=== PATIENT | male | born 1965 | race African-American/Black ===

== ENCOUNTER 2016-10-01 09:07 | Emergency (ER) | payer OTHER ==
--- NOTE | 2016-10-01 09:35 | ED EKG INTERP ---
EKG Interpretation - EKG Time of EKG reading by physician:: 09:12 EKG Read and Signed by:: Francisco Gray EKG Interpretation (*Must complete 3 of following elements*): Abnormal Rate: 83 (possible left atrial enlargement; left axis deviation; left ventricular hypertrophy; nonspecific T wave abnormality ) Rhythm: NSR Attestation - Scribe Verification/Attestation Scribe:: Jaida Palomares Acting as Scribe for:: Francisco Gray Scribe documention review:: This chart was documented by a scribe and accurately reflects the service the provider performed and the decisions made by the provider.
--- NOTE | 2016-10-01 09:45 | PROVIDER DOCUMENTATION ---
HPI-Chest Pain - General Chief Complaint: Chest Pain Stated Complaint: CP,DIZZINESS Time Seen by Provider: 10/01/16 09:23 Source: patient Allergies/Adverse Reactions: Patient Allergies Allergy/AdvReac Type Severity Reaction Status Date / Time No Known Allergies Allergy Verified 10/01/16 09:30 Home Medications: Glipizide [Glipizide Xl] 10 mg PO BID 01/01/16 Carvedilol [Coreg] 12.5 mg PO BID 04/27/16 Sitagliptin Phos/Metformin HCl [Janumet 50-1,000 mg Tablet] 50 - 100 mg PO DAILY 04/27/16 Furosemide [Lasix] 40 mg PO BID 08/15/16 - History of Present Illness-CP Nature of Presenting Problem: 51 y/o BM c/o RIVERA, CP, dizziness x 2 hours. States he is supposed to be sleeping with a CPAP, but has not gone to pick it up yet. States CP is midsternal and started this morning while he was on his way to the bathroom. Denies any radiation. States RIVERA is global and started when he woke up. Denies any N/V, vision changes. States dizziness with standing. He has been taking medications as directed. Was seen by PCP on Tuesday and has another appt on Tuesday. Review of Systems - Adult - REVIEW OF SYSTEMS - ADULT Constitutional: reports: no symptoms reported. denies: chills, fever Eyes: reports: no symptoms reported. denies: blurred vision, double vision Ears, Nose, Mouth & Throat: reports: no symptoms reported. denies: ear pain, sinus problem, nose pain, throat pain Cardiovascular: reports: see HPI, chest pain. denies: palpitations Respiratory: reports: no symptoms reported. denies: cough, dyspnea on exertion , shortness of breath, wheezing Gastrointestinal: reports: no symptoms reported. denies: abdominal pain, nausea , vomiting Genitourinary: reports: no symptoms reported. denies: dysuria, frequency Musculoskeletal: reports: no symptoms reported. denies: joint pain, joint swelling Integumentary: reports: no symptoms reported. denies: nail changes, rash Neurological: reports: see HPI, dizziness/vertigo. denies: numbness, paresthesia, syncope Psychiatric: reports: no symptoms reported Endocrine: reports: no symptoms reported. denies: cold intolerance, heat intolerance Hematologic/Lymphatic: reports: no symptoms reported. denies: easy bruising, prolonged bleeding Allergic/Immunologic: reports: no symptoms reported All Other Systems: Reviewed and Negative Past History - Adult - PAST MEDICAL HISTORY-ADULT Review of Records: reports: Nursing Assessment Review, Medications Reviewed Major Childhood Illnesses: reports: denies history Cardiovascular: reports: CHF, HTN, hyperlipidemia Respiratory: reports: asthma Gastrointestinal: reports: denies history Obstetrical/Gynecological: reports: denies history Genitourinary: reports: denies history Musculoskeletal: reports: denies history Neurological: reports: denies history Endocrine/Immune: reports: Diabetes Other Conditions: reports: denies history - PRIOR SURGERIES/PROCEDURES Surgical/Procedure History: reports: cardiac stent, orthopedic (extremity) ( right ankle) - IMMUNIZATION STATUS Childhood Immunizations: See Nurse Assessment Flu Vaccine: See Nurse Assessment - FAMILY HISTORY Family History: diabetes - SOCIAL HISTORY Smoking: quit less than 1 year Physical Exam-General - PHYSICAL EXAM-ADULT Initial Vital Signs Reviewed: Yes - CONSTITUTIONAL General Appearance: alert, mild distress - EYES Eyes: PERRL/EOMI, pink conjunctivae. negative: EOM palsy - HEAD, EARS, NOSE, MOUTH & THROAT HENMT: normocephalic/atraumatic, moist mucous membranes. negative: hearing deficit, frontal tenderness, maxillary tenderness - NECK Neck: supple, normal inspection. negative: lymphadenopathy - RESPIRATORY Respiratory: chest non-tender, lungs clear, normal breath sounds. negative: crackles, rales, rhonchi, stridor, wheezing - CARDIOVASCULAR Cardiovascular: regular rate, rhythm. negative: bradycardia, tachycardia - GASTROINTESTINAL (ABDOMEN) Abdominal Exam: normal bowel sounds, non tender, soft. negative: distended, guarding, rigid, rebound - MUSCULOSKELETAL Extremity: normal gait. 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 negative: aphasia - PSYCHIATRIC Psych/Mental Status: normal mood/affect, normal thought content, normal thought process, oriented x 3 Progress - PLAN OF CARE/RESULTS Progress/Plan/Lab Results: Laboratory Tests 10/01/16 10/01/16 10/01/16 09:37 09:37 09:37 WBC 4.80 RBC 5.58 Hgb 15.2 Hct 47.1 MCV 84.4 MCH 27.2 MCHC 32.3 L RDW Std Deviation 12.8 Plt Count 168 MPV 12.0 H Immature Gran % (Auto) 0.0 Neut % (Auto) 45.2 Lymph % (Auto) 39.2 Morrison % (Auto) 12.1 H Eos % (Auto) 2.9 Baso % (Auto) 0.6 Immature Gran # (Auto) 0.00 Neut # (Auto) 2.17 Lymph # (Auto) 1.88 Morrison # (Auto) 0.58 Eos # (Auto) 0.14 Baso # (Auto) 0.03 PT INR PTT (Actin FS) D-Dimer 0.81 H Sodium 132 L Potassium 4.7 Chloride 95 L Carbon Dioxide 28 Anion Gap 9 BUN 18 Creatinine 0.9 Estimated GFR/1.73 m2 > 60 BUN/Creatinine Ratio 20 Glucose 305 H Calculated Osmolality 278 Calcium 9.3 Magnesium 1.3 L Total Bilirubin 0.41 AST 20 ALT 23 Alkaline Phosphatase 78 Creatine Kinase 101 Troponin T Qlf-H-Jjiyzgtjtgb Pept Total Protein 6.7 Albumin 3.0 L Globulin 3.7 Albumin/Globulin Ratio 0.8 10/01/16 10/01/16 10/01/16 09:37 09:37 09:37 WBC RBC Hgb Hct MCV MCH MCHC RDW Std Deviation Plt Count MPV Immature Gran % (Auto) Neut % (Auto) Lymph % (Auto) Morrison % (Auto) Eos % (Auto) Baso % (Auto) Immature Gran # (Auto) Neut # (Auto) Lymph # (Auto) Morrison # (Auto) Eos # (Auto) Baso # (Auto) PT 10.7 INR 1.01 PTT (Actin FS) 24.0 D-Dimer Sodium Potassium Chloride Carbon Dioxide Anion Gap BUN Creatinine Estimated GFR/1.73 m2 BUN/Creatinine Ratio Glucose Calculated Osmolality Calcium Magnesium Total Bilirubin AST ALT Alkaline Phosphatase Creatine Kinase Troponin T 0.023 Klt-D-Hldggzlbwez Pept 368 H Total Protein Albumin Globulin Albumin/Globulin Ratio 10/01/16 10/01/16 11:27 11:27 WBC RBC Hgb Hct MCV MCH MCHC RDW Std Deviation Plt Count MPV Immature Gran % (Auto) Neut % (Auto) Lymph % (Auto) Morrison % (Auto) Eos % (Auto) Baso % (Auto) Immature Gran # (Auto) Neut # (Auto) Lymph # (Auto) Morrison # (Auto) Eos # (Auto) Baso # (Auto) PT INR PTT (Actin FS) D-Dimer Sodium Potassium Chloride Carbon Dioxide Anion Gap BUN Creatinine Estimated GFR/1.73 m2 BUN/Creatinine Ratio Glucose Calculated Osmolality Calcium Magnesium Total Bilirubin AST ALT Alkaline Phosphatase Creatine Kinase 105 Troponin T 0.014 Wli-Y-Wlqkjxmfagi Pept Total Protein Albumin Globulin Albumin/Globulin Ratio Orders Category Date Time Status Cardiac Monitoring DIRECTED Care 10/01/16 09:28 Active CHEST-2 VIEWS [RAD] Stat Exams 10/01/16 09:28 Completed CBC WITH ELECTRONIC DIFF [HEME] Stat Lab 10/01/16 09:37 Completed CK PROFILE [SP CHEM] Stat Lab 10/01/16 09:37 Completed CK PROFILE [SP CHEM] Stat Lab 10/01/16 11:27 Completed COMPREHENSIVE METABOLIC PANEL [CHEM] Stat Lab 10/01/16 09:37 Completed D-DIMER [CHEM] Stat Lab 10/01/16 09:37 Completed MAGNESIUM [CHEM] Stat Lab 10/01/16 09:37 Completed PRO B-NATRIURETIC PEPTIDE Stat Lab 10/01/16 09:37 Completed PROTIME WITH INR [COAG] Stat Lab 10/01/16 09:37 Completed PTT [COAG] Stat Lab 10/01/16 09:37 Completed TROPONIN T Stat Lab 10/01/16 09:37 Completed TROPONIN T Stat Lab 10/01/16 11:27 Completed Acetaminophen [Tylenol] Med 10/01/16 10:45 Discontinued 1,000 mg PO NOW ONE Insulin Human Regular [Humulin R] Med 10/01/16 11:14 Discontinued 8 unit SUBQ NOW ONE Ondansetron Odt [Zofran Odt] Med 10/01/16 10:45 Discontinued 4 mg PO NOW ONE EKG [EKG] Stat Ther 10/01/16 11:15 Ordered Vital Signs Temp Pulse Resp BP Pulse Ox 10/01/16 12:14 85 20 98 10/01/16 09:09 98.4 F 83 18 129/90 97 No Known Allergies Allergy (Verified 10/01/16 09:30) Glipizide [Glipizide Xl] 10 mg PO BID 01/01/16 Carvedilol [Coreg] 12.5 mg PO BID 04/27/16 Sitagliptin Phos/Metformin HCl [Janumet 50-1,000 mg Tablet] 50 - 100 mg PO DAILY 04/27/16 Furosemide [Lasix] 40 mg PO BID 08/15/16 LISINOpril [Prinivil] 10 mg PO DAILY #30 tablet 08/19/16 Spironolactone [Aldactone] 25 mg PO DAILY #30 tablet 08/19/16 Sitagliptin Phos/Metformin HCl [Janumet 50-1,000 mg Tablet] 1 each PO DAILY #30 tablet 08/28/16 Laboratory 10/01/16 10/01/16 10/01/16 11:27 11:27 09:37 WBC RBC Hgb Hct MCV MCH MCHC RDW Std Deviation Plt Count MPV Immature Gran % (Auto) Neut % (Auto) Lymph % (Auto) Morrison % (Auto) Eos % (Auto) Baso % (Auto) Immature Gran # (Auto) Neut # (Auto) Lymph # (Auto) Morrison # (Auto) Eos # (Auto) Baso # (Auto) PT INR PTT (Actin FS) D-Dimer Sodium Potassium Chloride Carbon Dioxide Anion Gap BUN Creatinine Estimated GFR/1.73 m2 BUN/Creatinine Ratio Glucose Calculated Osmolality Calcium Magnesium Total Bilirubin AST ALT Alkaline Phosphatase Creatine Kinase 105 Troponin T 0.014 0.023 Lnq-K-Etjdzmnmegd Pept Total Protein Albumin Globulin Albumin/Globulin Ratio 10/01/16 10/01/16 10/01/16 09:37 09:37 09:37 WBC RBC Hgb Hct MCV MCH MCHC RDW Std Deviation Plt Count MPV Immature Gran % (Auto) Neut % (Auto) Lymph % (Auto) Morrison % (Auto) Eos % (Auto) Baso % (Auto) Immature Gran # (Auto) Neut # (Auto) Lymph # (Auto) Morrison # (Auto) Eos # (Auto) Baso # (Auto) PT 10.7 INR 1.01 PTT (Actin FS) 24.0 D-Dimer 0.81 H Sodium Potassium Chloride Carbon Dioxide Anion Gap BUN Creatinine Estimated GFR/1.73 m2 BUN/Creatinine Ratio Glucose Calculated Osmolality Calcium Magnesium Total Bilirubin AST ALT Alkaline Phosphatase Creatine Kinase Troponin T Lbu-M-Hqlhwyjyewj Pept 368 H Total Protein Albumin Globulin Albumin/Globulin Ratio 10/01/16 10/01/16 09:37 09:37 WBC 4.80 RBC 5.58 Hgb 15.2 Hct 47.1 MCV 84.4 MCH 27.2 MCHC 32.3 L RDW Std Deviation 12.8 Plt Count 168 MPV 12.0 H Immature Gran % (Auto) 0.0 Neut % (Auto) 45.2 Lymph % (Auto) 39.2 Morrison % (Auto) 12.1 H Eos % (Auto) 2.9 Baso % (Auto) 0.6 Immature Gran # (Auto) 0.00 Neut # (Auto) 2.17 Lymph # (Auto) 1.88 Morrison # (Auto) 0.58 Eos # (Auto) 0.14 Baso # (Auto) 0.03 PT INR PTT (Actin FS) D-Dimer Sodium 132 L Potassium 4.7 Chloride 95 L Carbon Dioxide 28 Anion Gap 9 BUN 18 Creatinine 0.9 Estimated GFR/1.73 m2 > 60 BUN/Creatinine Ratio 20 Glucose 305 H Calculated Osmolality 278 Calcium 9.3 Magnesium 1.3 L Total Bilirubin 0.41 AST 20 ALT 23 Alkaline Phosphatase 78 Creatine Kinase 101 Troponin T Qgs-E-Cqnenagayrc Pept Total Protein 6.7 Albumin 3.0 L Globulin 3.7 Albumin/Globulin Ratio 0.[address] Gray; she agreed with d/c plan after reviewing labs and CXR. Discussed f/u and importance of getting CPAP machine with pt. - XRAY 1 XRAY Study: Chest Impression: See EMR Report (cmg, per Dr. Tavarez) Comparison with other Films: no changes Departure - Departure Time of Disposition Order: 13:04 DIAGNOSIS: Cardiomegaly, Hyperglycemia CHF (congestive heart failure) Qualifiers: Congestive heart failure type: unspecified congestive heart failure type Congestive heart failure chronicity: unspecified congestive heart failure chronicity Qualified Code(s): I50.9 - Heart failure, unspecified Chest pain Qualifiers: Chest pain type: unspecified Qualified Code(s): R07.9 - Chest pain, unspecified Headache Qualifiers: Headache type: unspecified Headache chronicity pattern: acute headache Intractability: not intractable Qualified Code(s): R51 - Headache Disposition: HOME 01 Certified Medical Emergency: Emergent Condition: Stable Additional Instructions: Follow up with PCP and specialist for further management. Continue taking medications as directed. ED Follow Up Instructions: You have been treated by a care provider in the Emergency Department. These instructions are being provided to you so you can have an understanding of how to care for yourself upon discharge. Upon discharge from the Emergency Department, you are responsible for making arrangements for follow-up care by a physician of your choice. Take all prescribed medications as directed. Return to the Emergency Department immediately for any new or worsening symptoms. You may call the Physician Referral phone number at [phone] to obtain a list of Physicians who are taking new patients. Referrals: [Primary Care Provider] - Misael Flowers MD [STAFF PHYSICIAN] - Instructions: Migraine Headache, Ujgx-yz-Kaag Attestation - Physician/ Mid-level Attestation Patient care was provided by Mid-level provider (CIRCULATION CLERK/PA):: Yes Mid-level provider:: Cynthia Zhang Mid-level documentation review:: The Mid-level provider documentation, treatment plan and medical decision making was reviewed by the physician who agrees with all treatment and medical decision making by the MLP.
[2016-10-01 09:48] LABS: MANUAL DIFF NEEDED? NO
[2016-10-01 09:53] LABS: BASO% 0.6 % (0.0-0.8); EOS# 0.14 X1000 (0.0-0.7); EOS% 2.9 % (0.0-10.0); HEMATOCRIT 47.1 % (42.0-52.0); HEMOGLOBIN 15.2 g/dL (14.0-18.0); LYMPH# 1.88 X1000 (1.2-3.4); LYMPH% 39.2 % (20.5-51.1); MCH 27.2 PG (27-31); MCHC 32.3 g/dL (33-37); MCV 84.4 FL (81-99); MONO# 0.58 X1000 (0.11-0.59); MONO% 12.1 % (1.7-9.3); NEUT% 45.2 % (42.2-75.2); PLT 168 X1000 (130-400); RBC 5.58 XMIL (4.7-6.1)
[2016-10-01 10:12] LABS: AGAP 9; ALKALINE PHOSPHATASE 78 U/L (32-122); BUN 18 mg/dL (8-22); CALCIUM 9.3 mg/dL (8.8-10.2); CHLORIDE 95 mmol/L (98-107); CK PROFILE 101 U/L (24-204); COSMO 278; GOT 20 U/L (10-34); GPT 23 U/L (10-44); MAGNESIUM 1.3 mg/dL (1.5-2.7); POTASSIUM 4.7 mmol/L (3.5-5.1); SODIUM 132 mmol/L (136-145); TCO2 28 mmol/L (25-35); TOTAL BILIRUBIN 0.41 mg/dL (0.20-1.00); TOTAL PROTEIN 6.7 g/dL (6.3-8.3)
[2016-10-01 10:17] LABS: INR 1.01; PROTIME 10.7 Seconds (9.2-11.7)
[2016-10-01] MEDS ORDERED: ZOFRAN ODT PO ONE (10:45)
[2016-10-01] MEDS ORDERED: TYLENOL PO ONE (10:45)
--- NOTE | 2016-10-01 10:52 | Diag Imaging Result Document ---
PROCEDURE NAME: CHEST-2 VIEWS - 10/01/2016 TWO VIEWS OF THE CHEST: FINDINGS: There is cardiomegaly. The lungs appear to be clear and unchanged since 09/25/2016. IMPRESSION: Cardiomegaly.
[2016-10-01] MEDS ORDERED: HUMULIN R SUBQ ONE (11:14)
[2016-10-01 13:20] VITALS: BP 120/88
--- NOTE | 2016-10-01 13:26 | EKG Report ---
Test Performed on : 10/01/2016 11:36:36 AM Test Reason : CP Blood Pressure : / mmHG Vent. Rate : 085 BPM Atrial Rate : 085 BPM P-R Int : 192 ms QRS Dur : 096 ms QT Int : 392 ms P-R-T Axes : 042 -44 140 degrees QTc Int : 466 ms Normal sinus rhythm. Possible Left atrial enlargement Left axis deviation T wave abnormality, consider inferolateral ischemia Abnormal ECG When compared with ECG of 01-OCT-2016 09:12, (Unconfirmed) T wave inversion now evident in Inferior leads Unconfirmed Result
== END 2016-10-01 13:20 | disposition home or self-care (01) ==
LOC: ED 09:07
DX: I50.9 Heart failure, unspecified (principal); I51.7 Cardiomegaly; E11.65 Type 2 diabetes mellitus with hyperglycemia; R07.9 Chest pain, unspecified; R51 Headache; I10 Essential (primary) hypertension; E78.5 Hyperlipidemia, unspecified; R42 Dizziness and giddiness; Z79.899 Other long term (current) drug therapy; Z87.891 Personal history of nicotine dependence; Z95.5 Presence of coronary angioplasty implant and graft; Z83.3 Family history of diabetes mellitus
CPT/HCPCS: 71020; 80053; 82550; 82948; 83735; 83880; 84484; 85025; 85379; 85610; 85730; 93005; 99283

== ENCOUNTER 2016-10-05 12:19 | Emergency (ER) | payer OTHER ==
[2016-10-05 14:24] VITALS: BP 119/90
--- NOTE | 2016-10-05 14:50 | PROVIDER DOCUMENTATION ---
HPI-General Adult - General Source: patient - History of Present Illness -Gen Adult Nature of Presenting Problems: Reports was at pharmacy checked his BS and it was over 300 Reports could not afford his insulin states came to ER and as he was walking over here the cold got his arthrits hurting. Quality of Pain: reports: aching Severity: reports: mild Onset/Duration: reports: just prior to arrival Timing: reports: still present Similar Symptoms Previously?: Yes Recently seen or treated by another doctor?: No - Diabetes Related Context Context: reports: high blood sugar <Leandro Crooks - Last Filed: 10/05/16 14:44> <Leoncio Burrows - Last Filed: 10/05/16 15:12> - General Chief Complaint: General Adult Stated Complaint: ELEVATED BLOOD SUGAR Time Seen by Provider: 10/05/16 14:27 Allergies/Adverse Reactions: Patient Allergies Allergy/AdvReac Type Severity Reaction Status Date / Time No Known Allergies Allergy Verified 10/05/16 14:39 Home Medications: Glipizide [Glipizide Xl] 10 mg PO BID 01/01/16 Carvedilol [Coreg] 12.5 mg PO BID 04/27/16 Sitagliptin Phos/Metformin HCl [Janumet 50-1,000 mg Tablet] 50 - 100 mg PO DAILY 04/27/16 Furosemide [Lasix] 40 mg PO BID 08/15/16 Review of Systems - Adult - REVIEW OF SYSTEMS - ADULT Constitutional: reports: other (hyperglycemia). denies: chills, fever, fatique Eyes: reports: no symptoms reported Ears, Nose, Mouth & Throat: reports: no symptoms reported Cardiovascular: denies: chest pain, irregular heart rate, orthopnea Respiratory: reports: no symptoms reported Gastrointestinal: reports: no symptoms reported Genitourinary: reports: no symptoms reported Musculoskeletal: reports: see HPI, joint pain. denies: frequent leg cramps, joint swelling, muscle weakness, neck pain Integumentary: reports: no symptoms reported Neurological: reports: no symptoms reported Psychiatric: reports: no symptoms reported Endocrine: reports: no symptoms reported Hematologic/Lymphatic: reports: no symptoms reported Allergic/Immunologic: reports: no symptoms reported All Other Systems: Reviewed and Negative <Leandro Crooks - Last Filed: 10/05/16 14:44> Past History - Adult - PAST MEDICAL HISTORY-ADULT Review of Records: reports: Nursing Assessment Review, Medications Reviewed Major Childhood Illnesses: reports: denies history Cardiovascular: reports: CHF, HTN, hyperlipidemia Respiratory: reports: asthma Gastrointestinal: reports: denies history Obstetrical/Gynecological: reports: denies history Genitourinary: reports: denies history Musculoskeletal: reports: denies history Neurological: reports: denies history Endocrine/Immune: reports: Diabetes Other Conditions: reports: denies history - PRIOR SURGERIES/PROCEDURES Surgical/Procedure History: reports: cardiac stent, orthopedic (extremity) ( right ankle) - IMMUNIZATION STATUS Childhood Immunizations: See Nurse Assessment Flu Vaccine: See Nurse Assessment - FAMILY HISTORY Family History: diabetes - SOCIAL HISTORY Smoking: quit less than 1 year Substance Use: marijuana <Leandro Crooks - Last Filed: 10/05/16 14:44> Physical Exam-General - PHYSICAL EXAM-ADULT Initial Vital Signs Reviewed: Yes - CONSTITUTIONAL General Appearance: appears well, alert, no apparent distress - EYES Eyes: PERRL/EOMI, pink conjunctivae - HEAD, EARS, NOSE, MOUTH & THROAT HENMT: normocephalic/atraumatic, moist mucous membranes, normal ENT inspection - NECK Neck: non-tender, full range of motion, normal inspection - RESPIRATORY Respiratory: chest non-tender, lungs clear, normal breath sounds - CARDIOVASCULAR Cardiovascular: normal peripheral pulses, regular rate, rhythm, no edema - GASTROINTESTINAL (ABDOMEN) Abdominal Exam: normal bowel sounds, non tender, soft - LYMPHATIC Lymphatic: no adenopathy - MUSCULOSKELETAL Back Exam: normal inspection, no CVA tenderness, no vertebral tenderness Extremity: normal range of motion, non-tender, normal gait - SKIN Integumentary: normal color, normal turgor, warm/dry - NEUROLOGIC Neurologic: grossly normal, no motor/sensory deficits - PSYCHIATRIC Psych/Mental Status: normal mood/affect, normal thought content, normal thought process, oriented x 3 <Leandro Crooks - Last Filed: 10/05/16 14:44> Progress - PLAN OF CARE/RESULTS Progress/Plan/Lab Results: Orders Category Date Time Status FSBS/Accucheck Result NOW Care 10/05/16 14:28 Active Vital Signs - 24 hr 10/05/16 14:20 Temperature 97.6 F Pulse Rate 87 Respiratory 16 Rate Blood Pressure 119/90 O2 Sat by Pulse 99 Oximetry <Leandro Crooks - Last Filed: 10/05/16 14:44> - PLAN OF CARE/RESULTS Progress/Plan/Lab Results: Orders Category Date Time Status FSBS/Accucheck Result NOW Care 10/05/16 14:28 Active Vital Signs Temp Pulse Resp BP Pulse Ox 10/05/16 14:20 97.6 F 87 16 119/90 99 No Known Allergies Allergy (Verified 10/05/16 14:39) Glipizide [Glipizide Xl] 10 mg PO BID 01/01/16 Carvedilol [Coreg] 12.5 mg PO BID 04/27/16 Sitagliptin Phos/Metformin HCl [Janumet 50-1,000 mg Tablet] 50 - 100 mg PO DAILY 04/27/16 Furosemide [Lasix] 40 mg PO BID 08/15/16 LISINOpril [Prinivil] 10 mg PO DAILY #30 tablet 08/19/16 Spironolactone [Aldactone] 25 mg PO DAILY #30 tablet 08/19/16 Sitagliptin Phos/Metformin HCl [Janumet 50-1,000 mg Tablet] 1 each PO DAILY #30 tablet 08/28/16 Glucose is 230. Worked c case management to get pt his medication for free. He will go over today and get his prescriptions. <Leoncio Burrows - Last Filed: 10/05/16 15:12> Departure - Departure Time of Disposition Order: 14:49 Certified Medical Emergency: Emergent <CrooksLeandro - Last Filed: 10/05/16 14:44> - Departure Time of Disposition Order: 15:12 Certified Medical Emergency: Urgent <Leoncio Burrows - Last Filed: 10/05/16 15:12> - Departure DIAGNOSIS: Hyperglycemia, Arthritis Disposition: HOME 01 Condition: Stable Additional Instructions: Get your prescriptions filled. Follow up with your primary care provider. ED Follow Up Instructions: You have been treated by a care provider in the Emergency Department. These instructions are being provided to you so you can have an understanding of how to care for yourself upon discharge. Upon discharge from the Emergency Department, you are responsible for making arrangements for follow-up care by a physician of your choice. Take all prescribed medications as directed. Return to the Emergency Department immediately for any new or worsening symptoms. You may call the Physician Referral phone number at [phone] to obtain a list of Physicians who are taking new patients. Referrals: [Primary Care Provider] - Attestation - Scribe Verification/Attestation Scribe:: Leandro Crooks Acting as Scribe for:: Leoncio Burrows Scribe documention review:: This chart was documented by a scribe and accurately reflects the service the provider performed and the decisions made by the provider. <Leandro Crooks - Last Filed: 10/05/16 14:44> - Physician/ Mid-level Attestation Patient care was provided by Mid-level provider (SUPERVISOR FLOOR ASSEMBLY/PA):: Yes Mid-level provider:: Leoncio Burrows Mid-level documentation review:: The Mid-level provider documentation, treatment plan and medical decision making was reviewed by the physician who agrees with all treatment and medical decision making by the MLP. <Leoncio Burrows - Last Filed: 10/05/16 15:12> Physician Attestation
[2016-10-05] MEDS ORDERED: TORADOL IM ONE (15:12)
== END 2016-10-05 15:21 | disposition home or self-care (01) ==
LOC: ED 12:19
DX: E11.65 Type 2 diabetes mellitus with hyperglycemia (principal); M19.90 Unspecified osteoarthritis, unspecified site; I50.9 Heart failure, unspecified; I10 Essential (primary) hypertension; E78.5 Hyperlipidemia, unspecified; Z95.1 Presence of aortocoronary bypass graft; Z79.899 Other long term (current) drug therapy; Z83.3 Family history of diabetes mellitus
CPT/HCPCS: 82948; 96372; J1885

== ENCOUNTER 2016-12-06 14:34 | Emergency (ER) | payer OTHER ==
[2016-12-06 14:43] VITALS: BP 153/94
[2016-12-06] MEDS ORDERED: ASPIRIN PO STA (14:46)
[2016-12-06] MEDS ORDERED: NITROGLYCERIN SL PRN (14:46)
--- NOTE | 2016-12-06 14:57 | ED EKG INTERP ---
EKG Interpretation - EKG Time of EKG reading by physician:: 14:45 EKG Read and Signed by:: Jeronimo Almaraz EKG Interpretation (*Must complete 3 of following elements*): Abnormal Rate: 91 Rhythm: Sinus Rhythm with occasional PVCs [place]: left QRS: LV[facility] ST Wave: non-specific ST changes Attestation - Scribe Verification/Attestation Scribe:: Luis Fernando Calhoun Acting as Scribe for:: Jeronimo Almaraz Scribe documention review:: This chart was documented by a scribe and accurately reflects the service the provider performed and the decisions made by the provider. Physician Attestation - Physician Attestation I, the provider, attest to the following statement:: Jeronimo Almaraz Physician documentation Attestation:: This documentation recorded by the scribe accurately reflects the service I personally performed and the decisions made by me.
[2016-12-06 15:14] LABS: MANUAL DIFF NEEDED? NO
[2016-12-06 15:19] LABS: BASO% 0.5 % (0.0-0.8); EOS# 0.19 X1000 (0.0-0.7); EOS% 3.4 % (0.0-10.0); HEMATOCRIT 44.1 % (42.0-52.0); LYMPH# 2.13 X1000 (1.2-3.4); LYMPH% 37.8 % (20.5-51.1); MCH 27.5 PG (27-31); MCHC 31.7 g/dL (33-37); MCV 86.5 FL (81-99); MONO# 0.69 X1000 (0.11-0.59); MONO% 12.3 % (1.7-9.3); MPV 11.8 FL (7.4-10.4); PLT 174 X1000 (130-400)
[2016-12-06 15:38] LABS: AGAP 10; ALKALINE PHOSPHATASE 77 U/L (32-122); BUN 20 mg/dL (8-22); CALCIUM 9.2 mg/dL (8.8-10.2); CHLORIDE 94 mmol/L (98-107); CK PROFILE 152 U/L (24-204); COSMO 280; GOT 19 U/L (10-34); GPT 19 U/L (10-44); MAGNESIUM 1.5 mg/dL (1.5-2.7); POTASSIUM 4.3 mmol/L (3.5-5.1); SODIUM 132 mmol/L (136-145); TCO2 28 mmol/L (25-35); TOTAL BILIRUBIN 0.35 mg/dL (0.20-1.00); TOTAL PROTEIN 6.5 g/dL (6.3-8.3)
[2016-12-06] MEDS ORDERED: NS 1,000 ML IV ONE (15:45)
[2016-12-06 15:46] LABS: INR 0.97; PROTIME 9.9 Seconds (9.2-11.7); PTT 22.1 Seconds (22.0-36.0)
[2016-12-06] MEDS ORDERED: HUMULIN R IV ONE (15:46)
--- NOTE | 2016-12-06 15:55 | PROVIDER DOCUMENTATION ---
HPI-Chest Pain - General Chief Complaint: Chest Pain Stated Complaint: CP,RUNNING NOSE,CANT BREATHE Time Seen by Provider: 12/06/16 15:42 Source: patient Allergies/Adverse Reactions: Patient Allergies Allergy/AdvReac Type Severity Reaction Status Date / Time No Known Allergies Allergy Verified 12/06/16 14:44 Home Medications: Home Medication List Medication Instructions Recorded Confirmed Last Taken Type Glipizide [Glipizide Xl] 10 mg PO BID 01/01/16 12/06/16 12/06/16 History Carvedilol [Coreg] 12.5 mg PO BID 04/27/16 12/06/16 12/06/16 History Sitagliptin Phos/Metformin HCl 50 - 100 mg PO DAILY 04/27/16 12/06/16 12/06/16 History [Janumet 50-1,000 mg Tablet] Furosemide [Lasix] 40 mg PO BID 08/15/16 12/06/16 12/06/16 History LISINOpril [Prinivil] 10 mg PO DAILY #30 tablet 08/19/16 12/06/16 12/06/16 Rx Spironolactone [Aldactone] 25 mg PO DAILY #30 tablet 08/19/16 12/06/16 12/06/16 Rx ATORVAstatin [Lipitor] 40 mg PO DAILY 10/14/16 12/06/16 12/06/16 History Losartan Potassium 50 mg PO DAILY 10/14/16 12/06/16 12/06/16 History Fluticasone 50 Mcg Nasal [place] 1 spray SRIDEVI DAILY #1 bottle 11/09/16 12/06/16 08:00 Rx [Flonase] Acetaminophen/Diphenhydramine 1 each PO Q6-8H PRN PRN #30 tablet 11/12/1612/06/16 Rx [Percogesic 325-12.5 mg Tablet] - History of Present Illness-CP Nature of Presenting Problem: patient is a 51 y/o M that presents to the ER with left sided chest pain that radiates to right side that began this am. patient reports runny nose and body aches. denies shortness of breath or fever/chills. History of cad and many visits to the Er for chest pain Location: reports: other (left sided initially then right) Chest Pain Radiation: reports: no radiation Quality of Pain: reports: aching Severity in ED: mild Onset/Duration: gradual, this morning Timing: still present, constant Context/Activities at Onset: reports: none Modifying Factors: worse with: movement Associated Symptoms: denies: abdominal pain, back pain, dizziness, edema, fatigue, fever/chills, nausea, shortness of breath, vomiting Nitro Today/Relief: 0.4 mg x 1, provided by ED Aspirin Treatment Today: 325 mg x 1, provided by ED Prior Chest Pain/Cardiac Workup: reports: other (cad) Similar Symptoms Previously?: Yes Recently Seen Here or By Another Healthcare Provider: No Review of Systems - Adult - REVIEW OF SYSTEMS - ADULT Constitutional: denies: chills, fever Eyes: denies: decreased vision, blurred vision, double vision Ears, Nose, Mouth & Throat: reports: sinus problem. denies: ear pain, hearing loss, throat pain, throat swelling Cardiovascular: reports: chest pain. denies: palpitations, syncope Respiratory: denies: cough, shortness of breath, wheezing Gastrointestinal: denies: abdominal pain, diarrhea, nausea, vomiting Genitourinary: reports: no symptoms reported Musculoskeletal: reports: muscle aches. denies: muscle weakness Integumentary: reports: no symptoms reported Neurological: reports: no symptoms reported Psychiatric: reports: no symptoms reported Endocrine: reports: no symptoms reported Hematologic/Lymphatic: reports: no symptoms reported Allergic/Immunologic: reports: no symptoms reported All Other Systems: Reviewed and Negative Past History - Adult - PAST MEDICAL HISTORY-ADULT Review of Records: reports: Old Records Reviewed, Nursing Assessment Review, Medications Reviewed Cardiovascular: reports: cardiac disease, angina, arrhythmia, CAD, CHF, HTN, hyperlipidemia, [place] - PRIOR SURGERIES/PROCEDURES Surgical/Procedure History: reports: cardiac stent, orthopedic (extremity) ( right ankle) - IMMUNIZATION STATUS Childhood Immunizations: See Nurse Assessment Flu Vaccine: See Nurse Assessment - FAMILY HISTORY Family History: reviewed, not pertinent - SOCIAL HISTORY Smoking: quit greater than 1 year, cigarettes Living Situation: family Physical Exam-General - PHYSICAL EXAM-ADULT Exam Limited by: obesity - CONSTITUTIONAL General Appearance: alert, no apparent distress, obese - EYES Eyes: PERRL/EOMI, pink conjunctivae - HEAD, EARS, NOSE, MOUTH & THROAT HENMT: normocephalic/atraumatic, moist mucous membranes, normal ENT inspection - NECK Neck: full range of motion, normal inspection. negative: lymphadenopathy - RESPIRATORY Respiratory: chest non-tender, lungs clear, normal breath sounds, no respiratory distress, no accessory muscle use - CARDIOVASCULAR Cardiovascular: regular rate, rhythm, no edema, no murmur - GASTROINTESTINAL (ABDOMEN) Abdominal Exam: normal bowel sounds, non tender, soft, no organomegaly, no pulsatile mass - MUSCULOSKELETAL Back Exam: no CVA tenderness, no vertebral tenderness Extremity: normal range of motion, normal inspection, no pedal edema, normal capillary refill - SKIN Integumentary: normal color, warm/dry - NEUROLOGIC Neurologic: grossly normal, no motor/sensory deficits - PSYCHIATRIC Psych/Mental Status: normal mood/affect, normal thought content, normal thought process, oriented x 3 Progress - PLAN OF CARE/RESULTS Progress/Plan/Lab Results: plan of care-meds, cxr, ekg, labs 1630- at bedside, pt request admission due to no home, but then said he could stay with his mom Vital Signs Temp Pulse Resp BP Pulse Ox 12/06/16 14:39 98.4 F 94 H 20 153/94 99 No Known Allergies Allergy (Verified 12/06/16 14:44) Glipizide [Glipizide Xl] 10 mg PO BID 01/01/16 Carvedilol [Coreg] 12.5 mg PO BID 04/27/16 Sitagliptin Phos/Metformin HCl [Janumet 50-1,000 mg Tablet] 50 - 100 mg PO DAILY 04/27/16 Furosemide [Lasix] 40 mg PO BID 08/15/16 LISINOpril [Prinivil] 10 mg PO DAILY #30 tablet 08/19/16 Spironolactone [Aldactone] 25 mg PO DAILY #30 tablet 08/19/16 ATORVAstatin [Lipitor] 40 mg PO DAILY 10/14/16 Losartan Potassium 50 mg PO DAILY 10/14/16 Fluticasone 50 Mcg Nasal [place] [Flonase] 1 spray SRIDEVI DAILY #1 bottle 11/09/16 Acetaminophen/Diphenhydramine [Percogesic 325-12.5 mg Tablet] 1 each PO Q6-8H PRN PRN #30 tablet 11/12/16 Laboratory 12/06/16 12/06/16 12/06/16 16:09 14:55 14:55 WBC RBC Hgb Hct MCV MCH MCHC RDW Std Deviation Plt Count MPV Immature Gran % (Auto) Neut % (Auto) Lymph % (Auto) Tate % (Auto) Eos % (Auto) Baso % (Auto) Immature Gran # (Auto) Neut # (Auto) Lymph # (Auto) Tate # (Auto) Eos # (Auto) Baso # (Auto) PT 9.9 INR 0.97 PTT (Actin FS) 22.1 D-Dimer Sodium Potassium Chloride Carbon Dioxide Anion Gap BUN Creatinine Estimated GFR/1.73 m2 BUN/Creatinine Ratio Glucose Calculated Osmolality Calcium Magnesium Total Bilirubin AST ALT Alkaline Phosphatase Creatine Kinase Troponin T 0.018 0.027 [id number]-Z-Hgtnmkccpej Pept Total Protein Albumin Globulin Albumin/Globulin Ratio 12/06/16 12/06/16 12/06/16 14:55 14:55 14:55 WBC RBC Hgb Hct MCV MCH MCHC RDW Std Deviation Plt Count MPV Immature Gran % (Auto) Neut % (Auto) Lymph % (Auto) Tate % (Auto) Eos % (Auto) Baso % (Auto) Immature Gran # (Auto) Neut # (Auto) Lymph # (Auto) Tate # (Auto) Eos # (Auto) Baso # (Auto) PT INR PTT (Actin FS) D-Dimer 0.29 Sodium 132 L Potassium 4.3 Chloride 94 L Carbon Dioxide 28 Anion Gap 10 BUN 20 Creatinine 0.8 Estimated GFR/1.73 m2 > 60 BUN/Creatinine Ratio 25 Glucose 328 H Calculated Osmolality 280 Calcium 9.2 Magnesium 1.5 Total Bilirubin 0.35 AST 19 ALT 19 Alkaline Phosphatase 77 Creatine Kinase 152 Troponin T Aso-K-Cbgjofmemlz Pept 448 H Total Protein 6.5 Albumin 3.0 L Globulin 3.5 Albumin/Globulin Ratio 0.9 12/06/16 14:55 WBC 5.63 RBC 5.10 Hgb 14.0 Hct 44.1 MCV 86.5 MCH 27.5 MCHC 31.7 L RDW Std Deviation 13.3 Plt Count 174 MPV 11.8 H Immature Gran % (Auto) 0.0 Neut % (Auto) 46.0 Lymph % (Auto) 37.8 Tate % (Auto) 12.3 H Eos % (Auto) 3.4 Baso % (Auto) 0.5 Immature Gran # (Auto) 0.00 Neut # (Auto) 2.59 Lymph # (Auto) 2.13 Tate # (Auto) 0.69 H Eos # (Auto) 0.19 Baso # (Auto) 0.03 PT INR PTT (Actin FS) D-Dimer Sodium Potassium Chloride Carbon Dioxide Anion Gap BUN Creatinine Estimated GFR/1.73 m2 BUN/Creatinine Ratio Glucose Calculated Osmolality Calcium Magnesium Total Bilirubin AST ALT Alkaline Phosphatase Creatine Kinase Troponin T Dwt-M-Vzenihkyusk Pept Total Protein Albumin Globulin Albumin/Globulin Ratio Orders Category Date Time Status Cardiac Monitoring DIRECTED Care 12/06/16 14:47 Active FSBS/Accucheck Result ORDERED Care 12/06/16 16:04 Active Saline Loc NOW Care 12/06/16 14:47 Active CHEST-2 VIEWS [RAD] Stat Exams 12/06/16 14:47 Taken CBC WITH ELECTRONIC DIFF [HEME] Stat Lab 12/06/16 14:55 Completed CK PROFILE [SP CHEM] Stat Lab 12/06/16 14:55 Completed COMPREHENSIVE METABOLIC PANEL [CHEM] Stat Lab 12/06/16 14:55 Completed D-DIMER [CHEM] Stat Lab 12/06/16 14:55 Completed MAGNESIUM [CHEM] Stat Lab 12/06/16 14:55 Completed PRO B-NATRIURETIC PEPTIDE Stat Lab 12/06/16 14:55 Completed PROTIME WITH INR [COAG] Stat Lab 12/06/16 14:55 Completed PTT [COAG] Stat Lab 12/06/16 14:55 Completed TROPONIN T Stat Lab 12/06/16 14:55 Completed TROPONIN T Stat Lab 12/06/16 16:09 Completed 0.9% Sodium Chloride Inj [Ns] 1,000 ml Med 12/06/16 15:45 Discontinued IV 999 mls/hr 0.9% Sodium Chloride Inj [Ns] 99 ml Med 12/06/16 15:56 Discontinued Insulin Human Regular [Humulin R] 100 unit IV Per Protocol Aspirin Med 12/06/16 14:46 Discontinued 325 mg PO STAT STA Bupivacaine 0.5% [Marcaine 0.5%] Med 12/06/16 17:22 Discontinued 1 ml INJ NOW ONE Bupivacaine Pf 0.5% [Marcaine 0.5% Pf] Med 12/06/16 17:19 Discontinued 10 ml .ROUTE .STK-MED ONE Insulin Human Regular [Humulin R] Med 12/06/16 15:46 Discontinued 10 unit IV NOW ONE Insulin Humulin 70/30 [Humulin 70/30] Med 12/06/16 17:23 Discontinued 15 unit SUBQ NOW ONE Lidocaine 1%/Epi 1:100,000 [Xylocaine 1%/Epi 1:100,000] Med 12/06/16 17:22 Discontinued 1 ml INJ NOW ONE Lidocaine 1%/Epi 1:100,000 [Xylocaine 1%/Epi 1:100,000] Med 12/06/16 17:20 Discontinued 20 ml .ROUTE .STK-MED ONE Nitroglycerin Sl [Nitroglycerin] Med 12/06/16 14:46 Active 0.4 mg SL Q5M PRN PRN Triamcinolone [Kenalog-40] Med 12/06/16 17:18 Discontinued 40 mg .ROUTE .STK-MED ONE Triamcinolone [Kenalog-40] Med 12/06/16 17:21 Discontinued 40 mg IM NOW ONE EKG [EKG] Stat Ther 12/06/16 14:43 Ordered pt will be d/c home f/u with pcp, pt was clinically stable, understood instructions and results - REASSESSMENT Reassessment #1 Time Reassessed: 17:20 Status: improving Reassessment Comment: chest pain gone now blood sugar lower, complains of left shoulder pain - XRAY 1 XRAY Study: Chest Impression: Abnormal XRAY Interpretation: nad Procedures - ADDITIONAL PROCEDURES Additional Procedure: Injection of Bursa/Joint (left shoulder) Time-Out Verification Completed?: Yes Site Prep: Betadine Anesthetic: 1%, Bupivicaine/Marcaine Volume of Anesthetic (ml's): 1 Procedure Comment: Kenalog 40mg injected as well, pt tolerate procedure well Departure - Departure Time of Disposition Order: 17:25 DIAGNOSIS: Hyperglycemia, Tendonitis Disposition: HOME 01 Certified Medical Emergency: Emergent Condition: Stable Additional Instructions: use OTC naproxen take your meds ED Follow Up Instructions: You have been treated by a care provider in the Emergency Department. These instructions are being provided to you so you can have an understanding of how to care for yourself upon discharge. Upon discharge from the Emergency Department, you are responsible for making arrangements for follow-up care by a physician of your choice. Take all prescribed medications as directed. Return to the Emergency Department immediately for any new or worsening symptoms. You may call the Physician Referral phone number at [phone] to obtain a list of Physicians who are taking new patients. Referrals: [Primary Care Provider] - Instructions: Hyperglycemia, Tendinitis Attestation - Scribe Verification/Attestation Scribe:: Luis Fernando Calhoun Acting as Scribe for:: Tomás Rivers Scribe documention review:: This chart was documented by a scribe and accurately reflects the service the provider performed and the decisions made by the provider. Physician Attestation - Physician Attestation I, the provider, attest to the following statement:: Tomás Rivers Physician documentation Attestation:: This documentation recorded by the scribe accurately reflects the service I personally performed and the decisions made by me.
[2016-12-06] MEDS ORDERED: HUMULIN R 100 UNIT in NS 99 ML IV ONE (15:56)
[2016-12-06] MEDS ORDERED: KENALOG-40 ONE (17:18)
[2016-12-06] MEDS ORDERED: MARCAINE 0.5% PF ONE (17:19)
[2016-12-06] MEDS ORDERED: XYLOCAINE 1%/EPI 1:100,000 ONE (17:20)
[2016-12-06] MEDS ORDERED: KENALOG-40 IM ONE (17:21)
[2016-12-06] MEDS ORDERED: XYLOCAINE 1%/EPI 1:100,000 INJ ONE (17:22)
[2016-12-06] MEDS ORDERED: MARCAINE 0.5% INJ ONE (17:22)
[2016-12-06] MEDS ORDERED: HUMULIN 70/30 SUBQ ONE (17:23)
--- NOTE | 2016-12-06 18:34 | Diag Imaging Result Document ---
PROCEDURE NAME: CHEST-2 VIEWS - 12/06/2016 PA AND LATERAL CHEST: COMPARISON: 11/09/2016. FINDINGS: Similar to the previous study, the central vasculature appears slightly prominent suggesting mild pulmonary venous congestion. It is probably less severe than the previous study, however. The lungs are clear otherwise. There is no definite pleural fluid collection. Cardiac silhouette is borderline to mildly prominent similar to the previous study. IMPRESSION: Suggestion of mild pulmonary venous congestion.
== END 2016-12-06 19:16 | disposition home or self-care (01) ==
LOC: ED 14:34
DX: R73.9 Hyperglycemia, unspecified (principal); M77.9 Enthesopathy, unspecified; M25.512 Pain in left shoulder; I25.10 Atherosclerotic heart disease of native coronary artery without angina pectoris; I50.9 Heart failure, unspecified; I10 Essential (primary) hypertension; I25.2 Old myocardial infarction; E78.5 Hyperlipidemia, unspecified; Z79.899 Other long term (current) drug therapy; M79.1 Myalgia; R09.81 Nasal congestion; Z95.5 Presence of coronary angioplasty implant and graft; E66.9 Obesity, unspecified; Z87.891 Personal history of nicotine dependence; R94.31 Abnormal electrocardiogram [ECG] [EKG]; Z79.51 Long term (current) use of inhaled steroids
CPT/HCPCS: 36415; 71020; 80053; 82550; 82948; 83735; 83880; 84484; 85025; 85379; 85610; 85730; 93005; J3301; J7030; S0020

== ENCOUNTER 2016-12-13 20:03 | Emergency (ER) | payer OTHER ==
--- NOTE | 2016-12-13 20:27 | ED EKG INTERP ---
EKG Interpretation - EKG Time of EKG reading by physician:: 20:19 EKG Read and Signed by:: Jeronimo Almaraz EKG Interpretation (*Must complete 3 of following elements*): Abnormal Rate: 96 Rhythm: NSR [place]: left QRS: LVH Comments: Abnormal ECG Attestation - Scribe Verification/Attestation Scribe:: Elli Bonilla Acting as Scribe for:: Jeronimo Almaraz Scribe documention review:: This chart was documented by a scribe and accurately reflects the service the provider performed and the decisions made by the provider.
--- NOTE | 2016-12-13 21:01 | PROVIDER DOCUMENTATION ---
HPI-General Adult - General Chief Complaint: Headache Stated Complaint: DIZZY, RIVERA Time Seen by Provider: 12/13/16 20:32 Source: patient Allergies/Adverse Reactions: Patient Allergies Allergy/AdvReac Type Severity Reaction Status Date / Time No Known Allergies Allergy Verified 12/06/16 14:44 Home Medications: Home Medication List Medication Instructions Recorded Confirmed Last Taken Type Glipizide [Glipizide Xl] 10 mg PO BID 01/01/16 12/06/16 12/06/16 History Carvedilol [Coreg] 12.5 mg PO BID 04/27/16 12/06/16 12/06/16 History Sitagliptin Phos/Metformin HCl 50 - 100 mg PO DAILY 04/27/16 12/06/16 12/06/16 History [Janumet 50-1,000 mg Tablet] Furosemide [Lasix] 40 mg PO BID 08/15/16 12/06/16 12/06/16 History LISINOpril [Prinivil] 10 mg PO DAILY #30 tablet 08/19/16 12/06/16 12/06/16 Rx Spironolactone [Aldactone] 25 mg PO DAILY #30 tablet 08/19/16 12/06/16 12/06/16 Rx ATORVAstatin [Lipitor] 40 mg PO DAILY 10/14/16 12/06/16 12/06/16 History Losartan Potassium 50 mg PO DAILY 10/14/16 12/06/16 12/06/16 History Fluticasone 50 Mcg Nasal [place] 1 spray SRIDEVI DAILY #1 bottle 11/09/16 12/06/16 08:00 Rx [Flonase] Acetaminophen/Diphenhydramine 1 each PO Q6-8H PRN PRN #30 tablet 11/12/1612/06/16 Rx [Percogesic 325-12.5 mg Tablet] Hydrocodone/Acetaminophen [Brutus 1 each PO Q4-6H PRN PRN #20 tablet 12/14/16 Unknown Rx 10-325 Tablet] - History of Present Illness -Gen Adult Nature of Presenting Problems: 51 Y/O M presents to ED with Headache. Pt states that he is a diabetic who did not take his insulin today because there was a bubble in it. Pt states that he is not able to afford a Machine to check his glucose but states he has medicare , and medicaid. Pt also has HTN. Location of Pain/Injury: reports: head Pain Radiation: reports: no radiation Quality of Pain: reports: aching Severity: reports: moderate Onset/Duration: reports: this afternoon Timing: reports: still present Context/Activities at Onset: reports: none Modifying Factors: improves with: nothing Associated Symptoms: reports: headaches. denies: diaphoresis, diarrhea, fever/ chills - Diabetes Related Context Context: reports: high blood sugar Review of Systems - Adult - REVIEW OF SYSTEMS - ADULT Constitutional: denies: chills, fever Eyes: reports: no symptoms reported Ears, Nose, Mouth & Throat: reports: no symptoms reported Cardiovascular: reports: no symptoms reported Respiratory: reports: no symptoms reported Gastrointestinal: reports: no symptoms reported Genitourinary: reports: no symptoms reported Musculoskeletal: reports: no symptoms reported Integumentary: reports: no symptoms reported Neurological: reports: headache/migraines Psychiatric: reports: no symptoms reported Endocrine: reports: no symptoms reported Hematologic/Lymphatic: reports: no symptoms reported Allergic/Immunologic: reports: no symptoms reported All Other Systems: Reviewed and Negative Past History - Adult - PAST MEDICAL HISTORY-ADULT Review of Records: reports: Old Records Reviewed, Nursing Assessment Review, Medications Reviewed, Social history reviewed & non-contributory. Cardiovascular: reports: cardiac disease, angina, arrhythmia, CAD, CHF, HTN, hyperlipidemia, [place] - PRIOR SURGERIES/PROCEDURES Surgical/Procedure History: reports: cardiac stent, orthopedic (extremity) ( right ankle) - IMMUNIZATION STATUS Childhood Immunizations: See Nurse Assessment Flu Vaccine: See Nurse Assessment - FAMILY HISTORY Family History: reviewed, not pertinent - SOCIAL HISTORY Smoking: quit greater than 1 year Substance Use: none/never Alcohol Use Frequency: never Living Situation: family Physical Exam-General - PHYSICAL EXAM-ADULT Initial Vital Signs Reviewed: Yes - CONSTITUTIONAL General Appearance: alert, no apparent distress, obese. negative: appears well - EYES Eyes: PERRL/EOMI, pink conjunctivae, fundi clear, no AV nicking - HEAD, EARS, NOSE, MOUTH & THROAT HENMT: normocephalic/atraumatic, moist mucous membranes, normal ENT inspection, TMs normal, pharynx normal - NECK Neck: non-tender, full range of motion, supple, normal inspection - RESPIRATORY Respiratory: chest non-tender, lungs clear, normal breath sounds - CARDIOVASCULAR Cardiovascular: normal peripheral pulses, regular rate, rhythm - GASTROINTESTINAL (ABDOMEN) Abdominal Exam: normal bowel sounds, non tender, soft - LYMPHATIC Lymphatic: no adenopathy - MUSCULOSKELETAL Back Exam: normal inspection, no CVA tenderness, no vertebral tenderness Extremity: normal range of motion, non-tender, normal gait, other (stasis dermatitits) - SKIN Integumentary: normal color, normal turgor, warm/dry - PSYCHIATRIC Psych/Mental Status: normal mood/affect, normal thought content, normal thought process, oriented x 3 Progress - PLAN OF CARE/RESULTS Progress/Plan/Lab Results: Laboratory Tests 12/13/16 12/13/16 12/13/16 20:14 21:43 21:43 WBC 6.79 RBC 5.39 Hgb 14.8 Hct 46.2 MCV 85.7 MCH 27.5 MCHC 32.0 L RDW Std Deviation 13.1 Plt Count 194 MPV 11.6 H Immature Gran % (Auto) 0.0 Neut % (Auto) 55.9 Lymph % (Auto) 29.6 [place] % (Auto) 12.1 H Eos % (Auto) 2.1 Baso % (Auto) 0.3 Immature Gran # (Auto) 0.00 Neut # (Auto) 3.80 Lymph # (Auto) 2.01 [place] # (Auto) 0.82 H Eos # (Auto) 0.14 Baso # (Auto) 0.02 Sodium 136 Potassium 4.4 Chloride 94 L Carbon Dioxide 31 Anion Gap 11 BUN 14 Creatinine 0.9 Estimated GFR/1.73 m2 > 60 BUN/Creatinine Ratio 16 Glucose 342 H POC Glucose 360 H Calculated Osmolality 286 Calcium 9.2 Orders Category Date Time Status FSBS [Finger Stick Blood Sugar (ED)] DIRECTED Care 12/13/16 23:18 Active BMP [BASIC METABOLIC PANEL] [CHEM] Stat Lab 12/13/16 21:43 Completed CBC WITH ELECTRONIC DIFF [HEME] Stat Lab 12/13/16 21:43 Completed Hydrocodone/APAP 10 mg/325 mg [Brutus-10] Med 12/13/16 21:20 Discontinued 1 each PO NOW ONE Insulin Glargine [Lantus] Med 12/13/16 21:16 Discontinued 30 unit SUBQ NOW ONE Insulin Human Regular [Humulin R] Med 12/13/16 21:17 Discontinued 10 unit SUBQ NOW ONE EKG [EKG] Stat Ther 12/13/16 20:15 Ordered Vital Signs - 24 hr 12/13/16 12/13/16 20:09 23:03 Temperature 98.1 F Pulse Rate 92 H 86 Respiratory 20 18 Rate Blood Pressure 160/110 155/99 O2 Sat by Pulse 99 Oximetry Departure - Departure Time of Disposition Order: 00:18 DIAGNOSIS: Head ache Qualifiers: Headache type: unspecified Headache chronicity pattern: unspecified pattern Intractability: not intractable Qualified Code(s): R51 - Headache Diabetes mellitus Qualifiers: Diabetes mellitus type: type 2 Diabetes mellitus complication status: without complication Diabetes mellitus custodial insulin use: with exterminator termite use Qualified Code(s): E11.9 - Type 2 diabetes mellitus without complications; Z79.4 - FPC (current) use of insulin Disposition: HOME 01 Certified Medical Emergency: Emergent Condition: Good Additional Instructions: Call ssocial service at [facility] to enroll in Diabetic teaching Class Prescriptions: Hydrocodone/Acetaminophen [Brutus 10-325 Tablet] 1 each PO Q4-6H PRN PRN #20 tablet PRN Reason: Pain Referrals: [Primary Care Provider] - Instructions: Migraine Headache, [id number] Attestation - Scribe Verification/Attestation Scribe:: Elli Bonilla Acting as Scribe for:: Jeronimo Almaraz Scribe documention review:: This chart was documented by a scribe and accurately reflects the service the provider performed and the decisions made by the provider.
[2016-12-13] MEDS ORDERED: LANTUS SUBQ ONE (21:16)
[2016-12-13] MEDS ORDERED: HUMULIN R SUBQ ONE (21:17)
[2016-12-13] MEDS ORDERED: NORCO-10 PO ONE (21:20)
[2016-12-13 21:53] LABS: MANUAL DIFF NEEDED? NO
[2016-12-13 21:56] LABS: BASO% 0.3 % (0.0-0.8); EOS# 0.14 X1000 (0.0-0.7); EOS% 2.1 % (0.0-10.0); HEMATOCRIT 46.2 % (42.0-52.0); HEMOGLOBIN 14.8 g/dL (14.0-18.0); LYMPH# 2.01 X1000 (1.2-3.4); LYMPH% 29.6 % (20.5-51.1); MCH 27.5 PG (27-31); MCV 85.7 FL (81-99); MONO# 0.82 X1000 (0.11-0.59); MONO% 12.1 % (1.7-9.3); MPV 11.6 FL (7.4-10.4); NEUT% 55.9 % (42.2-75.2); PLT 194 X1000 (130-400); RBC 5.39 XMIL (4.7-6.1)
[2016-12-13 22:15] LABS: AGAP 11; BUN 14 mg/dL (8-22); CALCIUM 9.2 mg/dL (8.8-10.2); CHLORIDE 94 mmol/L (98-107); COSMO 286; POTASSIUM 4.4 mmol/L (3.5-5.1); SODIUM 136 mmol/L (136-145); TCO2 31 mmol/L (25-35)
[2016-12-14 00:43] VITALS: BP 165/104
--- NOTE | 2016-12-14 05:25 | EKG Report ---
Test Performed on : 12/13/2016 8:19:53 PM Test Reason : dizzy Blood Pressure : / mmHG Vent. Rate : 096 BPM Atrial Rate : 096 BPM P-R Int : 182 ms QRS Dur : 100 ms QT Int : 370 ms P-R-T Axes : 041 -42 071 degrees QTc Int : 467 ms Normal sinus rhythm. Possible Left atrial enlargement Left axis deviation Left ventricular hypertrophy Cannot rule out Septal infarct , age undetermined Abnormal ECG When compared with ECG of 09-NOV-2016 11:07, Minimal criteria for Septal infarct are now present Nonspecific T wave abnormality has replaced inverted T waves in Lateral leads Unconfirmed Result
== END 2016-12-14 01:19 | disposition home or self-care (01) ==
LOC: ED 20:03
DX: E11.9 Type 2 diabetes mellitus without complications (principal); R51 Headache; R42 Dizziness and giddiness; Z79.4 Long term (current) use of insulin; I25.10 Atherosclerotic heart disease of native coronary artery without angina pectoris; I50.9 Heart failure, unspecified; I10 Essential (primary) hypertension; E78.5 Hyperlipidemia, unspecified; Z87.891 Personal history of nicotine dependence; I25.2 Old myocardial infarction; Z95.5 Presence of coronary angioplasty implant and graft; Z79.899 Other long term (current) drug therapy; E66.9 Obesity, unspecified; I87.2 Venous insufficiency (chronic) (peripheral); R94.31 Abnormal electrocardiogram [ECG] [EKG]; Z79.52 Long term (current) use of systemic steroids
CPT/HCPCS: 36415; 80048; 82948; 85025; 93005; 99283

== ENCOUNTER 2017-03-07 09:58 | Observation (INO) ==
[2017-03-07] MEDS ORDERED: ASPIRIN PO STA (10:19)
--- NOTE | 2017-03-07 10:46 | Diag Imaging Result Doc PS360 ---
EXAM: CHEST-2 VIEWS HISTORY: CP TECHNIQUE: PA and lateral COMMENT: The appearance of the chest has not changed significantly since 02/26/2017 other than improvement in the inspiration. IMPRESSION: No acute disease. Electronically signed by Anand Tavarez 03/07/2017 10:44 AM
--- NOTE | 2017-03-07 11:06 | EKG Report ---
Test Performed on : 03/07/2017 10:09:44 AM Test Reason : chest pain Blood Pressure : / mmHG Vent. Rate : 088 BPM Atrial Rate : 088 BPM P-R Int : 202 ms QRS Dur : 098 ms QT Int : 360 ms P-R-T Axes : 046 -39 074 degrees QTc Int : 435 ms Normal sinus rhythm. Possible Left atrial enlargement Left axis deviation Left ventricular hypertrophy Nonspecific T wave abnormality Abnormal ECG When compared with ECG of 26-FEB-2017 09:32, No significant change was found Unconfirmed Result
[2017-03-07 11:45] LABS: MANUAL DIFF NEEDED? NO
[2017-03-07 11:50] LABS: BASO% 0.5 % (0.0-0.8); EOS# 0.08 X1000 (0.0-0.7); EOS% 1.9 % (0.0-10.0); HEMATOCRIT 44.1 % (42.0-52.0); HEMOGLOBIN 14.1 g/dL (14.0-18.0); LYMPH# 1.67 X1000 (1.2-3.4); MCH 28.7 PG (27-31); MCV 89.6 FL (81-99); MONO# 0.58 X1000 (0.11-0.59); MONO% 13.6 % (1.7-9.3); MPV 11.2 FL (7.4-10.4); PLT 158 X1000 (130-400); RBC 4.92 XMIL (4.7-6.1)
[2017-03-07 11:58] LABS: INR 0.98; PROTIME 10.3 Seconds (9.2-11.7)
[2017-03-07 12:44] LABS: AGAP 10; ALBUMIN 3.2 g/dL (3.5-5.0); ALKALINE PHOSPHATASE 63 U/L (32-122); BUN 7 mg/dL (8-22); CHLORIDE 97 mmol/L (98-107); COSMO 277; GOT 21 U/L (10-34); GPT 26 U/L (10-44); MAGNESIUM 1.4 mg/dL (1.5-2.7); POTASSIUM 4.2 mmol/L (3.5-5.1); SODIUM 134 mmol/L (136-145); TCO2 27 mmol/L (25-35); TOTAL BILIRUBIN 0.24 mg/dL (0.20-1.00); TOTAL PROTEIN 6.2 g/dL (6.3-8.3)
--- NOTE | 2017-03-07 13:36 | PROVIDER DOCUMENTATION ---
This chart was entered by Nixon Aguilar Scribe, acting as scribe for Juan M Turner MD. HPI-Chest Pain - General Chief Complaint: Chest Pain Stated Complaint: CP Time Seen by Provider: 03/07/17 10:08 Source: patient Allergies/Adverse Reactions: Patient Allergies Allergy/AdvReac Type Severity Reaction Status Date / Time No Known Allergies Allergy Verified 02/28/17 14:53 Home Medications: Home Medication List Medication Instructions Recorded Confirmed Last Taken Type Glipizide [Glipizide Xl] 10 mg PO BID 01/01/16 03/04/17 03/05/17 20:00 History Carvedilol [Coreg] 12.5 mg PO BID 04/27/16 03/04/17 03/05/17 20:00 History Furosemide [Lasix] 40 mg PO BID 08/15/16 03/04/17 03/06/17 20:00 History ATORVAstatin [Lipitor] 40 mg PO DAILY 10/14/16 03/04/17 03/05/17 20:00 History Losartan Potassium 50 mg PO DAILY 10/14/16 03/04/17 03/06/17 20:00 History Nitroglycerin S.l. [Nitroglycerin] 0.3 mg SL PRN PRN #20 tablet 01/25/1703/04/17 08:00 Rx 0.3 MG Insulin Glargine [Lantus] 80 unit SUBQ QHS 02/02/17 03/04/17 03/05/17 20:00 History Naproxen 500 mg PO BID PRN PRN #60 tablet 02/28/17 03/04/17 03/04/17 08:00 Rx 500 MG Sacubitril/Valsartan [Entresto 24 1 PO BID 03/07/17 Unknown History mg-26 mg Tablet] Sitagliptin Phos/Metformin HCl 1 each PO BID 03/07/17 03/07/17 Unknown History [Janumet 50-1,000 mg Tablet] Tramadol HCl 50 mg PO Q8H 03/07/17 03/07/17 Unknown History - History of Present Illness-CP Nature of Presenting Problem: 51 yo M presents to the ER with complaint of CP since this AM. He noticed the pain while he was cleaning and doing the dishes. PT has not experienced this chest paint before and denies all other symptoms. Location: reports: central Chest Pain Radiation: reports: no radiation Quality of Pain: reports: tightness Severity in ED: mild Onset/Duration: this afternoon Timing: improving Context/Activities at Onset: reports: light activity Associated Symptoms: reports: denies symptoms Nitro Today/Relief: no nitro taken today Aspirin Treatment Today: no aspirin today Review of Systems - Adult - REVIEW OF SYSTEMS - ADULT Constitutional: denies: chills, fever Cardiovascular: reports: chest pain. denies: palpitations Respiratory: denies: cough, shortness of breath Gastrointestinal: denies: abdominal pain, nausea, vomiting Musculoskeletal: denies: back pain, neck pain All Other Systems: Reviewed and Negative Past History - Adult - PAST MEDICAL HISTORY-ADULT Review of Records: reports: Old Records Reviewed, Nursing Assessment Review, Medications Reviewed, Social history reviewed & non-contributory. Major Childhood Illnesses: reports: denies history Cardiovascular: reports: cardiac disease, angina, arrhythmia, CAD, CHF, HTN, hyperlipidemia, [place] Respiratory: reports: denies history Gastrointestinal: reports: denies history Obstetrical/Gynecological: reports: denies history Genitourinary: reports: kidney disease Musculoskeletal: reports: chronic pain Neurological: reports: denies history Endocrine/Immune: reports: denies history Other Conditions: reports: denies history - PRIOR SURGERIES/PROCEDURES Surgical/Procedure History: reports: cardiac stent, orthopedic (extremity) ( right ankle) - IMMUNIZATION STATUS Childhood Immunizations: See Nurse Assessment Flu Vaccine: See Nurse Assessment - FAMILY HISTORY Family History: reviewed, not pertinent Physical Exam-General - CONSTITUTIONAL General Appearance: appears well, alert, no apparent distress, obese - RESPIRATORY Respiratory: chest non-tender, lungs clear, normal breath sounds - CARDIOVASCULAR Cardiovascular: normal peripheral pulses, tachycardia - GASTROINTESTINAL (ABDOMEN) Abdominal Exam: normal bowel sounds, non tender, soft - MUSCULOSKELETAL Extremity: normal range of motion, non-tender, normal gait, normal inspection - SKIN Integumentary: normal color, normal turgor, warm/dry Progress - PLAN OF CARE/RESULTS Progress/Plan/Lab Results: Vital Signs - 8 hr 03/07/17 10:02 03/07/17 11:39 03/07/17 12:53 Temperature 99.0 F Pulse Rate 97 H 76 74 Respiratory Rate 20 20 16 Blood Pressure 164/98 138/95 123/52 O2 Sat by Pulse Oximetry 97 92 L 98 Laboratory Results - last 24 hr 03/07/17 03/07/17 03/07/17 10:53 10:53 12:15 WBC 4.28 L RBC 4.92 Hgb 14.1 Hct 44.1 MCV 89.6 MCH 28.7 MCHC 32.0 L RDW Std Deviation 12.9 Plt Count 158 MPV 11.2 H Immature Gran % (Auto) 0.0 Neut % (Auto) 45.0 Lymph % (Auto) 39.0 [place] % (Auto) 13.6 H Eos % (Auto) 1.9 Baso % (Auto) 0.5 Immature Gran # (Auto) 0.00 Neut # (Auto) 1.93 Lymph # (Auto) 1.67 [place] # (Auto) 0.58 Eos # (Auto) 0.08 Baso # (Auto) 0.02 PT 10.3 INR 0.98 PTT (Actin FS) 23.0 Sodium 134 L Potassium 4.2 Chloride 97 L Carbon Dioxide 27 Anion Gap 10 BUN 7 L Creatinine 0.7 Estimated GFR/1.73 m2 > 60 BUN/Creatinine Ratio 10 Glucose 301 H Calculated Osmolality 277 Calcium 9.0 Magnesium 1.4 L Total Bilirubin 0.24 AST 21 ALT 26 Alkaline Phosphatase 63 Troponin T Ghx-O-Vieqwvhedso Pept Total Protein 6.2 L Albumin 3.2 L Globulin 3.0 Albumin/Globulin Ratio 1.1 03/07/17 03/07/17 12:15 12:15 WBC RBC Hgb Hct MCV MCH MCHC RDW Std Deviation Plt Count MPV Immature Gran % (Auto) Neut % (Auto) Lymph % (Auto) [place] % (Auto) Eos % (Auto) Baso % (Auto) Immature Gran # (Auto) Neut # (Auto) Lymph # (Auto) [place] # (Auto) Eos # (Auto) Baso # (Auto) PT INR PTT (Actin FS) Sodium Potassium Chloride Carbon Dioxide Anion Gap BUN Creatinine Estimated GFR/1.73 m2 BUN/Creatinine Ratio Glucose Calculated Osmolality Calcium Magnesium Total Bilirubin AST ALT Alkaline Phosphatase Troponin T 0.027 Dnd-L-Nurotpwgdix Pept 447 H Total Protein Albumin Globulin Albumin/Globulin Ratio Orders Category Date Time Status Cardiac Monitoring DIRECTED Care 03/07/17 10:19 Active Saline Loc NOW Care 03/07/17 10:19 Active CHEST-2 VIEWS [RAD] Stat Exams 06/12/17 10:19 Completed CBC WITH ELECTRONIC DIFF [HEME] Stat Lab 03/07/17 10:53 Completed COMPREHENSIVE METABOLIC PANEL [CHEM] Stat Lab 03/07/17 12:15 Completed MAGNESIUM [CHEM] Stat Lab 03/07/17 12:15 Completed PRO B-NATRIURETIC PEPTIDE Stat Lab 03/07/17 12:15 Completed PROTIME WITH INR [COAG] Stat Lab 03/07/17 10:53 Completed PTT [COAG] Stat Lab 03/07/17 10:53 Completed TROPONIN T Stat Lab 03/07/17 12:15 Completed Aspirin Med 03/07/17 10:19 Discontinued 325 mg PO STAT STA EKG [EKG] Stat Ther 03/07/17 10:05 Draft Result Diagrams: 03/07/17 10:53 03/07/17 12:15 - EKG 1 Time of EKG reading by physician:: 10:11 EKG Read and Signed by:: Juan M Turner EKG Interpretation (*Must complete 3 of following elements*): Abnormal ( possible L atrial enlargement, left axis deviation, left ventricular hypertrophy , non specific T wave abnormality) Rate: 88 Rhythm: NSR [place]: left QRS: normal [place] Interval: normal Comments: abnormal EKG - XRAY 1 XRAY Study: Chest Impression: See EMR Report - CONSULTS/PCP/HOSPITALIST Notification #1 *Consult/PCP/Hospitalist*: Dr De Jesus Time Discussed: 13:35 Consult Disposition: Admit Departure - Departure Date of Disposition Decision: 03/07/17 Time of Disposition Decision: 13:35 DIAGNOSIS: Unstable angina HTN (hypertension) Qualifiers: Hypertension type: essential hypertension Qualified Code(s): I10 - Essential ( primary) hypertension Disposition: ADMITTED INPATIENT 09 Certified Medical Emergency: Emergent Condition: Fair Referrals and Follow-Ups: JOHN GERBER [Primary Care Provider] - - Critical Care Note This patient required my direct & personal management of CC.: No This chart was documented by the indicated scribe, (Nixon Aguilar Scribe) and accurately reflects the services I performed and decisions made by me, Juan M Turner MD, as attested by the provider's signature.
[2017-03-07 16:03] LABS: URINE CULTURE NEEDED? NO; URINE MICRO REVIEW NEEDED? NO; URINE SOURCE CLEAN CATCH
--- NOTE | 2017-03-07 16:23 | HISTORY AND PHYSICAL ---
CORPORATE SPECIALIST: Misael Flowers MD CHIEF COMPLAINT: Chest pain. HISTORY OF PRESENT ILLNESS: Mr. Tran is 51-year-old male with a history of known systolic heart failure, an EF of 25%, diabetes mellitus, morbid obesity, and others, who presents with acute onset of chest pain that began this morning at around 10 o'clock. This began while he was doing dishes and sweeping the floor. He felt an intense midsternal nonradiating chest pressure that lasted around 1-1/2 hours. This is not associated with shortness of breath, nausea, vomiting, or diaphoresis. The pain was relieved on its own and was not exacerbated by anything. He reports chronic lower extremity edema, but no orthopnea and no PND. He has no fever, chills, cough or congestion recently. When he got to the ER, labs and diagnostics were done, his labs were largely unremarkable, he did have some hyperglycemia. No hypomagnesemia. Otherwise, again, relatively unremarkable. Chest x-ray did not show anything acute, and EKG did not have any acute ST or T abnormalities. Due to his comorbidities. We are going to admit him for further treatment and evaluation. PAST MEDICAL HISTORY: 1. Morbid obesity. 2. Systolic heart failure, EF 25%. 3. Hyperlipidemia. 4. Type 2 diabetes. 5. CKD. 6. Obstructive sleep apnea. 7. Dilated nonischemic cardiomyopathy. SURGICAL HISTORY: He has had right ankle repair. SOCIAL HISTORY: He has a history of tobacco and alcohol use. He quit last month. He denies illicit drug use. He is on disability. He is single and has 1 child. FAMILY HISTORY: Mother with breast cancer. Father with AR, age of initial cardiac history unknown. REVIEW OF SYSTEMS: Fourteen-point review of systems obtained and found to be negative with the exception of the HPI. ALLERGIES: No known drug allergies. HOME MEDICATIONS: Currently being compiled. PHYSICAL EXAMINATION: VITAL SIGNS: Blood pressure is 148/105, heart rate is 69, respiratory rate 18. O2 saturation 94% on room air. GENERAL: Morbidly obese, male, lying in hospital bed in no acute distress. NEUROLOGIC: The patient is awake, alert, and oriented. Follows commands without focal deficits. HEENT: Head is atraumatic and normocephalic. His pupils are equal, round, reactive to light. Oral mucosa is moist. Trachea is midline. No JVD. CHEST: Diminished at the bases, but clear to auscultation bilaterally. CARDIOVASCULAR: Regular rate and rhythm. S1-S2 is noted. GI: Soft, nondistended, nontender. Bowel sounds positive. EXTREMITIES: 2+ edema bilaterally. Pulses are diminished, but palpable bilaterally. DIAGNOSTIC DATA: Chest x-ray is negative. EKG shows sinus rhythm with first-degree AV block. Nonspecific lateral T-wave changes. LVH is also noted. WBC 4.28, hemoglobin 14.1, hematocrit 44.1, platelet count 158,000. INR 0.98. Sodium 134, potassium 4.2, chloride 97, CO2 27, anion gap 10, BUN 7, creatinine 0.7, glucose 301, calcium 9, magnesium 1.4. LFTs within normal limits. ProBNP 447. Albumin 3.2. ASSESSMENT AND PLAN: 1. Chest pain: Atypical in nature. We will admit the patient and continue trending his enzymes and consult Cardiology, make sure he is on aspirin and reconcile his cardiac medications once they have been placed in the computer. The patient continues to need profound risk factor modification. 2. Diabetes mellitus: We will check hemoglobin A1c, add pattern sugars and sliding scale insulin. Hold his metformin for now. 3. Systolic heart failure: We will follow strict input and output, daily weights, continue his home medications and monitor telemetry. 4. Hypertension: Chronic and stable, continue home medications. 5. Chronic kidney disease: Creatinine is actually well within normal limits, we will continue to monitor. 6. Hyperlipidemia: We will make sure he is on a statin and check a lipid panel in the morning. 7. Morbid obesity: Patient has been highly advised to lose weight. We will continue weight loss education. 8. Deep venous thrombosis prophylaxis with Lovenox. Further recommendations to follow. Dictated by SEN Eaton for Dave Amador MD cc: SEN Eaton MD Ashish K. Basu, MD
[2017-03-07] MEDS ORDERED: APRESOLINE IV PRN (16:24)
[2017-03-07] MEDS ORDERED: ZOFRAN IV PRN (16:24)
[2017-03-07 16:41] LABS: BILIRUBIN URINE NEGATIVE (NEGATIVE); BLOOD URINE SMALL (NEGATIVE); COLOR YELLOW; GLUCOSE URINE >1000 mg/dL (NEGATIVE); LEUKOCYTES URINE NEGATIVE (NEGATIVE); NITRITE URINE NEGATIVE (NEGATIVE); PROTEIN URINE 200 mg/dL (NEGATIVE); SP GRAVITY URINE 1.023; TURBIDITY URINE CLEAR (CLEAR); UROBILINOGEN URINE NORMAL (NORMAL)
[2017-03-07 16:42] LABS: UR EPITHELIAL CELLS <10 /HPF (<10); URINE BACTERIA NEGATIVE /HPF; URINE WBC <10 /HPF (<10)
[2017-03-07] MEDS: HUMALOG SUBQ SCH ×2 (17:02→20:25)
[2017-03-07] MEDS: DUONEB (A & A) INH SCH (19:29)
[2017-03-07] MEDS ORDERED: NITROGLYCERIN SL PRN ×2 (21:36→22:13)
[2017-03-07] MEDS ORDERED: NITROGLYCERIN ONE (22:13)
[2017-03-08] MEDS: DUONEB (A & A) INH SCH ×8 (00:25→23:14)
[2017-03-08] MEDS: HUMALOG SUBQ SCH ×4 (06:10→21:18)
[2017-03-08 06:54] LABS: HEMOGLOBIN A1C 12.3 % (4.8-6.0)
[2017-03-08 06:56] LABS: HEMATOCRIT 41.7 % (42.0-52.0); HEMOGLOBIN 13.1 g/dL (14.0-18.0); MCH 28.9 PG (27-31); MCHC 31.4 g/dL (33-37); MCV 92.1 FL (81-99); MPV 11.1 FL (7.4-10.4); RBC 4.53 XMIL (4.7-6.1)
[2017-03-08 07:07] LABS: AGAP 7; BUN 10 mg/dL (8-22); CALCIUM 8.9 mg/dL (8.8-10.2); CHLORIDE 99 mmol/L (98-107); COSMO 285; HDL 79 mg/dL (35-55); LDL 120 mg/dL; POTASSIUM 4.6 mmol/L (3.5-5.1); SODIUM 139 mmol/L (136-145); TCO2 33 mmol/L (25-35); TRIGLYCERIDES 107 mg/dL (39-160); VLDL 21 mg/dL
[2017-03-08 07:31] LABS: FERRITIN 230 ng/mL (30-400)
[2017-03-08] MEDS ORDERED: COREG PO SCH (09:00)
[2017-03-08] MEDS ORDERED: LASIX PO SCH (09:00)
[2017-03-08] MEDS ORDERED: COZAAR PO SCH (09:00)
--- NOTE | 2017-03-08 09:01 | EKG Report ---
Test Performed on : 03/08/2017 07:04:34 AM Test Reason : chest pain Blood Pressure : / mmHG Vent. Rate : 068 BPM Atrial Rate : 068 BPM P-R Int : 218 ms QRS Dur : 098 ms QT Int : 392 ms P-R-T Axes : 049 -39 001 degrees QTc Int : 416 ms Sinus rhythm. with 1st degree AV block. Possible Left atrial enlargement Left axis deviation Nonspecific T wave abnormality Abnormal ECG When compared with ECG of 07-MAR-2017 10:09, (Unconfirmed) Nonspecific T wave abnormality now evident in Inferior leads Confirmed by Zac DAVIS, Selvin Medina ([id number]) on 03/11/2017 9:09:25 AM
[2017-03-08] MEDS: LOVENOX SUBQ SCH (09:16)
[2017-03-08] MEDS: LIPITOR PO SCH (09:16)
[2017-03-08] MEDS: ASPIRIN PO SCH (09:17)
[2017-03-08] MEDS: ENTRESTO 24 MG-26 MG TABLET PO SCH ×2 (09:17→21:18)
[2017-03-08] MEDS ORDERED: LANTUS SUBQ SCH (11:30)
[2017-03-08] MEDS ORDERED: LASIX IV ONE (12:19)
[2017-03-08] MEDS ORDERED: MAGNESIUM SULFATE 2 GM/S.W.I. 2 GM/50 ML IVPB IV ONE (13:00)
[2017-03-08] MEDS ORDERED: ULTRAM PO SCH (13:15)
--- NOTE | 2017-03-08 15:09 | PROGRESS NOTE ---
DATE: 03/08/2017 SUBJECTIVE: Mr. Tran states that he is feeling better. He was complaining about chest pain this morning. At this moment he is not complaining of chest pain. Pending Cardiology evaluation. OBJECTIVE: Vital Signs: Temperature 97.4 degrees, pulse 75, respiratory rate 18, blood pressure 151/98, O2 saturation 98 on room air. HEENT: Head normocephalic. No trauma. PERRLA. Neck: Supple. No JVD. No masses. Central trachea. Chest: Clear to auscultation. No wheezing. No rales. Decreased breath sounds globally. Cardiovascular: RRR. Systolic murmur. Abdomen: Soft, nontender, nondistended. No hepatosplenomegaly. Obese. Extremities: Two plus lower extremity edema. Neurological: The patient is alert and oriented x3. No focal neurological deficits. LABORATORY: WBC 4.5, hemoglobin 13.1, hematocrit 41.7, platelets 152,000. Sodium 139, potassium 4.6, chloride 99, bicarbonate 33, BUN 10, creatinine 0.8, glucose 243. Calcium 8.9. Hemoglobin A1c 12.3. ASSESSMENT AND PLAN: 1. Chest pain, at this moment this patient has no complaint of chest pain but this morning he was complaining of it, pending Cardiology evaluation. For now, we will continue with the same management. 2. Type 2 diabetes uncontrolled. Hemoglobin A1c is above 12, I started this patient on insulin today and I will continue with the pattern of blood sugar and sliding scale insulin. 3. Systolic heart failure with an ejection fraction of 25%, I will continue strict in an outs and daily weights and home medication, pending Cardiology evaluation. Probably this patient will need a new echocardiogram. 4. Hypertension chronic and stable. Continue with home medication. 5. CKD, will monitor. 6. Hyperlipidemia. Continue with the same management. He is on Lipitor 40 daily. 7. Morbid obesity. Patient has been highly advised to lose weight. I will continue with daily education. 8. Deep vein thrombosis prophylaxis with Lovenox. cc: Felipe Rudolph MD
[2017-03-08] MEDS ORDERED: TYLENOL PO PRN (19:20)
--- NOTE | 2017-03-08 20:18 | CONSULTATION ---
DATE OF CONSULTATION: 03/08/2017 CHIEF COMPLAINT: Shortness of breath, chest discomfort. HISTORY: Mr. Tran is a 51-year-old black gentleman who is a patient of Dr. Flowers. He presented to the emergency department on 03/07/2017 with complaints of several hours of feeling increasing chest tightness and shortness of breath. The patient upon arrival was noted to be hypertensive. His blood pressure was 164/98, subsequently 153/111, 162/110. The patient had been given new medications for management of his heart failure and he said that upon admission to the hospital he got some relief after getting a breathing treatment. He was given one dose of Lasix today. He seems to be somewhat better. PAST MEDICAL HISTORY: His past history is positive for a nonischemic dilated cardiomyopathy. His ejection fraction in the past has been known to be low at 25%. He has no previous myocardial infarction. He has chronic systolic dysfunction of the left ventricle. He has morbid obesity, body mass index is 46. He has diabetes mellitus type 2, hypertension, hyperlipidemia, gastric reflux, and obstructive sleep apnea. He has been known to smoke and drink alcohol. SOCIAL HISTORY: Single. Lives at home. He smokes and drinks alcohol. FAMILY HISTORY: Positive for stroke. ALLERGIES: Negative. HOME MEDICATIONS: Home medications reported at this time include. 1. Glipizide XL 10 mg twice a day. 2. Tramadol 50 every 8 hours. 3. Carvedilol 12.5 twice a day. 4. Janumet, which is sitagliptin/metformin, twice daily. 5. Furosemide 40 twice daily. 6. Insulin Lantus 80 units at bedtime. 7. Naprosyn 500 twice a day. 8. Losartan 50 daily. 9. Just started on Entresto twice a day REVIEW OF SYSTEMS: Chronic swelling of the legs of mild degree. Decreased exercise capacity. General fatigue. PHYSICAL EXAMINATION: Vital signs: Blood pressure is 151/98, temperature 97.4, pulse 75, respirations 18. General: He is awake, obese, alert, oriented, in no distress. HEENT: Unremarkable. Chest: Shows symmetrical breath sounds. No rales. Cardiac: Heart sounds are regular and rhythmic. I do not hear any gallop or murmur. Abdomen: Obese, nontender. No masses. No hepatomegaly. Extremities: Showed good pulses. There is 1+ to 2+ edema. Neurologic: He moves four extremities, follows commands. LABORATORY DATA: Sodium 139, potassium 4.6, BUN 10, creatinine 0.8. Cholesterol total 220, LDL 120, HDL 79, triglycerides 107. Three troponins were checked; they are 0.027, 0.023, 0.017. There was a fourth one done at 8 o'clock which was 0.019. All of them are basically negative. EKG today shows sinus rhythm with a first-degree AV block, possible left atrial enlargement, diffuse nonspecific T wave abnormality. IMPRESSION: 1. Patient presented with exacerbation of chronic congestive heart failure, systolic failure, related to nonischemic cardiomyopathy. 2. Patient with known case of dilated cardiomyopathy. Cardiac cath in 2008 showed normal coronaries. 3. Chest pain which is probably noncardiac. 4. History of diabetes. 5. History of hypertension. 6. History of alcohol use and tobacco use. RECOMMENDATIONS: At this point in time, we will give him IV Lasix and will try to optimize his medical therapy. He should not take nonsteroidal anti-inflammatory agents and he should not mix Losartan with Entresto since both are angiotensin receptor blocking agents. Further advice will be forthcoming. cc: Jason Tejeda MD
[2017-03-08] MEDS: COREG PO SCH (21:18)
[2017-03-08] MEDS: LASIX IV SCH (21:20)
[2017-03-08] MEDS: MORPHINE IV PRN (22:20)
[2017-03-09] MEDS: DUONEB (A & A) INH SCH ×2 (03:06→07:49)
[2017-03-09] MEDS: MORPHINE IV PRN (05:42)
[2017-03-09] MEDS: HUMALOG SUBQ SCH ×2 (06:41→10:54)
[2017-03-09] MEDS ORDERED: INSULIN PEN NEEDLES ONE (07:39)
[2017-03-09] MEDS ORDERED: LANTUS SUBQ SCH (07:46)
[2017-03-09 08:19] LABS: HEMATOCRIT 46.3 % (42.0-52.0); MCH 28.8 PG (27-31); MCHC 32.4 g/dL (33-37); MCV 88.9 FL (81-99); MPV 11.3 FL (7.4-10.4); RBC 5.21 XMIL (4.7-6.1)
--- NOTE | 2017-03-09 08:24 | Diag Imaging Result Doc PS360 ---
EXAM: CHEST-PORTABLE HISTORY: cp, sob TECHNIQUE: COMPARISON: 03/07/2017 FINDINGS: Poor inspiratory effort. The heart remains mildly enlarged. The vessels are not distended. No consolidation. No pleural effusions identified. IMPRESSION: Stable chest. Electronically signed by Robson Mccormack 03/09/2017 8:21 AM
[2017-03-09] MEDS: LIPITOR PO SCH (08:40)
[2017-03-09] MEDS: COREG PO SCH (08:40)
[2017-03-09] MEDS: ENTRESTO 24 MG-26 MG TABLET PO SCH (08:41)
[2017-03-09] MEDS: ASPIRIN PO SCH (08:41)
[2017-03-09] MEDS: LASIX IV SCH (08:41)
[2017-03-09] MEDS: LOVENOX SUBQ SCH (08:44)
[2017-03-09 08:48] LABS: AGAP 8; BUN 15 mg/dL (8-22); CALCIUM 9.4 mg/dL (8.8-10.2); CHLORIDE 97 mmol/L (98-107); COSMO 280; POTASSIUM 4.3 mmol/L (3.5-5.1); SODIUM 136 mmol/L (136-145); TCO2 31 mmol/L (25-35)
[2017-03-09] MEDS ORDERED: LASIX PO SCH (09:00)
[2017-03-09 14:29] VITALS: BP 127/84
--- NOTE | 2017-03-09 15:10 | DISCHARGE SUMMARY ---
ADMISSION DATE: 03/07/2017 DISCHARGE DATE: 03/09/2017 CONSULTATIONS: Dr. Tejeda with Cardiology. PERTINENT PROCEDURES: Chest x-ray showed no acute disease. Follow up chest x-ray unchanged. DISCHARGE DIAGNOSES: 1. Chronic systolic congestive heart failure exacerbation related to nonischemic cardiomyopathy. Improved. 2. Dilated cardiomyopathy. Aware. 3. Chest pain noncardiac in nature ruled out with negative cardiac enzymes and EKG that showed sinus rhythm with a first-degree AV block, possible left atrial enlargement and diffuse nonspecific T-wave abnormality. 4. Diabetes mellitus type 2. A1c is 12, uncontrolled. 5. Hypertension, chronic and stable. 6. CKD stable. 7. Hyperlipidemia. Continue Lipitor. 8. Morbid obesity. The patient has been advised on diet as well as exercise for weight loss. HOSPITAL COURSE: Mr. Tran is a 51-year-old male with a history of known systolic heart failure with an EF of 25%, diabetes mellitus, morbid obesity presented with an acute onset of chest pain that began on the morning of his admission around 10 a.m. It started while he was doing dishes and sweeping the floor. He felt an intense midsternal nonradiating chest pressure that lasted for 1 and half hours. It was not associated with shortness of breath, nausea, vomiting, or diaphoresis. The pain was relieved on its own and it was not exacerbated by anything. He does report chronic lower extremity edema. Workup in the ED in reference to labs and diagnostics was largely unremarkable. He did have some hyperglycemia. The patient was admitted for chest pain that was atypical in nature with a Cardiology consult. Basically all his cardiac enzymes were negative. His EKG showed sinus rhythm with 1st degree AV block, with possible left atrial enlargement. [place] his chest pain was noncardiac in nature. He was given some IV Lasix to optimize his medical therapy and educated to avoid NSAIDs and that he should not mix his losartan with his Entresto because they are both ARBs. The patient is appropriate for discharge today with these medication changes. VITAL SIGNS: Temperature is 98.4 degrees, heart rate 68, respirations 16, blood pressure 136/91, O2 is 97% on room air. DISCHARGE DIET: Diabetic. DISCHARGE MEDICATIONS: 1. Tylenol 650 mg p.o. q.6 hours p.r.n. 2. Lipitor 40 mg p.o. daily. 3. Coreg 12.5 mg p.o. b.i.d. 4. Lasix 40 mg p.o. b.i.d. 5. Glipizide 10 mg p.o. b.i.d. 6. Lantus 35 units subcutaneous q.a.m. 7. Nitroglycerin 0.3 mg sublingual p.r.n. 8. Entresto 24/26 mg 1 each p.o. b.i.d. 9. Janumet 50-1000 mg 1 each p.o. b.i.d. 10. Tramadol 50 mg p.o. q.8 hours. FOLLOWUP: The patient is being discharged home. [employer] was involved for medication assistance with his Lantus. They were able to get his Lantus for 7 dollars at [facility]. 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 The patient also stated that he needed help in paying his electric bill. He was provided with a community resource information including [employer] to assist with his bill and patient states he is currently living with his mother which she will be discharged back today. The patient will need to take all medications as prescribed. He will follow up with Dr. Tejeda as instructed as well as his primary care physician, Deirdre Timmons in 1 week. Patient can return to the ED for any worsening of symptoms. Dictated by SEN Hart for Felipe Rudolph MD cc: MD Deirdre Vee CRNP
== END 2017-03-09 14:51 | disposition home or self-care (01) ==
LOC: ED 09:58 → DIRADM 14:14 → OPS 14:14 → 3N 15:55 → SUATTDRO 15:55 → UNDODISIN 03-09 14:51
PROVIDERS: ADMIT Emergency Medicine; ATTEND Emergency Medicine

== ENCOUNTER 2018-10-11 13:21 | Inpatient (IN) ==
--- NOTE | 2018-10-11 16:09 | Diag Imaging Result Doc PS360 ---
EXAM: FOOT COMPLETE LEFT 10/11/2018 HISTORY: r/o osteomyelitis TECHNIQUE: Left foot three views COMMENT: There is soft tissue gas in the forefoot particularly over the dorsum of the foot. There is some hyperostosis over the medial malleolus of uncertain etiology. This may be due to previous trauma. There is no evidence of bony erosion, periosteal reaction fracture or dislocation. There is plantar spurring of the calcaneus. IMPRESSION: Cellulitis with soft tissue gas. No definite evidence of osteomyelitis. Electronically signed by Anand Tavarez 10/11/2018 4:06 PM
[2018-10-11 16:36] LABS: BASO# 0.05 X1000 (0.0-0.2); BASO% 0.4 % (0.0-0.8); EOS# 0.08 X1000 (0.0-0.7); EOS% 0.7 % (0.0-10.0); HEMATOCRIT 39.5 % (42.0-52.0); HEMOGLOBIN 12.2 g/dL (14.0-18.0); IMM GRAN# 0.04 X1000 (0.0-0.04); IMM GRAN% 0.4 % (0.0-0.5); LYMPH# 1.25 X1000 (1.2-3.4); MCH 26.1 PG (27-31); MCHC 30.9 g/dL (33-37); MCV 84.4 FL (81-99); MONO# 0.95 X1000 (0.11-0.59); MONO% 8.3 % (1.7-9.3); MPV 11.2 FL (7.4-10.4); NEUT# 9.04 X1000 (1.4-6.5); NEUT% 79.2 % (42.2-75.2); PLT 283 X1000 (130-400); RBC 4.68 XMIL (4.7-6.1); RDW 13.1 % (11.5-14.5); WBC 11.41 X1000 (4.8-10.8)
[2018-10-11] MEDS ORDERED: ZOFRAN IV ONE (16:41)
[2018-10-11 16:45] LABS: BILIRUBIN URINE NEGATIVE (NEGATIVE); BLOOD URINE MODERATE (NEGATIVE); COLOR YELLOW; GLUCOSE URINE >1000 mg/dL (NEGATIVE); KETONE URINE 40 mg/dL (NEGATIVE); LEUKOCYTES URINE NEGATIVE (NEGATIVE); NITRITE URINE NEGATIVE (NEGATIVE); PROTEIN URINE 300 mg/dL (NEGATIVE); SP GRAVITY URINE 1.028; TURBIDITY URINE CLEAR (CLEAR); UR EPITHELIAL CELLS <10 /HPF (<10); URINE BACTERIA NEGATIVE /HPF; URINE RBC TNTC /HPF (<10); URINE SOURCE CLEAN CATCH; URINE WBC <10 /HPF (<10); UROBILINOGEN URINE NORMAL (NORMAL)
[2018-10-11 16:49] LABS: AGAP 12; ALB/GLOB RATIO 0.4; ALBUMIN 2.3 g/dL (3.5-5.0); ALKALINE PHOSPHATASE 102 U/L (32-122); AMYLASE 30 U/L (20-200); BUN 26 mg/dL (8-22); CALCIUM 8.9 mg/dL (8.8-10.2); CHLORIDE 90 mmol/L (98-107); COSMO 275; CREATININE 0.9 mg/dL (0.7-1.2); ESTIMATED GFR > 60; GLUCOSE 304 mg/dL (70-104); GOT 13 U/L (10-34); GPT 11 U/L (10-44); LIPASE 21 U/L (13-60); POTASSIUM 4.6 mmol/L (3.5-5.1); SODIUM 129 mmol/L (136-145); TCO2 27 mmol/L (25-35); TOTAL BILIRUBIN 0.24 mg/dL (0.20-1.00); TOTAL PROTEIN 7.7 g/dL (6.3-8.3)
[2018-10-11] MEDS ORDERED: CLINDAMYCIN IV ONE (17:16)
--- NOTE | 2018-10-11 17:46 | PROVIDER DOCUMENTATION ---
This chart was entered by Keli Montero Scribe, acting as scribe for Vinnie Hein MD. HPI-Rash/Wound/ReCheck - General Chief Complaint: Extremity Pain Stated Complaint: L-FOOT BUSTED OPEN Time Seen by Provider: 10/11/18 15:35 Source: patient Allergies/Adverse Reactions: Allergies Allergy/AdvReac Type Severity Reaction Status Date / Time No Known Allergies Allergy Verified 10/11/18 15:20 Home Medications: Home Medication List Medication Instructions Recorded Confirmed Last Taken Type Aspirin EC 81 mg PO DAILY tablet 02/13/18 07/23/18 07/23/18 Rx Carvedilol [Coreg] 6.25 mg PO BID #60 tab 02/13/18 07/23/18 07/23/18 Rx Cyclobenzaprine [Flexeril] 10 mg PO TID PRN #15 tab 04/20/18 07/23/18 07/23/18 Rx Furosemide 80 mg PO BID 05/24/18 07/23/18 07/23/18 History Gabapentin [Neurontin] 300 mg PO TID 05/24/18 07/23/18 07/23/18 History Insulin Glargine [Lantus] 80 unit SUBQ QHS 05/24/18 06/30/18 06/28/18 History Omeprazole [Prilosec] 20 mg PO DAILY 05/24/18 07/23/18 07/23/18 History ROSUVAstatin [Crestor] 20 mg PO QHS 05/24/18 07/23/18 07/23/18 History Sitagliptin Phos/Metformin HCl 1 each PO BID CC 05/24/18 07/23/18 07/23/18 History [Janumet 50-1,000 mg Tablet] Insulin Glargine [Basaglar] 80 unit SUBQ QAM 06/26/18 06/30/18 06/29/18 History Oxycodone/APAP 5 mg/325 mg 1 ea PO Q4H PRN PRN #20 tab 07/01/18 07/23/18 Rx [Percocet-5] Hydrocodone/Acetaminophen [[place] 1 ea PO Q4-6H PRN PRN #12 tab 07/31/18 Unknown Rx 5-325 Tablet] Benzonatate [Tessalon] 100 mg PO TID PRN PRN #20 capsule 08/27/18 Unknown Rx Furosemide [Lasix] 40 mg PO BID #60 tab 09/21/18 Unknown Rx Tramadol [Ultram] 50 mg PO Q8HR #20 tab 09/21/18 Unknown Rx Naproxen 500 mg PO BID PRN PRN #60 tablet 09/23/18 Unknown Rx Levofloxacin [Levaquin] 500 mg PO DAILY #7 tab 10/06/18 Unknown Rx Promethazine [Phenergan] 25 mg PO Q6H PRN PRN #20 tab 10/10/18 Unknown Rx - History of Present Illness-Dermatology Nature of Presenting Problem: Patient is a 53 year old male who presents to the ED with an open skin wound to left 2nd toe. Patient states open wound has been present for 3 weeks. Patient also states nausea and vomiting. Patient denies diarrhea. Patient states he is currently on Levaquin. Location: reports: feet (left 2nd toe) Quality: reports: painful Severity: reports: mild Onset/Duration: reports: other (3 weeks) Timing: reports: still present Context/Associated Symptoms: reports: other (open skin wound) Locality of Occurance: Home Similar Symptoms Previously?: Yes Recently seen or treated by another doctor?: Yes Review of Systems - Adult - REVIEW OF SYSTEMS - ADULT Constitutional: reports: no symptoms reported Eyes: reports: no symptoms reported Ears, Nose, Mouth & Throat: reports: no symptoms reported Cardiovascular: reports: no symptoms reported Respiratory: reports: no symptoms reported Gastrointestinal: reports: nausea, vomiting. denies: abdominal pain, diarrhea Genitourinary: reports: no symptoms reported Musculoskeletal: reports: no symptoms reported Integumentary: reports: other (open skin wound to left 2nd toe). denies: hives , itching, rash Neurological: reports: no symptoms reported Psychiatric: reports: no symptoms reported Endocrine: reports: no symptoms reported Hematologic/Lymphatic: reports: no symptoms reported Allergic/Immunologic: reports: no symptoms reported All Other Systems: Reviewed and Negative Past History - Adult - PAST MEDICAL HISTORY-ADULT Review of Records: reports: Nursing Assessment Review, Medications Reviewed, Social history reviewed & non-contributory. Major Childhood Illnesses: reports: denies history Cardiovascular: reports: cardiac disease, angina, arrhythmia, CAD, CHF, HTN, hyperlipidemia, CA Respiratory: reports: sleep apnea Gastrointestinal: reports: denies history Obstetrical/Gynecological: reports: denies history Genitourinary: reports: kidney disease Musculoskeletal: reports: chronic pain Neurological: reports: denies history Psychiatric: reports: depression, other (personality disorder) Endocrine/Immune: reports: Diabetes Other Conditions: reports: denies history - PRIOR SURGERIES/PROCEDURES Surgical/Procedure History: reports: cardiac stent, orthopedic (extremity) ( right ankle; shoulder), back/neck (neck) - IMMUNIZATION STATUS Childhood Immunizations: See Nurse Assessment Flu Vaccine: See Nurse Assessment - FAMILY HISTORY Family History: reviewed, not pertinent - SOCIAL HISTORY Smoking: cigarettes (former) Substance Use: alcohol Alcohol Use Frequency: occasionally Living Situation: alone Physical Exam-General - PHYSICAL EXAM-ADULT Initial Vital Signs Reviewed: Yes - CONSTITUTIONAL General Appearance: alert, no apparent distress, obese - RESPIRATORY Respiratory: chest non-tender, lungs clear, normal breath sounds - CARDIOVASCULAR Cardiovascular: normal peripheral pulses, regular rate, rhythm - GASTROINTESTINAL (ABDOMEN) Abdominal Exam: normal bowel sounds, distended, tenderness (generalized) - MUSCULOSKELETAL Extremity: swelling (bilateral lower extremities.), other (2 cm open skin wound to dorsum of left 2nd toe) - SKIN Integumentary: other (2 cm open skin wound to dorsum of left 2nd toe) - NEUROLOGIC Neurologic: grossly normal - PSYCHIATRIC Psych/Mental Status: normal mood/affect, oriented x 3 Progress - PLAN OF CARE/RESULTS Progress/Plan/Lab Results: Vital Signs - 8 hr 10/11/18 13:24 Temperature 97.1 F L Pulse Rate 78 Respiratory Rate 20 Blood Pressure 141/88 O2 Sat by Pulse Oximetry 100 Laboratory Results - last 24 hr 10/11/18 10/11/18 10/11/18 15:46 16:20 16:20 WBC 11.41 H RBC 4.68 L Hgb 12.2 L Hct 39.5 L MCV 84.4 MCH 26.1 L MCHC 30.9 L RDW Std Deviation 13.1 Plt Count 283 MPV 11.2 H Immature Gran % (Auto) 0.4 Neut % (Auto) 79.2 H Lymph % (Auto) 11.0 L Gosper % (Auto) 8.3 Eos % (Auto) 0.7 Baso % (Auto) 0.4 Immature Gran # (Auto) 0.04 Neut # (Auto) 9.04 H Lymph # (Auto) 1.25 [place] # (Auto) 0.95 H Eos # (Auto) 0.08 Baso # (Auto) 0.05 Sodium 129 L Potassium 4.6 Chloride 90 L Carbon Dioxide 27 Anion Gap 12 BUN 26 H Creatinine 0.9 Estimated GFR/1.73 m2 > 60 BUN/Creatinine Ratio 29 Glucose 304 H POC Glucose 314 H Calculated Osmolality 275 Calcium 8.9 Total Bilirubin 0.24 AST 13 ALT 11 Alkaline Phosphatase 102 Ymp-S-Yrohcoecouy Pept Total Protein 7.7 Albumin 2.3 L Globulin 5.4 Albumin/Globulin Ratio 0.4 Amylase 30 Lipase 21 Plasma Lactate Urine Source Urine Color Urine Turbidity Urine pH Ur Specific [place] Urine Protein Ur Glucose (Stick) Ur Ketones (Stick) Urine Blood Urine Nitrite Urine Bilirubin Urobilinogen Dipstick Urine Leukocytes Urine WBC (Auto) Urine RBC (Auto) U Epithel Cells (Auto) Urine Bacteria (Auto) 10/11/18 10/11/18 10/11/18 16:20 16:20 16:25 WBC RBC Hgb Hct MCV MCH MCHC RDW Std Deviation Plt Count MPV Immature Gran % (Auto) Neut % (Auto) Lymph % (Auto) [place] % (Auto) Eos % (Auto) Baso % (Auto) Immature Gran # (Auto) Neut # (Auto) Lymph # (Auto) [place] # (Auto) Eos # (Auto) Baso # (Auto) Sodium Potassium Chloride Carbon Dioxide Anion Gap BUN Creatinine Estimated GFR/1.73 m2 BUN/Creatinine Ratio Glucose POC Glucose Calculated Osmolality Calcium Total Bilirubin AST ALT Alkaline Phosphatase Xlo-K-Ynhmrhvhojk Pept 2899 H Total Protein Albumin Globulin Albumin/Globulin Ratio Amylase Lipase Plasma Lactate 1.1 Urine Source CLEAN CATCH Urine Color YELLOW Urine Turbidity CLEAR Urine pH 6.0 Ur Specific [place] 1.028 Urine Protein 300 A Ur Glucose (Stick) >1000 A Ur Ketones (Stick) 40 A Urine Blood MODERATE A Urine Nitrite NEGATIVE Urine Bilirubin NEGATIVE Urobilinogen Dipstick NORMAL Urine Leukocytes NEGATIVE Urine WBC (Auto) <10 Urine RBC (Auto) TNTC A U Epithel Cells (Auto) <10 Urine Bacteria (Auto) NEGATIVE Orders Category Date Time Status Admit - [facility] Routine AdmDCTranf 10/11/18 18:39 Active Activity - Up with Assistance ORDERED Care 10/11/18 18:39 Active DVT/PE Risk Assess/Protocol [QM] ORDERED Care 10/11/18 18:39 Active FSBS/Accucheck Result AC + HS Care 10/11/18 18:39 Active Intake and Output-Strict ORDERED Care 10/11/18 18:39 Active Nursing- MD Consult Request ROUTINE Care 10/11/18 18:39 Active Update & Confirm Home Medicati ROUTINE Care 10/11/18 18:39 Active Vital Signs Order Q 4-HR ASSESS Care 10/11/18 18:39 Active Z-Document. for Tele Applied ORDERED Care 10/11/18 18:39 Active Physician/Provider Consults Routine Cons 10/12/18 07:00 Ordered Wound Care/ET Consult Routine Cons 10/11/18 18:39 Active Diabetic Diet Diet 10/11/18 18:39 Active NPO Diet 10/12/18 00:[address] ABDOMEN/PELVIS W/O CONTRAST [CT] Stat Exams 10/11/18 17:22 Completed FOOT COMPLETE LEFT [RAD] Stat Exams 10/11/18 15:44 Completed A1C HGB W EST AVG GLUCOSE [CHEM] Routine Lab 10/12/18 06:00 Ordered AMYLASE [CHEM] Stat Lab 10/11/18 16:20 Completed BLOOD CULTURE [BLDCUL] Stat Lab 10/11/18 18:00 Received CBC WITH DIFF [HEME] Routine Lab 10/12/18 06:00 Ordered CBC WITH ELECTRONIC DIFF [HEME] Stat Lab 10/11/18 16:20 Completed COMPREHENSIVE METABOLIC PANEL [CHEM] Routine Lab 10/12/18 06:00 Ordered COMPREHENSIVE METABOLIC PANEL [CHEM] Stat Lab 10/11/18 16:20 Completed LACTATE, PLASMA [CHEM] Stat Lab 10/11/18 16:20 Completed LIPASE [CHEM] Stat Lab 10/11/18 16:20 Completed MAGNESIUM [CHEM] Routine Lab 10/12/18 06:00 Ordered PRO B-NATRIURETIC PEPTIDE Stat Lab 10/11/18 16:20 Completed SERUM OSMOLALITY [CHEM] Routine Lab 10/12/18 06:00 Uncollected UA [URINALYSIS] [URINALYSIS] Stat Lab 10/11/18 16:25 Completed UR OSMOLALITY [CHEM] Routine Lab 10/12/18 06:00 Ordered UR SODIUM [URCHEM] Routine Lab 10/11/18 18:39 Ordered WOUND CULTURE INC GRAM STAIN [RM] Routine Lab 10/11/18 18:18 Received Acetaminophen [Tylenol] Med 10/11/18 18:39 Active 650 mg PO Q6H PRN PRN Aspirin Med 10/12/18 09:00 Active 81 mg PO DAILY Carvedilol [Coreg] Med 10/11/18 21:00 Active 6.25 mg PO BID Clindamycin Med 10/11/18 17:16 Discontinued 300 mg IV NOW ONE Enoxaparin [Lovenox] Med 10/11/18 18:39 Active 40 mg SUBQ Q24H Furosemide [Lasix] Med 10/11/18 21:00 Active 80 mg PO BID Insulin Lispro [Humalog] Med 10/11/18 21:00 Active See Protocol SUBQ 0700,1100,1600,2100 Omeprazole [Prilosec] Med 10/12/18 07:00 Active 40 mg PO DAILY@0700 Ondansetron [Zofran] Med 10/11/18 16:41 Discontinued 4 mg IV NOW ONE Ondansetron [Zofran] Med 10/11/18 18:39 Active 4 mg IV Q4H PRN PRN Oxycodone/APAP 5 mg/325 mg [Percocet-5] Med 10/11/18 18:39 Active 1 each PO Q6H PRN PRN Pharmacy Order [Vancomycin IV Per Pharmacy] Med 10/11/18 18:39 Ordered 1 each MISC DIRECTED Piperacillin/Tazobactam [Zosyn] 3.375 gm Med 10/11/18 18:39 Active 0.9% Sodium Chloride Inj [Ns] 50 ml IV Q6H Oxygen Device Routine Oth 10/11/18 18:39 Active Telemetry [OM.EQ] Routine Oth 10/11/18 18:39 Active Transfer/Admit Order [TRANSFER] Routine Transfer 10/11/18 17:20 Completed Result Diagrams: 10/11/18 16:20 10/11/18 16:20 - XRAY 1 XRAY: Left XRAY Study: Foot Impression: See EMR Report ( EXAM: FOOT COMPLETE LEFT 10/11/2018 HISTORY: r/o osteomyelitis TECHNIQUE: Left foot three views COMMENT: There is soft tissue gas in the forefoot particularly over the dorsum of the foot. There is some hyperostosis over the medial malleolus of uncertain etiology. This may be due to previous trauma. There is no evidence of bony erosion, periosteal reaction fracture or dislocation. There is plantar spurring of the calcaneus. IMPRESSION: Cellulitis with soft tissue gas. No definite evidence of osteomyelitis. Electronically signed by Anand Tavarez 10/11/2018 4:06 PM 10/11/18 1606 Interpreting Physician: Anand Tavarez MD Dictated Date/Time : 10/11/18 1605 cc: Vinnie Hein MD; Deirdre Timmons) - CONSULTS/PCP/HOSPITALIST Notification #1 *Consult/PCP/Hospitalist*: [facility] [place] for Hospitalist Time Discussed: 17:13 Reason/Comments: Dr. Hein consulted with [facility] about patient. Consult Disposition: Will see in ED Departure - Departure Date of Disposition Decision: 10/11/18 Time of Disposition Decision: 17:15 DIAGNOSIS: Cellulitis, Vomiting, Diabetic foot ulcer Disposition: ADMITTED INPATIENT 09 Certified Medical Emergency: Emergent Condition: Stable - Critical Care Note This patient required my direct & personal management of CC.: No Attestation - Physician/ JARRED Attestation The physician spent face to face time with patient:: Yes Advanced Practice Provider documentation review:: Supervising physician onsite and consulted in the evaluation and care of this patient. The physician did have a face to face encounter with the patient. This chart was documented by the indicated scribe, (Keli Montero Scribe) and accurately reflects the services I performed and decisions made by me, Vinnie Hein MD, as attested by the provider's signature.
--- NOTE | 2018-10-11 17:50 | Diag Imaging Result Doc PS360 ---
CT ABDOMEN/PELVIS W/O CONTRAST - 10/11/2018 INDICATION: abdo pain COMPARISON: 01/01/2016 FINDINGS: There is some central interstitial groundglass infiltrate in the lung bases. There is mild cardiomegaly. No radiodense renal stones. No hydronephrosis or hydroureter. No bowel obstruction or inflammation. Normal appendix. No significant constipation. Urinary bladder, prostate, and rectum are normal. No free air or free fluid. There are moderate degenerative changes of the spine. No acute or suspicious bony lesion. IMPRESSION: 1. Cardiomegaly. Mild interstitial infiltrate in the lung bases suggesting pulmonary edema. 2. No acute process in the abdomen. This exam was performed using automated exposure control, adjustment of mA or kV according to patient size, and/or use of iterative reconstruction technique Electronically signed by Scott Barkley 10/11/2018 5:48 PM
[2018-10-11] MEDS ORDERED: ZOFRAN IV PRN (18:39)
[2018-10-11] MEDS ORDERED: TYLENOL PO PRN (18:39)
[2018-10-11] MEDS ORDERED: VANCOMYCIN IV PER PHARMACY MISC SCH (18:39)
[2018-10-11] MEDS: ZOSYN 3.375 GM in NS 50 ML IV SCH (20:42)
[2018-10-11] MEDS: LOVENOX SUBQ SCH (20:42)
[2018-10-11] MEDS: COREG PO SCH (20:42)
[2018-10-11] MEDS: LASIX PO SCH (20:42)
[2018-10-11] MEDS: VANCOMYCIN 2 GM in NS 500 ML IV SCH (21:24)
[2018-10-11] MEDS: HUMALOG SUBQ SCH (21:32)
[2018-10-12] MEDS: PERCOCET-5 PO PRN ×3 (01:49→17:30)
[2018-10-12] MEDS: ZOSYN 3.375 GM in NS 50 ML IV SCH ×3 (03:01→20:35)
[2018-10-12] MEDS: HUMALOG SUBQ SCH ×4 (06:13→20:37)
[2018-10-12] MEDS ORDERED: PRILOSEC PO SCH (07:00)
--- NOTE | 2018-10-12 07:00 | HISTORY AND PHYSICAL ---
PRIMARY CARE PROVIDER: SEN Ricci. GALLERY HOST: Dr. Flowers. CHIEF COMPLAINT: Nausea, vomiting, and left toe pain. HISTORY OF PRESENT ILLNESS: Mr. Tran is a 53-year-old male who is well known to our service with a history of systolic heart failure with an EF of 15% to 20 % last evaluated in June of 2018, uncontrolled diabetes mellitus type 2, hyperlipidemia, chronic kidney disease, morbid obesity, obstructive sleep apnea, and dilated nonischemic cardiomyopathy. This is the patient's 4th ED visit since the beginning of September. He started coming in on the for swollen extremities, and was diagnosed with a skin ulcer. He came back on the with continued extremity pain, and was given p.o. Levaquin. However, since Tuesday, he has had nausea and vomiting, and came to the ED yesterday with chest pain and nausea and vomiting, received treatment, and was sent home again. He comes back today with more complaints of nausea, vomiting, and worsening of his left 2nd toe. He did have some slight green drainage as well as open area that was bloody. It looks like he has scraped some skin off. He states that is a change that was not there yesterday. He had a foot x-ray that shows cellulitis with soft tissue gas with no evidence of osteomyelitis. Abdomen and pelvis CT that showed cardiomegaly with mild interstitial infiltrate of lung base suggesting pulmonary edema with no acute process in the abdomen. He does have a slightly elevated white count. He was found to be hyperglycemic. He has not been able to take his Levaquin since Tuesday secondary to his nausea and vomiting. We will go ahead and culture the wound. Consult general surgery and started him on IV vancomycin and Zosyn. He currently denies any chest pain, shortness of breath, or dizziness. The nausea is currently resolved. No chest pain. No palpitations. No fever. No chills. PAST MEDICAL HISTORY: 1. Systolic heart failure with an EF of 15% to 20% percent documented on June of 2018. 2. Uncontrolled diabetes mellitus type 2. The patient takes Lantus twice a day. 3. Hyperlipidemia. 4. Chronic kidney disease. 5. Morbid obesity. 6. Obstructive sleep apnea. 7. Dilated nonischemic cardiomyopathy. PAST SURGICAL HISTORY: Ankle repair. SOCIAL HISTORY: The patient has been disabled for the last 5 years. He denies alcohol, tobacco, or illicit drugs. Allergies: No known drug allergies. HOME MEDICATIONS: Have not yet been reconciled. FAMILY HISTORY: Mother of breast cancer. Father of [place]. REVIEW OF SYSTEMS: A 10 point review of systems was completely negative except for those mentioned in HPI. PHYSICAL EXAMINATION: VITAL SIGNS: Temperature is 97.1 degrees, heart rate 78, respirations 20, blood pressure 141/88, O2 is 100% on room air. GENERAL: Mr. Tran is a morbidly obese 52-year-old male lying on the stretcher in Trendelenburg. The ED physician is trying to place an EJ, but appears in no acute distress. HEENT: Atraumatic, normocephalic. PERRL. NECK: Supple. Unable to assess JVD. CV: S1, S2 appreciated. No murmurs, gallops, or rubs. Regular rate and rhythm. PULMONARY: Bilateral breath sounds clear to consolation, bilaterally decreased in the bases. No rales, rhonchi, or wheezes. GI: Soft, nontender, and nondistended. Positive bowel sounds in 4 quadrants. EXTREMITIES: Patient does have an open wound to his left 2nd great toe with some greenish oozing as well as some bleeding. It looks like he has rubbed some skin off. There is no foul odor. There is no clubbing or cyanosis. NEUROLOGIC: No focal deficits noted. DIAGNOSTIC DATA: 1. Abdomen and pelvis CT cardiomegaly, mild interstitial infiltrates in the left lung bases suggesting pulmonary edema. No acute process in the abdomen. 2. Left foot x-ray showed cellulitis with soft tissue gas. No definite evidence of acute osteomyelitis. LABORATORY DATA: White count 11, hemoglobin and hematocrit 12 and 39, and platelet count is 283,000. Sodium 129, potassium 4.6, BUN 26, and creatinine 0.9. Blood glucose is 304. ProBNP is 2899. Urine is negative for bacteria, negative for nitrites. Anion gap of 12. ASSESSMENT AND PLAN: 1. Failed outpatient treatment of left 2nd toe cellulitis. We will obtain wound cultures and blood cultures. Continue broad-spectrum antibiotics. Consult general surgery. Continue with pain management as well as order wound care. 2. Hyperglycemia in the setting of uncontrolled diabetes mellitus type 2. Check hemoglobin A1c. Continue sliding scale with pattern blood sugars. We will restart his home Lantus after his medications have been reconciled. 3. Chronic systolic heart failure. Patient does have an elevated proBNP. However, he does not appear to be volume overloaded. We will continue his home Lasix that is 80 b.i.d., and recheck his proBNP in the morning. 4. Mild hyponatremia. We will continue to trend. No neuro deficits. We will do a hyponatremia workup. 5. Morbid obesity. Patient will need to be educated on diet and exercise. 6. Obstructive sleep apnea. 7. Dilated nonischemic cardiomyopathy. We will continue home medications when reconciled. 8. Update and confirm home medications. 9. Further recommendation to follow physician evaluation, laboratory and diagnostic data. Dictated by SEN Hart for Tre Salas MD Patient seen and examined by me. I agree with the assessment and plan of the SEN. Dr. Salas cc: SEN Ricci Dr., MD [facility]
[2018-10-12 07:15] LABS: BASO# 0.04 X1000 (0.0-0.2); BASO% 0.3 % (0.0-0.8); EOS# 0.18 X1000 (0.0-0.7); EOS% 1.4 % (0.0-10.0); HEMATOCRIT 37.6 % (42.0-52.0); HEMOGLOBIN 11.5 g/dL (14.0-18.0); IMM GRAN# 0.05 X1000 (0.0-0.04); IMM GRAN% 0.4 % (0.0-0.5); LYMPH# 1.47 X1000 (1.2-3.4); LYMPH% 11.7 % (20.5-51.1); MCH 26.2 PG (27-31); MCHC 30.6 g/dL (33-37); MCV 85.6 FL (81-99); MONO# 1.54 X1000 (0.11-0.59); MONO% 12.2 % (1.7-9.3); MPV 10.9 FL (7.4-10.4); PLT 273 X1000 (130-400); RBC 4.39 XMIL (4.7-6.1); RDW 13.3 % (11.5-14.5); WBC 12.58 X1000 (4.8-10.8)
[2018-10-12 07:43] LABS: HEMOGLOBIN A1C 13.4 % (4.8-6.0)
[2018-10-12 07:51] LABS: AGAP 11; ALB/GLOB RATIO 0.4; ALKALINE PHOSPHATASE 109 U/L (32-122); BUN 28 mg/dL (8-22); CALCIUM 8.1 mg/dL (8.8-10.2); CHLORIDE 94 mmol/L (98-107); COSMO 280; CREATININE 1.3 mg/dL (0.7-1.2); ESTIMATED GFR > 60; GLUCOSE 219 mg/dL (70-104); GOT 10 U/L (10-34); GPT 9 U/L (10-44); MAGNESIUM 2.4 mg/dL (1.5-2.7); POTASSIUM 4.4 mmol/L (3.5-5.1); SODIUM 134 mmol/L (136-145); TCO2 29 mmol/L (25-35); TOTAL BILIRUBIN 0.26 mg/dL (0.20-1.00); TOTAL PROTEIN 6.8 g/dL (6.3-8.3)
[2018-10-12 08:33] LABS: BANDS 4 % (0-1); LYMPHS 6 % (21-51); MONO 2 % (1-9); SEGS 88 % (42-75)
[2018-10-12] MEDS: ASPIRIN PO SCH (08:57)
[2018-10-12] MEDS: LASIX PO SCH ×2 (08:57→20:36)
[2018-10-12] MEDS: VANCOMYCIN 2 GM in NS 500 ML IV SCH (08:57)
[2018-10-12] MEDS: COREG PO SCH ×2 (08:57→20:36)
--- NOTE | 2018-10-12 14:11 | GENERAL SURGERY CONSULTATION ---
DATE: 10/12/2018 TIME: 1:20 p.m. HISTORY: Mr. Tran is a 53-year-old, -[place], with poorly controlled type 2 diabetes, who presents with pain, swelling, and drainage from his left 2nd toe. X-ray shows some air in the tissue. He has purulent drainage. It is foul smelling. OTHER MEDICAL PROBLEMS: Systolic heart failure with an EF in the 15% to 20% range. Hyperlipidemia, chronic kidney disease, obesity, obstructive sleep apnea. PAST SURGICAL HISTORY: Previous surgery includes an ankle repair. MEDICATIONS: Listed. He is currently on vancomycin and Zosyn for antibiotics. ALLERGIES: He has no known drug allergies. SOCIAL HISTORY: He denies alcohol and tobacco usage. FAMILY HISTORY: Pertinent for myocardial infarction and breast cancer in his mother. REVIEW OF SYSTEMS: Negative in other subsystems besides those mentioned above. PHYSICAL EXAMINATION: Vital Signs: He is afebrile. Heart rate 77, respiratory rate 15, blood pressure 126/78. Lungs: Bilateral breath sounds. Heart: Regular rate and rhythm. Abdomen: Soft. Extremities: He has dorsalis pedis pulses. He has a swollen left 2nd toe with purulent drainage and some fluctuance. DIAGNOSTICS/LABORATORY DATA: White count is 12,600 which is increased from yesterday. He does have a left shift. BUN 28, creatinine 1.3. Glucoses are difficult to control. ASSESSMENT: Soft skin soft tissue infection involving the left second toe. PLAN: The plan is an I and D, and we will plan to proceed today since he has been n.p.o. cc: Jeronimo Lerner MD
[2018-10-12] MEDS ORDERED: XYLOCAINE-MPF 2% ONE (16:22)
[2018-10-12] MEDS ORDERED: DIPRIVAN 1% ONE (16:22)
[2018-10-12] MEDS: LOVENOX SUBQ SCH (20:35)
[2018-10-13] MEDS: ZOSYN 3.375 GM in NS 50 ML IV SCH ×5 (01:49→20:32)
--- NOTE | 2018-10-13 02:38 | PROGRESS NOTE ---
DATE: 10/12/2018 SUBJECTIVE: The patient resting comfortable in bed. OBJECTIVE: Vital Signs: Temperature 98.1 degrees, pulse 74, respiratory rate 16, blood pressure 130/61, oxygen saturation 100%. HEENT: Atraumatic, normocephalic. Cardiovascular: S1, S2. Respiratory: Has evidence of good air entry bilaterally. Abdomen: Soft, nontender. No masses felt. Extremities: Right 2nd toe inflamed, with some discoloration noted. LABS: WBC 12.58, hematocrit 37.6, with a platelet count of 270,000. Sodium is 134, potassium 4.4, chloride is 94, bicarb 29, BUN is 28, creatinine is 1.3. ASSESSMENT AND PLAN: 1. Diabetic foot infection. Continue antibiotics. Get an MRI of the right foot to rule out any evidence of osteomyelitis. Surgery consulted. 2. Diabetes mellitus. Maintain patient on sliding scale insulin. Monitor blood sugar levels. 3. Congestive heart failure. Stable. 4. Morbid obesity. Aware. 5. Dilated nonischemic cardiomyopathy. Aware. 6. Obstructive sleep apnea. The patient can be allowed to use a CPAP machine if he has one from home. 7. Deep vein thrombosis prophylaxis with Lovenox. 8. Gastrointestinal prophylaxis with proton pump inhibitor. cc: Tre Salas MD
[2018-10-13] MEDS ORDERED: VANCOMYCIN 2 GM in NS 500 ML IV SCH ×4 (03:00)
--- NOTE | 2018-10-13 05:38 | OPERATIVE NOTE ---
PROCEDURE DATE: 10/12/2018 PROCEDURES: 1. Incision and drainage of abscess, left second toe and left foot. 2. Clip toenails x5. PREOPERATIVE DIAGNOSIS: Skin soft tissue infection, left second toe within onychogryposis. POSTOPERATIVE DIAGNOSES: 1. Skin soft tissue infection, left second toe within onychogryposis. 2. With the abscess including an involving the dorsum of the left foot. DESCRIPTION OF PROCEDURE: After satisfactory general anesthesia was achieved, the left foot was prepped and draped in a sterile fashion. We excised the eschar on the toe, and cultured the purulent tissue. We opened the dorsum of the second toe proximally and got into an abscess cavity. This extended proximally into the dorsum of the foot, so to extend our incision into the mid dorsal foot and then evacuated the pus, that was collected there is an abscess. We copiously irrigated it. We then packed the abscess cavity with quarter-inch iodoform gauze including the wound on the second toe. After completing that, we obtained a bone biter and cut the curled hypertrophic nails of each toe on the left foot. Sterile gauze followed by sterile Kerlix was applied. He tolerated it well. Was sent to the recovery room in satisfactory condition. cc: Jeronimo Lerner MD
[2018-10-13] MEDS: HUMALOG SUBQ SCH ×4 (06:22→20:32)
[2018-10-13] MEDS: PROTONIX PO SCH (06:23)
[2018-10-13 07:37] LABS: BASO# 0.02 X1000 (0.0-0.2); BASO% 0.2 % (0.0-0.8); EOS# 0.19 X1000 (0.0-0.7); EOS% 1.5 % (0.0-10.0); HEMATOCRIT 38.2 % (42.0-52.0); HEMOGLOBIN 11.8 g/dL (14.0-18.0); IMM GRAN# 0.05 X1000 (0.0-0.04); IMM GRAN% 0.4 % (0.0-0.5); LYMPH# 1.22 X1000 (1.2-3.4); LYMPH% 9.6 % (20.5-51.1); MCH 26.6 PG (27-31); MCHC 30.9 g/dL (33-37); MONO# 1.54 X1000 (0.11-0.59); MONO% 12.2 % (1.7-9.3); MPV 10.6 FL (7.4-10.4); NEUT# 9.63 X1000 (1.4-6.5); NEUT% 76.1 % (42.2-75.2); PLT 250 X1000 (130-400); RBC 4.44 XMIL (4.7-6.1); RDW 13.4 % (11.5-14.5); WBC 12.65 X1000 (4.8-10.8)
[2018-10-13 08:03] LABS: ALB/GLOB RATIO 0.3; ALBUMIN 1.7 g/dL (3.5-5.0); CALCIUM 7.9 mg/dL (8.8-10.2); CREATININE 2.8 mg/dL (0.7-1.2); POTASSIUM 4.7 mmol/L (3.5-5.1); TOTAL BILIRUBIN 0.21 mg/dL (0.20-1.00); TOTAL PROTEIN 6.7 g/dL (6.3-8.3)
[2018-10-13] MEDS: LASIX PO SCH ×2 (08:13→20:33)
[2018-10-13] MEDS: ASPIRIN PO SCH (08:13)
[2018-10-13] MEDS: COREG PO SCH ×2 (08:13→20:33)
[2018-10-13] MEDS: PERCOCET-5 PO PRN ×2 (08:28→18:49)
--- NOTE | 2018-10-13 14:17 | PROGRESS NOTE ---
DATE: 10/13/2018 SUBJECTIVE: The patient is resting in bed. Not in any obvious distress. OBJECTIVE: Vital signs: Temperature 98.1 degrees, pulse 96, blood pressure 108/76, respiratory rate is 18. Cardiovascular: S1, S2. Respiratory system: Has evidence of good air entry bilaterally. Abdomen: Soft, nontender. No masses felt. Extremities: Left foot dressed. LABS: WBC 12.65, hematocrit is 38.2, platelet count is 258,000. Sodium is 128, potassium is 4.7, chloride is 93, bicarb 25, BUN is 38, creatinine is 2.8. ASSESSMENT AND PLAN: 1. Diabetic foot infection. Continue antibiotics. MRI of the foot is currently pending. The patient did have I and D done by the surgical team yesterday. 2. Diabetes mellitus. Continue blood sugar monitor as well as sliding scale insulin. 3. Congestive heart failure. Stable. 4. Morbid obesity. Aware. 5. Dilated nonischemic cardiomyopathy. Aware. 6. Obstructive sleep apnea. The patient can use his CPAP machine from home if he does have one. 7. DVT prophylaxis. Lovenox. 8. Gastrointestinal prophylaxis. PPI. cc: Tre Salas MD
[2018-10-13] MEDS: DILAUDID IV PRN ×2 (14:28→23:29)
--- NOTE | 2018-10-13 16:52 | Diag Imaging Result Doc PS360 ---
EXAM: MRI LOW EXTREMITY W/O CON-LEFT INDICATION: r/o osteomyelitis left foot TECHNIQUE: COMPARISON: None. FINDINGS: There is an ulceration at the dorsum of the forefoot overlying the second toe with edema and a small tract extending into the soft tissues. However, there is no distinct abnormal osseous marrow signal that would indicate osteomyelitis. There does appear to be a small subcortical bone cyst at the base of the fourth metatarsal. There is a small undersurface calcaneal osteophyte. There is soft tissue edema around the forefoot. The visualized ligamentous and tendinous structures appear to be intact. IMPRESSION: Skin ulceration and edema at the dorsum of the forefoot as described suggesting cellulitis. However, there is no marrow edema to indicate underlying osteomyelitis. Electronically signed by Colt Monet 10/13/2018 4:50 PM
[2018-10-13] MEDS: LOVENOX SUBQ SCH (20:33)
[2018-10-14] MEDS: ZOSYN 3.375 GM in NS 50 ML IV SCH ×3 (01:08→14:34)
[2018-10-14] MEDS: PERCOCET-5 PO PRN ×2 (03:33→09:35)
--- NOTE | 2018-10-14 04:48 | GENERAL SURGERY PROGRESS NOTE ---
DATE: 10/13/2018 TIME: 5:34. Mr. Tran' wound is inspected. I see no further drainage. The swelling has gone down some. His white count is 12,600. He has gram-positive cocci in his wound. He had a bacillus species in his blood. We will continue to use Betadine gauze in his wound over the weekend until the sepsis is controlled, then probably switch him to Vashe. Dr. Palencia is covering the weekend. cc: Jeronimo Lerner MD
[2018-10-14] MEDS: PROTONIX PO SCH (06:13)
[2018-10-14] MEDS: DILAUDID IV PRN ×3 (06:13→21:42)
[2018-10-14] MEDS: HUMALOG SUBQ SCH ×4 (06:18→21:41)
[2018-10-14 06:43] LABS: BASO# 0.02 X1000 (0.0-0.2); BASO% 0.2 % (0.0-0.8); EOS# 0.29 X1000 (0.0-0.7); EOS% 2.6 % (0.0-10.0); HEMATOCRIT 36.2 % (42.0-52.0); IMM GRAN# 0.04 X1000 (0.0-0.04); IMM GRAN% 0.4 % (0.0-0.5); LYMPH# 1.27 X1000 (1.2-3.4); LYMPH% 11.4 % (20.5-51.1); MCH 26.1 PG (27-31); MCHC 30.4 g/dL (33-37); MONO# 1.37 X1000 (0.11-0.59); MONO% 12.3 % (1.7-9.3); MPV 10.7 FL (7.4-10.4); NEUT# 8.13 X1000 (1.4-6.5); NEUT% 73.1 % (42.2-75.2); PLT 254 X1000 (130-400); RBC 4.21 XMIL (4.7-6.1); RDW 13.1 % (11.5-14.5); WBC 11.12 X1000 (4.8-10.8)
[2018-10-14 07:03] LABS: ALB/GLOB RATIO 0.4; ALBUMIN 1.8 g/dL (3.5-5.0); CALCIUM 7.7 mg/dL (8.8-10.2); CREATININE 3.9 mg/dL (0.7-1.2); POTASSIUM 4.5 mmol/L (3.5-5.1); RANDOM VANCOMYCIN 29.7 ug/mL (5.0-80); TOTAL BILIRUBIN 0.21 mg/dL (0.20-1.00); TOTAL PROTEIN 6.7 g/dL (6.3-8.3)
[2018-10-14] MEDS: ASPIRIN PO SCH (09:31)
[2018-10-14] MEDS: LASIX PO SCH ×2 (09:31→21:43)
[2018-10-14] MEDS: COREG PO SCH ×2 (09:31→21:42)
--- NOTE | 2018-10-14 12:16 | PROGRESS NOTE ---
DATE: 10/14/2018 Mr. Hank Tran is a 53-year-old male who underwent incision and drainage of an abscess involving his left second toe and foot per Dr. Lerner on 10/12/2018. He is now getting wound care and IV antibiotics. He had his left foot dressing changed this morning. PLAN: We will continue IV antibiotics and local wound care over the weekend. cc: Tasha Palencia MD
[2018-10-14] MEDS ORDERED: CUBICIN 500 MG in NS 100 ML IV SCH (16:00)
[2018-10-14] MEDS ORDERED: HUMALOG SUBQ ONE (19:15)
--- NOTE | 2018-10-14 19:24 | PROGRESS NOTE ---
DATE: 10/14/2018 SUBJECTIVE: This morning, Mr. Tran refers to be doing a little better. The left foot has been dressed. OBJECTIVE: Vital signs: Blood pressure is 113/77, pulse is 61, respirations are 22, temperature is 97.6 degrees. General: Mr. Tran is a 53-year-old gentleman. He is in bed. No distress. HEENT: Mucosa is pink and moist. Anicteric. Acyanotic. Neck: Supple. Chest: Good air entry bilateral. There are no crepitations no rhonchi. Cardiovascular: Regular rate and rhythm. Abdomen: Soft, distended but nontender. Extremities: No pedal edema. Left foot is in sterile dressing. Central nervous system: The patient is awake, alert, and oriented. LABORATORY DATA: WBC is 11.12, hemoglobin is 11.0, platelet count is 254,000. Chemistry is also reviewed. Sodium is 127, rest of chemistry is unremarkable. Creatinine is up to 3.9. MEDICATIONS: The patient's medications have also been reviewed. He is currently on Zosyn with vancomycin. ASSESSMENT: 1. Diabetic foot infection with culture positive for Enterococcus faecalis and Staphylococcus epidermidis. The patient is currently on vancomycin and Zosyn. However, the kidney functions continue to worsen, so I will discontinue these 2 antibiotics and start him on daptomycin and ampicillin and await ID to see the patient tomorrow. 2. Acute kidney injury. Creatinine continues to be worsened. I think this is probably medication induced (vancomycin and Zosyn combination). I have discontinued both of them and started him on a different antibiotic regimen. 3. Diabetes mellitus. We will continue monitoring. The patient is on sliding scale insulin. 4. Nonischemic cardiomyopathy with ejection fraction of 15% to 20%. The patient is currently euvolemic. 5. Obesity with body mass index of 45.1 noted. cc: Dion Moran MD
[2018-10-14] MEDS: AMPICILLIN PO SCH (21:42)
[2018-10-14] MEDS: LOVENOX SUBQ SCH (21:43)
[2018-10-15] MEDS: HUMALOG SUBQ SCH ×4 (06:38→20:33)
[2018-10-15] MEDS: PROTONIX PO SCH (06:39)
[2018-10-15 07:26] LABS: BASO# 0.01 X1000 (0.0-0.2); BASO% 0.1 % (0.0-0.8); EOS# 0.29 X1000 (0.0-0.7); EOS% 2.8 % (0.0-10.0); HEMATOCRIT 33.3 % (42.0-52.0); HEMOGLOBIN 10.1 g/dL (14.0-18.0); IMM GRAN# 0.02 X1000 (0.0-0.04); IMM GRAN% 0.2 % (0.0-0.5); LYMPH# 1.27 X1000 (1.2-3.4); LYMPH% 12.3 % (20.5-51.1); MCHC 30.3 g/dL (33-37); MCV 85.8 FL (81-99); MONO# 1.14 X1000 (0.11-0.59); MONO% 11.1 % (1.7-9.3); MPV 10.6 FL (7.4-10.4); NEUT# 7.57 X1000 (1.4-6.5); NEUT% 73.5 % (42.2-75.2); PLT 272 X1000 (130-400); RBC 3.88 XMIL (4.7-6.1); RDW 13.2 % (11.5-14.5)
[2018-10-15 07:45] LABS: CALCIUM 7.8 mg/dL (8.8-10.2); CREATININE 4.7 mg/dL (0.7-1.2); PHOSPHORUS 4.8 mg/dL (2.7-4.5); POTASSIUM 4.6 mmol/L (3.5-5.1)
--- NOTE | 2018-10-15 10:03 | Diag Imaging Result Doc PS360 ---
EXAM: US RENAL 2 (RETROPER) COMPLETE INDICATION: lara/arf TECHNIQUE: COMPARISON: None. FINDINGS: The kidneys are grossly normal in echotexture with no discrete renal mass or hydronephrosis. The right kidney measures 13.7 cm and the left kidney measures 13.2 cm in the greatest longitudinal axes. Right renal cortex measures up to 1.8 cm and the left renal cortex measures up to 2.3 cm in thickness. The urinary bladder appears grossly normal. IMPRESSION: Grossly normal renal ultrasound. Electronically signed by Colt Monet 10/15/2018 10:01 AM
[2018-10-15] MEDS: DILAUDID IV PRN ×2 (10:09→20:34)
[2018-10-15] MEDS: LASIX PO SCH (10:09)
[2018-10-15] MEDS: COREG PO SCH ×2 (10:09→20:33)
[2018-10-15] MEDS: AMPICILLIN PO SCH (10:09)
[2018-10-15] MEDS: ASPIRIN PO SCH (10:09)
--- NOTE | 2018-10-15 10:11 | PROGRESS NOTE ---
DATE: 10/15/2018 SUBJECTIVE: Mr. Hank Tran is a 53-year-old white male who has infection involving his left foot. He has undergone incision and drainage per Dr. Layne and is receiving IV antibiotics. We will continue wound care and antibiotics. Dr. Layne returns tomorrow for further decisions on any surgery of his foot. cc: Tasha Palencia MD
--- NOTE | 2018-10-15 14:29 | INFECTIOUS DISEASE CONSULT REP ---
DATE: 10/15/2018 CONCLUSION: Patient has an infected left foot. He is status post excision of the second toe dorsal eschar and incision and drainage of a left foot and left second toe abscesses. Cultures from the abscesses grew Staph epidermidis and Enterococcus. One of 2 of the patient's blood cultures is positive for bacillus. This is a contaminant. RECOMMENDATIONS: I agree with giving the patient daptomycin. I have changed the dose to 800 mg IV every 48 hours. Also, I have repeated the cultures of the left foot and second toe abscesses. The positive blood culture for bacillus is a contaminant, as mentioned above, and does not require antimicrobial treatment. DISCUSSION: The patient was lethargic and he did not provide a very good history. I did take the history from interviewing him and also from information in the computer. He told me that he had infection in his left foot which developed 3 to 4 days ago. He has undergone surgery, performed by Dr. Jeronimo Lerner as mentioned above. The cultures from the patient's foot also are as mentioned above. The patient's renal function has deteriorated since admission to the hospital. Currently, his creatinine is 4.7, GFR is 16. CBC shows a white count of 10,300, hemoglobin 10.1, and platelet count 272,000. An MRI of the left foot showed cellulitis but no osteomyelitis. PAST MEDICAL HISTORY/REVIEW OF SYSTEMS: Eyes and ears: The patient denied having trouble seeing or hearing. Neck: No stiffness. Lungs: No cough or shortness of breath. Cardiac: No chest pain or palpitations. GI: No nausea, vomiting, or diarrhea. Genitourinary: No dysuria or flank pain. Bones, joints, muscles: See present illness. Integument: No rash. Neurologic: No seizures. No loss of motor function. PREVIOUS HOSPITALIZATIONS AND OPERATIONS: The patient has had a right rotator cuff surgery, cervical spine surgery which included placement of metal in the neck, myocardial infarction, stroke, and congestive heart failure, and ankle repair. MEDICAL DISEASES: Positive for diabetes mellitus, hypertension, myocardial infarction, stroke, congestive heart failure, and morbid obesity. INFECTIOUS DISEASE HISTORY: Negative for pneumonia and UTI. FAMILY HISTORY: Positive for diabetes mellitus, hypertension, myocardial infarction, and cancer. SOCIAL HISTORY: [place] He does not smoke cigarettes, drink alcoholic beverages, or abuse drugs. He is . He is on disability. The patient does not have any pets at home. ALLERGIES: His chart lists no known drug allergies. HOME MEDICATIONS: Include the following. Coreg, Lasix, and insulin. PHYSICAL EXAMINATION: Vital Signs: Temperature is 97.4 degrees, pulse 90, respirations are 20, blood pressure is 137/84. The patient is 5 feet 8 inches tall and weighs 296 pounds. General: This is a morbidly obese, middle-aged male. He is lethargic today. Head, eyes, ears, nose, and throat: He can hear my spoken words and see near objects. He does not have any white patches on his tongue. Neck: No meningismus. Cardiovascular: Heart rate is regular. Abdomen: Soft and nontender. Extremities: The patient's left foot has an incision in the dorsum part of the foot where an abscess was drained. There still is purulent drainage coming from the wound. The patient's second toe has been debrided. It has dry gangrenous changes and there also is some purulent fluid from the toe as well. The patient's legs are much less edematous than when the patient came in according to the patient. Neurologic: The patient is lethargic. He can move his extremities. There is no tremor. His memory as regarding his medical history was decreased. Thank you for the consult. cc: Tyler Ramires MD
[2018-10-15] MEDS: CUBICIN 800 MG in NS 100 ML IV SCH (16:36)
[2018-10-15] MEDS: PERCOCET-5 PO PRN (16:48)
--- NOTE | 2018-10-15 17:45 | PROGRESS NOTE ---
DATE: 10/15/2018 SUBJECTIVE: Today Mr. Tran refers to be doing fairly okay. Awaiting for the foot to be dressed. He denies any chest pain. No shortness of breath. OBJECTIVE: Vital signs: Blood pressure is 138/101, pulse is 85, respirations are 17, temperature is 98 degrees. Patient was saturating between 93 to 98 on room air. General: Mr. Tran is a 53-year-old gentleman, morbidly obese. He is in bed. He is not in any cardiopulmonary distress. BMI is 45.1. HEENT: Mucosa is pink and moist. Anicteric. Acyanotic. Neck: Supple. No JVD. Respiratory System: There is good air entry bilateral. No crepitations. No rhonchi. There was not any accessory muscle use. Cardiovascular: Regular rate and rhythm. No murmurs, no rubs, no gallops. GI: Abdomen is soft. It is distended but nontender. Bowel sounds present. Extremities: No pedal edema. Left foot is in a sterile dressing. NET UI DEVELOPER: Patient is awake, alert, and oriented. LABORATORY DATA: WBC is down to 10.30, hemoglobin is 10.1, platelet count of 272,000. Chemistry is also reviewed. Sodium is 129, potassium is 4.6, chloride 92, bicarb is 26. Creatinine went up to 4.7. The patient I's and O's, urine output is 600. ASSESSMENT AND PLAN: 1. Diabetic foot infection with culture positive for enterococcal faecalis and Staphylococcus epidermidis. The patient is currently on daptomycin. 2. Acute kidney injury. Creatinine continues to be worsening. The patient did have a vancomycin level of 29.7, so this has been discontinued. Lasix has also been discontinued. We will do some urinalysis, and I have consulted Nephrology. So far renal ultrasound is negative for any obstructive uropathy. 3. Diabetes mellitus. We will continue sliding scale. 4. Nonischemic cardiomyopathy with ejection fraction of 15% to 20%. The patient is currently euvolemic. He is probably slightly dehydrated. 5. Obesity with BMI of 41.1, noted. So, in general, I think Mr. Tran seems to be doing fair from the infectious standpoint. His glucose is also better controlled. However, his kidney functions continue to worsen. Part of it could have been the combination of Zosyn with vancomycin. Vancomycin level was 29.7 on the serum yesterday. These have been discontinued. Patient is currently on daptomycin. We have ordered some urine studies and renal ultrasound which is negative. We have asked Nephrology to also see the patient. I have also discontinued the Lasix. cc: Dion Moran MD
[2018-10-15 20:18] LABS: URINE SOURCE VOIDED
[2018-10-15 20:22] LABS: BILIRUBIN URINE NEGATIVE (NEGATIVE); BLOOD URINE SMALL (NEGATIVE); COLOR YELLOW; GLUCOSE URINE NEGATIVE (NEGATIVE); KETONE URINE NEGATIVE (NEGATIVE); LEUKOCYTES URINE NEGATIVE (NEGATIVE); NITRITE URINE NEGATIVE (NEGATIVE); PH URINE 5.5; PROTEIN URINE 30 mg/dL (NEGATIVE); SP GRAVITY URINE 1.004; TURBIDITY URINE CLEAR (CLEAR); UROBILINOGEN URINE NORMAL (NORMAL)
[2018-10-15 20:24] LABS: UR EPITHELIAL CELLS <10 /HPF (<10); URINE BACTERIA NEGATIVE /HPF; URINE WBC <10 /HPF (<10)
[2018-10-15] MEDS: LOVENOX SUBQ SCH (20:34)
[2018-10-15 20:37] LABS: URINE CASTS NONE SEEN; URINE CRYSTALS NONE SEEN; URINE SMALL ROUND CELLS NONE SEEN; URINE YEAST NONE SEEN
[2018-10-15 20:39] LABS: UR CREAT RANDOM 83.3 mg/dL (14-26)
[2018-10-16] MEDS: PROTONIX PO SCH (06:16)
[2018-10-16] MEDS: HUMALOG SUBQ SCH ×4 (06:24→21:07)
[2018-10-16 07:13] LABS: ALBUMIN 2.1 g/dL (3.5-5.0); CALCIUM 8.2 mg/dL (8.8-10.2); CREATININE 4.9 mg/dL (0.7-1.2); POTASSIUM 4.7 mmol/L (3.5-5.1)
[2018-10-16] MEDS ORDERED: NS 1,000 ML IV SCH (08:45)
--- NOTE | 2018-10-16 09:48 | INFECTIOUS DISEASE PROGRESS NO ---
DATE: 10/16/2018 PRESENT ILLNESS: Patient has cellulitis and abscesses of the left foot. He has had surgery on the foot with drainage of the abscesses and removal of an eschar. Cultures from the patient's foot have grown Staphylococcus epidermidis and enterococcus. MEDICATIONS: The patient is receiving daptomycin in a dose of 800 mg IV every 48 hours. The patient's dose has been modified because of his renal failure. I have a obtained a repeat culture from the patient's foot also. The patient had bacillus in 1 of 2 blood cultures. This is a contaminant and does not require treatment. PHYSICAL EXAMINATION: Vital Signs: Temperature is 98.2 degrees, pulse 81, respirations 20, blood pressure 134/90. General: This is an edematous, morbidly obese, middle-aged male he is in no acute distress. Head, eyes, ears, nose, and throat: He can hear my spoken words and see near objects. He does not have any white coating on his tongue. Neck: No meningismus. Lungs: Clear to auscultation. Cardiovascular: Regular heart rate. Abdomen: Soft and nontender. Extremities: Both legs are edematous. The left foot has a large dressing on it. The dressing is intact. Neurologic: The patient is slightly lethargic. He can move his extremities. There is no tremor. LABORATORY AND X-RAY: The MRI of the patient's foot showed cellulitis but no osteomyelitis. The repeat culture from the foot is pending. Creatinine is 4.9, GFR is 15. CBC shows a white count of 10,300, hemoglobin 10.1, and platelet count 272,000. ASSESSMENT AND PLAN: 1. Patient has left foot infection as mentioned above. I am going to continue daptomycin pending the results of the last culture. The daptomycin does cover not only the Staph epidermidis, but Enterococcus as well, and therefore ampicillin or amoxicillin will not be needed. 2. Comorbidities: He is morbidly obese. He has chronic edema. He has congestive heart failure. He also is a diabetic and has had a stroke. cc: Tyler Ramires MD
[2018-10-16] MEDS: COREG PO SCH ×2 (09:54→21:07)
[2018-10-16] MEDS: NS 1,000 ML IV SCH ×3 (09:54→19:48)
[2018-10-16] MEDS: ASPIRIN PO SCH (09:54)
--- NOTE | 2018-10-16 13:11 | NEPHROLOGY CONSULTATION ---
DATE: 10/16/2018 REASON FOR ADMISSION: Nausea, vomiting with left foot pain. REASON FOR CONSULT: Acute kidney injury. CONSULTING PHYSICIAN: Dr. Dion Moran. HISTORY OF PRESENT ILLNESS: Mr. Tran is a 53-year-old male who has a baseline creatinine of 0.9 upon admission. He is known to have systolic heart failure with an ejection fraction of 15 to 20 percent, last evaluated in June 2018. The patient has uncontrolled diabetes with a diabetic foot nonhealing on the left. The patient presented to the emergency department at [facility] for these complaints. This is his fourth ED visit since beginning of September. He presents with swollen extremity, diagnosis with skin ulcer. He had been treated with outpatient Levaquin since this past Tuesday and had nausea and vomiting. Returned to the emergency room after the and was found to have a little bit of chest pain, nausea, vomiting, and received treatment and was again discharged. Upon his return, he was found to have worsening of his left great toe with foul odor, slight green drainage, bloody upon inspection. Subsequently, patient had an abdominal pelvis CT showing cardiomegaly with interstitial infiltrates with bilateral lung bases with pulmonary edema. He had a foot x- ray showing cellulitis and soft tissue gas. No evidence of osteomyelitis. The patient was evaluated and admitted, started on Levaquin, subsequently changed to IV vancomycin and Zosyn. During this hospital stay, he has had debridement of his left foot per Dr. Layne, now on IV antibiotics, followed by Dr. Ramires. During his hospital stay, it is noted that his creatinine has gone from 0.9 to 4.9 with an elevated BUN of 56. He currently only remains on Cubicin for treatment of his left foot cellulitis. The patient currently denies chest pain. No nausea, vomiting. States that he is hungry. Positive for pain to the left lower extremity. No complaints of recent fever or chills. PHYSICAL EXAMINATION: Vitals: His current vital signs, temperature 98.2 degrees, blood pressure 134/90, heart rate 81, respirations 20. He is on 2 L nasal cannula. Last recorded saturation 100%. General: This is a 53-year-old male resting quietly in bed. He appears chronically ill, no acute distress. Skin: Warm and dry. HEENT: Normocephalic , atraumatic. Pupils are equal and reactive to light. Conjunctiva is pale. He has poor dentition. Mucous membranes dry. Neck: Supple, trachea midline. No JVD. Cardiovascular: Regular rate and rhythm. S4 is present. Lungs: Clear to auscultation bilaterally. Equal excursion. He is currently on O2. Abdomen: Soft, nontender. Positive bowel sounds. Genitourinary: Not inspected. Patient states he has to void, given urinal. Extremities: He does have trace to 1+ lower extremity edema bilateral with left foot being wrapped in Kerlix. Neurological: Alert and oriented x3. INPUT AND OUTPUT: He has had 100 in. He has only had 200 mL out, though he states that he has been voiding adequate. LABORATORY: Sodium 130, potassium 4.7, chloride 93, CO2 24, BUN 56, creatinine 4.9, glucose 225. He has an anion gap of 13, calcium 8.2, phosphorus 5, albumin 2.1. White count 10.3, hemoglobin 10.1, hematocrit 33.3 with a platelet count of 272,000. Patient's preliminary culture of his foot shows gram-positive cocci resulted on the . ASSESSMENT AND PLAN: 1. Acute kidney injury. We will check urine electrolytes on this patient today. We will go ahead and start normal saline at 100 mL an hour. We will re-evaluate labs on a daily basis. We have spoken to the patient in regards with injury to his left foot possibly contributing to his acute renal injury. We have also indicated that while he is recovering in the hospital, he may need bridging of dialysis during his hospital stay. The patient states understanding. 2. Electrolytes, acid-base balance and anemia. These all remain fairly stable. 3. Diabetic nonhealing wound. This is followed by Surgery and Dr. Ramires and the Primary Care Team. I would like to thank you for allowing us to follow with this patient. Dictated by SEN Jackson for Thomas Sol MD Face to face encounter, data reviewed, discussed with Dex Villarreal on 10/16/18. I agree with the above assessment and plan of care. cc: SEN Jackson MD [facility]
--- NOTE | 2018-10-16 15:36 | PROGRESS NOTE ---
DATE: 10/16/2018 SUBJECTIVE: This morning Mr. Tran refers to be doing fairly okay. Denies any complaints. OBJECTIVE: Vital Signs: Blood pressure is 143/87, pulse is 78, respirations 18, temperature is 98.3. General: Mr. Tran is a 53-year-old morbidly obese gentleman. He is in bed. He is not in any cardiopulmonary distress. HEENT: Mucosa is pink and moist. Anicteric. Acyanotic. Neck: Supple. No JVD. Respiratory: There is good air entry bilaterally. No crepitations. No rhonchi. No accessory muscle use. Cardiovascular: Regular rate and rhythm. No murmurs, no rubs, no gallops. Gastrointestinal: Abdomen was soft, distended, but nontender. Bowel sounds present. There is no hepatosplenomegaly. Extremities: No pedal edema. Left foot is still in sterile dressing. Central Nervous System: Patient was awake, alert and oriented. LABORATORY DATA: Sodium is 130, potassium is 4.7, chloride 93, bicarb is 24. The patient's BUN went up to 56 and creatinine is up to 4.9, glucose is 225. Patient's I's and O's: Urine output was 200. The patient is positive balance of 1191. IMAGING STUDIES: No imaging studies today. ASSESSMENT: 1. Diabetic foot infection with culture positive for enterococcal faecalis and Staphylococcus epidermidis. The patient is currently on daptomycin. He is status post surgical exploration of the toe. We are going to continue with wound care. 2. Acute kidney injury. So far, the patient seems to be making marginal urine. His FENA was 1.22, but then, of course, patient was on Lasix. Fraction excretion of BUN is 31.6 which would be consistent with prerenal disease. Ultrasound was negative. All possible nephrotoxic drugs have been discontinued. I have discussed this with the mold maker plastic molds and we are going to give him a trial of normal saline at 100 mL/h. We will keep a very close eye on his cardiac status because of poor ejection fraction. 3. Diabetes mellitus, stable. 4. Nonischemic cardiomyopathy with ejection fraction of 15-30%. The patient is currently euvolemic. He appears actually to be slightly intravascularly depleted. 5. Obesity with BMI of 45.1 noted. PLAN: So, in general, I think Mr. Tran is fairly stable. He is getting wound care. He is currently on antibiotics. However, his kidney function continues to worsen. We will give him a trial of normal saline today as per Nephrology recommendations and re-evaluate his numbers tomorrow. We are going to keep a very close eye on his cardiopulmonary status because of extremely poor ejection fraction. cc: Dion Moran MD
[2018-10-16] MEDS: DILAUDID IV PRN ×2 (15:59→21:55)
[2018-10-16 19:29] LABS: UR CREAT RANDOM 103.8 mg/dL (14-26); UR PROT RANDOM 51.3 mg/dL
[2018-10-16] MEDS: LOVENOX SUBQ SCH (21:07)
--- NOTE | 2018-10-16 23:51 | GENERAL SURGERY PROGRESS NOTE ---
DATE: 10/16/2018 Mr. Tran' wound has been wrapped. The nurse said it is looking better. His white count is down to 10,300. BUN is up to 56, creatinine 4.9. We will continue with the local wound care. He may come to dialysis. cc: Jeronimo Lerner MD
[2018-10-17] MEDS: NS 1,000 ML IV SCH ×6 (00:51→18:41)
[2018-10-17] MEDS: PROTONIX PO SCH (06:19)
[2018-10-17] MEDS: HUMALOG SUBQ SCH ×4 (06:19→21:18)
[2018-10-17 07:10] LABS: ALBUMIN 2.2 g/dL (3.5-5.0); CALCIUM 8.4 mg/dL (8.8-10.2); PHOSPHORUS 4.7 mg/dL (2.7-4.5); POTASSIUM 4.9 mmol/L (3.5-5.1)
[2018-10-17] MEDS: ASPIRIN PO SCH (09:40)
[2018-10-17] MEDS: COREG PO SCH ×2 (09:40→21:15)
[2018-10-17] MEDS: DILAUDID IV PRN (12:52)
[2018-10-17] MEDS: CUBICIN 800 MG in NS 100 ML IV SCH (12:59)
--- NOTE | 2018-10-17 19:46 | INFECTIOUS DISEASE PROGRESS NO ---
DATE: 10/17/2018 PRESENT ILLNESS: Mr. Tran is being treated for an abscess and cellulitis of the left foot. He is status post incision and drainage of the abscess to the left second toe and left foot, which has grown Staph epi, enterococcal faecalis and Strep agalactiae. MEDICATIONS: Today is day 2 of daptomycin 800 mg IV every 48 hours as renally modified dose. PHYSICAL EXAMINATION: Vital Signs: Temperature is 97.8 degrees, pulse rate 82 , respiratory rate 22, blood pressure 122/79, O2 saturation 98% on 2 L nasal cannula. General: This is a morbidly obese chronically ill-appearing middle-aged gentleman. He is lying in bed, drowsy but arousable. HEENT: Atraumatic, normocephalic. Oral mucous membranes are pink and moist. Conjunctivae are pink. Neck: Supple. Trachea is midline. Cardiovascular: Heart rate and rhythm are regular. Normal sinus rhythm on the monitor. Pedal and radial pulses are palpable bilaterally. There is a +2 pretibial edema to the left lower extremity and trace to the right Respiratory: Lung sounds are clear to auscultation. Abdomen: Soft, obese, nontender, bowel sounds are active. Neurologic: He is lethargic but arousable; able to move side to side in the bed without any noticeable weakness. Extremities: There is a dressing which was removed from his left foot and packing to the anterior foot up to the second toe. Wound bed is a pinkish purple and there is some serosanguineous drainage noted. LABORATORY AND X-RAY: There is no CBC today. Today the creatinine is 5, GFR 15, he has grown three separate bacteria to his left foot, which include Staph epi, enterococcal faecalis and group B strep agalactiae. No imaging reports today. ASSESSMENT AND PLAN: Mr. Tran has had an irrigation and drainage of the abscess and cellulitis to his left foot which is growing three separate bacteria. Fortunately all three are covered by daptomycin which is what he is receiving now. He is on a renally modified dose due to his acute kidney injury. We will continue daptomycin at this point to be given every 48 hours until his renal function shows a GFR of greater than 30, at which time he should be able to go to once daily. These plans have been discussed with and recommended by Dr. Ramires. COMORBIDITIES: Include that he is morbidly obese, chronic lower extremity edema , congestive heart failure, diabetes mellitus, current acute kidney injury and history of stroke. Dictated by SEN Caballero for Tyler Ramires MD This chart was documented by, SEN Caballero and accurately reflects the services performed, treatment plan and medical decisions as attested by the providers signature Tyler Ramires MD. cc: Tyler Ramires MD [facility]
--- NOTE | 2018-10-17 20:37 | PROGRESS NOTE ---
DATE: 10/17/2018 SUBJECTIVE: This morning Mr. Tran refers to be doing a little better. He did not have any complaints. OBJECTIVE: Vital Signs: Blood pressure is 132/87, pulse is 88, respiration is 22, temperature is 98.4. General: Mr. Tran is a 53-year-old gentleman. He is morbidly obese. He was in bed. BMI of 45.1. He was not in any cardiopulmonary distress. HEENT: Mucosa was pink and moist. Anicteric. Acyanotic. Neck: Supple. Respiratory: There was good air entry bilaterally. Did not hear any crepitations or rhonchi. Cardiovascular: Regular rate and rhythm. No murmurs, no rubs, no gallops. Gastrointestinal: Abdomen was soft, distended, but nontender. Bowel sounds are present. There is no hepatosplenomegaly. Extremities: No pedal edema. Left foot is still in sterile dressing. Central Nervous System: Patient was sleeping, but easily arousable, and followed commands. LABORATORY DATA: Sodium is 131, potassium is 4.9, chloride 94, bicarb is 25, creatinine is 5.0, glucose is minimally elevated. The patient's I's and O's, however, urine output was 1500. The patient is still positive balance of 3051. CURRENT MEDICATIONS: Include: 1. Carvedilol 6.25 b.i.d. 2. Aspirin 81 mg daily. 3. Daptomycin 800 q.48 hourly. 4. Lovenox 40 mg subcutaneously. 5. Dilaudid 1 mg IV q.6 p.r.n. 6. Oxycodone 5 mg p.o. q.6h p.r.n. 7. Pantoprazole 40 mg p.o. daily. 8. Normal saline at 100 mL/h. ASSESSMENT: 1. Diabetic foot infection with culture positive for Enterococcal faecalis and Staphylococcus epidermidis. The patient is currently on daptomycin. He is status post surgical exploration of the toe. We will continue with wound care. Patient is being seen by ID and Surgery. 2. Acute kidney injury. The patient is currently on IV fluids. Creatinine got worsened slightly today. However, he started to make adequate urine. He is seen by Nephrology and we will continue with the current rate of the normal saline, re-evaluate his labs and fluid status tomorrow, and make changes accordingly. 3. Diabetes mellitus. We will continue with sliding scale and insulin regimen. 4. Nonischemic cardiomyopathy with ejection fraction of 15-20%. The patient is currently euvolemic. Of course, we are going to keep a very close eye on his fluid status as he is getting IV fluids. 5. Obesity, with BMI of 45.1, noted. PLAN: So, in general, I think Mr. Tran is doing fairly okay. His foot infection seems to be under control; however, his urgent problem now is about his kidneys. His creatinine continues to go up; however, he has made adequate urine over the course of a 24 hour period. We are going to continue with the current IV fluids. Diuretics have been discontinued. Vancomycin has also been discontinued. We are going to repeat his labs and follow up accordingly. The patient is being seen by Surgery, ID and Nephrology. We appreciate the input of the subspecialties who are involved in Mr. Tran' care. cc: Dion Moran MD
--- NOTE | 2018-10-17 21:05 | NEPHROLOGY PROGRESS NOTE ---
DATE: 10/17/2018 TIME SEEN: 08 SUBJECTIVE: Mr. Tran is resting quietly in bed, head of bed is slightly elevated. He has his left foot elevated today. He is currently denying any chest pain. Some foot discomfort. VITAL SIGNS: Temperature 98.5 degrees, blood pressure 125/91, heart rate 90, respirations 22, he has had on room air last recorded saturation 98%, he has had 660 in, 1500 out to Moore catheter. LAB: Sodium 131, potassium 4.9, chloride 94, CO2 25, BUN 55, creatinine 5, glucose 212, patient's anion gap is 12, calcium of 8.4, phos 4.7, albumin 2.2, white count 10.1. The patient had urine electrolytes indicating a FENa score of 0.73%. The patient had a renal ultrasound completed on the indicating the right kidney measuring 13.7, left measuring 13.2, normal renal ultrasound. PHYSICAL EXAM: This is a 53-year-old male, he is currently resting quietly in bed. He appears chronically ill though no acute distress.Skin: Warm and dry. HEENT: Normocephalic, atraumatic. Conjunctiva is pink. He has LUI. Mucous membranes are dry. Neck: Supple. Trachea midline. No evidence of JVD. Cardiovascular: Regular rate and rhythm. S4 is present. Lungs: Clear to auscultation bilaterally. Equal excursion. Abdomen : Large, obese, soft, nontender, positive bowel sounds. Genitourinary: Not inspected. Patient has been voiding adequate amount is noted. Extremities: Continues with trace edema 1+ to the right. He has Kerlix to the left foot though this appears to have some drainage and a foul odor today. Neurologic: Alert and oriented x3. ASSESSMENT AND PLAN: 1. Acute kidney injury. The patient's urine electrolytes indicate that he is dry. FENa score 0.73%. We started normal saline at 100 mL an hour on this gentleman yesterday. We will continue to monitor, creatinine has remained stable today at 5, BUN of 55. 2. Electrolytes, acid-base balance and anemia. These remain fairly stable. 3. Diabetic nonhealing wound ulcer. This is followed by the primary care team and surgeons. Like to thank you for allowing us to follow with this patient. Dictated by SEN Jackson for Thomas Sol MD Face to face encounter, data reviewed, discussed with Trupti Villarreal on 10/17/18. I agree with the above assessment and plan of care. cc: SEN Jackson MD [facility]
[2018-10-17] MEDS: LOVENOX SUBQ SCH (21:15)
--- NOTE | 2018-10-18 01:21 | GENERAL SURGERY PROGRESS NOTE ---
DATE: 10/17/2018 Mr. Tran is afebrile. Heart rate 82. Blood pressure 132/87. White count is down. He has 3 different bacteria in his wound. The wound was inspected today. It still shows palmer and necrotic debris. It was is repacked with Betadine gauze. We will recheck his CBC tomorrow. He may ultimately need further debridement. cc: Jeronimo Lerner MD
[2018-10-18] MEDS: NS 1,000 ML IV SCH ×2 (03:35→18:31)
[2018-10-18] MEDS: HUMALOG SUBQ SCH ×4 (06:40→21:38)
[2018-10-18] MEDS: PROTONIX PO SCH (06:41)
[2018-10-18 07:08] LABS: BASO# 0.02 X1000 (0.0-0.2); BASO% 0.2 % (0.0-0.8); EOS# 0.15 X1000 (0.0-0.7); EOS% 1.8 % (0.0-10.0); HEMATOCRIT 32.5 % (42.0-52.0); HEMOGLOBIN 9.8 g/dL (14.0-18.0); IMM GRAN# 0.02 X1000 (0.0-0.04); IMM GRAN% 0.2 % (0.0-0.5); LYMPH# 1.15 X1000 (1.2-3.4); LYMPH% 13.6 % (20.5-51.1); MCHC 30.2 g/dL (33-37); MCV 86.2 FL (81-99); MONO# 1.09 X1000 (0.11-0.59); MONO% 12.9 % (1.7-9.3); MPV 10.2 FL (7.4-10.4); NEUT# 6.04 X1000 (1.4-6.5); NEUT% 71.3 % (42.2-75.2); PLT 310 X1000 (130-400); RBC 3.77 XMIL (4.7-6.1); RDW 13.6 % (11.5-14.5); WBC 8.47 X1000 (4.8-10.8)
[2018-10-18 08:07] LABS: ALBUMIN 2.2 g/dL (3.5-5.0); CALCIUM 7.9 mg/dL (8.8-10.2); CREATININE 4.6 mg/dL (0.7-1.2); PHOSPHORUS 4.7 mg/dL (2.7-4.5); POTASSIUM 5.4 mmol/L (3.5-5.1)
[2018-10-18] MEDS: ASPIRIN PO SCH (08:50)
[2018-10-18] MEDS: COREG PO SCH ×2 (08:50→21:38)
[2018-10-18] MEDS: DILAUDID IV PRN ×2 (09:27→21:55)
--- NOTE | 2018-10-18 13:23 | NEPHROLOGY PROGRESS NOTE ---
DATE: 10/18/2018 SUBJECTIVE: He is sitting up in the chair. He still has some pain in the foot, but no other new complaints. Good appetite. No nausea or vomiting or shortness of breath. OBJECTIVE: Vital Signs: Blood pressure 136/92, heart rate 79, respirations 21, afebrile. General: No acute distress. Skin: Warm and dry. Conjunctivae are pink. Neck: Neck veins are not visible. Heart: Regular with an S4. No murmurs. Lungs: Have equal breath sounds. No crackles or wheezes. Abdomen: Soft, nontender. Bowel sounds present. Extremities: 1+ edema. No clubbing or cyanosis. IMPRESSION: Acute kidney injury. Good urine output. Creatinine lower today at 4.6. Potassium is marginally elevated at 5.4 with sodium 133,. He does not meet criteria for dialysis. cc: Thomas Sol MD
--- NOTE | 2018-10-18 19:05 | PROGRESS NOTE ---
DATE: 10/18/2018 SUBJECTIVE: This morning Mr. Tran refers to be doing fairly okay. He was actually requesting when he would be discharged. OBJECTIVE: Vital signs: Blood pressure is 101/54, pulse is 80, respirations 22 , temperature is 98.3 degrees. The patient was saturating 98% on nasal cannula. General: Mr. Tran is a 53- year-old gentleman. He is morbidly obese, with a BMI of 45.1. He was in bed he was not in any cardiopulmonary distress. HEENT: Mucosa is pink and moist. Anicteric. Acyanotic. Neck: Supple. No JVD. No carotid bruit. Trachea is midline. There is no thyromegaly. Respiratory: Good air entry bilaterally. There were no crepitations. No rhonchi. No accessory muscle use. Cardiovascular: Regular rate and rhythm. No murmurs , no rubs, no gallops. Gastrointestinal: The abdomen was soft, distended, but nontender. Bowel sounds present. No hepatosplenomegaly. Extremities: No pedal edema. Left foot is still in a sterile dressing. 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 There is no focal neurological deficit. LABORATORY DATA: WBC is 8.47, hemoglobin is 9.8, platelet count of 310,000. Sodium is 133, potassium is 5.4, chloride 97, bicarb is 22, BUN is 57, creatinine is down to 4.6. The patient's Is and Os show urine output was 1,200 for total urine output. The patient is still positive balance. MEDICATIONS: The medications have also been reviewed. The patient is still on daptomycin 800 mg every 48 hours, today is day 3 on that. Lovenox. Dilaudid. Roberts. Normal saline at 100 mL/h. ASSESSMENT: 1. Diabetic foot infection, with culture positive for Enterococcal faecalis and Staphylococcus epidermidis. The patient is currently on daptomycin, today is day 3. ID and Surgery on board. The patient is status post surgical exploration of the toe. 2. Acute kidney injury. We will continue with the IV fluids. Creatinine has gone down some today. We will continue with the current IV fluids. 3. Diabetes mellitus. The patient is on sliding scale insulin. 4. Nonischemic cardiomyopathy with an ejection fraction of 15% to 20%. The patient is currently euvolemic. We will continue to keep an eye on his fluid status. 5. Obesity, with BMI of 45.1 noted. PLAN: In general, I think Mr. Tran continues to be doing fairly okay. His creatinine has gone down some today. He continues to be euvolemic. We will continue with the current rate on the IV fluids and re-evaluate him tomorrow. cc: Dion Moran MD [facility]
[2018-10-18] MEDS: PERCOCET-5 PO PRN (19:16)
[2018-10-18] MEDS: LOVENOX SUBQ SCH (21:38)
[2018-10-19] MEDS: NS 1,000 ML IV SCH ×2 (03:10→20:02)
--- NOTE | 2018-10-19 03:56 | INFECTIOUS DISEASE PROGRESS NO ---
DATE: 10/18/2018 PRESENT ILLNESS: The patient has an abscess and cellulitis of the left foot. Cultures earlier grew Staphylococcus epidermidis and Enterococcus faecalis. The most recent culture grew Streptococcus agalactiae. MEDICATIONS: This is the third day of treating with daptomycin, the dose of which is being altered because of the patient's end-stage renal disease. PHYSICAL EXAMINATION: Vital Signs: Temperature is 98.7 degrees, pulse 79, respirations 21, blood pressure 136/92. General: This is a morbidly obese, lethargic, chronically ill-appearing, middle- aged male. He is lying in bed sleeping. Head, Eyes, Ears, Nose, and Throat: There is no drainage from the nose or the ears. Neck: No stiffness. Lungs: Clear to auscultation. Cardiovascular: Heart rate is regular. Abdomen: Soft and nontender. Extremities: The left foot has a large dressing around it. The dressing is intact. Neurologic: The patient is sleeping. He does not have a tremor. LAB AND X-RAY: CBC today shows a white count of 8470, hemoglobin 9.8, and platelet count 310,000. Creatinine is 4.6. GFR is 16. ASSESSMENT AND PLAN: The patient has an infected left foot. The plan is to continue with the current antibiotic, namely daptomycin. Dr. Lerner is seeing the patient and he indicated that he may have to do further debriding. COMORBIDITIES: Include morbidly obese, chronic leg edema, congestive heart failure, diabetes mellitus, and acute kidney injury. cc: Tyler Ramires MD
[2018-10-19] MEDS: PERCOCET-5 PO PRN (06:26)
[2018-10-19] MEDS: PROTONIX PO SCH (06:26)
[2018-10-19] MEDS: HUMALOG SUBQ SCH ×4 (06:27→21:40)
[2018-10-19 06:55] LABS: ALBUMIN 2.3 g/dL (3.5-5.0); CALCIUM 8.6 mg/dL (8.8-10.2); CREATININE 4.3 mg/dL (0.7-1.2); PHOSPHORUS 4.8 mg/dL (2.7-4.5); POTASSIUM 5.4 mmol/L (3.5-5.1)
[2018-10-19] MEDS: ASPIRIN PO SCH (08:33)
[2018-10-19] MEDS: COREG PO SCH ×2 (08:33→21:41)
[2018-10-19] MEDS: CUBICIN 800 MG in NS 100 ML IV SCH (13:11)
--- NOTE | 2018-10-19 14:47 | NEPHROLOGY PROGRESS NOTE ---
DATE: 10/19/2018 TIME SEEN: 0805 SUBJECTIVE: Mr. Tran is resting quietly in bed. He is lethargic this morning, states he did not sleep well last night. VITAL SIGNS: Temperature 97.9 degrees, blood pressure 142/79, heart rate 79, respirations 20. He is on room air. Last recorded saturation 95%. He has had 1868 in. He has had 1800 out. LABORATORY DATA: Sodium 134, potassium 5.4, chloride 99, CO2 24, BUN 59, creatinine 4.3, glucose 197, anion gap 11, calcium 8.6, phosphorus 4.8, albumin 2.3. The patient had a previous hemoglobin of 9.8 on the . PHYSICAL EXAM: General: This is a 53-year-old male resting quietly in bed. Head of the bed is elevated. No acute distress. Skin: Warm and dry. HEENT: Normocephalic, atraumatic. Conjunctivae pale. He has LUI. Mucous membranes are dry. Neck: Supple. Trachea midline. No evidence of JVD. Cardiovascular: Regular rate and rhythm. S4 is present. Lungs: Clear to auscultation bilaterally. Equal excursion. Diminished breath sounds secondary to body habitus. Abdomen: Large, soft, nontender. Positive bowel sounds. Extremities : Continues with 1+ edema. No clubbing or cyanosis. He does have a dressing to his left foot. Diminished pulses present. ASSESSMENT AND PLAN: 1. Acute kidney injury. The patient has had good urine output. BUN and creatinine continue to slowly improve on a daily basis. Creatinine is now down to 4.3 from 4.6. No indications for dialysis intervention. 2. Electrolytes and acid-base balance. Mild hyperkalemia. This is stable. 3. Anemia. This remains stable. 4. Left foot cellulitis, followed by surgery and the primary care team. I would to thank you for allowing us to follow with this patient. Dictated by SEN Jackson for Thomas Sol MD Face to face encounter, data reviewed, discussed with Dex Villarreal on 10/19/18. I agree with the above assessment and plan of care. cc: SEN Jackson MD [facility]
--- NOTE | 2018-10-19 15:01 | PROGRESS NOTE ---
DATE: 10/19/2018 SUBJECTIVE: Today, Mr. Tran refers to be doing fairly okay. He really does not have any complaints. He is pending surgery evaluation of his toe. OBJECTIVE: Vital signs: Blood pressure 135/93, pulse 77, respirations 16, temperature 98 degrees. The patient was saturating 95% on room air. General: Mr. Tran is a 53-year-old gentleman. He was in bed, in no distress. HEENT: Mucosa is pink and moist. Anicteric. Acyanotic. Neck: Supple. I did not see any JVD. Respiratory System: There is good air entry bilaterally. No crepitations. No rhonchi. Cardiovascular: Regular rate and rhythm. No murmurs, no rubs, no gallops. Abdomen: Soft, distended, but nontender. Bowel sounds present. No hepatosplenomegaly. Extremities: No pedal edema. The left foot is in a sterile dressing. The 2nd toe, which had a debridement, still looks slightly dusky and there is medial sloughing to it. Central nervous system: The patient is awake, alert, and oriented. There is no focal neurological deficit. LABORATORY DATA: Sodium 134, potassium 5.4, chloride 99, bicarb 24. BUN is 59. Creatinine is down to 4.3. INTAKE AND OUTPUT: Urine output was 1800. The patient is currently positive balance of 2984. MEDICATIONS: The patient's current medications have also been reviewed. He is currently on: 1. Daptomycin 800 q.48 hours. 2. Lovenox 40 mg subcutaneously. 3. Morphine p.r.n. 4. Normal saline at 100 mL/h. 5. Aspirin 81 mg daily. 6. Carvedilol 6.25 b.i.d. ASSESSMENT: 1. Enterococcus faecalis and Staphylococcus epidermidis diabetic foot infection. The patient is currently on daptomycin. Today is day 4. The toe still looks slightly dusky and surgery seems to be planning for further exploration. 2. Acute kidney injury. Creatinine is on downward trend. Will continue with the current intravenous fluids. Nephrology is also on board. 3. Diabetes mellitus, controlled. 4. History of nonischemic cardiomyopathy with ejection fraction of 15% to 20%. The patient is currently euvolemic. Will keep an eye on his hydration status since he is getting intravenous fluids. 5. Obesity with body mass index of 45.1, noted. cc: Dion Moran MD
--- NOTE | 2018-10-19 21:22 | INFECTIOUS DISEASE PROGRESS NO ---
DATE: 10/19/2018 PRESENT ILLNESS: The patient has an abscess and cellulitis of the left foot. Cultures from the foot have grown Staph epidermidis, Enterococcus faecalis, and Strep agalactiae. MEDICATIONS: This is the 4th day of treatment with daptomycin, the dose of which is altered because of the patient's end-stage renal disease. PHYSICAL EXAMINATION: Vital Signs: Temperature is 98, pulse 77, respirations 16, blood pressure 135/93. General: This is a morbidly obese, lethargic, chronically ill- appearing middle-aged male. He is sleeping in bed. He is arousable. Head, Eyes, Ears, Nose and Throat: There is no drainage from the nose or ears. He can hear my spoken words. He can see near objects. Neck: No stiffness. Lungs: Clear to auscultation. Cardiovascular: Heart rate is regular. Abdomen: Soft and not tender. Extremities: I removed the dressing from the patient's left foot. The abscess cavity is the same. There is no purulence, but the tissue seems to be avascular. The 2nd toe has been debrided and there is no change from when it was debrided. LAB AND RADIOLOGY: Creatinine-4.3, GFR-18. No other new lab and no new radiology study. ASSESSMENT AND PLAN: The patient has a left foot cellulitis and abscess. Will continue daptomycin. COMORBIDITIES: Morbid obesity, chronic leg edema, congestive heart failure, diabetes, and acute kidney injury. cc: Tyler Ramires MD [facility]
[2018-10-19] MEDS: LOVENOX SUBQ SCH (21:41)
[2018-10-20] MEDS: NS 1,000 ML IV SCH ×2 (06:04→16:52)
[2018-10-20] MEDS: HUMALOG SUBQ SCH ×4 (06:33→23:36)
[2018-10-20] MEDS: PROTONIX PO SCH (06:33)
[2018-10-20 07:40] LABS: ALBUMIN 2.3 g/dL (3.5-5.0); CALCIUM 8.3 mg/dL (8.8-10.2); CREATININE 4.3 mg/dL (0.7-1.2); PHOSPHORUS 4.1 mg/dL (2.7-4.5)
[2018-10-20 07:43] LABS: POTASSIUM 6.1 mmol/L (3.5-5.1)
[2018-10-20] MEDS ORDERED: CALCIUM GLUCONATE 2 GM in NS 100 ML IV ONE (08:08)
[2018-10-20] MEDS ORDERED: ALBUTEROL 0.5% INH CONC FOR HYPERKALEMIA INH ONE (08:08)
[2018-10-20] MEDS ORDERED: D50W SYRINGE IV ONE (08:09)
[2018-10-20] MEDS ORDERED: HUMULIN R SUBQ ONE (08:09)
[2018-10-20] MEDS ORDERED: VELTASSA PO ONE ×2 (08:10→08:51)
--- NOTE | 2018-10-20 08:26 | EKG Report ---
Test Performed on : 10/20/2018 08:14:28 AM Test Reason : hyperkalemia Blood Pressure : / mmHG Vent. Rate : 077 BPM Atrial Rate : 077 BPM P-R Int : 182 ms QRS Dur : 102 ms QT Int : 386 ms P-R-T Axes : 054 -55 088 degrees QTc Int : 436 ms Normal sinus rhythm. Possible Left atrial enlargement Left anterior fascicular block Nonspecific T wave abnormality Abnormal ECG When compared with ECG of 10-OCT-2018 09:40, (Unconfirmed) No significant change was found Confirmed by Preet DAVIS, Tyree Ford ([id number]) on 10/21/2018 10:10:36 AM
[2018-10-20] MEDS: ASPIRIN PO SCH (09:49)
[2018-10-20] MEDS: COREG PO SCH ×2 (09:49→23:35)
--- NOTE | 2018-10-20 11:08 | NEPHROLOGY PROGRESS NOTE ---
DATE: 10/20/2018 SUBJECTIVE: Patient resting in bed. He has no issues this morning. OBJECTIVE: Vital Signs: Temperature 98.4, pulse 79, respiratory rate 16, blood pressure 117/62. Intake 1.6 L. Output 1.0 L. General: This is a middle-aged gentleman resting in bed. He is awake and alert. He has been able to eat breakfast. He is in no acute distress. HEENT: Normocephalic, atraumatic. LUI. Oral mucosa moist. Neck: Supple. Thick. No JVD noted. Cardiovascular: Regular rate and rhythm. He does have a gallop. No murmur is appreciated. Pulmonary: He is clear bilaterally. He has equal excursion. No increased work of breathing. Abdomen: Obese, soft with positive bowel sounds. : Not inspected. He is voiding. Extremities: No clubbing, cyanosis. He has 1+ lower extremity edema. He continues with a dressing to his left foot. Integumentary: Skin is warm and dry otherwise. LAB DATA: Sodium 135, potassium 6.1, CO2 of 23, BUN 56, creatinine 4.3, albumin 2.3. ASSESSMENT AND PLAN: 1. Acute kidney injury. He has had adequate urine output. Renal function is stabilized over the last several days. He has no indications for intervention otherwise. We will continue to follow closely. 2. Electrolytes, acid-base balance. He again has hyperkalemia. He has been dosed with 8.4 g of Veltassa this morning. We will give him a second dose for a total of 16.8 g. I will give him Veltassa at this dose through the weekend and continue to monitor his labs. 3. Left foot cellulitis followed by primary and surgery. Dictated by SEN Estrella for Thomas Sol MD Data reviewed, discussed with Lainey Felix on 10/20/28. I agree with the above assessment and plan of care. cc: Thomas Sol MD [facility]
--- NOTE | 2018-10-20 11:55 | INFECTIOUS DISEASE PROGRESS NO ---
DATE: 10/20/2018 PRESENT ILLNESS: Mr. Tran has a cellulitis of his left foot and second toe, and is status post incision and drainage. Cultures have grown a Staphylococcus epidermidis, Enterococcus faecalis, and Streptococcus agalactiae. MEDICATION: Today is day 5 of daptomycin 800 mg IV every 48 hours as a renally modified dose. PHYSICAL EXAMINATION: Vital signs: Temp is 98.4, pulse rate 79, respiratory rate 16, blood pressure 117/62, O2 sat is 94% on room air. General: This is a chronically ill -appearing morbidly obese gentleman. He is lying in the bed currently, irritable and mildly frustrated due to complaints about his roommate. HEENT: Atraumatic, normocephalic. Oral mucous membranes are pink and moist, conjunctivae are pink. Neck: Supple. Trachea is midline. Respiratory: Lung sounds clear to auscultation. Cardiovascular: Heart rate and rhythm are regular, normal sinus rhythm on the monitor. Radial and pedal pulses are palpable bilaterally. There is pretibial edema noted, left greater than the right. Abdomen: Soft, obese, nontender. Bowel sounds are active. Neurologic: He is awake, alert, and oriented. Able to move side to side in the bed without any notable limitations. Integumentary: Skin is warm and dry. His left foot has a surgical crater up to the second toe with white striated tissue over the pink- red base. LABORATORY AND X-RAY: No CBC today. His creatinine is 4.3, GFR 18. Creatine kinase is 84. His left foot has grown a Group B strep, Enterococcus faecalis, and a Staphylococcus epidermidis. No imaging reports today. ASSESSMENT AND PLAN: Mr. Tran has a left foot cellulitis. The patient tells me today that Dr. Lerner may be going back to do another surgery at some point. For now, we will continue his daptomycin ever 48 hours due to his acute kidney injury. These plans have been discussed with and recommended by Dr. Ramires. COMORBIDITIES: Comorbidities for Mr. Tran include morbid obesity, congestive heart failure, diabetes mellitus, and acute kidney injury. Dictated by SEN Caballero for Tyler Ramires MD This chart was documented by, SEN Caballero and accurately reflects the services performed, treatment plan and medical decisions as attested by the providers signature Tyler Ramires MD. cc: Tyler Ramires MD [facility]
[2018-10-20 14:42] LABS: CALCIUM 8.8 mg/dL (8.8-10.2); POTASSIUM 5.6 mmol/L (3.5-5.1)
--- NOTE | 2018-10-20 15:31 | GENERAL SURGERY PROGRESS NOTE ---
DATE: 10/20/2018 TIME: 2:12 p.m. Mr. Tran continues to have purulent drainage from his wound. His toe does not appear salvageable. I discussed amputation of 2nd toe with him and he is agreeable. We will further debride his foot on Tuesday the . He understands and agrees. Dr. Layne will cover the weekend. cc: Jeronimo Lerner MD
--- NOTE | 2018-10-20 17:40 | PROGRESS NOTE ---
DATE: 10/20/2018 SUBJECTIVE: This morning, Mr. Tran referred to be doing fairly okay. No new complaints. Still had some pains in the left leg. OBJECTIVE: Vital Signs: Blood pressure is 121/74, pulse is 87, respirations 16, temperature 98.6. The patient was saturating 98%. On general exam, Mr. Tran is a 53-year-old -[place] gentleman. He is in bed. He is not in any cardiopulmonary distress. Mucosa is pink and moist. Anicteric. Acyanotic. Neck is supple. Chest: Good air entry bilateral. There are no crepitations. No rhonchi. Cardiovascular: Regular rate and rhythm. No murmurs, no rubs, no gallops. Abdomen is soft, distended, but nontender. Bowel sounds present. Extremities: No pedal edema. The left foot was not in a dressing. There is a wound proximal to the 2nd toe which was open and has some sloughness on the base. The 2nd toe looked dusky and some maceration in the medial aspect of it. 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 LABORATORY DATA: Sodium is 134, potassium is 5.6, chloride is 99, bicarb is 23. BUN is 60, creatinine is 4.0. ASSESSMENT: 1. Enterococcal faecalis and Streptococcus epidermidis diabetic foot infection. The patient is day 5 on daptomycin. The wound still has some sloughness. I spoke with the surgeon on board, and I think there is a plan for possible amputation of the 2nd toe. We will follow up on that. 2. Acute kidney injury. Creatinine is slightly improving on the fluids. Nephrology is on board. 3. Diabetes mellitus, controlled. 4. History of nonischemic cardiomyopathy with ejection fraction of 15% to 20%. The patient is currently euvolemic. We will continue closely monitoring his hydration status. 5. Obesity with body mass index of 45.1. 6. Hyperkalemia. EKG this morning did not show any acute hyperkalemic changes. The patient has been treated with dextrose, insulin, and hyperkalemia albuterol nebulization protocol. He has also been given a dose of Veltassa (patiromer) and will repeat his electrolytes for tomorrow. cc: Dion Moran MD
[2018-10-20] MEDS: LOVENOX SUBQ SCH (23:36)
[2018-10-21] MEDS: HUMALOG SUBQ SCH ×4 (06:54→22:52)
[2018-10-21] MEDS: PROTONIX PO SCH (06:55)
--- NOTE | 2018-10-21 07:20 | GENERAL SURGERY PROGRESS NOTE ---
DATE: 10/21/2018 SUBJECTIVE: The patient seems to be doing about the same. No major issues. OBJECTIVE: Vital Signs: The patient is currently afebrile. His vital signs are stable. General: No acute distress. Cardiovascular: Regular rate and rhythm. Lungs grossly clear. Abdomen soft, nontender, nondistended. Extremities: Dressing in place to lower extremity. ASSESSMENT AND PLAN: A 53-year-old with wound to the left 2nd toe. Wound. At this time, plan is for Dr. Lerner to take him to the OR on Tuesday. Patient is aware. He has no questions. cc: Trung Layne MD
[2018-10-21 07:23] LABS: ALBUMIN 2.4 g/dL (3.5-5.0); CALCIUM 9.1 mg/dL (8.8-10.2); PHOSPHORUS 3.7 mg/dL (2.7-4.5); POTASSIUM 5.7 mmol/L (3.5-5.1)
--- NOTE | 2018-10-21 09:30 | PROGRESS NOTE ---
DATE: 10/21/2018 SUBJECTIVE: This morning, Mr. Tran refers to be doing fairly okay. Did not really have any complaints. OBJECTIVE: Vital signs: Blood pressure is 103/52, pulse is 77, respirations 16, temperature 97.2. The patient was saturating about 93% on room air. General: Mr. Tran is a 53-year-old, gentleman. He is morbidly obese. BMI is 45.1. He is in bed. He is not in any cardiopulmonary distress. HEENT: Mucosa is pink and moist. Anicteric. Acyanotic. Neck: Supple. Chest: Good air entry bilateral. There are some distant crackles posteriorly today. Cardiovascular: Regular rate and rhythm. No murmurs, no rubs, no gallops. GI: Abdomen soft, distended. Bowel sounds are present, however, they are hypoactive. Extremities: No pedal edema. The left foot is in sterile dressing. 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 There is no focal neurological deficit. LABORATORY DATA: Sodium is 137, potassium is 5.7, chloride is 103, bicarb is 25, BUN is 60, creatinine has also remained 4.0, glucose is 212. Patient I's and O's: Urine output was 600, positive balance of 4139. ASSESSMENT AND PLAN: 1. Enterococcal faecalis and Staphylococcus epidermidis diabetic foot infection. Patient is on daptomycin. Today is day 6. There is a plan to take him to operating room for more debridement and possible amputation of the 2nd toe on Tuesday. 2. Acute kidney injury. Creatinine is stable around 4. Nephrology is on board. 3. Diabetes mellitus. We will continue insulin treatment. 4. History of nonischemic cardiomyopathy with ejection fraction of 15% to 30%, currently euvolemic. 5. Obesity with body mass index of 45.1. 6. Hyperkalemia. We will continue treating with patchy room air. CURRENT MEDICATIONS: Have all been reviewed. We will continue with them. cc: Dion Moran MD
[2018-10-21] MEDS: ASPIRIN PO SCH (09:50)
[2018-10-21] MEDS: COREG PO SCH ×2 (09:50→22:53)
[2018-10-21] MEDS: VELTASSA PO SCH (09:50)
--- NOTE | 2018-10-21 13:48 | NEPHROLOGY PROGRESS NOTE ---
DATE: 10/21/2018 SUBJECTIVE: Patient resting in bed. He has no complaints this morning. OBJECTIVE: Vital Signs: Temperature 99, pulse 77, respiratory rate 16, blood pressure 103/52. Intake 1.1 L. Output 600 mL voided. General: Middle-aged gentleman resting in bed. He is awake and alert. No acute distress. HEENT: Normocephalic, atraumatic. Oral mucosa moist. Neck: Supple. Unable to discern JVD. Cardiovascular: Regular rate and rhythm. No murmur or gallop. Pulmonary: He has got some rhonchi bilaterally posteriorly. No wheezes or rales. Abdomen: Soft, with positive bowel sounds. Obese. : Voiding. Extremities: 1+ lower extremity edema. He has a dressing to his left foot. Integumentary: Skin is warm and dry otherwise. LAB DATA: Sodium 137, potassium 5.7, CO2 of 25, BUN 60, creatinine 4.0 (4.0, 4.3). ASSESSMENT AND PLAN: 1. Acute kidney injury. His renal function has continued with some slow improvement and stability. His urine output was down somewhat yesterday, but has been adequate up until then. He is not on a diuretic at this time. He does not appear in any distress. We will monitor closely. He has no indications for intervention in the form of dialysis at this time. 2. Hyperkalemia. We will continue with his Veltassa through the weekend. 3. Left foot cellulitis. Understand he is to go back to surgery on Tuesday for amputation of the toe. Dictated by SEN Estrella for Thomas Sol MD cc: Thomas Sol MD
[2018-10-21] MEDS: CUBICIN 800 MG in NS 100 ML IV SCH (16:22)
[2018-10-21] MEDS: DILAUDID IV PRN (16:30)
[2018-10-21] MEDS: LOVENOX SUBQ SCH (22:53)
[2018-10-21] MEDS: NS 1,000 ML IV SCH (22:57)
[2018-10-22] MEDS: NS 1,000 ML IV SCH ×4 (02:14→03:36)
[2018-10-22] MEDS: DILAUDID IV PRN (05:47)
[2018-10-22 06:21] LABS: BASO# 0.04 X1000 (0.0-0.2); BASO% 0.5 % (0.0-0.8); EOS% 2.6 % (0.0-10.0); HEMATOCRIT 30.4 % (42.0-52.0); HEMOGLOBIN 9.1 g/dL (14.0-18.0); LYMPH# 1.21 X1000 (1.2-3.4); LYMPH% 15.7 % (20.5-51.1); MCH 26.2 PG (27-31); MCHC 29.9 g/dL (33-37); MCV 87.6 FL (81-99); MONO# 0.82 X1000 (0.11-0.59); MONO% 10.6 % (1.7-9.3); MPV 9.6 FL (7.4-10.4); NEUT# 5.46 X1000 (1.4-6.5); NEUT% 70.6 % (42.2-75.2); PLT 307 X1000 (130-400); RBC 3.47 XMIL (4.7-6.1); RDW 13.8 % (11.5-14.5); WBC 7.73 X1000 (4.8-10.8)
[2018-10-22] MEDS: PROTONIX PO SCH (06:42)
[2018-10-22] MEDS: HUMALOG SUBQ SCH ×3 (06:42→18:36)
[2018-10-22 06:58] LABS: ALBUMIN 2.1 g/dL (3.5-5.0); CALCIUM 8.2 mg/dL (8.8-10.2); CREATININE 3.8 mg/dL (0.7-1.2); PHOSPHORUS 3.8 mg/dL (2.7-4.5)
[2018-10-22] MEDS ORDERED: ALBUTEROL 0.5% INH CONC FOR HYPERKALEMIA INH ONE (07:04)
[2018-10-22] MEDS ORDERED: CALCIUM GLUCONATE 1 GM in NS 50 ML IV ONE (07:04)
[2018-10-22] MEDS ORDERED: D50W SYRINGE IV ONE (07:05)
[2018-10-22] MEDS ORDERED: HUMULIN R SUBQ ONE (07:05)
--- NOTE | 2018-10-22 07:08 | GENERAL SURGERY PROGRESS NOTE ---
DATE: 10/22/2018 The patient seems to be resting fine. He is on the schedule for surgery tomorrow. Orders for NPO have been put in. Orders for consent have been put in. He is on the schedule for tomorrow morning with Dr. Lerner. cc: Trung Layne MD
[2018-10-22] MEDS: VELTASSA PO SCH (09:35)
[2018-10-22] MEDS: ASPIRIN PO SCH (09:36)
[2018-10-22] MEDS: COREG PO SCH (09:36)
--- NOTE | 2018-10-22 11:42 | PROGRESS NOTE ---
DATE: 10/22/2018 SUBJECTIVE: This morning Mr. Tran refers to be doing fairly okay. Denies any complaint. He said his face looks like it is getting swollen. OBJECTIVE: Vital signs: Blood pressure is 149/92, pulse is 66, respirations 20, temperature 99.4 degrees. Patient was saturating 93%. General: Mr. Tran is a 53-year-old gentleman. He was in bed. He did not seem to be in cardiopulmonary distress. HEENT: Mucosa is pink and moist. Anicteric. Acyanotic. Neck: Supple. No JVD. Chest: Air entry was bilaterally reduced. There seem to be some crackles posteriorly. Cardiovascular: Regular rate and rhythm. No murmurs. No rubs. No gallops. GI: Abdomen is soft, distended, but nontender. Bowel sounds present. Extremities: No pedal edema. The left distal foot is currently in a sterile dressing. 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 LABORATORY DATA: WBC is 7.73, hemoglobin is 9.1, platelet count of 307,000. Chemistry: Sodium is 135, potassium is 6.0, chloride is 100, bicarb is 26, BUN is down to 59, creatinine is down to 3.8. The patient's I's and O's, urine output was 500. The patient is currently in positive balance of 5,921. ASSESSMENT: 1. Enterococcal faecalis and Staphylococcus epidermidis diabetic foot infection. The patient is on daptomycin. Today is day 7. There is a plan for repeat I D and possible amputation of the 2nd toe tomorrow. 2. Acute kidney injury. Creatinine is down to 3.8 today. However, the patient seems to be now retaining some fluid. He is currently in positive balance of over 5,000, so I have withheld the fluid today. We are going to continue to avoid any nephrotoxic drugs. 3. Diabetes mellitus. On insulin treatment. 4. History of nonischemic cardiomyopathy with ejection fraction of 15% to 20%. Currently patient euvolemic. However, he seems to now starting to be retaining. He is in positive fluid balance. 5. Obesity with body mass index of 45.1. 6. Hyperkalemia. We will treat this again with dextrose and insulin and albuterol nebulization and repeat the BMP for later this afternoon. The patient is also on Veltassa (patiromer). PLAN: So in general, Mr. Tran seems to be fairly stable. He seems to be retaining fluid today. Face looks slightly puffy. He is in positive balance of over 5,000, so I will withhold his IV fluids. We will continue with the current antibiotics and treat his current potassium level. We will repeat his BMP for this afternoon and recheck his labs again for tomorrow morning. The patient is pending possible surgery tomorrow. cc: Dion Moran MD
[2018-10-22 15:20] LABS: CALCIUM 8.4 mg/dL (8.8-10.2); POTASSIUM 5.8 mmol/L (3.5-5.1)
[2018-10-22] MEDS: LOVENOX SUBQ SCH (19:52)
[2018-10-23] MEDS: HUMALOG SUBQ SCH ×5 (00:01→22:48)
[2018-10-23] MEDS: COREG PO SCH ×3 (00:01→23:24)
--- NOTE | 2018-10-23 06:50 | Diag Imaging Result Doc PS360 ---
EXAM: CHEST-PORTABLE HISTORY: dyspnea TECHNIQUE: Portable chest single view COMPARISON: 10/10/2018 FINDINGS: Poor inspiratory effort. Cardiomegaly remains. There are bilateral infiltrates. These are slightly more prominent than on the prior study. No pleural effusions identified. There has been surgery to the lower neck. IMPRESSION: Mild interval worsening. Electronically signed by Robson Mccormack 10/23/2018 6:48 AM
[2018-10-23] MEDS: PROTONIX PO SCH (06:53)
[2018-10-23 06:59] LABS: MCH 26.5 PG (27-31); MCV 88.2 FL (81-99); MPV 10.1 FL (7.4-10.4); RBC 3.4 XMIL (4.7-6.1); WBC 6.54 X1000 (4.8-10.8)
[2018-10-23 07:48] LABS: ALBUMIN 2.3 g/dL (3.5-5.0); PHOSPHORUS 3.6 mg/dL (2.7-4.5)
[2018-10-23] MEDS ORDERED: D50W SYRINGE IV ONE (08:31)
[2018-10-23] MEDS ORDERED: ALBUTEROL 0.5% INH CONC FOR HYPERKALEMIA INH ONE (08:31)
[2018-10-23] MEDS ORDERED: HUMULIN R SUBQ ONE (08:32)
[2018-10-23] MEDS: ASPIRIN PO SCH (09:21)
[2018-10-23 10:52] LABS: POTASSIUM 6.1 mmol/L (3.5-5.1)
[2018-10-23] MEDS ORDERED: ROBINUL ONE (12:58)
[2018-10-23] MEDS ORDERED: VERSED ONE ×2 (13:27→13:51)
[2018-10-23] MEDS ORDERED: KETAMINE ONE (13:27)
--- NOTE | 2018-10-23 13:38 | NEPHROLOGY PROGRESS NOTE ---
DATE: 10/23/2018 TIME SEEN: 0800. SUBJECTIVE: Mr. Tran is resting quietly in bed. Head of the bed is elevated. He states his left foot hurts. Otherwise, he denies any complaints of chest pain or increased work of breathing. OBJECTIVE: Vital Signs: Temperature 97.9 degrees, blood pressure 112/62, heart rate 69, respirations 18. He is on room air. Last recorded saturation 98%. He has had 360 in, 450 out to void. Labs: Sodium is 151, potassium is 6.1, CO2 103, bicarb 25, BUN 52, creatinine 4.0, glucose 157. His anion gap is 9, calcium 9, phosphorus 3.6, albumin 2.3. White count 6.54, hemoglobin 9.0, hematocrit 30.0, platelet count 298,000 on the . PHYSICAL EXAMINATION: General: This is a 53-year-old male. He is resting quietly in bed. Head of the bed is slightly elevated. He appears chronically ill, though no acute distress. Skin: Warm and dry. HEENT: Normocephalic, atraumatic. Conjunctivae pale pink. He has LUI. Mucous membranes are dry. Neck: Supple. Trachea midline. No evidence of JVD. Cardiovascular: Regular rate and rhythm without murmur or gallop. Lungs: Clear to auscultation bilaterally. Equal excursion. He is on room air. Abdomen: Large, obese, soft , nontender. Positive bowel sounds. Genitourinary: Not inspected. Patient has been voiding adequate amounts. Extremities: Have 1+ lower extremity edema with dressing to the left foot, not inspected. Neurological: Alert and oriented x3. ASSESSMENT AND PLAN: 1. Acute kidney injury. His renal function continues to slowly improve. Urine output is slightly down. No indications for intervention for dialysis at this time. 2. Hyperkalemia. Patient had Veltassa over the weekend. This was discontinued. He has had orders for D50 insulin and albuterol this a.m. per primary care, more than likely secondary to left foot cellulitis and tissue damage. 3. Acid-base balance. This is stable. 4. Anemia. This is low but stable. 5. Left foot cellulitis. Patient is due for surgery today for possible amputation of his toe. I would like to thank you for allowing us to follow with this patient. Dictated by SEN Jackson for Thomas Sol MD Face to face encounter, data reviewed, discussed with Dex Villarreal on 10/23/18. I agree with the above assessment and plan of care. cc: SEN Jackson MD [facility]
[2018-10-23] MEDS: CUBICIN 800 MG in NS 100 ML IV SCH ×2 (14:00→17:38)
[2018-10-23] MEDS ORDERED: BREVIBLOC ONE (14:10)
--- NOTE | 2018-10-23 15:58 | PROGRESS NOTE ---
DATE: 10/23/2018 SUBJECTIVE: This morning Mr. Tran refers to be doing fairly okay. Did not actually have any complaints. He was awaiting for surgery. OBJECTIVE: Vital Signs: Blood pressure is 134/85, pulse is 81, respirations 20, temperature 98.8. General: Objectively, Mr. Tran is a 53-year-old morbidly obese gentleman. He was in bed. He was not in any distress. HEENT: Mucosa is pink and moist. Anicteric. Acyanotic. Neck: Supple. Chest: Good air entry bilaterally. A few crackles posteriorly. Cardiovascular: Regular rate and rhythm. No murmurs, no rubs, no gallops. Gastrointestinal: Abdomen is soft, distended but nontender. Bowel sounds present. Extremities: No pedal edema. The left lower extremity is in sterile dressing distally. Central Nervous System: Patient is awake, alert and oriented. No focal neurological deficit. LABORATORY DATA: WBC is 6.54, hemoglobin is 9.0, platelet count of 298,000. Chemistry is also reviewed. Potassium went up to 6.1, BUN is 52, creatinine has remained stable around 4 for the past 5 days. ASSESSMENT: 1. Enterococcal faecalis and Staphylococcus epidermidis, diabetic foot infection. Patient is on day #8 on daptomycin. He did have an initial I D; however, there are still some areas that need to be worked on. I understand he will be going for a repeat I D and possible amputation of the 2nd toe today. 2. Acute kidney injury. The patient continues to have some marginal urine output. Her potassium has been persistently high this morning at 6.1. Acid-base seems to be fairly normal and creatinine has stabilized around 4. We are going to treat this high potassium and repeat it later this afternoon. 3. Diabetes mellitus, on insulin treatment. 4. History of nonischemic cardiomyopathy with ejection fraction of 15% to 20%. The patient is currently euvolemic. 5. Obesity, with BMI of 45.1. 6. Hyperkalemia we will continue to treat. Nephrology is aware. So, in general, Mr. Tran is a 53-year-old gentleman who has been in the hospital for the past 12 days. He initially presented on 10/11/2018 because of nausea and vomiting, left toe pain. The patient was evaluated and Dr. Lerner took him in for incision and drainage of abscess of the 2nd toe on 10/12/2018. Subsequently, Wound Care has been dressing his wounds. Surgery has been following, but then Mr. Tran developed acute kidney injury and creatinine has since been elevated. Nephrology is on board. The patient is pending a second intervention on his toe today. After that, will keep a very close eye on his renal function. He might end up needing renal replacement during this hospitalization. I have reviewed all his medications currently with Nephrology and we do not see any that could potentially be causing his persistent potassium issues. cc: Dion Moran MD
--- NOTE | 2018-10-23 16:15 | OPERATIVE NOTE ---
PROCEDURE DATE: 10/23/2018 NAME OF PROCEDURE: 1. Amputation of left second toe. 2. Debridement of skin and soft tissue of the left foot. SURGEON: Jeronimo Lerner MD CREDIT CASHIER: Jarrett Elise RN. PREOPERATIVE DIAGNOSES: 1. Gangrene, left second toe. 2. Skin and soft tissue infection of the left foot. POSTOPERATIVE DIAGNOSES: 1. Gangrene, left second toe. 2. Skin and soft tissue infection of the left foot. INDICATION: This patient has gangrene of the left second toe and has ongoing infection of the left foot in the dorsal aspect. DESCRIPTION OF PROCEDURE: After satisfactory IV sedation was accomplished, the left foot was prepped and draped in a sterile fashion. We made an incision around the base of the left 2nd toe and carried our incision down to the metatarsophalangeal joint, through which we amputated the left second toe. The tendinous structures were removed. The wound on the dorsum of the foot was curetted with a large curette because of the slough and purulent debris in the wound. We did extend our incision proximally to be certain that we got past the pale-appearing tissue. After we did divide one of the arch vessels, it required a suture ligature. After copious the debriding it with a curette and then copiously irrigating it, we achieved satisfactory hemostasis. We then packed the wound with Betadine gauze, sterile 4x4s, a sterile Kerlix, and a 6-inch Fabian was applied. He tolerated it well and was sent to the recovery room in satisfactory condition. cc: Jeronimo Lerner MD
[2018-10-23 16:41] LABS: CREATININE 3.9 mg/dL (0.7-1.2)
[2018-10-23 17:04] LABS: POTASSIUM 6.2 mmol/L (3.5-5.1)
[2018-10-23] MEDS ORDERED: KAYEXALATE PO ONE (17:05)
--- NOTE | 2018-10-23 21:46 | INFECTIOUS DISEASE PROGRESS NO ---
DATE: 10/23/2018 PRESENT ILLNESS: Mr. Tran has cellulitis to the left foot and second toe, and today is status post amputation of that left 2nd toe due to gangrene. Cultures from the foot have grown group B strep, enterococcal faecalis and Staph epidermidis. MEDICATIONS: He is on day 8 of daptomycin 800 mg IV every 48 hours as a renally modified dose. PHYSICAL EXAMINATION: Vital Signs: Temperature is 98.8 degrees, pulse rate 78 , respiratory rate 23, blood pressure 130/85, O2 saturations 97% on 2 L nasal cannula. General: This is a morbidly obese, chronically ill-appearing, middle-aged gentleman. He is lying in the bed currently with some shortness of breath. HEENT: Atraumatic, normocephalic. Conjunctivae are pale. Oral mucous membranes are pink and moist. Neck: Supple. Trachea is midline. Cardiovascular: Heart rate and rhythm are regular. Normal sinus rhythm on the monitor. Pedal and radial pulses are palpable bilaterally+1. There is a generalized lower extremity edema noted, left greater than right, 1-2+. Respiratory: Lung sounds are clear and diminished to auscultation. Abdomen: Soft, obese and nontender. Bowel sounds are active. Integumentary: Skin is warm and dry. There is a surgical dressing in place to his left foot. Neurologic: He is drowsy and lethargic but arousable and oriented and able to move around side to side in the bed independently. LABORATORY AND X-RAY: Today his white count is 6.54, hemoglobin 9, platelet count 298,000, creatinine is 4, GFR 19. Chest x-ray today shows mild interval worsening with bilateral infiltrates which are more prominent than on the prior study. These previously suggested pulmonary edema. ASSESSMENT AND PLAN: Mr. Tran has an infection to his left foot and is status post amputation of that left second toe done today. He has been receiving daptomycin which we will continue at this time every 48 hours as a renally modified dose. This will cover all 3 of the bacteria that are growing in his foot. There are bilateral infiltrates noted however, there is no leukocytosis and the patient has not been febrile, so we will assume that this is pulmonary edema. We will go ahead and send a procalcitonin for verification. These plans have been discussed with and recommended by Dr. Ramires. COMORBIDITIES: Include that he is morbidly obese with congestive heart failure , diabetes mellitus and acute kidney injury. Dictated by SEN Caballero for Tyler Ramires MD This chart was documented by, SEN Caballero and accurately reflects the services performed, treatment plan and medical decisions as attested by the providers signature Tyler Ramires MD. cc: Tyler Ramires MD [facility]
[2018-10-23] MEDS: PERIDEX MT SCH (22:47)
[2018-10-23] MEDS: LOVENOX SUBQ SCH (22:47)
[2018-10-24] MEDS: PROTONIX PO SCH ×2 (05:51→19:49)
[2018-10-24 06:35] LABS: HEMATOCRIT 30.8 % (42.0-52.0); HEMOGLOBIN 9.3 g/dL (14.0-18.0); MCH 26.6 PG (27-31); MCHC 30.2 g/dL (33-37); MPV 10.4 FL (7.4-10.4); RBC 3.5 XMIL (4.7-6.1); RDW 14.1 % (11.5-14.5); WBC 6.78 X1000 (4.8-10.8)
[2018-10-24] MEDS: HUMALOG SUBQ SCH ×4 (06:49→21:57)
[2018-10-24 06:55] LABS: ALBUMIN 2.6 g/dL (3.5-5.0); CREATININE 3.6 mg/dL (0.7-1.2); PHOSPHORUS 3.9 mg/dL (2.7-4.5)
[2018-10-24 07:25] LABS: POTASSIUM 6.4 mmol/L (3.5-5.1)
[2018-10-24] MEDS ORDERED: HUMULIN R IV ONE (07:27)
[2018-10-24] MEDS ORDERED: D50W SYRINGE IV ONE (07:27)
[2018-10-24] MEDS ORDERED: ALBUTEROL 0.5% INH CONC FOR HYPERKALEMIA INH ONE (07:28)
[2018-10-24] MEDS: PERIDEX MT SCH ×2 (08:57→20:27)
[2018-10-24] MEDS: COREG PO SCH ×2 (08:58→20:27)
[2018-10-24] MEDS: ASPIRIN PO SCH (08:58)
--- NOTE | 2018-10-24 10:51 | NEPHROLOGY PROGRESS NOTE ---
DATE: 10/24/2018 TIME SEEN: 0805 SUBJECTIVE: Mr. Tran remains quietly resting in bed. He is in no acute distress. The skin is warm and dry. He complains of being more lethargic this a.m. OBJECTIVE: His most recent vital signs: Temperature 97.9 degrees, blood pressure 125/78, heart rate 80, respirations 24. He is on room air. Last recorded saturation 97%. He has had 780 in. He has only had 50 mL of estimated blood loss recorded, though, he states he has been voiding. LABS: Sodium 141, potassium 6.4, chloride 104, CO2 24, BUN 56, creatinine 3.6, glucose 156, anion gap 13, calcium phosphorus 3.9, albumin 2.6. White count 6.78, hemoglobin 9.3, hematocrit 30.8, platelet count 293,000. General: This is a 53-year-old male, resting quietly in bed. He is more lethargic today. He appears chronically ill in no acute distress. Skin: Warm and dry. HEENT: Normocephalic, atraumatic. Conjunctivae pale pink. He has LUI. Mucous membranes dry. Neck: Supple. Trachea midline. Unable to determine JVD and his body position. Cardiovascular: Regular rate and rhythm. No murmur or gallop appreciated. Lungs: Clear to auscultation anteriorly. Equal excursion on room air. Abdomen: Large, obese, soft, nontender. Positive bowel sounds. Genitourinary: Not inspected. Voiding adequate amounts , though not recorded in the last 24 hours. Extremities: Have 1+ lower extremity edema. He has dressing to the left foot. This has shadow, bloody drainage noted, just Kerlix is in place. Neurological: Alert and oriented x3. ASSESSMENT AND PLAN: 1. Acute kidney injury. Patient's renal function continues to slowly improve. Urine output has been stable, though not recorded today. Patient states that he has been voiding adequately. 2. Hyperkalemia. We will treat with an amp of D50 10 units of insulin, and albuterol inhaled treatments. We will plan to start the patient on Veltassa 16.8 mg p.o. on a daily basis, while his hospital stay does to help correct this potassium. 3. Anemia. This remains low but stable. 4. Left foot cellulitis status post toe amputation, followed by surgery team. I would like to thank you for allowing us to follow with this patient. Dictated by SEN Jackson for Thomas Sol MD Face to face encounter, data reviewed, discussed with Dex Villarreal on 10/24/18. I agree with the above assessment and plan of care. cc: SEN Jackson MD [facility]
[2018-10-24] MEDS: VELTASSA PO SCH (12:44)
--- NOTE | 2018-10-24 12:47 | GENERAL SURGERY PROGRESS NOTE ---
DATE: 10/24/2018 TIME: 12:11 p.m. SUBJECTIVE/OBJECTIVE: Mr. Tran' wound is inspected. It is only slowly improving with little evidence of granulation tissue on the edges. We continue with local wound care in hopes that he will finally improve. cc: Jeronimo Lerner MD
--- NOTE | 2018-10-24 13:04 | PROGRESS NOTE ---
DATE: 10/24/2018 SUBJECTIVE: The patient reports feeling fine. No complaints at this time. Pain is under control. OBJECTIVE: Vital Signs: Temperature 98.6 degrees, heart rate 79, respiratory rate 14, blood pressure 132/114, O2 saturation 98% 2 L nasal cannula. General Examination: This is a chronically ill-looking, morbidly obese, 53-year-old, male, lying in bed in no acute distress. HEENT: Head is normocephalic, atraumatic. Neck: No JVD. No carotid bruits, no lymphadenopathy, no thyromegaly. Cardiovascular exam: S1, S2 heard. No murmurs, gallops, or rubs. Regular rate and rhythm. Respiratory exam: A few crackles are still noted in both pulmonary bases. Patient is not using any accessory muscles or having work of breathing. Abdomen: Soft. Nontender to palpation. Bowel sounds present. No organomegaly. Extremities: No clubbing, cyanosis, or edema. No clubbing cyanosis or edema. The left lower extremity is covered by dressing. Neurological exam: Patient alert and oriented x3. Moves 4 extremities. LABORATORY DATA: White cell count 6.78, hemoglobin 9.3, hematocrit 30.8, platelets 293 with potassium 6.4 creatinine 3.6. ASSESSMENT AND PLAN: 1. Enterococcal faecalis and staphylococcal epidermidis diabetic foot infection. Patient is on day 9 of daptomycin. Patient has gone to the OR and he had an amputation of the left second toe. Dr. Lerner has performed the surgery. We will follow recommendations. 2. Acute kidney injury. Creatinine is getting a little bit better from 4.6 two days ago to 3.6. There has not been documented in's and out's today. Dr. Sol from Nephrology has been consulted. We will follow recommendations. 3. Severe hyperkalemia. The patient has been recommended to take Kayexalate yesterday, but he refused and today that is even higher. We explained the patient the need for taking this medication today again. At this point, we will provide Kayexalate twice daily and see how this patient does. 4. Diabetes mellitus type 2. Patient on Accu-Chek before meals and also at bedtime and also insulin sliding scale as well. 5. History of nonischemic cardiomyopathy with ejection fraction of 15 to 20 percent. Currently this patient is euvolemic. No signs of overload. We will continue to monitor. 6. Morbid obesity with body mass index of 45.1, aware. Patient advised to lose weight. 7. Disposition: We will continue to monitor this patient closely. cc: Dave Amador MD
--- NOTE | 2018-10-24 14:23 | INFECTIOUS DISEASE PROGRESS NO ---
DATE: 10/24/2018 PRESENT ILLNESS: The patient has cellulitis and an abscess of the left foot. The abscess has been drained and the patient's wounds on his foot have been debrided. MEDICATIONS: This is the 9th day of treatment with daptomycin in a dose of 800 mg IV every 48 hours. The dose has been modified because of the patient's end-stage renal disease. LABORATORY AND X-RAY: The patient's CK was 84. PHYSICAL EXAMINATION: Vital Signs: Temperature is 98.6, pulse 79, respirations 28, blood pressure 132/114. General: This is a morbidly obese, chronically ill-appearing middle-aged male. He pretty much stays and lies in his bed most all day. Head, Eyes, Ears, Nose and Throat: No drainage noted from the nose or ears. Neck: No stiffness. Lungs: Clear to auscultation. Cardiovascular: Heart rate is regular. Abdomen: Soft and nontender. Neurologic: The patient is still lethargic. He is arousable, but he does sleep quite a bit. Extremities: The patient's left foot has a large dressing around it. The dressing is intact. ASSESSMENT AND PLAN: Patient has an infection of his left foot with group B strep, Enterococcus, and Staph epidermitis. The plan is to continue daptomycin in its dose of 800 mg IV every 48 hours. Unfortunately, the foot does not appear to have any granulation to tissue on the wounds. COMORBIDITIES: The patient is morbidly obese. He also has congestive heart failure, diabetes mellitus and end-stage renal disease cc: Tyler Ramires MD
[2018-10-24] MEDS: LOVENOX SUBQ SCH (20:27)
[2018-10-25 05:48] LABS: HEMOGLOBIN 9.2 g/dL (14.0-18.0); MCH 26.2 PG (27-31); MCHC 29.7 g/dL (33-37); MCV 88.3 FL (81-99); MPV 9.5 FL (7.4-10.4); RBC 3.51 XMIL (4.7-6.1); RDW 14.2 % (11.5-14.5); WBC 8.47 X1000 (4.8-10.8)
[2018-10-25] MEDS: PROTONIX PO SCH ×2 (05:57→06:45)
[2018-10-25 06:17] LABS: ALBUMIN 2.5 g/dL (3.5-5.0); CALCIUM 9.3 mg/dL (8.8-10.2); CREATININE 3.2 mg/dL (0.7-1.2); POTASSIUM 5.2 mmol/L (3.5-5.1)
[2018-10-25] MEDS: HUMALOG SUBQ SCH ×4 (06:52→20:53)
[2018-10-25] MEDS ORDERED: BLISTEX MEDICATED BERRY LIP BALM TOP PRN (08:41)
[2018-10-25] MEDS: PERIDEX MT SCH ×2 (08:45→20:33)
[2018-10-25] MEDS: COREG PO SCH ×2 (08:45→20:33)
[2018-10-25] MEDS: ASPIRIN PO SCH (08:45)
--- NOTE | 2018-10-25 09:34 | NEPHROLOGY PROGRESS NOTE ---
DATE: 10/25/2018 TIME SEEN: 0745. SUBJECTIVE: Mr. Tran is resting quietly in bed. Head of the bed is slightly elevated. He complains of left foot pain. Otherwise, no chest pain or increased work of breathing. OBJECTIVE: His most recent vital signs: Temperature 98.2 degrees, blood pressure 148/97, heart rate 81, respirations are 16. He is on 2 L nasal cannula. Last recorded saturation 100%. He has had 480 in, 0 recorded out. Labs: Sodium 138, potassium 5.2, chloride is 101 , CO2 26, BUN 49, creatinine 3.2, glucose 161. Anion gap 11, calcium 9.3, phosphorus 4, albumin 2.5. White count 8.47, hemoglobin 9.2, hematocrit 31, platelet count 21.9. General: This is a 53-year-old male resting quietly in bed. He is more positioned on his stomach. He appears chronically ill in no acute distress. Skin: Warm and dry. HEENT: Normocephalic, atraumatic. Conjunctivae pale, pink. He has LUI. Mucous membranes are dry. Neck: Supple. Trachea midline. Unable to determine JVD due to body habitus and positioning. Cardiovascular: Regular rate and rhythm. S4 is present. Lungs: Clear to auscultation bilaterally. Equal excursion on O2. Abdomen: Soft, nontender. Positive bowel sounds. Genitourinary: Not inspected. Patient has been voiding. We have requested that he keep a strict I and O. Extremities : Have no edema, no clubbing or cyanosis. Dressing remains intact to the left foot. Neurological: Alert and oriented x3. ASSESSMENT AND PLAN: 1. Acute kidney injury. Patient's renal function continues to slowly improve. Creatinine is now down to 3.2 from 3.6. This remains with adequate urine output. 2. Hyperkalemia. Patient remains on Veltassa. Potassium is stable today at 5.2. 3. Acid-base balance. This remains stable. 4. Anemia. This is low but stable. 5. Left foot cellulitis status post second toe amputation followed by the surgery and the primary care team. I would like to thank you for allowing us to follow with this patient. Dictated by SEN Jackson for Thomas Sol MD Face to face encounter, data reviewed, discussed with Dex Villarreal on 10/25/18. I agree with the above assessment and plan of care. cc: SEN Jackson MD MTDD
[2018-10-25] MEDS: VELTASSA PO SCH (13:43)
--- NOTE | 2018-10-25 13:55 | PROGRESS NOTE ---
DATE: 10/25/2018 SUBJECTIVE: Patient reports feeling fine. Reports some diarrhea that started today. He requested medication to stop the diarrhea. OBJECTIVE: Vital Signs: Temperature 98.7 degrees, heart rate 82, respiratory rate 18, blood pressure 162/96, O2 saturation 98% on 2 L nasal cannula. General Examination: This is a clinically ill-looking, morbidly obese, 63-year-old, male, lying in bed, in no acute distress. HEENT: Head is normocephalic and atraumatic. Neck: No JVD noted. No carotid bruits. No lymphadenopathy. No thyromegaly. Cardiovascular Examination: S1 and S2 heard. No murmurs, gallops, or rubs. Regular rate and rhythm. Respiratory Examination: Minimal crackles noted in both pulmonary bases but the patient is not using any accessory muscles or having work of breathing. Abdomen: Soft, nontender to palpation. Bowel sounds present. No organomegaly. Extremities: Left lower extremity is covered by a dressing. Neurological Examination: The patient is alert and oriented x3. Moves 4 extremities. Laboratory Data: Was reviewed with potassium 5.2 and creatinine 3.2. ASSESSMENT AND PLAN: 1. Enterococcal faecalis and Staphylococcal epidermitis diabetic foot infection. Today is day #[address] Tyler Ramires from infectious disease is following this patient and directing the antibiotics. Dr. Lerner has performed an amputation of the left second toe. We will follow recommendations. 2. Acute kidney injury, getting better. Creatinine is 3.2 today from 3.6 yesterday. There is a good urine output. Dr. Sol from nephrology is following this patient. 3. Severe hyperkalemia. Potassium is 5.2 today. We will continue with daily Veltassa. 4. Diabetes mellitus type 2. We will continue with Accu-Chek before meals and also at bedtime. 5. History of nonischemic cardiomyopathy with an ejection fraction of 15 to 20 percent. The patient is euvolemic at this point. 6. Morbid obesity with body mass index of 45.1. Aware. 7. Disposition. At this point, we are following recommendations from general surgery and infectious disease. cc: Dave Amador MD
[2018-10-25] MEDS: CUBICIN 800 MG in NS 100 ML IV SCH (14:16)
--- NOTE | 2018-10-25 15:32 | GENERAL SURGERY PROGRESS NOTE ---
DATE: 10/25/2018 TIME: 2:50 p.m. OBJECTIVE: Skin: Mr. Tran' wound looks a little bit better today for the first time. It is showing a little sign of granulation tissue. Vital signs: He is afebrile. Hemodynamics are okay. PLAN: The plan will be to switch to Vashe gauze tomorrow and stop the Betadine. cc: Jeronimo Lerner MD
--- NOTE | 2018-10-25 15:48 | INFECTIOUS DISEASE PROGRESS NO ---
DATE: 10/25/2018 PRESENT ILLNESS: Mr. Tran has cellulitis and abscess of the left foot. He is status post left second toe amputation and foot debridement done by Dr. Lerner. MEDICATIONS: Today is day 10 of treatment with IV daptomycin 800 mg every 48 hours, as a renally modified dose. PHYSICAL EXAMINATION: Vital Signs: Temp is 98.7, pulse rate 82, respiratory rate 18, blood pressure 162/96, O2 sat is 98% on 2 L nasal cannula. General: This is a morbidly obese, chronically ill appearing, middle-aged gentleman. He is lying in the bed, currently in no acute distress HEENT: Atraumatic, normocephalic. Oral mucous membranes are pink and moist. Conjunctiva are pale. Neck: Supple. Trachea is midline. Respiratory: Lung sounds are clear and diminished bilaterally. Cardiovascular: Heart rate is regular. Extremities: There is a pretibial edema noted bilaterally, left greater than right Abdomen: Soft, obese, nontender. Bowel sounds are active. Neurologic: He is awake, alert and oriented. Moving side to side in the bed without any notable weakness. No tremors are noted. LABORATORY AND X-RAY: Today his white count is 8.47, hemoglobin. 9.2, platelet count 269,000. Creatinine is 3.2. GFR 25. Procalcitonin level is 0.17. His left foot has grown group B strep, enterococcal faecalis and a Staph epidermidis. No imaging reports today. ASSESSMENT AND PLAN: Mr. Tran has had a left 2nd toe amputation with debridement of his left foot due to infection with cellulitis and abscess. He is receiving daptomycin 800 mg every other day, as a renally modified dose, which we will continue at this point. Dr. Lerner has just changed the dressing, and states that there is some granulation tissue which has been slow developing, but is starting to improve. He suggests that we continue antibiotics for a while since the patient is slow in his healing process. We will go ahead and order a creatine kinase to be checked in the morning, along with his regular blood work. His procalcitonin level is 0.17, making a respiratory tract infection unlikely. These plans have been discussed with and recommended by Dr. Ramires. COMORBIDITIES: For Mr. Tran include morbid obesity, congestive heart failure , diabetes mellitus and acute kidney injury. Dictated by SEN Caballero for Tyler Ramires MD This chart was documented by, SEN Caballero and accurately reflects the services performed, treatment plan and medical decisions as attested by the providers signature Tyler Ramires MD. cc: Tyler Ramires MD [facility]
[2018-10-25] MEDS: LOVENOX SUBQ SCH (20:33)
[2018-10-26] MEDS: PROTONIX PO SCH (06:09)
[2018-10-26] MEDS: HUMALOG SUBQ SCH ×3 (06:15→22:43)
[2018-10-26 06:43] LABS: HEMATOCRIT 30.5 % (42.0-52.0); HEMOGLOBIN 8.9 g/dL (14.0-18.0); MCH 26.1 PG (27-31); MCHC 29.2 g/dL (33-37); MCV 89.4 FL (81-99); MPV 10.3 FL (7.4-10.4); RBC 3.41 XMIL (4.7-6.1); RDW 14.1 % (11.5-14.5); WBC 6.55 X1000 (4.8-10.8)
[2018-10-26 07:23] LABS: ALBUMIN 2.4 g/dL (3.5-5.0); CALCIUM 8.3 mg/dL (8.8-10.2); CREATININE 2.9 mg/dL (0.7-1.2); PHOSPHORUS 3.8 mg/dL (2.7-4.5); POTASSIUM 5.5 mmol/L (3.5-5.1)
[2018-10-26] MEDS: ASPIRIN PO SCH (09:49)
[2018-10-26] MEDS: PERCOCET-5 PO PRN (09:49)
[2018-10-26] MEDS: COREG PO SCH ×2 (09:49→22:43)
[2018-10-26] MEDS: PERIDEX MT SCH ×3 (09:49→22:51)
[2018-10-26] MEDS: VELTASSA PO SCH ×2 (13:43→22:43)
--- NOTE | 2018-10-26 15:22 | PROGRESS NOTE ---
DATE: 10/26/2018 SUBJECTIVE: Patient reports feeling fine. Denies any fever or chills. No diarrhea anymore. OBJECTIVE: Vital Signs: Temperature 98.4 degrees, heart rate 70, respiratory rate 20, blood pressure 121/60, O2 saturation 100% on room air. General: This is a chronically ill-looking, morbidly obese, 53-year-old male lying in bed in no acute distress. HEENT: Head is normocephalic, atraumatic. Neck: No JVD noted. No carotid bruits. No lymphadenopathy. No thyromegaly. Cardiovascular: S1, S2 heard. No murmurs, gallops, or rubs. Respiratory: Clear bilaterally to auscultation. No work of breathing or using accessory muscles. Abdomen: Soft, nontender to palpation. Bowel sounds present. No organomegaly. Extremities: Left lower extremity covered by dressing. LABORATORY DATA: White cell count 6.55, hemoglobin 8.9, hematocrit 30.5, platelets 252,000 with potassium 5.5, creatinine 2.9. ASSESSMENT AND PLAN: 1. Enterococcal faecalis and Staphylococcus epidermidis diabetic foot infection. The patient is on daptomycin as per Dr. Ramires's recommendation. Dr. Lerner who is the surgeon who performed the amputation of his left second toe thinks that this patient will need more time with antibiotics. We will follow recommendations. 2. Acute kidney injury. Creatinine continues to improve to 2.9 today. Also there is good urine output. Dr. Sol is following this patient. 3. Severe hyperkalemia. Potassium is still high 5.5, so I increased the doses of diltiazem to twice daily 16.8 g. 4. Diabetes mellitus type 2. We will continue with Accu-Chek before meals and also at bedtime and also sliding scale insulin. 5. History of nonischemic cardiomyopathy with good ejection fraction of 15% to 20%. The patient is euvolemic. 6. Morbid obesity. BMI is 45. 7. Disposition. At this point, I think this patient will need antibiotics for a longer period of time, so we have talked with Infectious Disease to try to set up antibiotics of daptomycin because of his renal function is being administered every 48 hours. We will leave the decision to Infectious Disease to see for how long he is going to receive antibiotics. cc: Dave Amador MD
--- NOTE | 2018-10-26 15:49 | NEPHROLOGY PROGRESS NOTE ---
DATE: 10/26/2018 TIME SEEN: 0805 hours. SUBJECTIVE: Mr. Tran is resting quietly in bed. He is laying on his abdomen. He denies any pain or increased work of breathing. While I am standing, he had sat up on the side of the bed. OBJECTIVE: Vital Signs: Temperature 98.7 degrees, blood pressure 107/61, heart rate 72 respirations 16. He is on room air. Last recorded saturation 95%. He has had 1100 in, 450 out to void. General: On physical examination, this is a 53-year-old male, who is currently resting quietly on the side of the bed. He denies any pain or increased work of breathing. States that his foot is feeling much better. HEENT: Normocephalic, atraumatic. Conjunctiva is pale pink. He has LUI. Mucous membranes are dry. Neck: Supple. Trachea midline. No evidence of JVD. Cardiovascular: He is regular rate and rhythm. He has an S4 that is present. Respiratory: His lungs are clear to auscultation bilaterally. Equal excursion. He is on room air. Abdomen: Large, round, soft, nontender. Positive bowel sounds. Genitourinary: Not inspected. Patient has voiding adequate amount. Extremities: Have no edema, no clubbing or cyanosis with a dressing intact to the left foot. Neurologic: Alert and oriented x3. LABORATORY DATA: Sodium 137, potassium 5.5, chloride 101, CO2 27. BUN 50, creatinine 2.9, glucose 191. His anion gap is 9, calcium 8.3, phosphorus 3.8, albumin 2.4. White count 6.55, hemoglobin 8.9, hematocrit 30.5 with a platelet count of 252. ASSESSMENT AND PLAN: 1. Acute kidney injury. Patient's BUN and creatinine have continued to slowly improve. BUN of 50, creatinine of 2.9 today with adequate urine out documented. 2. Electrolytes. Patient has mild hyperkalemia today. He remains on Veltassa 16.8 mg daily. We will monitor labs in the morning. No indications for intervention. 3. Electrolytes and acid-base balance; these remain stable. 4. Anemia. This is stable. 5. Left foot cellulitis status post amputation followed by Surgery and the Primary Care team. I would to thank you for allowing us to follow with this patient. Dictated by SEN Jackson for Thomas Sol MD cc: SEN Jackson MD
[2018-10-26] MEDS ORDERED: INSULIN PEN NEEDLES ONE (15:52)
[2018-10-26] MEDS: BASAGLAR SUBQ SCH ×2 (15:55→22:44)
--- NOTE | 2018-10-26 16:12 | INFECTIOUS DISEASE PROGRESS NO ---
DATE: 10/26/2018 PRESENT ILLNESS: Mr. Tran is being treated for cellulitis and abscess of the left foot and is status post left 2nd toe amputation and foot debridement per Dr. Lerner. The left foot has grown group B Streptococcus, Enterococcus faecalis, and a Staphylococcus epidermidis. MEDICATIONS: Today is day 11 of treatment with IV daptomycin 800 mg every 48 hours as a renally modified dose. PHYSICAL EXAMINATION: Vital Signs: Temperature is 98.4 degrees, pulse rate 70 , respiratory rate 20, blood pressure 121/60, and O2 saturation 100% on room air. General: This is a morbidly obese, chronically ill-appearing, middle-aged gentleman. He is sitting up on the side of the bed, currently in no acute distress. HEENT: Atraumatic, normocephalic. Oral mucous membranes are pink and moist. Conjunctivae are pale. Neck: Supple. Trachea is midline. Cardiovascular: Heart rate is regular. Radial and pedal pulses are palpable bilaterally. He has lower extremity edema noted, which is pitting bilaterally, left greater than right. Abdomen: Soft, obese, and nontender. Bowel sounds are active. Respiratory: Lung sounds are clear to auscultation bilaterally. Diminished in the bases. Neurologic: He is awake, alert, and oriented. Able to ambulate and move around without any significant weakness. LABORATORY AND X-RAY: Today his white count is 6.55, hemoglobin 8.9, platelet count 252,000. Creatinine is 2.9, GFR 28. Creatine kinase 178. No imaging reports today. ASSESSMENT AND PLAN: Mr. Tran has had his 2nd left toe amputated with debridement of hismleft foot due to infection with 3 different bacteria as mentioned above. He has been slow to respond to his treatment; however, the plan is to continue antibiotics since there is some granulation tissue which has been slowly developing. We are having to dose his daptomycin every 48 hours due to an acute kidney injury that he did suffer, but this continues to improve. Dr. De Jesus would like to send him home tomorrow. I have spoken with Dr. Sol, who is fine with the patient having a PICC line, so we will put in orders for that to be done first thing in the morning. I have spoken with the patient regarding home IV antibiotics vs. coming in for OP infusion. He prefers to come in every other day for the treatments. I have filled out orders for outpatient infusion of daptomycin to be done every 48 hours with labs to be checked twice weekly. If his GFR elevates above 30, we will increase the daptomycin to daily with the same dosage of 800mg. We will follow up with him in our office in 3 weeks. These plans have been discussed with and recommended by Dr. Ramires. COMORBIDITIES: The comorbidities for Mr. Tran include morbid obesity, congestive heart failure, diabetes mellitus, and acute kidney injury. Dictated by SEN Caballero for Tyler Ramires MD This chart was documented by, SEN Caballero and accurately reflects the services performed, treatment plan and medical decisions as attested by the providers signature Tyler Ramires MD. cc: Tyler Ramires MD [facility]OSPITALIrvin
[2018-10-26] MEDS: LOVENOX SUBQ SCH (22:43)
[2018-10-27 06:53] LABS: HEMATOCRIT 30.3 % (42.0-52.0); MCH 26.5 PG (27-31); MCHC 29.7 g/dL (33-37); MCV 89.1 FL (81-99); MPV 9.9 FL (7.4-10.4); RBC 3.4 XMIL (4.7-6.1); RDW 13.9 % (11.5-14.5); WBC 5.35 X1000 (4.8-10.8)
[2018-10-27] MEDS: HUMALOG SUBQ SCH ×2 (07:07→12:18)
[2018-10-27] MEDS: PROTONIX PO SCH (07:09)
[2018-10-27] MEDS: PERCOCET-5 PO PRN (07:09)
[2018-10-27 07:28] LABS: ALBUMIN 2.3 g/dL (3.5-5.0); CALCIUM 8.7 mg/dL (8.8-10.2); CREATININE 2.6 mg/dL (0.7-1.2); PHOSPHORUS 3.1 mg/dL (2.7-4.5); POTASSIUM 5.4 mmol/L (3.5-5.1)
[2018-10-27 08:26] LABS: INR 1.06; PROTIME 14.6 Seconds (11.0-16.0)
[2018-10-27] MEDS ORDERED: KAYEXALATE PO ONE (09:19)
[2018-10-27] MEDS: DILAUDID IV PRN (11:18)
[2018-10-27] MEDS ORDERED: NS 250 ML ONE (11:43)
[2018-10-27 11:47] VITALS: BP 128/80
[2018-10-27] MEDS: BASAGLAR SUBQ SCH (12:06)
[2018-10-27] MEDS: COREG PO SCH (12:07)
[2018-10-27] MEDS: PERIDEX MT SCH (12:08)
[2018-10-27] MEDS: ASPIRIN PO SCH (12:08)
[2018-10-27] MEDS: VELTASSA PO SCH (12:16)
--- NOTE | 2018-10-27 13:20 | INFECTIOUS DISEASE PROGRESS NO ---
DATE: 10/27/2018 ASSESSMENT AND PLAN: Mr. Tran is being discharged today. His lab work shows an increase in his GFR to 32, so at this point I have changed the daptomycin to 800 mg IV every 24 hours. I have discussed this with the patient, who understands that his kidney function is better and that he will have to come in to outpatient infusion daily instead of every other day. He states understanding and is willing to comply. These plans have been discussed with and recommended by Dr. Ramires. Dictated by SEN Caballero for Tyler Ramires MD This chart was documented by, SEN Caballero and accurately reflects the services performed, treatment plan and medical decisions as attested by the providers signature Tyler Ramires MD. cc: Tyler Ramires MD MTDD
--- NOTE | 2018-10-27 14:06 | DISCHARGE SUMMARY ---
ADMISSION DATE: 10/11/2018 DISCHARGE DATE: 10/27/2018 PRIMARY CARE PHYSICIAN: SEN Ricci. CONSULTATIONS: 1. Dr. Ramires, Infectious Disease. 2. Dr. Lerner, General Surgery. 3. Dr. Sol of Nephrology. PROCEDURES AND FINDINGS: 1. Left foot x-ray, 10/11/2018, reveals cellulitis with soft tissue gas. No definite evidence of osteomyelitis. 2. Abdominopelvic CT, 10/11/2018, reveals cardiomegaly, mild interstitial infiltrate in the lung bases suggesting pulmonary edema, no acute process in the abdomen. 3. Left lower extremity MRI without contrast reveals skin ulceration and edema at the dorsum of the forefoot suggesting cellulitis. No marrow edema to indicate underlying osteomyelitis. 4. Renal ultrasound, 10/15/2018, grossly normal renal ultrasound. 5. Chest x-ray, 10/23/2018, mild interval worsening bilateral infiltrates, no pleural effusions. 6. EKG, 10/20/2018, normal sinus, nonspecific T-wave abnormality. OPERATIVE PROCEDURE: 1. On 10/12/2018, incision and drainage of abscess of the left second toe and left foot. 2. On 10/23/2018, amputation of left second toe, debridement of skin and soft tissue of the left foot. DISCHARGE DIAGNOSES: 1. Enterococcus faecalis and Staphylococcus epidermidis diabetic foot infection. This patient has undergone amputation of his left second toe by Dr. Lerner and is on day 12 of daptomycin. He will continue IV daptomycin q.48 h. outpatient via PICC line per Dr. Ramires. 2. Acute kidney injury. His creatinine has continued to improve, currently at 2.9 with good urine output. Dr. Sol has followed this patient. 3. Severe hyperkalemia. His potassium has come down some, although still high at 5.5. He was treated with Kayexalate, and his dose of diltiazem has increased to twice daily at 16.8 g. 4. Diabetes mellitus type 2. Will continue with his previous home medications. His hemoglobin A1c is 13.4. 5. History of nonischemic cardiomyopathy, ejection fraction of 15% to 20%. This patient is currently euvolemic. 6. Morbid obesity. BMI is 45. This patient has received weight loss counseling during his hospital stay. HOSPITAL COURSE: Mr. Tran is a 53-year-old male well known to this Hospitalist Service with a history of systolic heart failure, ejection fraction of 15% to 20%, uncontrolled diabetes mellitus type 2, hyperlipidemia, chronic kidney disease, morbid obesity, obstructive sleep apnea, and dilated nonischemic cardiomyopathy. He had multiple emergency room visits prior to this admission related to swollen extremities and diabetic skin ulcers. He presented to the emergency room with nausea and vomiting and worsening status of his left second toe. He complained of slight green drainage and open bloody area of his left second toe. In the emergency room, his foot x-ray revealed cellulitis with soft tissue gas without evidence of osteomyelitis. He did have a slightly elevated white count and was hyperglycemic. He had been previously prescribed Levaquin but had been unable to take secondary to nausea and vomiting. This wound was cultured and General Surgery was consulted. He was initially started on IV vancomycin and Zosyn. He did not complain of any chest pain or shortness of breath. He underwent an I and D by Dr. Lerner on October 12 of the left second toe. Dr. Ramires of Infectious Disease was consulted, as well, and antibiotics were changed to daptomycin q.48 h. Unfortunately, his acute kidney injury worsened. A renal ultrasound was conducted and negative. He was hydrated with IV fluids, and Dr. Sol with Nephrology was consulted. After IV fluid hydration, his creatinine did continue to improve. He continued on daptomycin q.48 h. Unfortunately, his left toe did not show significant improvement, and on October 23 he underwent amputation of the left second toe and debridement of the skin and soft tissue of the left foot by Dr. Lerner. He tolerated this procedure well. He did develop severe hyperkalemia and was treated with Kayexalate. His potassium is now down to 5.4. He is currently on day 12 of daptomycin. He will be discharged home with Home Health and PICC line, to continue with daptomycin q.48 h. renally dosed at 800 mg per dose per Dr. Ramires, Infectious Disease. His last vital signs were temperature 97.8, heart rate 72, respiratory rate 14, blood pressure 126/72, O2 sat 96% on 2 L nasal cannula. His last labs showed sodium 139, potassium 5.4, BUN 46, creatinine 2.6, glucose 131, calcium 8.7. WBC 5.3, hemoglobin 9.0, hematocrit 30.3, platelets 249. DISCHARGE MEDICATIONS: Per Dr. Dave De Jesus: 1. Aspirin 81 mg p.o. daily. 2. Coreg 6.25 mg p.o. b.i.d. 3. Lasix 80 mg p.o. b.i.d. 4. Insulin Lantus 80 units subcutaneous at bedtime. 5. Percocet 5 one each p.o. q.6 h. p.r.n. pain. 6. Protonix 40 mg p.o. daily. DISCHARGE INSTRUCTIONS: This patient will be discharged to home with [facility]. He will receive outpatient daptomycin q.48 h. via PICC line per Dr. Ramires, Infectious Disease. Please follow up with Dr. Ramires. Call Tuesday to schedule this appointment. Please follow up with Dr. Sol in one week. Please call for this appointment. Please follow up with Dr. Lerner. Please call for this appointment. The patient will be discharged with [facility]. Please return to the emergency room for any chest pain, shortness of breath, or worsening of symptoms. Dictated by SEN Hope for Dave Amador MD Addendum: Patient seen and examined by myself. Agree with SEN note. It reflects my assessment and plan. Patient is being discharged in stable condition. Will be seen in the office by Dr. Sol and with Dr. Ramires. cc: MD Tyler Naranjo MD Reginald D. Gladish, MD Robert C. Walker, MD Johnna Langford, CRNP MTDD
[2018-10-27] MEDS: CUBICIN 800 MG in NS 100 ML IV SCH (14:22)
--- NOTE | 2018-10-28 01:27 | NEPHROLOGY PROGRESS NOTE ---
DATE: 10/27/2018 SUBJECTIVE: He is hoping to be discharged today. No new complaints. OBJECTIVE: Vital Signs: Blood pressure 128/80, heart rate 61, respirations 22, afebrile. General: No acute distress. Skin: Warm and dry. HEENT: Conjunctivae are pink and moist. Pupils are equal and round. Neck veins are not visible. Heart: Regular. Lungs: Equal. No crackles. Abdomen: Soft, obese, nontender. Bowel sounds present. Extremities: No edema, clubbing, or cyanosis. IMPRESSION: Acute kidney injury. Recovering. Creatinine 2.6 today. We will arrange for him to be seen as an outpatient and follow his labs weekly and see him in 2 weeks. Regarding his hyperkalemia, I think it is okay to stop his V[place] prior to discharge, and again, we will check his potassium within 1 week. cc: Thomas Sol MD
== END 2018-10-27 15:01 | disposition home health service (06) | DRG 240 ==
LOC: ED 13:21 → SUATTDRO 18:11 → 3N 18:11 → 4N 10-15 22:08
PROVIDERS: ATTEND Internal Medicine
CPT/HCPCS: 36569; 71010; 71020; 71045; 71046; 73630; 73718; 74176; 76770; 80048; 80053; 80069; 80202; 81001; 82150; 82550; 82570; 82948; 83036; 83605; 83690; 83735; 83880; 83930; 84132; 84145; 84156; 84300; 84484; 84540; 85025; 85027; 85610; 85730; 87040; 87045; 87046; 87070; 87075; 87077; 87186; 87205; 87324; 87449; 88305; 89055; 93005; 93010; 94640; 94761; 96374; 97162; 99284; 99285; A9270; J0610; J0878; J1170; J1650; J1815; J1940; J2250; J2405; J2543; J3370; J7030; J7040; J7050; XXXXX

== ENCOUNTER 2018-10-29 08:07 | Inpatient (IN) ==
--- NOTE | 2018-10-29 08:23 | PROVIDER DOCUMENTATION ---
HPI-Chest Pain - General Chief Complaint: Chest Pain Stated Complaint: resp. distress Time Seen by Provider: 10/29/18 08:15 Allergies/Adverse Reactions: Patient Allergies Allergy/AdvReac Type Severity Reaction Status Date / Time No Known Allergies Allergy Verified 10/29/18 08:29 Home Medications: Home Medication List Medication Instructions Recorded Confirmed Last Taken Type Carvedilol [Coreg] 6.25 mg PO BID #60 tab 02/13/18 10/11/18 10/10/18 Rx 6.25 Furosemide 80 mg PO BID 05/24/18 10/11/18 10/09/18 History 80mg Insulin Glargine [Lantus] 80 unit SUBQ QHS 05/24/18 10/11/18 10/09/18 History 80units Aspirin 81 mg PO DAILY chewtab 10/27/18 Unknown Rx Oxycodone/APAP 5 mg/325 mg 1 tab PO Q6H PRN PRN #30 tab 10/27/18 Unknown Rx [Percocet-5] Pantoprazole [Protonix] 40 mg PO DAILY@0700 #90 tab 10/27/18 Unknown Rx - History of Present Illness-CP Nature of Presenting Problem: Pt c/o sub sternal chest pain and SOB since yesterday. He relates this is due to having to sleep on the floor. Location: reports: substernal Chest Pain Radiation: reports: no radiation Quality of Pain: reports: aching, pressure Severity in ED: moderate Onset/Duration: 1-3 hours ago Timing: still present Context/Activities at Onset: reports: light activity Modifying Factors: improves with: nothing Associated Symptoms: reports: shortness of breath Nitro Today/Relief: no nitro taken today Aspirin Treatment Today: no aspirin today Similar Symptoms Previously?: Yes Recently Seen Here or By Another Healthcare Provider: Yes Review of Systems - Adult - REVIEW OF SYSTEMS - ADULT Constitutional: reports: no symptoms reported, see HPI Eyes: reports: no symptoms reported, see HPI Ears, Nose, Mouth & Throat: reports: no symptoms reported, see HPI Cardiovascular: reports: see HPI, chest pain Respiratory: reports: see HPI, shortness of breath Gastrointestinal: reports: no symptoms reported, see HPI Genitourinary: reports: no symptoms reported, see HPI Musculoskeletal: reports: no symptoms reported, see HPI Integumentary: reports: no symptoms reported, see HPI Neurological: reports: no symptoms reported, see HPI Psychiatric: reports: no symptoms reported, see HPI Endocrine: reports: no symptoms reported, see HPI Hematologic/Lymphatic: reports: no symptoms reported, see HPI Allergic/Immunologic: reports: no symptoms reported, see HPI All Other Systems: Reviewed and Negative Past History - Adult - PAST MEDICAL HISTORY-ADULT Review of Records: reports: Nursing Assessment Review, Medications Reviewed, Social history reviewed & non-contributory. Major Childhood Illnesses: reports: denies history Cardiovascular: reports: cardiac disease, angina, arrhythmia, CAD, CHF, HTN, hyperlipidemia, NM Respiratory: reports: sleep apnea Gastrointestinal: reports: denies history Obstetrical/Gynecological: reports: denies history Genitourinary: reports: kidney disease Musculoskeletal: reports: chronic pain Neurological: reports: denies history Psychiatric: reports: depression, other (personality disorder) Endocrine/Immune: reports: Diabetes Other Conditions: reports: denies history - PRIOR SURGERIES/PROCEDURES Surgical/Procedure History: reports: cardiac stent, orthopedic (extremity) ( right ankle; shoulder), back/neck (neck) - IMMUNIZATION STATUS Childhood Immunizations: See Nurse Assessment Flu Vaccine: See Nurse Assessment - FAMILY HISTORY Family History: reviewed, not pertinent Physical Exam-General - PHYSICAL EXAM-ADULT Initial Vital Signs Reviewed: Yes - CONSTITUTIONAL General Appearance: alert, mild distress - EYES Eyes: PERRL/EOMI - HEAD, EARS, NOSE, MOUTH & THROAT HENMT: normocephalic/atraumatic, moist mucous membranes, normal ENT inspection - NECK Neck: non-tender, full range of motion, supple, normal inspection - RESPIRATORY Respiratory: chest non-tender, lungs clear, normal breath sounds, no pleuratic chest pain, no respiratory distress, no accessory muscle use - CARDIOVASCULAR Cardiovascular: normal peripheral pulses, tachycardia, other (+2 BLE edema) - GASTROINTESTINAL (ABDOMEN) Abdominal Exam: normal bowel sounds, non tender, soft, no organomegaly, no pulsatile mass - LYMPHATIC Lymphatic: no adenopathy - MUSCULOSKELETAL Back Exam: normal inspection, no CVA tenderness, no vertebral tenderness Extremity: normal range of motion, non-tender, normal gait, normal inspection - SKIN Integumentary: normal color, normal turgor, warm/dry - 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, grossly normal, no motor/sensory deficits - PSYCHIATRIC Psych/Mental Status: normal mood/affect, normal thought content, normal thought process, oriented x 3 Progress - PLAN OF CARE/RESULTS Progress/Plan/Lab Results: Vital Signs - 8 hr 10/29/18 08:21 Temperature 98.3 F Pulse Rate 119 H Respiratory Rate 25 H Blood Pressure 134/94 O2 Sat by Pulse Oximetry 90 L Laboratory Results - last 24 hr 10/29/18 10/29/18 10/29/18 08:18 08:18 08:18 WBC 6.02 RBC 3.90 L Hgb 10.0 L Hct 33.5 L MCV 85.9 MCH 25.6 L MCHC 29.9 L RDW Std Deviation 13.8 Plt Count 263 MPV 10.1 Immature Gran % (Auto) 0.3 Neut % (Auto) 62.5 Lymph % (Auto) 17.8 L Angelina % (Auto) 15.4 H Eos % (Auto) 3.5 Baso % (Auto) 0.5 Immature Gran # (Auto) 0.02 Neut # (Auto) 3.76 Lymph # (Auto) 1.07 L Angelina # (Auto) 0.93 H Eos # (Auto) 0.21 Baso # (Auto) 0.03 PT INR PTT (Actin FS) D-Dimer, Quantitative Sodium 139 Potassium 4.8 Chloride 101 Carbon Dioxide 25 Anion Gap 13 BUN 35 H Creatinine 1.9 H Estimated GFR/1.73 m2 45 BUN/Creatinine Ratio 18 Glucose 70 Calculated Osmolality 284 Calcium 9.0 Total Bilirubin 0.29 AST 25 ALT 13 Alkaline Phosphatase 99 Creatine Kinase 332 H Creatine Kinase Index 3.6 H CK-MB (CK-2) 11.86 H Troponin T [id number] Pept 6747 H Total Protein 7.2 Albumin 2.7 L Globulin 4.5 Albumin/Globulin Ratio 0.6 Plasma Lactate 10/29/18 10/29/18 10/29/18 08:18 08:18 08:18 WBC RBC Hgb Hct MCV MCH MCHC RDW Std Deviation Plt Count MPV Immature Gran % (Auto) Neut % (Auto) Lymph % (Auto) Angelina % (Auto) Eos % (Auto) Baso % (Auto) Immature Gran # (Auto) Neut # (Auto) Lymph # (Auto) Angelina # (Auto) Eos # (Auto) Baso # (Auto) PT 14.8 INR 1.07 PTT (Actin FS) 33.7 D-Dimer, Quantitative 5.28 H Sodium Potassium Chloride Carbon Dioxide Anion Gap BUN Creatinine Estimated GFR/1.73 m2 BUN/Creatinine Ratio Glucose Calculated Osmolality Calcium Total Bilirubin AST ALT Alkaline Phosphatase Creatine Kinase Creatine Kinase Index CK-MB (CK-2) Troponin T 0.133 H [id number] Pept Total Protein Albumin Globulin Albumin/Globulin Ratio Plasma Lactate 0.8 Orders Category Date Time Status Cardiac Monitoring DIRECTED Care 10/29/18 08:42 Active cxr [CHEST-1 VIEW] [RAD] Stat Exams 10/29/18 08:20 Completed ABG [RESP] Routine Lab 10/29/18 09:05 Ordered BLOOD CULTURE [BLDCUL] Stat Lab 10/29/18 08:40 Received CBC WITH ELECTRONIC DIFF [HEME] Stat Lab 10/29/18 08:18 Completed CK PROFILE [SP CHEM] Stat Lab 10/29/18 08:18 Completed COMPREHENSIVE METABOLIC PANEL [CHEM] Stat Lab 10/29/18 08:18 Completed D-DIMER [COAG] Stat Lab 10/29/18 08:18 Completed LACTATE, PLASMA [CHEM] Stat Lab 10/29/18 08:18 Completed PRO B-NATRIURETIC PEPTIDE Stat Lab 10/29/18 08:18 Completed PROTIME WITH INR [COAG] Stat Lab 10/29/18 08:18 Completed PTT [COAG] Stat Lab 10/29/18 08:18 Completed TROPONIN T Stat Lab 10/29/18 08:18 Completed URINALYSIS W/POSS RFLX CULT [URINALYSIS] Stat Lab 10/29/18 08:26 Uncollected 0.9% Sodium Chloride Inj [Ns] 1,000 ml Med 10/29/18 08:42 Discontinued IV 999 mls/hr Diltiazem [Cardizem] Med 10/29/18 09:15 Discontinued 25 mg IV NOW ONE Furosemide [Lasix] Med 10/29/18 09:15 Discontinued 80 mg IV NOW ONE Nitroglycerin Med 10/29/18 09:26 Discontinued 0.5 inch TOP NOW ONE Piperacillin/Tazobactam [Zosyn] 3.375 gm Med 10/29/18 09:26 Active 0.9% Sodium Chloride Inj [Ns] 50 ml IV NOW Vancomycin 1 gm/Ns Med 10/29/18 09:26 Active 1 gm in 250 ml IV NOW Oxygen Device Stat Oth 10/29/18 08:42 Active EKG [EKG] Stat Ther 10/29/18 08:22 Ordered Result Diagrams: 10/29/18 08:18 10/29/18 08:18 - REASSESSMENT Reassessment #1 Time Reassessed: 09:41 Status: improving (Seen and examined by me. Case discussed with Dr. Hein at shift change. Patient has CHF exacerbation, afib with rvr and meets criteria for sepsis. He is in pulmonary edema. Given IVF bolus, IV lasix, IV cardizem and nitropaste. Given also vanc/zosyn as he has indwelling picc line and recent toe amputation d/t infection. Will need admission) - XRAY 1 XRAY Study: Chest Impression: Abnormal ( EXAM: CHEST-1 VIEW 10/29/2018 HISTORY: chest pain TECHNIQUE: AP portable at 0832 COMMENT: There is cardiomegaly. There is ill- defined alveolar and interstitial opacity bilaterally as there was on 2018 but clearly worse than on 10/10/2018. IMPRESSION: Cardiomegaly and pulmonary edema. Electronically signed by Anand Tavarez 10/29/2018 8:42 AM 10/29/18 0842 Interpreting Physician: Anand Tavarez MD Dictated Date/Time : 10/29/18 0841 cc: Vinnie Hein MD; Deirdre Timmons), See EMR Report - CONSULTS/PCP/HOSPITALIST Notification #1 *Consult/PCP/Hospitalist*: SEN Christensen Time Discussed: 09:51 (Admit to [facility]) Consult Disposition: Will see in ED - CHANGE OF SHIFT REPORT (ED Provider) Report Given and Care Transferred to:: Dr Farmer Time of Transfer: 09:00 Items Pending: Labs, XRAY Results Departure - Departure Date of Disposition Decision: 10/29/18 Time of Disposition Decision: 09:51 DIAGNOSIS: Atrial fibrillation with RVR Sepsis Qualifiers: Sepsis type: sepsis due to unspecified organism Qualified Code(s): A41.9 - Sepsis, unspecified organism Acute exacerbation of CHF (congestive heart failure) Qualifiers: Heart failure type: combined systolic and diastolic Qualified Code(s): I50.43 - Acute on chronic combined systolic (congestive) and diastolic (congestive) heart failure Pulmonary edema Qualifiers: Chronicity: acute Qualified Code(s): J81.0 - Acute pulmonary edema Disposition: ADMITTED INPATIENT 09 Certified Medical Emergency: Emergent Condition: Critical Referrals and Follow-Ups: Deirdre Timmons CRNP [Primary Care Provider] - - Critical Care Note This patient required my direct & personal management of CC.: Yes Total Time (mins): 45 Critical Care Statement: This patient required my direct personal management to treat or rule out processes, the absence of which, could potentiallly result in sudden, clinically significant life or limb threatening deterioration. Attestation - Physician/ JARRED Attestation Patient care was provided by Advanced Practice Provider:: No The physician spent face to face time with patient:: Yes Advanced Practice Provider documentation review:: Supervising physician onsite and consulted in the evaluation and care of this patient. The physician did have a face to face encounter with the patient.
[2018-10-29] MEDS ORDERED: NS 1,000 ML IV ONE (08:42)
--- NOTE | 2018-10-29 08:44 | Diag Imaging Result Doc PS360 ---
EXAM: CHEST-1 VIEW 10/29/2018 HISTORY: chest pain TECHNIQUE: AP portable at 0832 COMMENT: There is cardiomegaly. There is ill-defined alveolar and interstitial opacity bilaterally as there was on 10/23/2018 but clearly worse than on 10/10/2018. IMPRESSION: Cardiomegaly and pulmonary edema. Electronically signed by Anand Tavarez 10/29/2018 8:42 AM
[2018-10-29 08:57] LABS: BASO# 0.03 X1000 (0.0-0.2); BASO% 0.5 % (0.0-0.8); EOS# 0.21 X1000 (0.0-0.7); EOS% 3.5 % (0.0-10.0); HEMATOCRIT 33.5 % (42.0-52.0); IMM GRAN# 0.02 X1000 (0.0-0.04); IMM GRAN% 0.3 % (0.0-0.5); LYMPH# 1.07 X1000 (1.2-3.4); LYMPH% 17.8 % (20.5-51.1); MCH 25.6 PG (27-31); MCHC 29.9 g/dL (33-37); MCV 85.9 FL (81-99); MONO# 0.93 X1000 (0.11-0.59); MONO% 15.4 % (1.7-9.3); MPV 10.1 FL (7.4-10.4); NEUT# 3.76 X1000 (1.4-6.5); NEUT% 62.5 % (42.2-75.2); PLT 263 X1000 (130-400); RDW 13.8 % (11.5-14.5); WBC 6.02 X1000 (4.8-10.8)
[2018-10-29 09:07] LABS: INR 1.07; PROTIME 14.8 Seconds (11.0-16.0)
[2018-10-29 09:08] LABS: PTT 33.7 Seconds (22.3-41.8)
[2018-10-29 09:13] LABS: ALB/GLOB RATIO 0.6; ALBUMIN 2.7 g/dL (3.5-5.0); CREATININE 1.9 mg/dL (0.7-1.2); POTASSIUM 4.8 mmol/L (3.5-5.1); TOTAL BILIRUBIN 0.29 mg/dL (0.20-1.00); TOTAL PROTEIN 7.2 g/dL (6.3-8.3)
[2018-10-29] MEDS ORDERED: CARDIZEM IV ONE (09:15)
[2018-10-29] MEDS ORDERED: LASIX IV ONE (09:15)
[2018-10-29] MEDS ORDERED: NITROGLYCERIN TOP ONE (09:26)
[2018-10-29] MEDS ORDERED: ZOSYN 3.375 GM in NS 50 ML IV ONE (09:26)
[2018-10-29] MEDS ORDERED: VANCOMYCIN 1 GM/NS 1 GM/250 ML IVPB IV ONE (09:26)
[2018-10-29 09:30] LABS: CK INDEX 3.6 (0.0-2.5); CK-MB 11.86 ng/mL (0.0-5.0)
[2018-10-29 09:35] LABS: D-DIMER 5.28 ug/mLFEU (0.0-0.52)
[2018-10-29 10:06] LABS: URINE SOURCE CLEAN CATCH
[2018-10-29 10:09] LABS: BILIRUBIN URINE NEGATIVE (NEGATIVE); BLOOD URINE MODERATE (NEGATIVE); COLOR YELLOW; GLUCOSE URINE NEGATIVE (NEGATIVE); KETONE URINE NEGATIVE (NEGATIVE); LEUKOCYTES URINE MODERATE (NEGATIVE); NITRITE URINE NEGATIVE (NEGATIVE); PH URINE 5.5; PROTEIN URINE 100 mg/dL (NEGATIVE); SP GRAVITY URINE 1.002; TURBIDITY URINE CLEAR (CLEAR); UROBILINOGEN URINE NORMAL (NORMAL)
[2018-10-29 10:10] LABS: UR EPITHELIAL CELLS <10 /HPF (<10); URINE BACTERIA NEGATIVE /HPF
[2018-10-29] MEDS ORDERED: LASIX ONE (10:36)
[2018-10-29 10:56] LABS: ALLEN TEST YES; BE 2.7 mmoll (-3.0-3.0); BLOOD TYPE ARTERIAL; HCO3-(ACT) 26.6 mmoll (20.0-26.0); METHB 1.1 % (0.0-1.5); O2(CT) 10.5 mL/dL (15.0-23.0); PCO2(98.6) 48 mmHg (35-45); SAMPLE BLOOD; SAO2 75.4 % (95.0-100.0); THB 10.2 g/dL (11.5-17.4); pH(98.6) 7.38 (7.35-7.45)
[2018-10-29 11:01] LABS: PO2(98.6) 40 mmHg (60-100)
[2018-10-29 11:03] LABS: MODALITY ROOM AIR; O2HB 72.9 % (95.0-99.0)
[2018-10-29] MEDS: HUMALOG SUBQ SCH ×3 (12:50→20:44)
[2018-10-29 13:02] LABS: BASO# 0.01 X1000 (0.0-0.2); BASO% 0.1 % (0.0-0.8); EOS# 0.09 X1000 (0.0-0.7); EOS% 1.1 % (0.0-10.0); HEMATOCRIT 33.7 % (42.0-52.0); HEMOGLOBIN 9.9 g/dL (14.0-18.0); IMM GRAN# 0.03 X1000 (0.0-0.04); IMM GRAN% 0.4 % (0.0-0.5); LYMPH# 0.68 X1000 (1.2-3.4); LYMPH% 8.4 % (20.5-51.1); MCH 25.5 PG (27-31); MCHC 29.4 g/dL (33-37); MCV 86.9 FL (81-99); MONO# 0.83 X1000 (0.11-0.59); MONO% 10.2 % (1.7-9.3); MPV 9.7 FL (7.4-10.4); NEUT# 6.48 X1000 (1.4-6.5); NEUT% 79.8 % (42.2-75.2); PLT 250 X1000 (130-400); RBC 3.88 XMIL (4.7-6.1); WBC 8.12 X1000 (4.8-10.8)
[2018-10-29] MEDS ORDERED: LOPRESSOR IV ONE (13:06)
[2018-10-29 13:16] LABS: CREATININE 1.9 mg/dL (0.7-1.2); MAGNESIUM 1.4 mg/dL (1.5-2.7); POTASSIUM 4.5 mmol/L (3.5-5.1)
--- NOTE | 2018-10-29 13:28 | HISTORY AND PHYSICAL ---
CHIEF COMPLAINT: Shortness of breath, chest pain. HISTORY OF PRESENT ILLNESS: Mr. Tran is a 53-year-old male who was most recently discharged from our service on 10/27/2018 for a Enterococcus faecalis and Staphylococcus epidermidis diabetic foot infection. He was discharged home to continue with daptomycin daily as an outpatient via PICC line. He reports in the morning, he became short of breath with chest pain. He also complains of aches and pains all over after sleeping on the floor in the washroom of his sister's home. He was trying to hold out until 10/31/2018 until he could get a hotel room, but his shortness of breath continued to worsen along with his chest pain. It did radiate according to him to his right arm where his PICC line is. He also stated that the pain was relieved by nitroglycerin. He denies any nausea, vomiting, or diaphoresis, but he did have what he described as rigors. No reported fever. Workup in the ED shows an elevated proBNP. Positive troponins at 0.133. Acute kidney injury with a creatinine of 1.9. White count is normal. D- dimer was elevated at 5.28. We were going to order a CTA of the chest, however , given his renal function will have to do a V/Q scan. Chest x-ray revealed cardiomegaly and pulmonary edema. He will be admitted to the ICU. We will continue his IV antibiotics with daptomycin. He is already given a dose of vancomycin and Zosyn. We will continue daptomycin tomorrow. Consult with Dr. Ramires to make sure that he is going to continue on daptomycin. Continue wound care. He was also found to be in atrial fibrillation with RVR. He was given an IV push of Cardizem. Will be admitted for combined systolic and diastolic heart failure. He was given a dose of IV Lasix. Chest x-ray does not show any pneumonia, however, he is junky on his right side. Again, we will continue with IV antibiotics. PAST MEDICAL HISTORY: 1. Systolic and diastolic heart failure. 2. Uncontrolled diabetes mellitus type 2. 3. Hyperlipidemia. 4. Chronic kidney disease. 5. Morbid obesity. 6. Obstructive sleep apnea. 7. Dilated nonischemic cardiomyopathy. PAST SURGICAL HISTORY: 1. Ankle repair. 2. I and D to the abscess of the left toe and left foot. 3. Amputation of the left 2nd toe with debridement of skin and soft tissue to the left foot. SOCIAL HISTORY: Patient has been on disability for the last 5 years. He denies alcohol, tobacco, or illicit drug use. He is currently staying at his sister's residence on the washroom floor home. MEDICATIONS: Medications have not been reconciled. He was most recently discharged on: 1. Aspirin 81 mg p.o. daily. 2. Coreg 6.25 mg p.o. b.i.d. 3. Lasix 80 mg p.o. b.i.d. 4. Lantus 80 units subcutaneous at bedtime. 5. Percocet 5, 1 each p.o. q.6 h. p.r.n. pain. 6. Protonix 40 mg p.o. daily. 7. As an outpatient, he was to receive IV daptomycin daily. ALLERGIES: No known drug allergies. PHYSICAL EXAMINATION: VITAL SIGNS: Temperature is 98.3 degrees, heart rate 120, respirations 35, blood pressure 143/82, O2 is 94% on mask. GENERAL: Mr. Tran is a pleasant 53-year-old male who is lying on his right side on the stretcher. He is somewhat short of breath just lying in the bed. He can hear audible rhonchi on his right side. HEENT: Atraumatic, normocephalic. PERRLA. NECK: Supple. Trachea midline. Unable to assess JVD at the neck. CARDIOVASCULAR: Irregular rate and rhythm. No murmurs, gallops, rubs noted. PULMONARY: The patient does have bilateral rhonchi throughout his right lung field. He is decreased on the left at the base. GASTROINTESTINAL: Soft, nontender, nondistended. Positive bowel sounds 4 quadrants. EXTREMITIES: The patient underwent recent debridement on the left and amputation on the left. NEUROLOGIC: No focal deficits noted. DIAGNOSTIC DATA: Pending V/Q scan. Chest x-ray: Cardiomegaly and pulmonary edema. LABORATORY DATA: White count 6, hemoglobin and hematocrit of 10 and 33, platelet count is 263,000. D-dimer 5.28. Chemistry: Sodium 139, potassium 4.8, BUN 35, creatinine 1.8, blood glucose is 70. CK 332, CKI3.6, CK-MB 11.86, troponin 0.133. ProBNP is 6747. ASSESSMENT AND PLAN: 1. Congestive heart failure exacerbation, systolic. We will continue with IV diuresis, place him in the ICU, check an echocardiogram, continue with home medications when reconciled. 2. Atrial fibrillation with rapid ventricular response. The patient was given a dose of IV Cardizem and we will consult Cardiology. Recheck an echocardiogram. Continue on rate control medications. 3. Recent diagnosis of Enterococcus faecalis and Staphylococcus epidermidis of diabetic foot infection. He underwent an amputation of his left 2nd toe as well as debridement. He has been on IV daptomycin as an outpatient. He does have a PICC line. We will consult Dr. Ramires as well as Wound Care. Continue with IV antibiotics. 4. Acute kidney injury on chronic kidney disease. 5. Uncontrolled diabetes mellitus. The patient's blood sugars are currently controlled at 70. We will continue with pattern blood sugars and sliding scale. 6. History of nonischemic cardiomyopathy with an ejection fraction of 15% to 20% . Again, we will continue with diuresis when home medications are verified. 7. Morbid obesity, body mass index is 40. 8. Hyperlipidemia. 9. Obstructive sleep apnea. 10. Elevated D-dimer. Due to the patient's renal function we cannot do a CT of chest. Will check a V/Q scan. 11. Further recommendation to follow physician evaluation, laboratory data, and diagnostic data. Dictated by SEN Hart for Tre Salas MD cc: Tre Salas MD Patient seen and evaluated by me. He is presenting with shortness of breath and noted to have decompensated CHF with afib /rvr. I agree with the assessment and plan of the IN[employer]PERT. Dr. Salas. [facility]
[2018-10-29 13:32] LABS: T4 3.13 ug/dL (4.60-12.00); TSH 1.59 uIUmL (0.27-4.20)
[2018-10-29 13:40] LABS: CK INDEX 3.4 (0.0-2.5); CK-MB 11.47 ng/mL (0.0-5.0)
--- NOTE | 2018-10-29 14:07 | Diag Imaging Result Doc PS360 ---
EXAM: LUNG SCAN / VQ 10/29/2018 HISTORY: elevated ddimer, resp distress TECHNIQUE: Ventilation/perfusion lung scan, 38.1 mCi of technetium 99m DTPA aerosol and 6.3 mCi of technetium 99m MAA intravenously. COMMENT: There is no evidence of ventilation/perfusion mismatch and no absolute perfusion defects are present. IMPRESSION: Low probability for pulmonary embolus. Electronically signed by Anand Tavarez 10/29/2018 2:04 PM
[2018-10-29 17:02] LABS: URINE SOURCE CATH
[2018-10-29 17:30] LABS: BILIRUBIN URINE NEGATIVE (NEGATIVE); BLOOD URINE SMALL (NEGATIVE); COLOR STRAW; GLUCOSE URINE NEGATIVE (NEGATIVE); KETONE URINE NEGATIVE (NEGATIVE); LEUKOCYTES URINE NEGATIVE (NEGATIVE); NITRITE URINE NEGATIVE (NEGATIVE); PROTEIN URINE 30 mg/dL (NEGATIVE); TURBIDITY URINE CLEAR (CLEAR); UROBILINOGEN URINE NORMAL (NORMAL)
[2018-10-29 17:31] LABS: UR EPITHELIAL CELLS <10 /HPF (<10); URINE BACTERIA NEGATIVE /HPF; URINE RBC <10 /HPF (<10); URINE WBC <10 /HPF (<10)
--- NOTE | 2018-10-29 17:34 | INFECTIOUS DISEASE PROGRESS NO ---
DATE: 10/29/2018 PRESENT ILLNESS: I have been treating the patient for a Staph coccus, Enterococcus, and streptococcal infection of the left foot. He was receiving daptomycin as an outpatient. He was readmitted to the hospital because he complained of dyspnea. MEDICATIONS: The patient was receiving daptomycin 800 mg IV every day as an outpatient. PHYSICAL EXAMINATION: Vital Signs: Temperature is 99 degrees, pulse 124, respirations 10, blood pressure 130/70. Patient weighs 311 pounds. General: This is a morbidly obese, middle-aged male. He seemed to be acutely short of breath. Head/eyes/ears/nose/throat: He can hear my spoken words and see near objects. He does not have any white patches on his tongue. Neck: No stiffness. Lungs: Clear to auscultation. Cardiovascular: Heart rate is regular. Abdomen: Soft and nontender. Extremities: The patient's left foot has a dressing on it. The dressing is intact. Patient's IV catheter site is not swollen or draining. Neurologic: The patient is awake. He can move his extremities. There is no tremor. LAB AND RADIOLOGY: CBC-WBC 8.12, hgb 9.9, platelets 250K. Creatinine-1.9. GFR- 45 Blood gases-pH 7.38. pO2 40, pCO2 48. Lung scan-no pulmonary embolus. Chest x- ray-pulmonary edema. ASSESSMENT AND PLAN: The patient has a foot infection. My plan is to continue daptomycin while the patient is in the hospital. The patient's shortness of breath I do not think is due to a pulmonary infection. COMORBIDITIES: Include morbid obesity, congestive heart failure and diabetes mellitus and acute kidney injury which the patient is recovering from. cc: Tyler Ramires MD [facility]
--- NOTE | 2018-10-29 19:34 | CONSULTATION ---
DATE OF CONSULTATION: 10/29/2018 CARDIOLOGY CONSULTATION: IMPRESSION: 1. Acute pulmonary edema. 2. Severe nonischemic cardiomyopathy with left ventricular ejection fraction 15-20% by echocardiography a few months ago. Previous coronary angiography November 2017 demonstrated severely depressed left ventricular systolic function and a 50% mid LAD stenosis. 3. Chronic kidney disease. 4. Diabetes mellitus type 2. 5. Obesity. 6. Obstructive sleep apnea. 7. Hyperlipidemia. RECOMMENDATIONS: 1. Diurese with IV Lasix as you are doing. 2. Continue carvedilol at current dose. HISTORY: This 53-year-old male with past history of severe nonischemic cardiomyopathy, moderate single-vessel coronary atherosclerosis involving mid left anterior descending coronary, chronic kidney disease, diabetes mellitus type 2, obesity, obstructive sleep apnea, hyperlipidemia and recent problems with diabetic foot infection. Was admitted to the emergency room with acute and rapid progressive shortness of breath symptoms which manifest after he awakened this morning. He has been found to have evidence of pulmonary edema. He is being diuresed with intravenous Lasix. He was recently hospitalized with diabetic foot infection. He was discharged home with a PICC line and receiving outpatient parental antibiotics. He relates that he was doing well yesterday. This morning, upon awakening, he became short of breath. There was some chest pressure with this. Symptoms progressed. He was having orthopnea with this. He was brought to the emergency room and evaluation demonstrated evidence of pulmonary edema and congestive heart failure. He is now in the intensive care unit and is receiving scheduled intravenous Lasix for diuresis. PAST MEDICAL HISTORY: 1. Severe dilated nonischemic cardiomyopathy with left ejection fraction of 15-20%. 2. Moderate single-vessel coronary atherosclerosis involving mid left anterior descending coronary by coronary angiography November 2017. 3. Type 2 diabetes mellitus. 4. Recent diabetic foot infections. 5. Hyperlipidemia. 6. Chronic kidney disease. 7. Morbid obesity. 8. Obstructive sleep apnea. PAST SURGICAL HISTORY: Includes: 1. Unspecified ankle surgery. 2. I and D to the abscess of left toe and left foot. 3. Amputation of left 2nd toe with debridement of skin and soft tissue of the left foot. ALLERGIES: He has no known drug allergies. MEDICATIONS PRIOR TO ADMISSION: As listed. SOCIAL HISTORY: He is disabled. He does not smoke or use alcohol. He is currently staying with his sister. FAMILY HISTORY: Positive for diabetes, but negative for premature coronary disease. REVIEW OF SYSTEMS: Pulmonary: Noteworthy for dyspnea and orthopnea. Gastrointestinal: Noncontributory. Constitutional: Noncontributory. Remainder of review of systems negative/noncontributory with 14 total systems reviewed. PHYSICAL EXAMINATION: General: This is an obese, middle-aged male in no distress on supplemental oxygen per nasal cannula. Vital Signs: Blood pressure 119/85, heart rate 100, oxygen saturation 99% on Venturi mask presently. HEENT: Extraocular movements appear intact. Mucous membranes are moist. Neck: Supple. Jugular venous distention is not appreciated. There are no carotid bruits. Chest: Auscultation of the chest reveals bibasilar inspiratory crackles. Cardiac: Reveals a regular rate and rhythm without appreciable murmur or gallop. Abdomen: Soft, nontender. Extremities: Demonstrate mild pedal edema. Neurologic: Reveals him to be alert and fully oriented. Speech is fluent. Moves all 4 extremities equally well. Skin: Warm and dry. Psychiatric: Reveals mood to be appropriate. LABORATORY DATA: Includes a white blood cell count of 8.12, hematocrit 33.7, hemoglobin 9.9, platelet count 250,000. D-dimer 5.28. Sodium 138, potassium 4.5, chloride 101, carbon dioxide 25, BUN 34, creatinine 1.9, glucose 64. Troponin T 0.142, CPK 335, CPK-MB [*]3.4, CPK-MB [*]11.47, CPK-MB index 3.4. Albumin 2.7. Urinalysis demonstrates significant proteinuria. Chest x-ray was reviewed and demonstrates cardiomegaly and evidence of pulmonary edema. cc: Kamron Julien MD
[2018-10-29 20:09] LABS: CK INDEX 2.6 (0.0-2.5); CK-MB 7.56 ng/mL (0.0-5.0)
[2018-10-29] MEDS: COREG PO SCH (20:54)
[2018-10-29] MEDS: LOPRESSOR IV SCH (20:54)
[2018-10-29] MEDS: LASIX IV SCH (20:54)
[2018-10-30 05:56] LABS: BASO# 0.02 X1000 (0.0-0.2); BASO% 0.3 % (0.0-0.8); EOS% 2.6 % (0.0-10.0); HEMOGLOBIN 8.3 g/dL (14.0-18.0); LYMPH# 1.24 X1000 (1.2-3.4); LYMPH% 15.8 % (20.5-51.1); MCH 25.9 PG (27-31); MCHC 29.6 g/dL (33-37); MCV 87.5 FL (81-99); MONO# 0.72 X1000 (0.11-0.59); MONO% 9.2 % (1.7-9.3); MPV 9.7 FL (7.4-10.4); NEUT# 5.65 X1000 (1.4-6.5); NEUT% 72.1 % (42.2-75.2); PLT 207 X1000 (130-400); RDW 14.1 % (11.5-14.5); WBC 7.83 X1000 (4.8-10.8)
[2018-10-30 06:13] LABS: HEMOGLOBIN A1C 11.7 % (4.8-6.0)
[2018-10-30] MEDS: HUMALOG SUBQ SCH ×4 (06:13→20:25)
[2018-10-30 06:43] LABS: CK INDEX 2.5 (0.0-2.5); CK-MB 5.16 ng/mL (0.0-5.0)
--- NOTE | 2018-10-30 07:29 | Diag Imaging Result Doc PS360 ---
EXAM: CHEST-PORTABLE INDICATION: CHF TECHNIQUE: One view COMPARISON: 10/29/2018 FINDINGS: The right PICC line tip projecting over the right atrium. Interstitial and airspace consolidations bilaterally appear to have slightly worsened. No new consolidation is identified, otherwise. Cardiac silhouette is stable. IMPRESSION: Interval slight worsening of pulmonary edema. Electronically signed by Colt Monet 10/30/2018 7:27 AM
--- NOTE | 2018-10-30 07:29 | EKG Report ---
Test Performed on : 10/30/2018 06:59:28 AM Test Reason : Heart Failure Admission Blood Pressure : / mmHG Vent. Rate : 090 BPM Atrial Rate : 090 BPM P-R Int : 174 ms QRS Dur : 102 ms QT Int : 376 ms P-R-T Axes : 020 097 -32 degrees QTc Int : 459 ms Normal sinus rhythm. Possible Left atrial enlargement Possible Lateral infarct , age undetermined Abnormal ECG When compared with ECG of 29-OCT-2018 13:00, (Unconfirmed) QRS axis shifted right T wave inversion now evident in Inferior leads T wave inversion no longer evident in Lateral leads Confirmed by Mike DAVIS, Jasvir oFrd ([id number]) on 10/30/2018 3:56:34 PM
[2018-10-30] MEDS: LOPRESSOR IV SCH ×2 (08:17→20:25)
[2018-10-30] MEDS: LASIX IV SCH ×2 (08:17→20:24)
[2018-10-30] MEDS: COREG PO SCH ×2 (08:17→20:25)
[2018-10-30] MEDS: CUBICIN IV SCH (08:17)
[2018-10-30] MEDS: NS IV SCH (08:17)
--- NOTE | 2018-10-30 08:22 | EKG Report ---
Test Performed on : 10/29/2018 08:10:07 AM Test Reason : chest pain Blood Pressure : / mmHG Vent. Rate : 150 BPM Atrial Rate : 133 BPM P-R Int : 000 ms QRS Dur : 112 ms QT Int : 322 ms P-R-T Axes : 000 -51 106 degrees QTc Int : 508 ms Undetermined rhythm Left axis deviation Low voltage QRS Possible Anterolateral infarct , age undetermined Abnormal ECG When compared with ECG of 20-OCT-2018 08:14, Current undetermined rhythm precludes rhythm comparison, needs review Borderline criteria for Anterolateral infarct are now present ST now depressed in Anterior leads Unconfirmed Result
[2018-10-30] MEDS ORDERED: CUBICIN 600 MG in NS 100 ML IV SCH (09:00)
--- NOTE | 2018-10-30 09:19 | EKG Report ---
Test Performed on : 10/29/2018 1:00:49 PM Test Reason : chest pain Blood Pressure : / mmHG Vent. Rate : 112 BPM Atrial Rate : 112 BPM P-R Int : 158 ms QRS Dur : 098 ms QT Int : 350 ms P-R-T Axes : 045 -39 111 degrees QTc Int : 477 ms Sinus tachycardia. Possible Left atrial enlargement Left axis deviation T wave abnormality, consider lateral ischemia Abnormal ECG When compared with ECG of 29-OCT-2018 08:10, (Unconfirmed) Previous ECG has undetermined rhythm, needs review Borderline criteria for Anterior infarct are no longer present Borderline criteria for Anterolateral infarct are no longer present ST no longer depressed in Anterior leads Confirmed by Mike DAVIS, Jasvir Ford ([id number]) on 10/30/2018 3:56:03 PM
[2018-10-30] MEDS: PERCOCET-5 PO PRN ×2 (11:47→18:06)
--- NOTE | 2018-10-30 14:01 | PROGRESS NOTE ---
DATE: 10/30/2018 SUBJECTIVE: Patient reports feeling better. He denies shortness of breath or chest discomfort. OBJECTIVE: Vital Signs: Blood pressure 116/64, heart rate 92 and regular, oxygen saturation 94% on nasal cannula oxygen. Neck: Jugular venous distention cannot be appreciated. Lungs: Auscultation of the chest reveals a few inspiratory crackles in the bases bilaterally. Cardiac: Reveals a regular rate and rhythm without appreciable murmur or gallop. Extremities: Demonstrate mild pedal edema. LABORATORY DATA: Includes a white blood cell count 7.83, hematocrit 28.0, hemoglobin 8.3, platelet count 207,000. CPK 208, CPK-MB 5.16. Repeat troponin T 0.140 TSH. 1.59. IMPRESSIONS: 1. Recent acute on chronic systolic heart failure, improving with diuresis. 2. Very mild nonspecific elevation in troponin, probably provoked by congestive heart failure. 3. Severe nonischemic cardiomyopathy with left ventricular ejection fraction of 15 to 20% by echocardiography a few months ago. 4. Coronary atherosclerosis. Patient had coronary angiography November 2017 which demonstrated 50% mid-LAD stenosis and severely depressed left ventricular systolic function. 5. Chronic kidney disease. 6. Type 2 diabetes mellitus. 7. Obesity. 8. Obstructive sleep apnea. 9. Hyperlipidemia. RECOMMENDATIONS: 1. Continue diuresis. 2. Continue carvedilol. 3. Conservative cardiovascular management overall for the present in light of patient's comorbidities. cc: Kamron Julien MD
--- NOTE | 2018-10-30 15:03 | INFECTIOUS DISEASE PROGRESS NO ---
DATE: 10/30/2018 PRESENT ILLNESS: The patient is being treated for Staph, enterococcal, and streptococcal infection of his left foot. MEDICATIONS: The patient now is receiving daptomycin 850 mg IV daily. PHYSICAL EXAMINATION: Vital Signs: Temperature 98.3 degrees, pulse 92, respirations 27, blood pressure 116/64. The patient weighs 311 pounds. General: This is a morbidly obese, middle-aged male. He is in no acute distress today. Head, eyes, ears, nose, and throat: He can hear my spoken words and see near objects. He does not have any white coating on his tongue. Neck: No stiffness. Lungs: Clear to auscultation. Cardiovascular: Heart rate is regular. Abdomen: Soft and nontender. Extremities: The dressing was removed from the patient's left foot. The patient's tissue is beefy red color. There is a small amount of seropurulent drainage. I did not see any necrotic tissue. Also, the wound did not have an odor to it. The patient has a PICC in his right arm. The site is not swollen or draining. LAB AND RADIOLOGY: Chest x-ray shows worsening pulmonary edema. CBC shows a white count of 7830, hemoglobin 8.3, platelet count 207,000. Creatinine is 1.9. GFR is 45. CK is 208. ASSESSMENT AND PLAN: The patient has a foot infection. I plan to continue with daptomycin. COMORBIDITIES: The patient is morbidly obese. He has congestive heart failure, diabetes mellitus, and acute renal injury. cc: Tyler Ramires MD
--- NOTE | 2018-10-30 15:05 | PROGRESS NOTE ---
DATE: 10/30/2018 SUBJECTIVE: Patient resting in bed. OBJECTIVE: Vital Signs: As follows: Temperature 98.3, pulse 89, respiratory rate 30, blood pressure 118/64, oxygen saturation is 92%. HEENT: Atraumatic, normocephalic. Cardiovascular: S1, S2. Respiratory: Has evidence of good air entry bilaterally. Abdomen: Obese, nontender. No masses. Extremities: Has edema in both lower extremities. Wound site left foot is dressed. Central Nervous System: No obvious focal deficit noted. LABS: WBCs 7.83, hematocrit is 28, with a platelet count of 207,000. ASSESSMENT AND PLAN: 1. Diabetes mellitus. Continue blood sugar monitor as well as sliding scale insulin. 2. Atrial fibrillation. Continue rate controlling agent. Cardiology is following. 3. Congestive heart failure, systolic. Continue diuretics. Monitor intakes and outputs, as well as daily weights. Cardiology is following. 4. Diabetic foot infection. Status post amputation left 2nd toe. Infectious Disease is following. 5. Acute kidney injury superimposed on chronic kidney disease. Follow up on renal function. Avoid nephrotoxic agent. 6. Morbid obesity. Aware. The patient needs to lose weight. 7. Disposition: Patient can be transferred to the step-down unit. He is interested in going to rehab facility. We will consult [employer]oe Patternmaker. cc: Tre Salas MD
[2018-10-31] MEDS: HUMULIN R SUBQ SCH ×4 (06:39→20:24)
[2018-10-31] MEDS: PROTONIX PO SCH (06:39)
[2018-10-31 07:38] LABS: BASO# 0.02 X1000 (0.0-0.2); BASO% 0.3 % (0.0-0.8); EOS# 0.17 X1000 (0.0-0.7); EOS% 2.4 % (0.0-10.0); HEMATOCRIT 28.4 % (42.0-52.0); HEMOGLOBIN 8.2 g/dL (14.0-18.0); LYMPH# 0.68 X1000 (1.2-3.4); LYMPH% 9.7 % (20.5-51.1); MCH 25.7 PG (27-31); MCHC 28.9 g/dL (33-37); MONO# 0.68 X1000 (0.11-0.59); MONO% 9.7 % (1.7-9.3); MPV 9.6 FL (7.4-10.4); NEUT# 5.46 X1000 (1.4-6.5); NEUT% 77.9 % (42.2-75.2); PLT 215 X1000 (130-400); RBC 3.19 XMIL (4.7-6.1); WBC 7.01 X1000 (4.8-10.8)
[2018-10-31 07:44] LABS: CALCIUM 8.3 mg/dL (8.8-10.2); CREATININE 2.1 mg/dL (0.7-1.2); POTASSIUM 5.1 mmol/L (3.5-5.1)
[2018-10-31] MEDS: ASPIRIN PO SCH (08:55)
[2018-10-31] MEDS: LASIX IV SCH (08:56)
[2018-10-31] MEDS: HEPARIN SUBQ SCH ×2 (08:56→18:25)
[2018-10-31] MEDS: COREG PO SCH ×2 (08:56→20:23)
[2018-10-31] MEDS ORDERED: COREG PO SCH (09:00)
[2018-10-31] MEDS: PERCOCET-5 PO PRN (10:33)
[2018-10-31] MEDS: NS IV SCH ×2 (11:14→11:41)
[2018-10-31] MEDS: CUBICIN IV SCH ×2 (11:14→11:41)
[2018-10-31 14:17] LABS: ALLEN TEST YES; BE 6.6 mmoll (-3.0-3.0); BLOOD TYPE ARTERIAL; HCO3-(ACT) 30.1 mmoll (20.0-26.0); METHB 0.4 % (0.0-1.5); O2HB 94.7 % (95.0-99.0); PO2(98.6) 70 mmHg (60-100); SAMPLE BLOOD; SAO2 97.5 % (95.0-100.0); THB 8.2 g/dL (11.5-17.4)
[2018-10-31 14:23] LABS: MODALITY CANNULA; PCO2(98.6) 52 mmHg (35-45)
--- NOTE | 2018-10-31 15:52 | PROGRESS NOTE ---
DATE: 10/31/2018 SUBJECTIVE: Patient denies shortness of breath or chest discomfort on supplemental oxygen per nasal cannula. OBJECTIVE: Vital signs: Blood pressure 109/61, heart rate 78, oxygen saturation 99%. Neck: There is no significant jugular venous distention. Chest: Clear to auscultation. Cardiac: Reveals a regular rate and rhythm without appreciable murmur or gallop. Extremities: Without edema. LABORATORY DATA: Includes a white blood cell count 7.01, hematocrit 28.4, hemoglobin 8.2, platelet count 215,000. Sodium 133, potassium 5.1, chloride 95, carbon dioxide 27, BUN 31, creatinine 2.1, glucose 220. IMPRESSIONS: 1. Recent acute on chronic systolic heart failure, improved with diuresis. 2. Mild nonspecific elevation in troponin, probably provoked by congestive heart failure. 3. Severe nonischemic cardiomyopathy with left ejection fraction 15 to 20% by echocardiography a few months ago. 4. Coronary atherosclerosis. Coronary angiography November 2017 reported 50% mid-LAD stenosis and severely depressed left ventricular systolic function. 5. Chronic kidney disease. 6. Type 2 diabetes mellitus. 7. Obesity. 8. Obstructive sleep apnea. 9. Hyperlipidemia. RECOMMENDATIONS: 1. Transition to oral Lasix. 2. Continue carvedilol and aspirin. 3. Continue conservative cardiovascular management overall in light of the patient's comorbidities. 4. Discontinue Moore catheter. 5. Anticipate patient may be able to return to [facility] for further rehabilitation in the next 24 to 48 hours. I will see further on an as-needed basis. cc: Kamron Julien MD
--- NOTE | 2018-10-31 16:50 | Diag Imaging Result Doc PS360 ---
FLAT/UPRIGHT ABD/1 VIEW CHEST - 10/31/2018 INDICATION: pulmonary edema/constipation TECHNIQUE: COMPARISON: 10/30/2018 FINDINGS: Stable right PICC line in good position. There is stable diffuse alveolar pulmonary edema. Stable cardiomegaly. No large pleural effusion. There is moderate constipation. No bowel obstruction or free air. IMPRESSION: Pulmonary edema. Constipation. Electronically signed by Scott Barkley 10/31/2018 4:47 PM
--- NOTE | 2018-10-31 18:59 | PROGRESS NOTE ---
DATE: 10/31/2018 SUBJECTIVE: The patient is somewhat lethargic today and confused. OBJECTIVE: Vital Signs: Temperature 98.3 degrees, blood pressure 109/61, heart rate 78, respirations 18, and O2 saturation 99% on 3 L nasal cannula. General: This is a morbidly obese male lying in bed in no acute distress. Heart: S1, S2 normal. Regular rate and rhythm. Lungs: Clear to auscultation bilaterally. Abdomen: Positive bowel sounds. Soft, obese, and nontender. Extremities: 2+ edema. The left foot is wrapped in a clean dry dressing. LABORATORY: Hemoglobin 8.2, hematocrit 28, and platelets 215,000. Sodium 133, potassium 5.1, chloride 95, CO2 27, BUN 31, creatinine 2.1, glucose 220, and calcium 8.3. Abdominal x-ray shows pulmonary edema and constipation. ASSESSMENT AND PLAN: 1. Acute systolic congestive heart failure exacerbation. The patient continues to have pulmonary edema on x-ray. Management as per the medical program specialist. 2. Left foot infection. Continue with antibiotic therapy as directed by Dr. Ramires. 3. Morbid obesity. Aware. 4. Anemia. We will check iron studies. Chronic kidney disease stage 3. We will continue to monitor the patient closely while on diuretic therapy. 5. Diabetes mellitus type 2 uncontrolled. We will restart the patient on Lantus. 6. Metabolic encephalopathy. We will monitor for improvement. The patient does have an underlying infection which is being treated. 7. GERD. Continue on Protonix. 8. DVT prophylaxis. Continue on heparin. cc: Cynthia Campos MD
--- NOTE | 2018-10-31 19:40 | INFECTIOUS DISEASE PROGRESS NO ---
DATE: 10/31/2018 PRESENT ILLNESS: Mr. Tran is being treated for a enterococcal, streptococcal and Staph epidermidis infection to his left foot. He is status post left second toe amputation with irrigation and debridement of the left foot wound. MEDICATIONS: He is receiving IV daptomycin 850 mg every 24 hours. PHYSICAL EXAMINATION: Vital Signs: Temperature is 98.3 degrees, pulse rate 78 , respiratory rate 22, blood pressure 109/61, O2 saturation 99% on 3 L nasal cannula. General: This is a morbidly obese, chronically ill-appearing middle-aged gentleman. He is lying in bed currently in no acute distress. HEENT: Atraumatic, normocephalic. Oral mucous membranes are pink and moist. Conjunctivae are pale. Neck: Supple. Trachea is midline. Cardiovascular: Heart rate and rhythm are regular. Normal sinus rhythm on the monitor. Generalized lower extremity edema noted with left being greater than the right. Respiratory: Lung sounds are clear in the upper lobes. Diminished in the bases. Abdomen: Soft, obese and nontender. Bowel sounds are active. Extremities: I removed the dressing from his left foot. There was a considerable amount of serosanguineous drainage noted on the dressing. The wound is beefy red with some white striated tissue at the base. He has a PICC in place to his right upper extremity. Site is without edema or erythema. Neurologic: He is awake, alert and oriented and able to move all his extremities without difficulty in the bed. LABORATORY AND X-RAY: Today his white count is 7.01, hemoglobin 8.2, platelet count 215,000. Blood gas done this afternoon on 3 L nasal cannula showed a pH of 7.4, pCO2 52 , PO2 70, HCO3 30.1. Urine and blood have shown no growth on this admission. He previously grew a strep agalactiae, enterococcal faecalis and Staph epidermidis to his left foot. He had an abdominal x-ray this afternoon that showed pulmonary edema and constipation. ASSESSMENT AND PLAN: Mr. Tran has been readmitted to the hospital due to respiratory distress and pulmonary edema with congestive heart failure. We are continuing to treat him for his left foot infection using daptomycin daily which we will continue at this point. Today he denies any generalized muscle aches or pains. We will continue to check intermittent CK levels. Plans have been discussed with and recommended by Dr. Ramires. COMORBIDITIES: Include morbid obesity, congestive heart failure, diabetes mellitus and acute kidney injury. Dictated by SEN Caballero for Tyler Ramires MD This chart was documented by, SEN Caballero and accurately reflects the services performed, treatment plan and medical decisions as attested by the providers signature Tyler Ramires MD. cc: Tyler Ramires MD [facility]
[2018-10-31] MEDS: BASAGLAR SUBQ SCH (20:28)
[2018-10-31] MEDS: MIRALAX PO SCH (20:28)
[2018-10-31] MEDS: LASIX PO SCH (20:28)
[2018-10-31] MEDS: COLACE PO SCH (20:28)
[2018-11-01] MEDS: HEPARIN SUBQ SCH ×3 (01:54→19:40)
[2018-11-01] MEDS: HUMULIN R SUBQ SCH ×4 (06:11→21:04)
[2018-11-01] MEDS: PROTONIX PO SCH (06:12)
[2018-11-01 06:15] LABS: ALLEN TEST YES; BE 5.7 mmoll (-3.0-3.0); BLOOD TYPE ARTERIAL; HCO3-(ACT) 29.4 mmoll (20.0-26.0); METHB 1.6 % (0.0-1.5); O2(CT) 11.4 mL/dL (15.0-23.0); O2HB 94.9 % (95.0-99.0); PCO2(98.6) 49 mmHg (35-45); PO2(98.6) 98 mmHg (60-100); SAMPLE BLOOD; SAO2 98.8 % (95.0-100.0); THB 8.4 g/dL (11.5-17.4); pH(98.6) 7.41 (7.35-7.45)
[2018-11-01 06:16] LABS: MODALITY CANNULA
[2018-11-01 07:47] LABS: BASO# 0.03 X1000 (0.0-0.2); BASO% 0.5 % (0.0-0.8); EOS# 0.43 X1000 (0.0-0.7); EOS% 7.5 % (0.0-10.0); HEMATOCRIT 27.7 % (42.0-52.0); LYMPH# 0.99 X1000 (1.2-3.4); LYMPH% 17.2 % (20.5-51.1); MCH 25.5 PG (27-31); MCHC 28.9 g/dL (33-37); MCV 88.2 FL (81-99); MONO# 0.68 X1000 (0.11-0.59); MONO% 11.8 % (1.7-9.3); MPV 9.9 FL (7.4-10.4); NEUT# 3.64 X1000 (1.4-6.5); PLT 235 X1000 (130-400); RBC 3.14 XMIL (4.7-6.1); RDW 14.1 % (11.5-14.5); WBC 5.77 X1000 (4.8-10.8)
[2018-11-01 07:52] LABS: ALBUMIN 2.5 g/dL (3.5-5.0); CALCIUM 8.3 mg/dL (8.8-10.2); CREATININE 2.3 mg/dL (0.7-1.2); PHOSPHORUS 3.5 mg/dL (2.7-4.5); POTASSIUM 4.7 mmol/L (3.5-5.1)
[2018-11-01] MEDS: ASPIRIN PO SCH (10:23)
[2018-11-01] MEDS: PERCOCET-5 PO PRN (10:24)
[2018-11-01] MEDS: MIRALAX PO SCH ×2 (10:24→21:03)
[2018-11-01] MEDS: COLACE PO SCH ×2 (10:24→21:03)
[2018-11-01] MEDS: LASIX PO SCH ×2 (10:24→21:03)
[2018-11-01] MEDS: COREG PO SCH ×2 (10:25→21:03)
[2018-11-01] MEDS: BASAGLAR SUBQ SCH ×2 (10:25→21:04)
[2018-11-01] MEDS: NS IV SCH (10:25)
[2018-11-01] MEDS: CUBICIN IV SCH (10:25)
--- NOTE | 2018-11-01 15:36 | PROGRESS NOTE ---
DATE: 11/01/2018 SUBJECTIVE: The patient is resting comfortably in bed. No acute events noted overnight. OBJECTIVE: Vital Signs: Temperature 98.1 degrees, blood pressure 91/56, heart rate 70, respirations 12, O2 saturations 100% on 3 L nasal cannula. Urine output 750. General: This is a morbidly obese male lying in bed, in no acute distress. Heart: S1 and S2 normal. Regular rate and rhythm. Lungs: Equal air entry bilaterally. No wheezing. No rales. Abdomen: Positive bowel sounds. Obese, soft, nontender. Extremities: 2+ edema. The left foot is wrapped in a clean dry dressing. There is some purulent discharge on the dressing. Neurologic: The patient is alert and oriented. LABORATORY DATA: Hemoglobin 8, hematocrit 27, platelets 235,000. Sodium 133, potassium 4.7, chloride 95, CO2 27, BUN 35, creatinine 2.3, glucose 206, calcium 8.3. ASSESSMENT AND PLAN: 1. Acute congestive heart failure exacerbation. Management as per the oil developer. 2. Left foot infection. Consult Wound Care. Continue with antibiotic therapy as directed by Dr. Ramires. 3. Morbid obesity. Aware. 4. Uncontrolled diabetes mellitus type 2. Continue on Lantus and sliding scale insulin. 5. Anemia. Will check iron studies. 6. Constipation. Continue on MiraLAX and Colace. Will also add lactulose. 7. Gastroesophageal reflux disease. Continue on Protonix. 8. Metabolic encephalopathy. Will continue to monitor the patient closely for improvement. 9. Deep vein thrombosis prophylaxis. Continue on heparin. 10. Chronic kidney disease stage 3. The patient's creatinine is slowly rising, however, he is on Lasix. cc: Cynthia Campos MD
[2018-11-01] MEDS ORDERED: INSULIN PEN NEEDLES ONE (21:06)
--- NOTE | 2018-11-01 23:49 | INFECTIOUS DISEASE PROGRESS NO ---
DATE: 11/01/2018 PRESENT ILLNESS: Mr. Tran it is being treated for a left foot infection, which has grown Enterococcus, strep, and Staph epidermidis. He is status post left second toe amputation, with irrigation and debridement of that left foot. MEDICATIONS: He is receiving daptomycin 850 mg IV every 24 hours. PHYSICAL EXAMINATION: Vital Signs: Temperature is 97.8 degrees, pulse rate 72 , respiratory rate 18, blood pressure 116/74. O2 saturations 100% on 3 L nasal cannula. General : This is a morbidly obese, chronically ill-appearing, middle-aged gentleman. He is lying in the bed on his right lateral side, in no acute distress. HEENT: Atraumatic, normocephalic. Oral mucous membranes are pink and moist. Conjunctivae are pale. Neck: Supple. Trachea is midline. Cardiovascular: Heart rate and rhythm are regular. Normal sinus rhythm on the monitor. There is pretibial edema noted bilaterally, with a dressing which is dry and intact to his left foot, not removed at this time. Respiratory: Lung sounds are clear in the upper lobes. Diminished in the bases. Abdomen: Soft, obese, and nontender. Bowel sounds are active. There is a PICC to the right upper arm. Site is without edema, erythema, or drainage. Neurologic: He is drowsy, but arousable and oriented, and able to move all his extremities without difficulty in the bed. LABORATORY AND X-RAY: Today, his white count is 5.77, hemoglobin 8, platelet count 235,000. Blood gas done on 3 L nasal cannula this morning shows a pH of 7.41, pCO2 49, PO2 92, HCO3 29.4. Creatinine is 2.3. GFR 36. Urine and blood cultures have shown no growth on this admission. Previous admission he grew Strep agalactiae, Enterococcal faecalis, and Staph epidermidis to the left foot. No imaging reports today. ASSESSMENT AND PLAN: Mr. Tran is continuing to receive treatment for his left foot infection. He has been receiving daptomycin, which we will continue at this time. He denies any muscle aches or pains today, and states his breathing is doing better. The plan on discharge home is for him to come in to the hospital to the outpatient infusion area to receive his daily doses of daptomycin. Duration of treatment will depend on the progress of his wound healing. These plans have been discussed with and recommended by Dr. Ramires. COMORBIDITIES: Morbid obesity, congestive heart failure, diabetes mellitus, and acute kidney injury. Dictated by SEN Caballero for Tyler Ramires MD This chart was documented by, SEN Caballero and accurately reflects the services performed, treatment plan and medical decisions as attested by the providers signature Tyler Ramires MD. cc: Tyler Ramires MD [facility]
[2018-11-02] MEDS: HEPARIN SUBQ SCH ×3 (00:32→16:43)
[2018-11-02] MEDS: HUMULIN R SUBQ SCH ×4 (06:23→21:24)
[2018-11-02] MEDS: PROTONIX PO SCH (06:23)
[2018-11-02 07:43] LABS: BASO# 0.03 X1000 (0.0-0.2); BASO% 0.5 % (0.0-0.8); EOS# 0.36 X1000 (0.0-0.7); EOS% 5.6 % (0.0-10.0); HEMATOCRIT 26.6 % (42.0-52.0); HEMOGLOBIN 7.7 g/dL (14.0-18.0); IMM GRAN# 0.02 X1000 (0.0-0.04); IMM GRAN% 0.3 % (0.0-0.5); LYMPH# 1.22 X1000 (1.2-3.4); MCH 25.4 PG (27-31); MCHC 28.9 g/dL (33-37); MCV 87.8 FL (81-99); MONO# 0.72 X1000 (0.11-0.59); MONO% 11.2 % (1.7-9.3); NEUT# 4.07 X1000 (1.4-6.5); NEUT% 63.4 % (42.2-75.2); PLT 242 X1000 (130-400); RBC 3.03 XMIL (4.7-6.1); RDW 14.2 % (11.5-14.5); WBC 6.42 X1000 (4.8-10.8)
[2018-11-02 07:44] LABS: ALBUMIN 2.6 g/dL (3.5-5.0); CALCIUM 8.3 mg/dL (8.8-10.2); POTASSIUM 4.6 mmol/L (3.5-5.1)
[2018-11-02 08:05] LABS: FERRITIN 602 ng/mL (30-400)
--- NOTE | 2018-11-02 08:18 | Diag Imaging Result Doc PS360 ---
EXAM: CHEST-PORTABLE 11/02/2018 HISTORY: dyspnea, chf TECHNIQUE: AP portable at 0621 COMMENT: There is suboptimal inspiration. The heart size is enlarged. Compared to the previous study of 10/31/2018 there is opacification of the right upper lobe which was not previously present to this extent. IMPRESSION: Cardiomegaly. The possibility of mild pulmonary edema cannot be excluded. Additionally there is pneumonia in the right upper lobe. Electronically signed by Anand Tavarez 11/02/2018 8:15 AM
--- NOTE | 2018-11-02 09:21 | GENERAL SURGERY PROGRESS NOTE ---
DATE: 11/02/2018 DATE AND TIME OF EXAM: 11/02/2018 at 8:45 in the morning. SUBJECTIVE: Mr. Tran' wound is inspected. There is evidence of granulation tissue now. There is a tendinous tissue at the base of the wound, but the sidewalls of the wound show granulation, so he is significantly improved as compared to his previous hospitalization. I will continue with the Vashe gauze dressings in hopes that the granulation will continue to actually cover the tendon. He is to return to see me in followup after his discharge for his wound care. cc: Jeronimo Lerner MD
[2018-11-02] MEDS: LASIX PO SCH ×2 (10:00→21:24)
[2018-11-02] MEDS: NS IV SCH (10:00)
[2018-11-02] MEDS: CUBICIN IV SCH (10:00)
[2018-11-02] MEDS: BASAGLAR SUBQ SCH ×2 (10:00→21:24)
[2018-11-02] MEDS: MIRALAX PO SCH ×2 (10:00→21:23)
[2018-11-02] MEDS: ASPIRIN PO SCH (10:00)
[2018-11-02] MEDS: COREG PO SCH ×2 (10:00→21:24)
[2018-11-02] MEDS: COLACE PO SCH ×2 (10:00→21:23)
[2018-11-02] MEDS: LACTULOSE PO SCH ×2 (12:38→21:23)
--- NOTE | 2018-11-02 16:10 | PROGRESS NOTE ---
DATE: 11/02/2018 SUBJECTIVE: The patient is resting comfortably in bed. He has not had a bowel movement for 3 days. OBJECTIVE: Vital Signs: Temperature 98 degrees, blood pressure 117/71, heart rate 75, respirations 16, O2 saturations 92% on 4 L nasal cannula. Urine output 900 mL. General: This is a morbidly obese male, lying in bed in no acute distress. Heart: S1, S2 normal. Regular rate and rhythm. Lungs: Equal air entry bilaterally. No wheezing. No rales. Abdomen: Positive bowel sounds. Soft, obese, nontender. Extremities: The left foot is wrapped in a clean dry dressing. There is 1+ edema in the lower extremities. Neurologic: The patient is alert and oriented x3. LABS: White blood cell count 6.4, hemoglobin 7.7, hematocrit 26, platelets 242. Sodium 135, potassium 4.6, chloride 96, CO2 29. BUN 35, creatinine 2, glucose 157. ASSESSMENT AND PLAN: 1. Acute systolic congestive heart failure exacerbation. Management as per the senior oracle pl sql developer. 2. Multi microbial left foot infection. Management as per Infectious Disease and General surgery. 3. Morbid obesity. Aware. 4. Constipation. Will start the patient on scheduled laxative therapy. 5. Stage III chronic kidney disease. Stable. 6. Diabetes mellitus type 2. Continue on Lantus twice a day. 7. Anemia. The patient's hemoglobin and hematocrit is trending downward slowly. Will continue to monitor and transfuse as necessary. 8. Gastrointestinal prophylaxis. Continue on Protonix. 9. Deep vein thrombosis prophylaxis. Continue on heparin. 10. Will consult physical therapy. cc: Cynthia Campos MD [facility]TD[facility]
[2018-11-02] MEDS: DULCOLAX PR SCH ×2 (21:32→21:34)
[2018-11-03] MEDS: HEPARIN SUBQ SCH ×3 (00:36→17:34)
[2018-11-03] MEDS: HUMULIN R SUBQ SCH ×4 (06:26→21:06)
[2018-11-03] MEDS: PROTONIX PO SCH (06:31)
[2018-11-03 07:09] LABS: HEMATOCRIT 27.3 % (42.0-52.0); MCH 25.9 PG (27-31); MCHC 29.3 g/dL (33-37); MCV 88.3 FL (81-99); MPV 9.9 FL (7.4-10.4); RBC 3.09 XMIL (4.7-6.1); RDW 14.1 % (11.5-14.5); WBC 5.61 X1000 (4.8-10.8)
[2018-11-03 07:24] LABS: ALBUMIN 2.5 g/dL (3.5-5.0); CALCIUM 8.7 mg/dL (8.8-10.2); CREATININE 1.6 mg/dL (0.7-1.2); PHOSPHORUS 2.9 mg/dL (2.7-4.5); POTASSIUM 4.4 mmol/L (3.5-5.1)
[2018-11-03] MEDS: CUBICIN IV SCH (08:28)
[2018-11-03] MEDS: FOLIC ACID PO SCH (08:28)
[2018-11-03] MEDS: COREG PO SCH ×2 (08:28→20:38)
[2018-11-03] MEDS: ASPIRIN PO SCH (08:28)
[2018-11-03] MEDS: LACTULOSE PO SCH ×2 (08:28→20:38)
[2018-11-03] MEDS: MIRALAX PO SCH ×2 (08:28→20:37)
[2018-11-03] MEDS: LASIX PO SCH ×2 (08:28→20:38)
[2018-11-03] MEDS: NS IV SCH (08:28)
[2018-11-03] MEDS: COLACE PO SCH ×2 (08:28→20:38)
[2018-11-03] MEDS: BASAGLAR SUBQ SCH ×2 (08:29→21:06)
--- NOTE | 2018-11-03 10:57 | Diag Imaging Result Doc PS360 ---
EXAM: FLAT/UPRIGHT ABD/1 VIEW CHEST 11/03/2018 HISTORY: pneumonia/constipation TECHNIQUE: Flat and upright abdomen with AP upright chest COMMENT: There is gas in the colon and stomach the latter without dilatation. There is no evidence of small bowel dilatation organomegaly or mass. There is a PICC line on the right with its tip in the superior vena cava. There is cardiomegaly. There is some alveolar opacity on the right side particularly in the upper lobe. This appears to have improved slightly since 11/02/2018. IMPRESSION: Nonspecific abdomen. Improving right upper lobe pneumonia. Electronically signed by Anand Tavarez 11/03/2018 10:55 AM
--- NOTE | 2018-11-03 13:43 | PROGRESS NOTE ---
DATE: 11/03/2018 SUBJECTIVE: The patient is resting comfortably in bed. He states that he has not had a bowel movement yet. OBJECTIVE: Vital Signs: Temperature 97.6 degrees, blood pressure 134/86, heart rate 80, respirations 18, O2 saturations 100% on 4 L nasal cannula. Urine output 1.6 L. General: This is a morbidly obese male sitting at the edge of the bed in no acute distress. Heart: S1, S2. Normal. Lungs: Equal air entry bilaterally. No crackles. No rales. Abdomen : Positive bowel sounds. Soft, obese, nontender. Extremities: 1+ edema. The left foot is wrapped in a clean dry dressing. Neurologic: The patient is awake and alert. LABS: Hemoglobin 8, hematocrit 27 platelets 261. Sodium 137, potassium 4.4, chloride 97, CO2 29. BUN 35, creatinine 1.6, glucose 168, albumin 2.5. X-RAYS: An abdominal x-ray shows a nonspecific abdomen. Improving right upper lobe pneumonia. ASSESSMENT AND PLAN: 1. Acute systolic congestive heart failure exacerbation. Improved. Continue on oral Lasix. 2. Multimicrobial left foot infection. Continue with antibiotic therapy as directed by Infectious Disease. Continue with wound care. 3. Insulin-dependent diabetes mellitus. Continue on Lantus twice a day. 4. CKD stage 3. Stable. 5. Constipation. The patient is on lactulose, MiraLAX and Colace. Will add a Dulcolax suppository as well. 6. Hypertension. Controlled. 7. Anemia. Stable. 8. Gastrointestinal prophylaxis. Continue on Protonix. 9. Deep vein thrombosis prophylaxis. Continue on heparin. cc: Cynthia Campos MD [facility]
[2018-11-03] MEDS: TEFLARO 600 MG in NS 250 ML IV SCH (13:52)
--- NOTE | 2018-11-03 18:10 | INFECTIOUS DISEASE PROGRESS NO ---
DATE: 11/03/2018 PRESENT ILLNESS: Mr. Tran has a left foot infection and also has developed a right upper lobe pneumonia. MEDICATIONS: He has been receiving 850 mg IV daily of daptomycin, which we will change today. PHYSICAL EXAMINATION: Vital Signs: Temperature is 97.6 degrees, pulse rate 73 , respiratory rate 18, blood pressure 111/70, O2 saturations 100% on 4 L nasal cannula. General: This is a morbidly obese, chronically ill-appearing middle-aged gentleman. He is lying in bed, drowsy but arousable in no acute distress. HEENT: Atraumatic, normocephalic. Oral mucous membranes are pink and moist. Conjunctivae are pale. Neck: Supple. Trachea is midline. Cardiovascular: Heart rate and rhythm are regular. Normal sinus rhythm on the monitor. He has bilateral pretibial edema noted with a dressing which is intact to his left foot. Respiratory: Lung sounds have some rhonchi on the right side, clear to the left, diminished in the bases. Abdomen: Soft, obese and nontender. Bowel sounds are active. He has a PICC to the right upper arm. The site is without edema, erythema, or drainage. Neurologic: He is drowsy but arousable and oriented. Able to move around independently in the bed. LABORATORY AND X-RAY: Today his white count is 5.61, hemoglobin 8, platelet count 261,000, creatinine is 1.6, GFR 55. His blood and urine cultures have shown no growth on this admission. Previously he had a Strep agalactiae, Enterococcal faecalis and Staph epidermidis to the left foot. Chest x-ray from yesterday shows a pneumonia in the right upper lobe and an abdominal x-ray from today shows improvement in the right upper lobe pneumonia. ASSESSMENT AND PLAN: Mr. Tran has been receiving daptomycin for the multiple organisms that have grown to his left foot. Since daptomycin does not help his pneumonia we will go ahead and replace it with ceftaroline 600 mg IV every 12 hours and continue to watch his creatinine and GFR. This should take care of the left foot and the pneumonia as well. These plans have been discussed with and recommended by Dr. Ramires. COMORBIDITIES: Include morbid obesity, diabetes mellitus and congestive heart failure and acute kidney injury. Dictated by SEN Caballero for Tyler Ramires MD This chart was documented by, SEN Caballero and accurately reflects the services performed, treatment plan and medical decisions as attested by the providers signature Tyler Ramires MD. cc: Tyler Ramires MD [facility]
[2018-11-03] MEDS: DULCOLAX PR SCH (20:37)
[2018-11-04] MEDS: TEFLARO 600 MG in NS 250 ML IV SCH ×2 (01:52→15:20)
[2018-11-04] MEDS: HEPARIN SUBQ SCH ×3 (01:52→20:32)
[2018-11-04] MEDS: HUMULIN R SUBQ SCH ×4 (06:16→20:32)
[2018-11-04] MEDS: PROTONIX PO SCH (06:22)
[2018-11-04 07:56] LABS: HEMATOCRIT 28.8 % (42.0-52.0); HEMOGLOBIN 8.3 g/dL (14.0-18.0); MCH 25.9 PG (27-31); MCHC 28.8 g/dL (33-37); MCV 89.7 FL (81-99); MPV 10.1 FL (7.4-10.4); RBC 3.21 XMIL (4.7-6.1); RDW 14.4 % (11.5-14.5); WBC 4.69 X1000 (4.8-10.8)
[2018-11-04 08:12] LABS: CALCIUM 8.5 mg/dL (8.8-10.2); CREATININE 1.5 mg/dL (0.7-1.2); POTASSIUM 4.3 mmol/L (3.5-5.1)
[2018-11-04] MEDS: PERCOCET-5 PO PRN (10:19)
[2018-11-04] MEDS: LACTULOSE PO SCH ×2 (10:20→20:31)
[2018-11-04] MEDS: MIRALAX PO SCH ×2 (10:20→20:31)
[2018-11-04] MEDS: FOLIC ACID PO SCH (10:21)
[2018-11-04] MEDS: LASIX PO SCH ×2 (10:21→20:33)
[2018-11-04] MEDS: BASAGLAR SUBQ SCH ×2 (10:21→20:33)
[2018-11-04] MEDS: COLACE PO SCH ×2 (10:21→20:33)
[2018-11-04] MEDS: COREG PO SCH ×2 (10:21→20:33)
[2018-11-04] MEDS: ASPIRIN PO SCH (10:21)
--- NOTE | 2018-11-04 18:17 | PROGRESS NOTE ---
DATE: 11/04/2018 SUBJECTIVE: The patient is resting comfortably in bed, no acute events noted overnight. OBJECTIVE: Vital Signs: Temperature 97.6 degrees, blood pressure 122/84, heart rate 72, respirations 18, O2 saturation 100% on 2 L nasal cannula. General: This is a morbidly obese male lying in bed in no acute distress. Heart: S1, S2 normal. Lungs: Clear to auscultation bilaterally. Abdomen: Positive bowel sounds, soft, obese. Extremities: 1+ edema. Neuro: The patient is alert and oriented. LABS: White blood cell count 4.6, hemoglobin 8.3, hematocrit 28, platelets 294,000, sodium 139, potassium 4.3, chloride 98, CO2 31, BUN 34, creatinine 1.5, glucose 155. ASSESSMENT AND PLAN: 1. Right upper lobe pneumonia. Continue with antibiotic therapy as directed by Dr. Ramires. 2. Polymicrobial left foot infection. Continue with antibiotic therapy. 3. Insulin-dependent diabetes mellitus. Continue on Lantus twice a day. 4. Chronic kidney disease. Stable. 5. Morbid obesity. Aware. 6. Constipation. Continue with scheduled laxative therapy. 7. Acute on chronic systolic congestive heart failure exacerbation. Improved, patient is on oral Lasix. 8. Anemia stable. 9. Deep vein thrombosis prophylaxis. Continue on heparin. cc: Cynthia Campos MD
[2018-11-04] MEDS: DULCOLAX PR SCH (20:31)
[2018-11-05] MEDS: TEFLARO 600 MG in NS 250 ML IV SCH ×2 (00:21→13:15)
[2018-11-05] MEDS: PERCOCET-5 PO PRN ×3 (01:50→22:52)
[2018-11-05] MEDS: HUMULIN R SUBQ SCH ×4 (06:07→21:25)
[2018-11-05] MEDS: PROTONIX PO SCH (06:22)
[2018-11-05] MEDS: HEPARIN SUBQ SCH ×3 (06:23→22:10)
[2018-11-05 07:22] LABS: HEMATOCRIT 28.6 % (42.0-52.0); HEMOGLOBIN 8.2 g/dL (14.0-18.0); MCH 25.9 PG (27-31); MCHC 28.7 g/dL (33-37); MCV 90.5 FL (81-99); MPV 9.6 FL (7.4-10.4); RBC 3.16 XMIL (4.7-6.1); RDW 14.4 % (11.5-14.5); WBC 3.9 X1000 (4.8-10.8)
[2018-11-05 07:46] LABS: AGAP 10; BUN 29 mg/dL (8-22); CALCIUM 7.9 mg/dL (8.8-10.2); CHLORIDE 99 mmol/L (98-107); COSMO 289; CREATININE 1.4 mg/dL (0.7-1.2); ESTIMATED GFR > 60; GLUCOSE 124 mg/dL (70-104); POTASSIUM 4.4 mmol/L (3.5-5.1); SODIUM 141 mmol/L (136-145); TCO2 32 mmol/L (25-35)
[2018-11-05] MEDS: LASIX PO SCH ×2 (10:05→22:10)
[2018-11-05] MEDS: ASPIRIN PO SCH (10:05)
[2018-11-05] MEDS: COREG PO SCH ×2 (10:06→21:26)
[2018-11-05] MEDS: FOLIC ACID PO SCH (10:06)
[2018-11-05] MEDS: BASAGLAR SUBQ SCH ×2 (10:06→22:10)
[2018-11-05] MEDS: MIRALAX PO SCH (13:03)
--- NOTE | 2018-11-05 14:29 | PROGRESS NOTE ---
DATE: 11/05/2018 SUBJECTIVE: The patient is resting comfortably in bed. He states that he wants to go home. OBJECTIVE: Vital Signs: Temperature 98.2, blood pressure 103/72, heart rate 69, respirations 20, O2 sats 100% on 2 L nasal cannula. General: This is a morbidly obese male lying in bed in no acute distress. Heart: S1, S2 normal. Regular rate and rhythm. Lungs: Clear to auscultation bilaterally. Abdomen: Positive bowel sounds. Soft, obese, nontender, nondistended. Extremities: No edema, no cyanosis. The left foot is wrapped in a clean dry dressing. LABS: White blood cell count 3.9, hemoglobin 8.2, hematocrit 28, platelets 291,000. Sodium 141, potassium 4.4, chloride 99, CO2 32, BUN 29, creatinine 1.4, glucose 124. ASSESSMENT AND PLAN: 1. Right upper lobe pneumonia. Continue with antibiotic therapy. 2. Polymicrobial left foot infection. Continue with wound care and antibiotics. 3. Insulin-dependent diabetes mellitus. Continue on Lantus twice a day. 4. Chronic kidney disease. Stable. 5. Morbid obesity. Aware. 6. Acute on chronic systolic CHF exacerbation. Continue on oral Lasix. 7. Anemia. Stable. 8. Folate deficiency. Continue on folic acid. 9. DVT prophylaxis. Continue with heparin. cc: Cynthia Campos MD
[2018-11-05] MEDS: DULCOLAX PR SCH (21:25)
[2018-11-06] MEDS: TEFLARO 600 MG in NS 250 ML IV SCH ×2 (06:42→14:28)
[2018-11-06] MEDS: PROTONIX PO SCH (06:43)
[2018-11-06] MEDS: HEPARIN SUBQ SCH ×3 (06:43→20:53)
[2018-11-06] MEDS: HUMULIN R SUBQ SCH ×4 (06:43→21:07)
[2018-11-06 07:01] LABS: RDW 14.2 % (11.5-14.5)
[2018-11-06 07:03] LABS: CALCIUM 8.9 mg/dL (8.8-10.2); CREATININE 1.5 mg/dL (0.7-1.2); POTASSIUM 4.4 mmol/L (3.5-5.1)
[2018-11-06 07:09] LABS: HEMATOCRIT 29.3 % (42.0-52.0); HEMOGLOBIN 8.6 g/dL (14.0-18.0); MCH 26.4 PG (27-31); MCHC 29.4 g/dL (33-37); MCV 89.9 FL (81-99); MPV 9.9 FL (7.4-10.4); RBC 3.26 XMIL (4.7-6.1); WBC 3.75 X1000 (4.8-10.8)
[2018-11-06] MEDS: LASIX PO SCH (08:46)
[2018-11-06] MEDS: COREG PO SCH ×2 (08:46→20:53)
[2018-11-06] MEDS: FOLIC ACID PO SCH (08:46)
[2018-11-06] MEDS: ASPIRIN PO SCH (08:46)
[2018-11-06] MEDS: BASAGLAR SUBQ SCH ×2 (08:47→21:06)
[2018-11-06] MEDS: PERCOCET-5 PO PRN ×3 (08:54→20:51)
--- NOTE | 2018-11-06 09:57 | Diag Imaging Result Doc PS360 ---
EXAM: CHEST-2 VIEWS HISTORY: pneumonia TECHNIQUE: Chest two views COMPARISON: 11/03/2018 FINDINGS: No change in the right-sided PICC line. The lungs are poorly expanded. There are bilateral infiltrates. Mild cardiomegaly. No pleural effusions identified. IMPRESSION: No significant change considering the differences in technique. Electronically signed by Robson Mccormack 11/06/2018 9:54 AM
[2018-11-06] MEDS ORDERED: NS 500 ML IV ONE (12:07)
--- NOTE | 2018-11-06 12:24 | PROGRESS NOTE ---
DATE: 11/06/2018 SUBJECTIVE: The patient complains of nausea with diarrhea. He did not eat his breakfast this morning. OBJECTIVE: Vital Signs: Temperature 98.3 degrees, blood pressure 110/78, heart rate 68, respirations 16, O2 saturations 100% on 2 L nasal cannula. General: This is a morbidly obese male lying in bed in no acute distress. HEENT: Head normocephalic, atraumatic. Heart: S1, S2 normal. Regular rate and rhythm. Lungs: Equal air entry bilaterally. No wheezing. No rales. No rhonchi. Abdomen: Positive bowel sounds. Soft, obese, nontender, nondistended. Extremities: No edema. The left foot is wrapped in a clean, dry dressing. Neurologic: The patient is alert and oriented x3. Labs: White blood cell count 3.7, hemoglobin 8.6, hematocrit 29, platelets 327, 000. Sodium 143, potassium 4.4, chloride 99, CO2 35, BUN 23, creatinine 1.5, glucose 101, calcium 8.9. Chest x-ray, bilateral infiltrates, mild cardiomegaly. ASSESSMENT AND PLAN: 1. Right upper lobe pneumonia. Continue with antibiotics as directed by Dr. Ramires. 2. Polymicrobial left foot infection. Continue with intravenous antibiotic therapy plus wound care. 3. Insulin-dependent diabetes mellitus. Continue on Lantus. 4. Chronic kidney disease. Stable. 5. Acute on chronic systolic congestive heart failure. Stable. Continue on oral Lasix. 6. Diarrhea. We will check stool for Clostridium difficile since the patient is on antibiotics. 7. Anemia. Stable. 8. Folate deficiency. Continue on folic acid. 9. Deep vein thrombosis prophylaxis. Continue on heparin. cc: Cynthia Campos MD [facility]
[2018-11-06] MEDS: CULTURELLE PO SCH ×2 (13:31→20:52)
--- NOTE | 2018-11-06 16:58 | INFECTIOUS DISEASE PROGRESS NO ---
DATE: 11/06/2018 PRESENT ILLNESS: The patient has a left foot infection and also on x-ray has bilateral infiltrates which could be due to pneumonia. MEDICATIONS: The patient has been receiving ceftaroline now for the past 3 days. PHYSICAL EXAMINATION: Vital Signs: Temperature is 97.4 degrees, pulse 69, respirations 15, blood pressure 97/60. Generally: A morbidly obese, chronically ill-appearing, middle-aged male. He does sleep quite a bit. Head/eyes/ears/nose/throat: He can hear my spoken words and see near objects. He does not have any white patches on his tongue. Neck: No meningismus. Lungs: Clear to auscultation. Cardiovascular: Heart rate is regular. Abdomen: Soft and not tender. Extremities: The patient has a PICC in his right arm. The site is not tender or draining. I removed the dressing on the patient's left foot. The wound looks about the same size. It has beefy red tissue and some fat tissue but no purulence. No odor and no necrotic tissue. Neurologic: The patient is sleepy, but he is arousable and can move his extremities and talk in a coherent fashion. LAB AND X-RAY: Chest x-ray shows bilateral infiltrates. The procalcitonin level 0.31. The patient's CBC shows a white count of 3750, hemoglobin 8.6, and platelet count 327,000. Creatinine is 1.5. GFR is 59. The patient's chest x-ray shows bilateral infiltrates. ASSESSMENT/PLAN: The plan is to continue ceftaroline. COMORBIDITIES: Morbid obesity, diabetes mellitus, congestive heart failure, and acute kidney injury. cc: Tyler Ramires MD
[2018-11-06] MEDS: DULCOLAX PR SCH ×2 (20:53→20:56)
[2018-11-07] MEDS: PERCOCET-5 PO PRN ×3 (01:53→13:38)
[2018-11-07] MEDS: TEFLARO 600 MG in NS 250 ML IV SCH ×2 (02:47→15:36)
[2018-11-07] MEDS: HEPARIN SUBQ SCH ×2 (06:11→13:35)
[2018-11-07] MEDS: HUMULIN R SUBQ SCH ×2 (06:12→10:58)
[2018-11-07 07:41] LABS: HEMATOCRIT 29.5 % (42.0-52.0); HEMOGLOBIN 8.5 g/dL (14.0-18.0); MCHC 28.8 g/dL (33-37); MCV 90.2 FL (81-99); MPV 9.6 FL (7.4-10.4); RBC 3.27 XMIL (4.7-6.1); RDW 14.3 % (11.5-14.5); WBC 3.68 X1000 (4.8-10.8)
[2018-11-07] MEDS: COREG PO SCH (08:14)
[2018-11-07] MEDS: BASAGLAR SUBQ SCH (08:14)
[2018-11-07] MEDS: FOLIC ACID PO SCH (08:14)
[2018-11-07] MEDS: CULTURELLE PO SCH (08:14)
[2018-11-07] MEDS: ASPIRIN PO SCH (08:14)
[2018-11-07] MEDS ORDERED: INSULIN PEN NEEDLES ONE (08:22)
[2018-11-07 08:46] LABS: ALB/GLOB RATIO 0.5; ALBUMIN 2.3 g/dL (3.5-5.0); CALCIUM 8.1 mg/dL (8.8-10.2); CREATININE 1.5 mg/dL (0.7-1.2); POTASSIUM 4.1 mmol/L (3.5-5.1); TOTAL BILIRUBIN 0.23 mg/dL (0.20-1.00); TOTAL PROTEIN 6.8 g/dL (6.3-8.3)
[2018-11-07] MEDS ORDERED: ZOFRAN IV PRN (12:11)
[2018-11-07 13:41] VITALS: BP 126/93
--- NOTE | 2018-11-07 16:05 | DISCHARGE SUMMARY ---
ADMISSION DATE: 10/29/2018 DISCHARGE DATE: 11/07/2018 PRINCIPAL DIAGNOSIS: Acute systolic heart failure. SECONDARY DIAGNOSES: 1. Atrial fibrillation. 2. Acute chronic kidney disease superimposed on chronic kidney disease. 3. Diabetes mellitus. 4. Nonischemic cardiomyopathy. 5. Morbid obesity. 6. Hyperlipidemia. 7. Obstructive sleep apnea. 8. Pneumonia. 9. Gastroesophageal reflux disease. 10.Anemia. 11.Left foot infection. 12.History of amputation left second toe. DISCHARGE MEDICATIONS: 1. Bisacodyl 10 mg p.o. at bedtime. 2. Folic acid 1 mg p.o. daily. 3. Lantus insulin 15 units subcutaneous b.i.d. 4. Coreg 6.25 mg p.o. b.i.d. 5. Lasix 80 mg p.o. b.i.d. 6. Oxycodone/acetaminophen one tablet q.6 hours p.r.n. 7. Pantoprazole 40 mg p.o. daily. 8. Aspirin 81 mg p.o. daily. CONSULTATIONS: 1. Infectious Diseases, Dr. Joaquin Ramires. 2. Cardiology, Dr. Kamron Julien. 3. General Surgery, Dr. Jeronimo Lerner. PROCEDURES DURING HOSPITAL STAY: VQ scan done on 10/29/2018. HOSPITAL COURSE: Mr. Hank Tran is a 51-year-old male who has a history of heart failure, diabetes mellitus, hyperlipidemia, chronic kidney disease, morbid obesity and obstructive sleep apnea. Patient was admitted to the hospital because of shortness of breath as well as chest pain. His proBNP level was found to be raised and also x-ray of his chest at time of presentation showed evidence of cardiomegaly as well as pulmonary edema. He was also noted to be in atrial fibrillation with rapid ventricular rate. Patient was diagnosed as having acute systolic heart failure as well as atrial fibrillation with rapid ventricular rate. Patient required diuretics for his systolic heart failure and also rate-controlling agent for his atrial fibrillation. He was seen by the Cardiology Team. Patient was also seen by Infectious Diseases for diabetic foot infection. He is status post left second toe amputation. Patient was continued on antibiotics and was also seen by the Surgical Team who recommended local wound care. During the course of the hospital stay, he was also diagnosed as having pneumonia. Infectious Diseases Team did handle the antibiotics management. At this time, the patient has done well. He is stable. DISCHARGE EXAM: VITAL SIGNS: During my evaluation today his vital signs were as follows: Temperature 97.5 degrees Fahrenheit, pulse 73, blood pressure 126/93. Oxygen saturation is 100%. HEENT: Normocephalic and atraumatic. CARDIOVASCULAR: S1, S2. RESPIRATORY: Clear. ABDOMEN: Obese, nontender, nondistended. EXTREMITIES: He has evidence of edema in the lower extremities: NEUROLOGIC: Nonfocal. LABS: WBC 3.68, hematocrit 29.5. Sodium 141, potassium 4.1, chloride 99, BUN 22, creatinine 1.5. PLAN: The patient can now be discharged to LTAC. He will need followup with Infectious Diseases, Cardiology and also General Surgery. cc: MD Jeronimo Mcrae MD Leroy F. Harris, MD MTDD
--- NOTE | 2018-11-08 08:35 | DISCHARGE SUMMARY ---
ADMISSION DATE: 10/29/2018 DISCHARGE DATE: 11/07/2018 ASSESSMENT AND PLAN: Mr. Tran is being discharged to LTAC in [place] today. We will continue his PICC line and send him with daptomycin 800 mg IV daily for the bacteria that is in his left foot as well as ceftaroline 600 mg IV every 12 hours for his pneumonia. The plan is to continue these and see him back in the office in 3 weeks at which time we will re-evaluate chest x-ray and the progress on his foot. These plans have been discussed with and recommended by Dr. Ramires. Dictated by SEN Caballero for Tyler Ramires MD This chart was documented by, SEN Caballero and accurately reflects the services performed, treatment plan and medical decisions as attested by the providers signature Tyler Ramires MD. cc: Tyler Ramires MD
== END 2018-11-07 17:30 | DRG 291 ==
LOC: SUPCPDRO → ED 08:07 → EDIPHOLD 10:40 → SUATTDRO 10:40 → ICU 15:25 → 3N 10-30 16:11
PROVIDERS: ATTEND Internal Medicine
CPT/HCPCS: 71010; 71020; 71045; 71046; 74022; 78582; 80048; 80053; 80069; 81001; 82140; 82550; 82553; 82607; 82728; 82746; 82805; 82948; 83036; 83540; 83550; 83605; 83735; 83880; 84145; 84436; 84443; 84484; 85025; 85027; 85379; 85610; 85730; 87040; 87070; 87088; 93005; 93010; 93306; 94761; 96365; 96366; 96367; 96375; 97162; 97530; 99285; A9270; A9539; A9540; J0712; J0878; J1644; J1815; J1940; J2543; J3370; J7040; J7050; XXXXX

== ENCOUNTER 2019-02-12 20:34 | Inpatient (IN) ==
[2019-02-12] MEDS ORDERED: ASPIRIN PO ONE (23:10)
[2019-02-12] MEDS ORDERED: LASIX IV ONE (23:10)
[2019-02-12] MEDS ORDERED: LOVENOX SUBQ ONE (23:29)
[2019-02-12] MEDS: NITROGLYCERIN TOP SCH (23:51)
[2019-02-12] MEDS: LASIX 100 MG in NS 90 ML IV SCH (23:58)
[2019-02-13 00:02] LABS: AGAP 7; BUN 16 mg/dL (8-22); CALCIUM 8.2 mg/dL (8.8-10.2); CHLORIDE 104 mmol/L (98-107); COSMO 284; CREATININE 1.1 mg/dL (0.7-1.2); ESTIMATED GFR > 60; GLUCOSE 157 mg/dL (70-104); MAGNESIUM 1.5 mg/dL (1.5-2.7); SODIUM 140 mmol/L (136-145); TCO2 29 mmol/L (25-35)
--- NOTE | 2019-02-13 00:05 | HISTORY AND PHYSICAL ---
ADDENDUM: Hank Alex is morbidly obese man with end-stage systolic heart failure, EF 10 to 15%, atrial fibrillation, hypertensive heart disease and type 2 diabetes. Reports that for the last 2 to 3 days his exercise tolerance has profoundly diminished and he is constantly short of breath. He was going to the ER to be evaluated on account of this. Workup showed that he had elevated troponin. Dr. Flowers was consulted and he was transferred to our facility. His vital signs the blood pressure is 170/121, heart rate 98, respirations 20. EXAM: He is morbidly obese man with JVD, bilateral basal crepitations. First, second heart sounds heard. Rhythm is irregular. He has anasarca all over even up to his abdomen and his arms. He has chronic skin changes in his lower extremities. He has bibasilar crepitations heard with few wheezes in his chest exam. This is a patient who is noncompliant with medications but he has markedly elevated blood pressure which could have strained on his heart and caused him to gone to acute exacerbation of CHF with possible myocardial leak. Cannot rule out NSTEMI. Will start patient on diuresis, breathing treatments. Start him on nitroglycerin paste, also bring down his blood pressure and address any underlying chest pain which patient denies at this time. Dr. Flowers will be consulted for further input. We will just give the patient 1 time dose of Lovenox 1 mg/kg Lovenox for now and further orders per Dr. Flowers who was notified by [facility] and accepted transfer for this patient. cc: Shiv Douglas MD [facility]
[2019-02-13 00:09] LABS: CK PROFILE 316 U/L (24-204)
[2019-02-13 00:23] LABS: CK INDEX 2.1 (0.0-2.5); CK-MB 6.74 ng/mL (0.0-5.0)
[2019-02-13] MEDS ORDERED: ZOFRAN IV PRN (03:25)
[2019-02-13] MEDS ORDERED: TYLENOL PO PRN (03:27)
[2019-02-13] MEDS ORDERED: DULCOLAX PR PRN (03:35)
[2019-02-13] MEDS ORDERED: SODIUM CHLORIDE 0.9% INJ PRN (03:39)
[2019-02-13] MEDS ORDERED: PHENERGAN IV PRN (03:39)
[2019-02-13 04:04] LABS: BASO# 0.03 X1000 (0.0-0.2); BASO% 0.6 % (0.0-0.8); EOS# 0.28 X1000 (0.0-0.7); EOS% 5.8 % (0.0-10.0); HEMATOCRIT 38.6 % (42.0-52.0); HEMOGLOBIN 11.7 g/dL (14.0-18.0); IMM GRAN# 0.02 X1000 (0.0-0.04); IMM GRAN% 0.4 % (0.0-0.5); LYMPH# 1.61 X1000 (1.2-3.4); LYMPH% 33.5 % (20.5-51.1); MCH 24.4 PG (27-31); MCHC 30.3 g/dL (33-37); MCV 80.6 FL (81-99); MONO# 0.91 X1000 (0.11-0.59); MPV 10.2 FL (7.4-10.4); NEUT# 1.95 X1000 (1.4-6.5); NEUT% 40.7 % (42.2-75.2); PLT 217 X1000 (130-400); RBC 4.79 XMIL (4.7-6.1); RDW 16.5 % (11.5-14.5)
[2019-02-13 04:14] LABS: INR 1.11; PROTIME 15.2 Seconds (11.0-16.0)
[2019-02-13 04:17] LABS: AGAP 5; ALB/GLOB RATIO 0.6; ALBUMIN 2.4 g/dL (3.5-5.0); ALKALINE PHOSPHATASE 114 U/L (32-122); BUN 14 mg/dL (8-22); CALCIUM 7.8 mg/dL (8.8-10.2); CHLORIDE 103 mmol/L (98-107); COSMO 283; CREATININE 1.1 mg/dL (0.7-1.2); ESTIMATED GFR > 60; GLUCOSE 149 mg/dL (70-104); GOT 16 U/L (10-34); GPT 8 U/L (10-44); MAGNESIUM 1.4 mg/dL (1.5-2.7); POTASSIUM 3.5 mmol/L (3.5-5.1); SODIUM 140 mmol/L (136-145); TCO2 32 mmol/L (25-35); TOTAL BILIRUBIN 0.23 mg/dL (0.20-1.00); TOTAL PROTEIN 6.6 g/dL (6.3-8.3)
[2019-02-13] MEDS ORDERED: MAGNESIUM SULFATE 1 GM/D5W 1 GM/100 ML IVPB IV ONE ×2 (04:49→15:30)
[2019-02-13 04:56] LABS: CK INDEX 2.4 (0.0-2.5); CK-MB 7.17 ng/mL (0.0-5.0)
[2019-02-13] MEDS: NITROGLYCERIN TOP SCH ×4 (06:26→22:51)
[2019-02-13] MEDS: PROTONIX PO SCH (06:26)
[2019-02-13] MEDS: HUMULIN R SUBQ SCH ×4 (06:36→20:32)
[2019-02-13] MEDS ORDERED: NS NEB INH SCH (06:45)
--- NOTE | 2019-02-13 07:01 | Diag Imaging Result Doc PS360 ---
CHEST-PORTABLE - 02/13/2019 INDICATION: Chest Pain/CHF Exac.,Elevated Troponin,Poss NSTEMI COMPARISON: 11/06/2018 FINDINGS: There is cardiomegaly and mild pulmonary vascular congestion. No infiltrates or edema. No pneumothorax or significant pleural effusion. IMPRESSION: Cardiomegaly and pulmonary vascular congestion. Electronically signed by Scott Barkley 02/13/2019 6:58 AM
[2019-02-13] MEDS: ASPIRIN PO SCH (08:10)
[2019-02-13] MEDS: MAG-OX PO SCH ×2 (08:10→20:31)
[2019-02-13] MEDS: COREG PO SCH ×2 (08:10→20:31)
[2019-02-13] MEDS: LASIX 100 MG in NS 90 ML IV SCH ×2 (08:14→19:02)
[2019-02-13] MEDS ORDERED: PRINIVIL PO SCH ×2 (09:00→21:00)
[2019-02-13] MEDS: XOPENEX NEB INH SCH ×4 (09:53→22:40)
[2019-02-13 10:35] LABS: CHOLESTEROL 152 mg/dL (0-200); HDL 59 mg/dL (35-55); LDL 82 mg/dL; TRIGLYCERIDES 56 mg/dL (39-160); VLDL 11 mg/dL
[2019-02-13 10:44] LABS: URINE SOURCE CATH
[2019-02-13] MEDS: LANTUS INSULIN SUBQ SCH ×2 (10:47→20:32)
[2019-02-13 10:48] LABS: BILIRUBIN URINE NEGATIVE (NEGATIVE); BLOOD URINE SMALL (NEGATIVE); COLOR STRAW; GLUCOSE URINE NEGATIVE (NEGATIVE); KETONE URINE NEGATIVE (NEGATIVE); LEUKOCYTES URINE NEGATIVE (NEGATIVE); NITRITE URINE NEGATIVE (NEGATIVE); PH URINE 5.5; PROTEIN URINE 50 mg/dL (NEGATIVE); TURBIDITY URINE CLEAR (CLEAR); UROBILINOGEN URINE NORMAL (NORMAL)
[2019-02-13 10:49] LABS: UR EPITHELIAL CELLS <10 /HPF (<10); URINE BACTERIA NEGATIVE /HPF; URINE RBC <10 /HPF (<10); URINE WBC <10 /HPF (<10)
[2019-02-13 10:51] LABS: ALLEN TEST YES; BE 6.3 mmoll (-3.0-3.0); BLOOD TYPE ARTERIAL; HCO3-(ACT) 29.8 mmoll (20.0-26.0); METHB 0.8 % (0.0-1.5); O2HB 96.5 % (95.0-99.0); PO2(98.6) 104 mmHg (60-100); SAMPLE BLOOD; THB 11.7 g/dL (11.5-17.4); pH(98.6) 7.36 (7.35-7.45)
[2019-02-13 10:53] LABS: PCO2(98.6) 59 mmHg (35-45)
[2019-02-13 10:56] LABS: MODALITY CANNULA
[2019-02-13 11:36] LABS: HEMOGLOBIN A1C 9.1 % (4.8-6.0)
--- NOTE | 2019-02-13 11:55 | PROGRESS NOTE ---
DATE: 02/13/2019 SUBJECTIVE: The patient is very sleepy this morning, but responds to verbal stimuli. He reports breathing a little bit better. Denies any chest pain. I was informed by the nurse that this patient had runs of ventricular tachycardia yesterday, but were not sustained. He does not have any pacemaker or defibrillator placed. OBJECTIVE: Vital Signs: Temperature 97.1, heart rate 85, respiratory rate 13, blood pressure 159/111, O2 saturation 100% on 4 L nasal cannula. General: This is a chronically ill-appearing, 53-year-old male, morbidly obese, lying in bed, in no acute distress. HEENT: The head is normocephalic, atraumatic. Mucous membranes dry. Neck: JVD is not possible to evaluate because of the neck girth. No murmurs. Cardiovascular: S1, S2 heard. No murmurs, gallops, or rubs. Regular rate and rhythm. Respiratory: Some crackles. Rales in both pulmonary bases. Patient is not using any accessory muscles or having work of breathing. Abdomen: Soft. Distended. Tympanic to palpation. No signs of peritoneal irritation. No organomegaly noted. Extremities: marked edema both lower extremities. There are also some scaling lesions as well. Peripheral pulses very faint, but present. Neurological: Patient is sleepy but awakes to verbal stimuli. Moves 4 extremities spontaneously. Speech is coherent. LABORATORY DATA: CBC shows white cell count 4.8, hemoglobin 11.7, hematocrit 38.6, platelets 217,000. Normal BMP. Magnesium 1.4. Troponin is mildly elevated at 1.65, albumin 2.4. ASSESSMENT AND PLAN: 1. Acute systolic congestive heart failure. Apparently, this patient according to the note from admission has been very noncompliant with his medication. At this point, he has been placed on Lasix drip. An echocardiogram has been ordered. Cardiology has been consulted. We will follow recommendations. 2. Atrial fibrillation. Heart rate actually is well-controlled and he is in sinus rhythm. Considering his condition, I prefer to restart anticoagulation with Eliquis. Cardiology has been consulted. We will follow recommendations. 3. Acute kidney injury, resolved. 4. Uncontrolled diabetes mellitus type 2. We will continue with sliding scale insulin. Accu- Chek before meals and also at bedtime. We are going to check hemoglobin A1c and we will go from there. Also Lantus has been restarted. 5. Hypertension. I have restarted home medications and increase the dose of lisinopril. 6. Morbid obesity. BMI is actually 54. 7. Hyperlipidemia. We are going to check a lipid panel. 8. Obstructive sleep apnea. Aware. We are going to check ABG and we will go from there. 9. Disposition. Patient will remain in intensive care unit to be evaluated by Cardiology. cc: Dave Amador MD MTDD
--- NOTE | 2019-02-13 12:14 | EKG Report ---
Test Performed on : 02/13/2019 02:39:20 AM Test Reason : 27 beat run of v-tach Blood Pressure : / mmHG Vent. Rate : 097 BPM Atrial Rate : 097 BPM P-R Int : 186 ms QRS Dur : 102 ms QT Int : 358 ms P-R-T Axes : 038 -41 106 degrees QTc Int : 454 ms Normal sinus rhythm. Left axis deviation Low voltage QRS Inferior infarct , age undetermined Abnormal ECG When compared with ECG of 30-OCT-2018 06:59, QRS axis shifted left QRS voltage has decreased T wave inversion no longer evident in Inferior leads Nonspecific T wave abnormality, worse in Lateral leads Confirmed by Zac DAVIS, Selvin Medina ([id number]) on 02/13/2019 3:01:28 PM
--- NOTE | 2019-02-13 12:31 | EKG Report ---
Test Performed on : 02/13/2019 07:26:43 AM Test Reason : Chest pain/CHF Exac. Blood Pressure : / mmHG Vent. Rate : 086 BPM Atrial Rate : 086 BPM P-R Int : 202 ms QRS Dur : 104 ms QT Int : 414 ms P-R-T Axes : 035 -45 086 degrees QTc Int : 495 ms Normal sinus rhythm. Low voltage QRS Left anterior fascicular block Possible Lateral infarct , age undetermined Abnormal ECG No previous ECGs available Confirmed by Zac DAVIS, Selvin Medina ([id number]) on 02/13/2019 3:01:34 PM
[2019-02-13 12:35] LABS: CK INDEX 2.7 (0.0-2.5); CK-MB 6.29 ng/mL (0.0-5.0)
--- NOTE | 2019-02-13 13:25 | ECHO REPORT ---
ORDER DATE: 02/13/2019 ECHOCARDIOGRAPHIC MEASUREMENTS: 1. Interventricular septum 1.2. 2. Left ventricular posterior wall 1.2. 3. Diastolic diameter 6.7. 4. Left atrium 5.0. 5. Aorta 3.5 cm. 6. Right ventricle 4.2 cm. SUMMARY: 1. Aortic valve leaflets were sclerosed, trileaflet opening normally. 2. Pulmonic valve was normal. 3. Technically suboptimal study. Very poor acoustic window. 4. Right ventricle was dilated. 5. Mitral valve was normal. 6. Tricuspid valve was normal. 7. There is mild mitral regurgitation. 8. Mild tricuspid regurgitation. 9. Peak velocity across the tricuspid valve was 3.7 m/sec. 10. Pulmonary artery systolic pressure of 65 mmHg. 11. There is mild pulmonary regurgitation. 12. By Doppler studies there is no aortic stenosis. There is mild aortic regurgitation. 13. Left ventricle was dilated. Optison was used to assess left ventricular systolic function and endocardial border. Left ventricle was dilated with severely reduced systolic function. 14. Estimated ejection fraction of 15%. 15. There is severe global hypokinesis associated with diastolic dysfunction. 16. There is no pericardial effusion or obvious intracardiac mass or thrombus seen. cc: Miasel Flowers MD
[2019-02-13] MEDS ORDERED: MAGNESIUM SULFATE 2 GM/S.W.I. 2 GM/50 ML IVPB IV ONE (13:30)
[2019-02-13 18:32] LABS: AGAP 6; BUN 13 mg/dL (8-22); CALCIUM 8.1 mg/dL (8.8-10.2); CHLORIDE 98 mmol/L (98-107); COSMO 278; CREATININE 1.1 mg/dL (0.7-1.2); ESTIMATED GFR > 60; GLUCOSE 179 mg/dL (70-104); POTASSIUM 3.9 mmol/L (3.5-5.1); SODIUM 137 mmol/L (136-145); TCO2 33 mmol/L (25-35)
[2019-02-13 19:01] LABS: CK INDEX 2.9 (0.0-2.5); CK-MB 6.57 ng/mL (0.0-5.0)
--- NOTE | 2019-02-13 20:07 | CARDIOLOGY CONSULTATION ---
DATE: 02/13/2019 CONSULTATION REQUESTED BY: Hospitalist service. REASON FOR CONSULTATION: Patient with congestive heart failure. CHIEF COMPLAINT: Dizziness, weakness. HISTORY: A 53-year-old black male, who is known to Dr. Flowers, presented to [facility] yesterday on 02/12/2019 complaining of increasing dizziness, swelling, and he felt extremely weak. He could not get up on his feet and was hurting all over his lower body. These symptoms had crept up on him for at least a couple of days. Upon arrival, he was found swollen and referred from [facility] to [facility] for further management and care. His chest x-ray at [facility] is abnormal, showing cardiomegaly with vascular congestion. Electrocardiogram shows low voltage with a left anterior fascicular block and question of inferior scar. His troponin levels like on prior admission have been minimally elevated. The numbers that we got here are 0.164, 0.165, and 0.147. CPK total mildly elevated at 235, CK index 2.7. Albumin is low at 2.4. BUN and creatinine are normal. He is not having any chest pain. Echocardiogram done today shows, as expected, low ejection fraction. Systolic function is markedly impaired. EF is 15%. PAST HISTORY: Positive for: 1. Dilated nonischemic cardiomyopathy. Our team has already evaluated this patient before for the same complaints. He has mild coronary heart disease per heart catheterization performed over 12 months ago. 2. He is morbidly obese. Body mass index is 54. 3. Hypertension. 4. Paroxysmal atrial fibrillation. 5. Diabetes. 6. Acid reflux. 7. Obstructive sleep apnea. SURGICAL HISTORY: He has had an amputation of the left toe recently. SOCIAL HISTORY: He is single; lives with one brother. He denies having issues with drug use. FAMILY HISTORY: Father had a stroke. ALLERGIES: Noncontributory. HOME MEDICATIONS: Listed, included: 1. Eliquis 5 twice a day. 2. Aspirin 81 daily. 3. Carvedilol 6.25 twice a day. 4. Folic acid 1 mg daily. 5. Furosemide 80 mg twice a day. 6. Insulin Glargine 50 units twice a day. 7. Lisinopril 10 daily. 8. Magnesium oxide 400 twice a day. 9. Protonix 40 daily. 10. Promethazine 25 mg every 6 hours. 11. Percocet 7.5/325 every 6 hours. REVIEW OF SYSTEMS: He is really very noncompliant. His sister, who is at the bedside, states that he takes his medication whenever he pleases. He has not been able to lose any significant amount of weight. He is chronically very limited by shortness of breath. Currently, he has an open wound in the left foot and this is being monitored by Dr. Lerner and the surgical service. His 2nd toe was amputated off the left foot on 10/23/2018. During this stay, they reported a couple episodes of nonsustained ventricular tachycardia on him, witnessed at about 3:30 this morning. The patient was asymptomatic. PHYSICAL EXAMINATION: Vital Signs: Today, blood pressure is 138/95, temperature 97.1 degrees, pulse 77, respirations 17. General: Patient is awake, alert, morbidly obese, in no distress. HEENT: Cannot evaluate jugular venous distention. Chest: Diminished breath sounds bilaterally. There is chest wall edema in the lower chest. Heart: Sounds are distant, regular. I do not hear a gallop or murmur. Abdomen: Shows diffuse anasarca edema. I cannot palpate the liver. Extremities: Show diffuse edema. Neurological: Nonfocal. Moves all 4 extremities. IMPRESSION: 1. Patient who has systolic heart failure, chronic. He is [place] Heart Association class 4. He has diffuse anasarca edema. 2. Mild coronary heart disease, per heart catheterization in 2018. 3. Hypertension. 4. Diabetes mellitus type 2. 5. Medical noncompliance. 6. Morbid obesity. 7. mild elevation of troponin level, question of Non ST OR. (unlikely). 8. Non sustained ventricular tachycardia. 9. Dilated cardiomyopathy, predominantly non ischemic. RECOMMENDATION: 1. At this time, we will add spironolactone and metolazone to his regimen. 2. Regarding the nonsustained ventricular tachycardia, this patient is a poor candidate for an implantable cardioverter-defibrillator because of non healing lesions in the skin and massive anasarca. 3. At this time, we will first try to accomplish euvolemia, and then we will take it from there. cc: Jason Tejeda MD [facility]
[2019-02-13] MEDS: ZAROXOLYN PO SCH (20:32)
[2019-02-13] MEDS: ELIQUIS PO SCH (20:32)
[2019-02-13] MEDS: PRINIVIL PO SCH (20:32)
[2019-02-13] MEDS: ALDACTONE PO SCH (20:32)
--- NOTE | 2019-02-13 22:12 | GENERAL SURGERY CONSULTATION ---
DATE: 02/13/2019 CHIEF COMPLAINT: Granulating left foot wound. HISTORY: A 53-year-old obese male was admitted with shortness of breath and chest pain. He had a diabetic foot infection necessitating a left second toe amputation and incision and debridement of the left foot dorsum in September of this year. He has been healing slowly since then and has had outpatient antibiotic therapy. He has not been back to the [facility] or my office in followup. PAST MEDICAL AND SURGICAL HISTORY: His other medical problems include systolic and diastolic heart failure, type 2 diabetes poorly controlled, hyperlipidemia, chronic kidney disease, morbid obesity, obstructive sleep apnea. The surgery to his foot is noted. He has had previous ankle repair as well. MEDICATIONS: Listed and include insulin, Lasix, Coreg, aspirin, Protonix . ALLERGIES: He is allergic to nothing. SOCIAL HISTORY: He has been on disability. Denies alcohol and tobacco usage. REVIEW OF SYSTEMS: As noted above including shortness of breath and chest pain. All other subsystems are negative. PHYSICAL EXAMINATION: Vital Signs: He is afebrile. Heart rate 82. Respiratory rate 24.. Lungs: Bilateral breath sounds. Heart: Regular rate and rhythm. Abdomen: Soft. Extremities: He has a longitudinal wound on the dorsum of his left foot. It is granulating with a bit of tendon noticed at the base. His amputation site is healed. He does not have palpable pedal pulses. ASSESSMENT: Granulating wound, left foot dorsum. PLAN: Use Vashe gauze in the wound to continue to treat and stimulate granulation tissue, but it is healing. cc: Jeronimo Lerner MD MTDD
--- NOTE | 2019-02-14 02:30 | HISTORY AND PHYSICAL ---
DISC INSPECTOR: Dr. Flowers. DATE AND TIME: 02/12/2019 at 2330. CHIEF COMPLAINT: Shortness of breath. HISTORY OF PRESENT ILLNESS: Mr. Tran is a 53-year-old, male with known systolic heart failure with last documented ejection fraction 10 to 15 percent. He also has a history of coronary artery disease, hypertension, atrial fibrillation, diabetes mellitus type 2. The patient reports that he was discharged from [facility] in [place] a few months ago. The patient states really since being discharged from [facility] he has had swelling and shortness of breath over the last few days, this has gotten much worse. He reports shortness of breath at rest as well as this becoming much worse with exertion and exercise intolerance. He does have anasarca. The patient does have swelling and edema in bilateral legs, abdomen, as well as his forearms. He does have profound JVD and crackles in bilateral bases. The patient also reports that he has been very fatigued and weak as well, though he has denied any chest pain at this time. The patient also admits to being noncompliant with his medications. He states that since he got discharged from [facility] he has not taken any of his medicines, except for his [place]. We asked the patient why he had stopped taking his medicines, and he states that he "forgets to take them." He states that he has not followed up with Dr. Flowers or Dr. Lerner about his left foot wound since his discharge from the [facility] as well. He denies any headache, dizziness, chest pain abdominal pain, nausea, vomiting, or diarrhea. He denies any dysuria. Other than the swelling in his legs and his left foot wound. He denies any symptoms in his extremities. The patient did present to [facility] for evaluation of his shortness of breath as well as his other symptoms as mentioned above. There, he was noted to have elevated cardiac enzymes. They did call Dr. Flowers with the Cardiology group, and Dr. Flowers did accept the patient. He was admitted here for further treatment and evaluation of congestive heart failure as well as possible non ST-elevation CO. The patient has been placed in patient in ICU for admission. REVIEW OF SYSTEMS: A 14-point review of systems was conducted with the patient and all were negative, except pertinent positives mentioned above in HPI. PAST MEDICAL HISTORY: 1. Systolic heart failure. 2. Coronary artery disease. 3. Morbid obesity. 4. Hypertension. 5. Paroxysmal atrial fibrillation. Previously on anticoagulation with Eliquis, though the patient has been noncompliant with this. 6. Diabetes mellitus. 7. Gastroesophageal reflux disease. 8. Obstructive sleep apnea. 9. Left foot wound and left 2nd toe amputation related to this as well that was performed by Dr. Lerner in September 2018. The patient was receiving wound care treatment with Dr. Lerner, though from what I understand he has not followed up since being discharged from [facility] after being admitted here. PAST SURGICAL HISTORY: 1. Ankle repair. 2. Amputation of the 2nd left toe with debridement of skin and soft tissue to the left foot. SOCIAL HISTORY: The patient is on disability. He is a former smoker. There is no known alcohol or illicit drug use. FAMILY HISTORY: Positive for his father having a stroke and had a history of diabetes. ALLERGIES: Patient has no known allergies. HOME MEDICATIONS: The following list is what the patient is supposed to be on, though he states that he has been noncompliant with these with these medications for a few months, except for his pain medicine. 1. Eliquis 5 mg p.o. b.i.d. 2. Aspirin 81 mg p.o. daily. 3. Dulcolax 10 mg rectally at bedtime. 4. Coreg 6.25 mg p.o. b.i.d. 5. Folic acid 1 mg p.o. daily. 6. Furosemide 80 mg p.o. b.i.d. 7. Basaglar 15 units subcu b.i.d. 8. Lisinopril 10 mg p.o. daily. 9. Magnesium 4 mg p.o. b.i.d. 10. Percocet 7.5 mg p.o. q.6 hours p.r.n. pain. 11. Protonix 40 mg p.o. daily. 12. Phenergan 25 mg p.o. q.6 hours p.r.n. nausea. DIAGNOSTIC DATA/LABORATORY RESULTS: White blood cell count 4.8, hemoglobin 11.7, hematocrit 36.8, platelet count is 217,000. PT 15.2, INR 1.1, PTT is 32. Sodium 140, potassium 4, chloride 104, serum bicarb is 29, BUN 16, creatinine 1.1. GFR is greater than 60, glucose 157, calcium 8.2. Magnesium 1.5. CK 316, CK index 2.1, CK-MB is 6.74. Troponin 0.164. Chest x-ray did show cardiomegaly and bilateral interstitial airspace opacities with a possible this could include pulmonary edema. This was on a chest x-ray performed at [facility], though we did repeat 1 this morning after his arrival, which showed cardiomegaly and pulmonary vascular congestion. EKG shows sinus rhythm with occasional PVCs. He does have a prolonged QT, though there does not appear to be any acute ST elevation or depression at this time. Does not appear to be any significant changes when compared to previous EKG as well. PHYSICAL EXAMINATION: VITAL SIGNS: Temperature 97.1 degrees, heart rate 105, respirations 23, blood pressure is 137/99, oxygen saturation is 98% nasal cannula at 2 L. GENERAL: Mr. Tran is a pleasant, morbidly obese, 53-year-old, male who was resting in the inpatient bed, though he does seem slightly dyspneic, he does not appear to be any acute distress. He is able to speak in full and equal sentences. He is awake, alert, and able to answer questions appropriately. HEENT: Head is atraumatic, normocephalic. Pupils are equal, round, reactive to light, were 3 mm bilaterally and brisk. Oral mucosa is moist. NECK: Supple. Trachea midline. The patient does have JVD noted. CARDIOVASCULAR: Patient has S1, S2 present. No murmurs, gallops, rubs appreciated with a slightly tachycardic rate but regular. PULMONARY: Patient has symmetrical chest expansion bilaterally. Lung sounds clear to auscultation in bilateral upper mims, though he did have crackles noted in bilateral bases. ABDOMEN: Soft, though does appear to be distended. He was nontender upon palpation. Bowel sounds are present in all 4 quadrants. EXTREMITIES: No cyanosis noted, but the patient does have anasarca and edema. He has edema all the way up to his abdomen. Pedal pulses were difficult to palpate given his swelling, though were easily obtainable with venous Doppler bilaterally dorsalis pedis. Radial pulses are 2+ bilaterally. INTEGUMENTARY: The patient's skin is pink, warm, and dry, though he does have a left foot wound noted on the dorsal surface. This is linear in nature, approximately 2-1/2-inches long. He did have some appeared to be maybe purulent-type drainage noted. The patient reports that Dr. Lerner has seen this previously. He is not reporting any fever, body aches, or chills. He denies any warmth or erythema in this area. NEUROLOGICAL: Patient is alert and oriented to person, place, time, and situation. He is able to move all extremities. There do not appear to be any focal neurological deficits noted. ASSESSMENT AND PLAN: 1. Congestive heart failure exacerbation. We will try to diurese the patient to improve his symptoms. We have given him a 80 mg intravenous Lasix push. We will place him on a Lasix drip at 10 mg/h. We will also provide breathing treatments. Will also provide that nitroglycerin paste to help improve his symptoms as well as blood pressure. We will continue with a series of cardiac enzymes. Repeat EKG in the morning as well as an echocardiogram. We will do daily weights. Strict intake and output. 2. Coronary artery disease. The patient does have elevated troponin's, though he is not reporting any chest pain. He does not have any acute ST changes on his EKG at this time when compared to previous. This may be secondary to his hypertension and heart failure exacerbation. We will continue to monitor this though with cardiac enzymes and EKGs, as mentioned above. We did provide him with 325 mg aspirin p.o. now and continue with 81 mg aspirin daily. Given that we are still considering that he may have had a [id number] CO, we will go ahead and provide him with 1 dose of Lovenox 1 mg/kg until he is evaluated by Cardiology in the morning. He will remain NPO until evaluated by them as well. 3. Hypertension. We will continue his regularly prescribed blood pressure medicine. We have provided nitroglycerin paste as well. We will monitor this and can implement other p.r.n. medications if needed. 4. Paroxysmal atrial fibrillation. The patient does not appear to be in atrial fibrillation at this time. This is rate controlled. He normally does take Eliquis for anticoagulation for this, though we did provide Lovenox at this time. We will hold this until he is evaluated by Cardiology. 5. Nonsustained ventricular tachycardia. The patient did have an approximately 50 beat run of ventricular tachycardia after arriving to the ICU, though on his repeat labs he did have a slightly low magnesium level. We have gone ahead and given him some magnesium IV. We will continue his prescribed magnesium daily as well. We will continue to monitor his electrolytes also. 6. Uncontrolled diabetes mellitus. Given that patient is NPO at this time until evaluated by Cardiology, we have placed him on a sliding scale regular insulin per low- dose protocol. We will continue to follow with pattern fingerstick blood sugars. 7. Chronic kidney disease. At this time, the patient's renal function has actually improved, and looks like recently in September and October he did have elevated troponin's that were likely may be related to an acute kidney injury, with the highest being at one point 5, though his most recent creatinine was 1.5 previously. He does have a creatinine of 1.1 at this time with a GFR greater than 60, though we will continue to monitor this closely. 8. Obstructive sleep apnea. The patient states he does wear CPAP at home, though actually his face mask is broken at this time. We will order CPAP nightly, this is likely secondary to obesity hypoventilation syndrome. The patient is in ICU for close monitoring. He will be on continuous cardiac telemetry and pulse oximetry with vital signs per ICU protocol. We will repeat a CBC, CMP in the morning. We will continue with the series of cardiac enzymes. We will repeat a BMP later on this afternoon given that he is receiving Lasix drip at 10 mg/h. Also, the patient does have a left foot wound noted, he was previously seeing Dr. Lerner at his wound clinic. We have placed a consult for Dr. Lerner to evaluate the patient. We did obtain a wound culture, though we will await Dr. Lerner's evaluation and recommendations for treatment. We have placed a Telfa dressing at this time. We also placed a wound care consult with the wound care nurse. Further orders and recommendations pending hospital course, diagnostic studies, and physician evaluation. Dictated by SEN Graff for Shiv Douglas MD cc: Shiv Douglas MD [facility]
[2019-02-14] MEDS: XOPENEX NEB INH SCH ×4 (03:20→21:25)
[2019-02-14 05:06] LABS: ALLEN TEST YES; BE 10.2 mmoll (-3.0-3.0); BLOOD TYPE ARTERIAL; HCO3-(ACT) 32.8 mmoll (20.0-26.0); O2HB 94.1 % (95.0-99.0); PO2(98.6) 76 mmHg (60-100); SAMPLE BLOOD; SAO2 96.9 % (95.0-100.0); THB 11.3 g/dL (11.5-17.4); pH(98.6) 7.36 (7.35-7.45)
[2019-02-14 05:07] LABS: MODALITY BI PAP; PCO2(98.6) 67 mmHg (35-45)
[2019-02-14 05:25] LABS: BASO# 0.02 X1000 (0.0-0.2); BASO% 0.5 % (0.0-0.8); EOS# 0.23 X1000 (0.0-0.7); HEMATOCRIT 36.7 % (42.0-52.0); LYMPH# 1.05 X1000 (1.2-3.4); LYMPH% 27.4 % (20.5-51.1); MCH 24.4 PG (27-31); MCV 81.4 FL (81-99); MONO# 0.63 X1000 (0.11-0.59); MONO% 16.4 % (1.7-9.3); MPV 10.7 FL (7.4-10.4); NEUT% 49.7 % (42.2-75.2); PLT 195 X1000 (130-400); RBC 4.51 XMIL (4.7-6.1); RDW 16.5 % (11.5-14.5); WBC 3.83 X1000 (4.8-10.8)
[2019-02-14 05:49] LABS: AGAP 7; BUN 12 mg/dL (8-22); CALCIUM 7.9 mg/dL (8.8-10.2); CHLORIDE 98 mmol/L (98-107); COSMO 280; ESTIMATED GFR > 60; GLUCOSE 155 mg/dL (70-104); POTASSIUM 3.4 mmol/L (3.5-5.1); SODIUM 139 mmol/L (136-145); TCO2 34 mmol/L (25-35)
[2019-02-14] MEDS: LASIX 100 MG in NS 90 ML IV SCH ×2 (05:56→17:10)
[2019-02-14] MEDS: NITROGLYCERIN TOP SCH (05:56)
[2019-02-14] MEDS: PROTONIX PO SCH (06:02)
[2019-02-14] MEDS: HUMULIN R SUBQ SCH ×4 (06:03→20:48)
[2019-02-14] MEDS: ZAROXOLYN PO SCH ×2 (08:12→20:27)
[2019-02-14] MEDS: MAG-OX PO SCH ×2 (08:12→20:27)
[2019-02-14] MEDS: COREG PO SCH ×2 (08:12→20:27)
[2019-02-14] MEDS: ALDACTONE PO SCH ×2 (08:12→20:27)
[2019-02-14] MEDS: FOLIC ACID PO SCH (08:12)
[2019-02-14] MEDS: ASPIRIN PO SCH (08:13)
[2019-02-14] MEDS: ELIQUIS PO SCH ×2 (08:13→20:27)
[2019-02-14] MEDS: LANTUS INSULIN SUBQ SCH ×2 (08:13→20:26)
[2019-02-14] MEDS: PRINIVIL PO SCH ×2 (08:13→20:26)
--- NOTE | 2019-02-14 09:02 | CARDIOLOGY PROGRESS NOTE ---
DATE: 02/14/2019 CHIEF COMPLAINT: Shortness of breath, swelling. SUBJECTIVE: Mr. Tran is doing somewhat better. He is not as short of breath as he was. He is still very swollen. OBJECTIVE: Vital signs: Blood pressure is 130/92, pulse 82, respirations 18, temperature 97.3. General: He is awake, obese, in no distress. HEENT: Unremarkable. Chest: Diminished breath sounds at bases. No significant rales at this time. Heart: Sounds are regular and rhythmic. Soft systolic murmur, question of gallop. Abdomen: Quite distended with abdominal wall edema. He has anasarca edema from the toes up to the stomach area. Neurologic exam: Follows commands, moves all 4 extremities. BLOOD WORK: Hemoglobin 9 g. Sodium is 139, potassium 3.4, BUN 12, creatinine 1.0. IMPRESSION: 1. Patient with severe congestive heart failure, [place] Heart Association Class IV, due to predominantly nonischemic dilated cardiomyopathy. 2. History of moderate coronary heart disease with a mid left anterior descending stenosis that has been deemed to be noncritical. 3. Elevation of troponin level. Question of [id number] myocardial infarction. This could probably be a supply-demand mismatch. 4. Morbid obesity. 5. Sleep apnea syndrome with hypercarbic respiratory failure. 6. Medical noncompliance. 7. Hypertension. RECOMMENDATIONS: At this point in time, we will continue to manage this patient medically. I have added metolazone and spironolactone to his regimen. We will see how he does. His prognosis is quite guarded. I am going to ahead and switch him over from Nitro-Patch to isosorbide dinitrate in combination with hydralazine and see how he does. cc: Jason Tejeda MD
[2019-02-14] MEDS: ISORDIL PO SCH ×3 (09:45→17:14)
[2019-02-14] MEDS: APRESOLINE PO SCH ×3 (09:45→17:14)
--- NOTE | 2019-02-14 11:23 | PROGRESS NOTE ---
DATE: 02/14/2019 SUBJECTIVE: The patient reports breathing a little bit better. Denies any fever, chills, chest pain. OBJECTIVE: Vital Signs: Temperature 97.2, heart rate 85, respiratory rate 14, blood pressure 144/110, O2 saturation 98% on 2 L nasal cannula. General: This is a chronically ill-appearing, morbidly obese, 53-year-old, male, lying in bed in no acute distress. HEENT: Head is normocephalic, atraumatic. Pupils equal, round, reactive to light and accommodation. Oral mucosa is moist. Neck: Supple. JVD noted at 45 degrees. No thyromegaly. Cardiovascular: S1, S2 heard. No murmurs, gallops, or rubs. Regular rate and rhythm. Respiratory: Minimal crackles noted in both pulmonary bases. The patient is not using any accessory muscles or having work of breathing. Abdomen: Soft, a little bit distended, edema to abdominal wall noted. Extremities: The patient has edema all the way up from feet to abdomen, anasarca. Peripheral pulses present, but very faint. There is a left foot wound noted on the dorsal surface that is linear in nature. No purulent drainage noted. Neurological: The patient is alert and oriented x3. Moves all 4 extremities. LABORATORY DATA: White cell count 3.83, hemoglobin 11.0, hematocrit 36.7, platelets 195,000. ABG shows pH 7.36, pCO2 of 67, PO2 of 76. Normal BMP. ASSESSMENT AND PLAN: 1. Acute congestive heart failure. The patient clinically is stable right now. Unfortunately, he has advanced congestive heart failure with [place] Heart Association Class 4. He has history of nonischemic dilated cardiomyopathy. He has also history of moderate coronary heart disease. He had a catheterization 1 to 2 years ago. At this point, the patient is on Lasix drip. Also, Cardiology is following, and they have added spironolactone and metolazone. Also, isosorbide dinitrate in combination with hydralazine has been provided to him. Will see how this patient does. Will continue to monitor intake and output strictly. 2. Coronary artery disease. He has some mild coronary artery disease. I think the elevation of troponins has been most likely related to supply demand mismatch. In any case, the patient is not complaining of any chest pain. Cardiology is following. Will follow recommendations. 3. Hypertension. Will continue with current medications right now. Blood pressure is under control. 4. Paroxysmal atrial fibrillation. At this point, the patient is stable. Will restart Eliquis and will go from there. 5. Nonsustained ventricular tachycardia. Unfortunately, according to Cardiology, the patient is not a candidate for placement of defibrillator considering his massive anasarca and recurrent skin infections. Will continue to monitor this patient closely. 6. Uncontrolled diabetes mellitus type 2. Will continue with sliding scale insulin and Accu-Chek before meals and also at bedtime. 7. Obstructive sleep apnea. Carbon dioxide is still elevated. We have recommend this patient to use bilevel positive airway pressure all night long and in the daytime as much as he can. 8. Disposition. Will continue to monitor this patient closely in the intensive care unit. cc: Dave Amador MD
[2019-02-15] MEDS: LASIX 100 MG in NS 90 ML IV SCH (02:12)
[2019-02-15] MEDS: XOPENEX NEB INH SCH ×4 (03:25→21:20)
[2019-02-15 05:04] LABS: ALLEN TEST YES; BE 17.7 mmoll (-3.0-3.0); BLOOD TYPE ARTERIAL; HCO3-(ACT) 38.7 mmoll (20.0-26.0); METHB 0.9 % (0.0-1.5); O2(CT) 20.5 mL/dL (15.0-23.0); PO2(98.6) 98 mmHg (60-100); SAMPLE BLOOD; SAO2 98.8 % (95.0-100.0); THB 15.1 g/dL (11.5-17.4); pH(98.6) 7.46 (7.35-7.45)
[2019-02-15 05:06] LABS: MODALITY BI PAP; PCO2(98.6) 64 mmHg (35-45)
[2019-02-15 05:10] LABS: BASO# 0.01 X1000 (0.0-0.2); BASO% 0.2 % (0.0-0.8); EOS% 4.3 % (0.0-10.0); HEMOGLOBIN 10.7 g/dL (14.0-18.0); LYMPH# 1.15 X1000 (1.2-3.4); MCH 23.9 PG (27-31); MCHC 29.7 g/dL (33-37); MCV 80.4 FL (81-99); MONO# 0.99 X1000 (0.11-0.59); MONO% 21.5 % (1.7-9.3); NEUT# 2.25 X1000 (1.4-6.5); PLT 210 X1000 (130-400); RBC 4.48 XMIL (4.7-6.1); RDW 16.5 % (11.5-14.5)
[2019-02-15 05:23] LABS: ESTIMATED GFR > 60
[2019-02-15 05:32] LABS: AGAP 0; BUN 12 mg/dL (8-22); CALCIUM 7.8 mg/dL (8.8-10.2); CHLORIDE 91 mmol/L (98-107); COSMO 276; GLUCOSE 142 mg/dL (70-104); POTASSIUM 3.5 mmol/L (3.5-5.1); SODIUM 137 mmol/L (136-145); TCO2 46 mmol/L (25-35)
[2019-02-15] MEDS: HUMULIN R SUBQ SCH ×4 (06:08→20:04)
[2019-02-15] MEDS: PROTONIX PO SCH (06:09)
[2019-02-15 06:18] LABS: EOS 3 % (1-10); LYMPHS 27 % (21-51); MONO 18 % (1-9); SEGS 52 % (42-75)
--- NOTE | 2019-02-15 09:20 | PROGRESS NOTE ---
DATE: 02/15/2019 SUBJECTIVE: The patient reports breathing better. Less swelling in both legs and thighs. Denies any fever, chest pain, and no shortness of breath. OBJECTIVE: Vital Signs: Temperature 98 degrees, heart rate 83, respiratory rate 19, and blood pressure 118/75. O2 saturation 99% on BiPAP. General: This is a chronically ill-appearing morbidly obese 53-year-old, male lying in bed in no acute distress. HEENT: Head is normocephalic, atraumatic. Poor dentition. Neck: JVD noted at 45 degrees. No thyromegaly. Cardiovascular: S1, S2 heard. No murmurs, gallops, or rubs. Regular rate and rhythm. Respiratory: Minimal crackles noted in both pulmonary bases. Still, the patient is not using any accessory muscles or having work of breathing. Abdomen: Soft. A little bit distended. There is abdominal wall edema noted. Extremities: Patient has edema all the way up from feet to abdomen and anasarca noted. Peripheral pulses present in both legs and was very faint. There is a left foot wound noted on the dorsal surface that is linear in nature. No purulent drainage noted. It is covered by dressing today. Neurological: Patient alert and oriented x3. Moves all 4 extremities. LABORATORY DATA: White cell count 4.6, hemoglobin 10.7, hematocrit 36, and platelets 210,000. ABG shows pH 7.46, pCO2 of 64, and PO2 98. BMP unremarkable. ASSESSMENT AND PLAN: 1. Acute systolic congestive heart failure. Clinically, this patient is stable. During the last 24 hours, we have removed approximately 7 L of urine. Currently, this patient is in [place] Heart Association Class 4. The patient is on Lasix drip. We will leave the decision to Cardiology to switch to Lasix pushes. Patient is also on spironolactone and metolazone, and a combination of isosorbide dinitrate with hydralazine is also being provided to this patient. We will continue to monitor this patient closely. Follow up recommendations from Cardiology 2. Coronary artery disease. Patient has had some mild coronary artery disease found in catheterization more than 2 years ago. In any case, the patient is stable, and not complaining of any chest pain. Cardiology is following. We will monitor this patient closely. 3. Acute hypercapnic respiratory failure secondary to obstructive sleep apnea. At this point, we will continue with BiPAP at night and p.r.n. during the day. 4. Hypertension. Blood pressure is under control. We will continue with the same management. 5. Nonsustained ventricular tachycardia. Hopefully, this patient has not had more episodes of this anymore. In any case, the patient is not a candidate for placement of defibrillator considering his massive anasarca. 6. Recurrent skin infections. We will continue to monitor this patient closely. 7. Uncontrolled diabetes mellitus type 2. We will continue with sliding scale. Accu-Chek before meals and also at bedtime. 8. Obstructive sleep apnea as we mentioned before. 9. Disposition: I think this patient is stable to be moved to the CIC unit today. cc: Dave Amador MD MTDD
[2019-02-15] MEDS: ZAROXOLYN PO SCH ×2 (09:40→20:24)
[2019-02-15] MEDS: PRINIVIL PO SCH ×2 (09:40→20:24)
[2019-02-15] MEDS: COREG PO SCH ×2 (09:40→20:24)
[2019-02-15] MEDS: APRESOLINE PO SCH ×3 (09:40→17:07)
[2019-02-15] MEDS: ISORDIL PO SCH ×3 (09:41→17:07)
[2019-02-15] MEDS: ALDACTONE PO SCH ×2 (09:41→20:24)
[2019-02-15] MEDS: FOLIC ACID PO SCH (09:41)
[2019-02-15] MEDS: LANOXIN PO SCH (09:41)
[2019-02-15] MEDS: LANTUS INSULIN SUBQ SCH ×2 (09:42→20:26)
[2019-02-15] MEDS: ASPIRIN PO SCH (09:42)
[2019-02-15] MEDS: ELIQUIS PO SCH ×2 (09:42→20:24)
[2019-02-15] MEDS: MAG-OX PO SCH ×2 (09:42→20:24)
--- NOTE | 2019-02-15 10:24 | CARDIOLOGY PROGRESS NOTE ---
DATE: 02/15/2019 CHIEF COMPLAINT: Swelling, dyspnea. SUBJECTIVE: Mr. Tran is generally feeling better. Swelling is going down. He has very good diuresis. His " bed scale" weight indicates that he has lost anywhere from 30 pounds to 40 pounds over the past 3 days. He is still quite swollen. He still has anasarca edema. OBJECTIVE: VITAL SIGNS: Blood pressure is 114/57, temperature 98.8 degrees, pulse 85, respirations 12. GENERAL: He is awake, alert and in no distress. HEENT: Unremarkable. CHEST: Diminished breath sounds at bases. HEART: Sounds regular rhythm. I do not hear gallop or murmur. ABDOMEN: Shows still abdominal wall swelling. Legs are still swollen. He has his left foot covered. NEUROLOGICAL: Follows commands. Moves 4 extremities. BLOOD WORK: His blood gases, PCO2 64, PO2 98, pH is 7.46. Sodium is 137, potassium 3.5, BUN 12, creatinine 1.0. His hemoglobin is 10.7, hematocrit 36%. IMPRESSION: 1. Patient with dilated nonischemic cardiomyopathy, congestive heart failure functional class 4. 2. Mild coronary artery disease. 3. Question of non-ST myocardial infarction. 4. Hypercarbic respiratory failure. 5. Morbid obesity. 6. Hypertension. 7. Medical noncompliance. RECOMMENDATIONS: We will continue medical therapy with vasodilators. We will add Digoxin, continue spironolactone. Continue loop diuretics. Treat infection in the foot which is apparently now being followed by Dr. Lerner. From our perspective, he may be transferred to the stepdown cardiac unit. We will continue to follow him. cc: Jason Tejeda MD [facility]
[2019-02-15] MEDS: LASIX IV SCH ×2 (10:30→21:14)
[2019-02-15] MEDS: MORPHINE IV PRN (22:44)
[2019-02-16] MEDS: XOPENEX NEB INH SCH ×4 (03:30→22:03)
[2019-02-16 04:45] LABS: ALLEN TEST YES; BE 24.4 mmoll (-3.0-3.0); BLOOD TYPE ARTERIAL; HCO3-(ACT) 43.9 mmoll (20.0-26.0); METHB 0.5 % (0.0-1.5); O2(CT) 16.1 mL/dL (15.0-23.0); O2HB 95.9 % (95.0-99.0); PO2(98.6) 88 mmHg (60-100); SAMPLE BLOOD; SAO2 99.3 % (95.0-100.0); THB 11.9 g/dL (11.5-17.4); pH(98.6) 7.49 (7.35-7.45)
[2019-02-16 04:47] LABS: MODALITY CANNULA; PCO2(98.6) 68 mmHg (35-45)
[2019-02-16] MEDS: MORPHINE IV PRN ×2 (04:47→21:24)
[2019-02-16 05:41] LABS: BASO# 0.02 X1000 (0.0-0.2); BASO% 0.4 % (0.0-0.8); EOS# 0.21 X1000 (0.0-0.7); EOS% 4.1 % (0.0-10.0); HEMATOCRIT 38.4 % (42.0-52.0); HEMOGLOBIN 11.6 g/dL (14.0-18.0); LYMPH# 1.53 X1000 (1.2-3.4); LYMPH% 30.2 % (20.5-51.1); MCH 24.2 PG (27-31); MCHC 30.2 g/dL (33-37); MONO# 1.11 X1000 (0.11-0.59); MONO% 21.9 % (1.7-9.3); MPV 10.8 FL (7.4-10.4); NEUT% 43.4 % (42.2-75.2); PLT 222 X1000 (130-400); RDW 16.8 % (11.5-14.5); WBC 5.07 X1000 (4.8-10.8)
[2019-02-16 05:54] LABS: ESTIMATED GFR > 60
[2019-02-16 05:58] LABS: AGAP 4; BUN 13 mg/dL (8-22); CALCIUM 8.9 mg/dL (8.8-10.2); CHLORIDE 88 mmol/L (98-107); COSMO 276; CREATININE 1.1 mg/dL (0.7-1.2); GLUCOSE 142 mg/dL (70-104); POTASSIUM 3.6 mmol/L (3.5-5.1); SODIUM 137 mmol/L (136-145); TCO2 45 mmol/L (25-35)
[2019-02-16] MEDS: HUMULIN R SUBQ SCH ×4 (06:09→21:22)
[2019-02-16] MEDS: PROTONIX PO SCH (06:23)
[2019-02-16] MEDS ORDERED: VANCOMYCIN IV PER PHARMACY MISC SCH (06:45)
[2019-02-16 07:26] LABS: LYMPHS 29 % (21-51); MONO 14 % (1-9); SEGS 57 % (42-75)
[2019-02-16] MEDS: VANCOMYCIN 2 GM in NS 500 ML IV SCH (08:25)
[2019-02-16] MEDS: LANTUS INSULIN SUBQ SCH ×2 (08:28→21:22)
[2019-02-16] MEDS: MAG-OX PO SCH ×2 (08:29→21:23)
[2019-02-16] MEDS: ISORDIL PO SCH ×3 (08:29→17:40)
[2019-02-16] MEDS: ZAROXOLYN PO SCH ×3 (08:29→21:23)
[2019-02-16] MEDS: PRINIVIL PO SCH ×2 (08:29→21:23)
[2019-02-16] MEDS: ALDACTONE PO SCH ×2 (08:29→21:23)
[2019-02-16] MEDS: LANOXIN PO SCH (08:29)
[2019-02-16] MEDS: ELIQUIS PO SCH ×2 (08:29→21:23)
[2019-02-16] MEDS: ASPIRIN PO SCH (08:29)
[2019-02-16] MEDS: APRESOLINE PO SCH ×3 (08:29→17:40)
[2019-02-16] MEDS: COREG PO SCH ×2 (08:29→21:23)
[2019-02-16] MEDS: FOLIC ACID PO SCH (08:29)
[2019-02-16] MEDS: LASIX IV SCH ×2 (09:27→21:23)
--- NOTE | 2019-02-16 10:21 | CARDIOLOGY PROGRESS NOTE ---
DATE: 02/16/2019 CHIEF COMPLAINT: Swelling, shortness of breath. SUBJECTIVE: Mr. Tran is feeling better. His diuresis is good. Legs are less swollen. Chest wall and abdominal wall are less swollen. Breathing more comfortably. OBJECTIVE: Vital signs: Blood pressure 120/72, temperature 97.9, pulse 98, respirations 18. Weight has not been recorded yet. HEENT: Unremarkable. Chest: Clear to auscultation and percussion. Heart: Sounds are regular and rhythmic. I do not hear a gallop or murmur. Abdomen: Significantly softer. Extremities: Also feel much softer. The swelling is going down. Neurologic exam: Follows commands, moves all 4 extremities. He is in a good mood. Sodium 137, potassium 3.6, BUN is 13, creatinine 1.1, chloride is 88, carbon dioxide 45. IMPRESSION: 1. Patient who presented with decompensated heart failure chronic systolic, nonischemic dilated cardiomyopathy is the underlying etiology. Functional class IV. 2. Moderate coronary heart disease. 3. Morbid obesity. 4. Medical noncompliance. 5. Sleep apnea syndrome. RECOMMENDATIONS: At this time, we will add Diamox because of contraction alkalosis. We will see how he does with that. We will continue to observe. He may be transferred to the stepdown unit today and we will continue to monitor him. We really need to get daily weights on this patient. Of note, his skin lesion grew MRSA and thus that is why he is on isolation. cc: Jason Tejeda MD [facility]
--- NOTE | 2019-02-16 11:03 | PROGRESS NOTE ---
DATE: 02/16/2019 SUBJECTIVE: The patient reports breathing better. Less swelling in both legs and thighs. No fever or chills reported. OBJECTIVE: Vital Signs: Temperature 97.9 degrees, heart rate 96, respiratory rate 24, blood pressure 132/91, and O2 saturation 96% 2 L nasal cannula. General: This is a chronically ill- appearing morbidly obese 53-year-old male lying in bed in no acute distress. HEENT: Head is normocephalic and atraumatic. Neck: JVD is not noted today. No thyromegaly. Cardiovascular: S1, S2 heard. No murmurs, gallops, or rubs. Regular rate and rhythm. Respiratory: Clear bilaterally to auscultation. No work of breathing or using accessory muscles. Abdomen: Soft, nontender to palpation. Bowel sounds present. No organomegaly. Extremities: No clubbing, cyanosis, or edema. Peripheral pulses present in both legs. Neurological: The patient is alert and oriented x3. Moves all 4 extremities. Cardiovascular: S1-S2 heard. No murmurs, gallops, or rubs. Regular rate and rhythm. Respiratory: Minimal crackles noted in both pulmonary bases, but patient is not using any accessory muscles or having work of breathing. Abdomen: Soft, a little bit distended. There is abdominal wall edema noted but definitely less in comparing with admission. Extremities: Patient has edema still all the way up from the feet to the abdomen with anasarca noted. Peripheral pulses present in both legs but very faint. There is a left foot wound noted on the dorsal surface that is linear in nature, but no purulent drainage noted. It is covered by dressing today. Neurological: The patient is alert and oriented x3. Moves all 4 extremities. LABORATORY DATA: White cell count 5.07, hemoglobin 11.6, hematocrit 38.4, and platelets 220,000. ABG that shows pH 7.49, with pCO2 68, PO2 88 and normal BMP. ASSESSMENT AND PLAN: 1. Acute systolic congestive heart failure. Clinically, the patient continues to improve. So far, according to ins and outs recorded, he has moved 8.5 L in the last 24 hours and a total of 26.4 L since admission. At this point, we will continue with the Lasix that has been changed to 80 mg IV q.8 hours. Also, patient is receiving metolazone, spironolactone and hydralazine. Also, digoxin has been added to his current treatment. At this point, we will continue with the same management. 2. Coronary artery disease. Clinically, patient is doing fine. No complaints today of any chest pain. We will continue to monitor. 3. Acute hypercapnic respiratory failure secondary to obstructive sleep apnea. We will continue with BiPAP at night and p.r.n. during the day. 4. Hypertension. Blood pressure is under control. We will continue with same management. 5. Nonsustained ventricular tachycardia. No more episodes of that since admission. It is important to remark that according to Cardiology this patient is not a candidate for placement of a defibrillator considering his massive anasarca and his recurrent skin infections. 6. Uncontrolled diabetes mellitus type 2. We will continue with Accu-Chek's and sliding scale insulin as well. 7. Obstructive sleep apnea as we mentioned above. DISPOSITION: The patient is going to CIC Unit today. cc: Dave Amador MD
[2019-02-17] MEDS: XOPENEX NEB INH SCH ×4 (03:42→19:25)
[2019-02-17 05:51] LABS: ALLEN TEST YES; BE 19.3 mmoll (-3.0-3.0); BLOOD TYPE ARTERIAL; METHB 0.9 % (0.0-1.5); O2(CT) 17.7 mL/dL (15.0-23.0); O2HB 96.8 % (95.0-99.0); PO2(98.6) 143 mmHg (60-100); SAMPLE BLOOD; SAO2 99.9 % (95.0-100.0); THB 12.8 g/dL (11.5-17.4); pH(98.6) 7.48 (7.35-7.45)
[2019-02-17 05:52] LABS: MODALITY BI PAP; PCO2(98.6) 62 mmHg (35-45)
[2019-02-17 06:04] LABS: BASO# 0.02 X1000 (0.0-0.2); BASO% 0.4 % (0.0-0.8); EOS# 0.22 X1000 (0.0-0.7); EOS% 3.9 % (0.0-10.0); HEMATOCRIT 39.8 % (42.0-52.0); HEMOGLOBIN 12.1 g/dL (14.0-18.0); LYMPH# 1.36 X1000 (1.2-3.4); LYMPH% 24.2 % (20.5-51.1); MCH 24.6 PG (27-31); MCHC 30.4 g/dL (33-37); MCV 80.9 FL (81-99); MONO# 1.11 X1000 (0.11-0.59); MONO% 19.8 % (1.7-9.3); NEUT# 2.91 X1000 (1.4-6.5); NEUT% 51.7 % (42.2-75.2); PLT 220 X1000 (130-400); RBC 4.92 XMIL (4.7-6.1); WBC 5.62 X1000 (4.8-10.8)
[2019-02-17] MEDS: HUMULIN R SUBQ SCH ×5 (06:21→20:42)
[2019-02-17] MEDS: PROTONIX PO SCH (06:22)
[2019-02-17 07:03] LABS: CALCIUM 9.1 mg/dL (8.8-10.2); CREATININE 1.5 mg/dL (0.7-1.2); POTASSIUM 4.2 mmol/L (3.5-5.1)
[2019-02-17] MEDS: MAG-OX PO SCH ×2 (09:04→20:41)
[2019-02-17] MEDS: ASPIRIN PO SCH (09:04)
[2019-02-17] MEDS: LANOXIN PO SCH (09:04)
[2019-02-17] MEDS: ALDACTONE PO SCH ×2 (09:04→20:40)
[2019-02-17] MEDS: COREG PO SCH ×2 (09:04→20:41)
[2019-02-17] MEDS: ELIQUIS PO SCH ×2 (09:04→20:41)
[2019-02-17] MEDS: FOLIC ACID PO SCH (09:05)
[2019-02-17] MEDS: PRINIVIL PO SCH ×2 (09:05→20:40)
[2019-02-17] MEDS: VANCOMYCIN 2 GM in NS 500 ML IV SCH (09:05)
[2019-02-17] MEDS: MORPHINE IV PRN ×2 (09:05→20:41)
[2019-02-17] MEDS: ISORDIL PO SCH ×3 (09:05→20:48)
[2019-02-17] MEDS: ZAROXOLYN PO SCH ×2 (09:05→20:40)
[2019-02-17] MEDS: LASIX IV SCH ×2 (09:06→20:41)
[2019-02-17] MEDS: LANTUS INSULIN SUBQ SCH ×2 (09:06→20:41)
[2019-02-17] MEDS: APRESOLINE PO SCH ×3 (09:07→20:48)
[2019-02-17] MEDS: TEFLARO 600 MG in NS 250 ML IV SCH ×2 (11:16→23:31)
--- NOTE | 2019-02-17 17:58 | PROGRESS NOTE ---
DATE: 02/17/2019 SUBJECTIVE: Patient reports feeling fine. Denies any fever or chills. The patient has less swelling in both legs and thighs. OBJECTIVE: Vital Signs: Temperature 98.6 degrees, heart rate 91, respiratory rate 16, blood pressure 114/72, O2 saturation 94%, 2 L nasal cannula. Physical Examination: This is a chronically ill-appearing, morbidly obese, 53-year-old, -Greek male, lying in bed, in no acute distress. Cardiovascular: S1, S2 heard. No murmurs, gallops, or rubs. Regular rate and rhythm. Respiratory: Minimal crackles noted in both pulmonary bases. Patient is not using any accessory muscles or having work of breathing. Abdomen: Soft, a little bit distended. There is some abdominal wall edema noted but definitely less in comparing with admission. Extremities: The patient has edema still from both feet all the way up onto the abdomen with anasarca still noted but better peripheral pulses present in both legs. There is left foot wound noted in the dorsal surface but no purulent drainage obtained. It is covered by dressing. Neurological: Patient alert and oriented x3. Moves 4 extremities. LABORATORY DATA: White cell count 5.62, hemoglobin 12.1, hematocrit 39.8, platelets 220,000 with ABG that shows pH 7.48 with pCO2 62, PO2 143. The BMP is remarkable for creatinine 1.1. The culture from left foot showed E. coli MRSA on Providencia. ASSESSMENT AND PLAN: 1. Acute systolic congestive heart failure. Clinically, this patient continues to improve. Less swelling in both legs and abdominal wall as well. Abdominal wall as well. So far, we have moved 3 L of fluids in the last 24 hours. 3.8 L. Cardiology is following this patient. He is on Lasix 80 mg IV q. 12 hours, hydralazine, and also Isordil and metolazone as well. The patient is still receiving spironolactone. In any case, we will continue with the same management. 2. Acute kidney injury. I think it is because of all these diuretics that he is getting. At this point, we will leave to Cardiology to decide if we are going to adjust some of the diuretics. We will continue to monitor BMP daily. 3. Acute hypercapnic respiratory failure secondary to obstructive sleep apnea. Unfortunately the CO2 continues to be higher. Patient recommended to continue to use BiPAP at night and also in the daytime, whenever it is possible. 4. Hypertension. Blood pressure is under control. We will continue with same management. 5. Nonsustained ventricular tachycardia. No more episodes since admission. It is important to remark that Cardiology said he is not a good candidate considering his recurring skin infection now that we found MRSA and also his massive anasarca as well. 6. Uncontrolled diabetes mellitus type 2. We will continue with Accu-Cheks before meals and also sliding scale insulin as well. 7. Obstructive sleep apnea. As mentioned above. 8. Disposition. At this point, a palliative care team has talked with the patient. Apparently, there is conversation for him to go to home with hospice. We will keep this patient over the weekend. I will talk to social work supervisor next Tuesday. cc: Dave Amador MD
[2019-02-18] MEDS: XOPENEX NEB INH SCH ×4 (03:30→22:00)
[2019-02-18 03:36] LABS: ALLEN TEST YES; BE 16.5 mmoll (-3.0-3.0); BLOOD TYPE ARTERIAL; HCO3-(ACT) 37.7 mmoll (20.0-26.0); O2HB 95.3 % (95.0-99.0); PO2(98.6) 88 mmHg (60-100); SAMPLE BLOOD; SAO2 98.7 % (95.0-100.0); THB 13.4 g/dL (11.5-17.4); pH(98.6) 7.45 (7.35-7.45)
[2019-02-18 03:47] LABS: MODALITY CANNULA
[2019-02-18 03:48] LABS: PCO2(98.6) 63 mmHg (35-45)
[2019-02-18 05:59] LABS: BASO# 0.02 X1000 (0.0-0.2); BASO% 0.3 % (0.0-0.8); EOS# 0.31 X1000 (0.0-0.7); EOS% 5.2 % (0.0-10.0); HEMATOCRIT 39.8 % (42.0-52.0); HEMOGLOBIN 12.1 g/dL (14.0-18.0); LYMPH# 1.61 X1000 (1.2-3.4); LYMPH% 27.2 % (20.5-51.1); MCH 24.2 PG (27-31); MCHC 30.4 g/dL (33-37); MCV 79.8 FL (81-99); MONO# 0.93 X1000 (0.11-0.59); MONO% 15.7 % (1.7-9.3); MPV 11.3 FL (7.4-10.4); NEUT# 3.05 X1000 (1.4-6.5); NEUT% 51.6 % (42.2-75.2); PLT 231 X1000 (130-400); RBC 4.99 XMIL (4.7-6.1); RDW 17.3 % (11.5-14.5); WBC 5.92 X1000 (4.8-10.8)
[2019-02-18] MEDS: HUMULIN R SUBQ SCH ×4 (06:29→22:02)
[2019-02-18] MEDS: PROTONIX PO SCH (06:29)
[2019-02-18 06:50] LABS: AGAP 6; BUN 25 mg/dL (8-22); CALCIUM 9.2 mg/dL (8.8-10.2); CHLORIDE 90 mmol/L (98-107); COSMO 275; CREATININE 1.4 mg/dL (0.7-1.2); ESTIMATED GFR > 60; GLUCOSE 176 mg/dL (70-104); POTASSIUM 4.6 mmol/L (3.5-5.1); SODIUM 133 mmol/L (136-145); TCO2 37 mmol/L (25-35)
[2019-02-18] MEDS: MORPHINE IV PRN ×3 (07:30→22:01)
[2019-02-18] MEDS: ISORDIL PO SCH ×3 (08:42→22:07)
[2019-02-18] MEDS: ZAROXOLYN PO SCH ×2 (08:43→22:01)
[2019-02-18] MEDS: APRESOLINE PO SCH ×3 (08:43→22:07)
[2019-02-18] MEDS: ASPIRIN PO SCH (08:43)
[2019-02-18] MEDS: LANOXIN PO SCH (08:43)
[2019-02-18] MEDS: FOLIC ACID PO SCH (08:43)
[2019-02-18] MEDS: MAG-OX PO SCH ×2 (08:43→22:01)
[2019-02-18] MEDS: ELIQUIS PO SCH ×2 (08:43→22:01)
[2019-02-18] MEDS: ALDACTONE PO SCH ×2 (08:43→22:01)
[2019-02-18] MEDS: PRINIVIL PO SCH ×2 (08:43→22:01)
[2019-02-18] MEDS: COREG PO SCH ×2 (08:43→22:00)
[2019-02-18] MEDS: LANTUS INSULIN SUBQ SCH ×2 (08:44→22:41)
[2019-02-18] MEDS: LASIX IV SCH ×2 (09:18→22:01)
[2019-02-18] MEDS: TEFLARO 600 MG in NS 250 ML IV SCH ×2 (10:09→22:41)
--- NOTE | 2019-02-18 10:51 | CARDIOLOGY PROGRESS NOTE ---
DATE: 02/18/2019 CHIEF COMPLAINT: Swelling, dyspnea. SUBJECTIVE: Mr. Tran is doing better. His weight has come down 294 pounds, according to standingscale from yesterday. He denies having any chest pain. He is breathing more comfortably. Telemetry shows no evidence of more ventricular tachycardia. He has good appetite. OBJECTIVE: Temperature is 97.6, pulse 97, respirations 16, blood pressure 115/79. He is awake, alert, oriented, no distress. HEENT is unremarkable. Chest sounds clear to auscultation and percussion. Heart sounds are regular and rhythmic without gallop or murmur. His abdomen is less tense. The abdominal wall is not as edematous as it was. Extremities showed less edema. Neurologic: Follows commands. Moves all 4 extremities. DIAGNOSTIC DATA: Blood work showed sodium 133, potassium 4.6, BUN is 25, creatinine 1.4. His blood gases today showed pO2 of 88, pCO2 of 63, pH of 7.45. He is on nasal cannula, FiO2 is 0.26. IMPRESSION: 1. The patient continues to improve. He has CHF functional class 4, nonischemic dilated cardiomyopathy. 2. Moderate coronary heart disease. 3. Medical noncompliance. 4. alf hypertension. 5. Morbid obesity. RECOMMENDATIONS: At this time, we will continue aggressive management of his fluid overload state and will see how he does. Further advice will be forthcoming. cc: Jasno Tejeda MD [facility]
--- NOTE | 2019-02-18 11:04 | PROGRESS NOTE ---
DATE: 02/18/2019 SUBJECTIVE: Patient reports feeling fine. Breathing better. Less swelling in both lower extremities. OBJECTIVE: Vital Signs: Temperature 97.6 degrees, heart rate 93, respiratory rate 18, blood pressure 115/79, O2 saturation 100% on 2 L nasal cannula. General: This is a chronically ill- appearing morbidly obese 53-year-old male, lying in bed, in no acute distress. Cardiovascular: S1, S2 heard. No murmurs, gallops, or rubs. Regular rate and rhythm. Respiratory: Minimal crackles noted in both pulmonary bases. Patient is not using any accessory muscles or having work of breathing. Abdomen: Soft, a little bit distended. No abdominal wall edema noted. Extremities: Patient has still mild edema from both feet all the way up to the abdomen. Anasarca is better. Also in the left foot, there is a wound noted in the dorsal surface, but no purulent drainage noted. It is covered with a dressing now. Neurological: Patient alert, oriented x3. Moves 4 extremities. LABORATORY DATA: White cell count 5.92, hemoglobin 12.1, hematocrit 29.8, platelets 231,000. ABG that shows pH 7.45 with pCO2 of 63, PO2 of 88. BMP shows sodium 133 with creatinine 1.4. ASSESSMENT AND PLAN: 1. Acute systolic congestive heart failure. Clinically, this patient continues to improve. He is making less urine, though, but we will continue with current management. Cardiology is following this patient. He is on Lasix 80 mg IV q.12 h., hydralazine, Isordil, and metolazone as well. The patient is also on spironolactone and digoxin. We will continue with the same management. 2. Acute kidney injury. The kidney function is slightly better and GFR greater than 60 today. I think at this point, we need to continue with all medication that he is receiving now. We will continue to monitor BMP daily. 3. Acute hypercapnic respiratory failure secondary to obstructive sleep apnea. CO2 continues to be high and the recommendation is still the same, that he needs to use BiPAP at night. 4. Hypertension. Blood pressure is under control. We will continue with the same management. 5. Nonsustained ventricular tachycardia. No more episodes of that since admission. 6. Uncontrolled diabetes mellitus, type 2. We will continue with Accu-Cheks before meals and also at bedtime and sliding scale insulin as well. 7. Obstructive sleep apnea. As we mentioned above. DISPOSITION: The patient is doing fine at this point. Family mentioned that he needs to go to a rehabilitation facility, but we will check with Physical Therapy tomorrow. If he is able to walk around, I think he can be discharged home if okay with Cardiology, of course. cc: Dave Amador MD
[2019-02-19] MEDS: XOPENEX NEB INH SCH ×5 (03:30→22:00)
[2019-02-19 05:02] LABS: BASO# 0.04 X1000 (0.0-0.2); BASO% 0.8 % (0.0-0.8); EOS# 0.32 X1000 (0.0-0.7); EOS% 6.6 % (0.0-10.0); HEMATOCRIT 40.5 % (42.0-52.0); HEMOGLOBIN 12.4 g/dL (14.0-18.0); LYMPH# 1.44 X1000 (1.2-3.4); LYMPH% 29.6 % (20.5-51.1); MCH 24.3 PG (27-31); MCHC 30.6 g/dL (33-37); MCV 79.4 FL (81-99); MONO# 0.82 X1000 (0.11-0.59); MONO% 16.8 % (1.7-9.3); MPV 11.1 FL (7.4-10.4); NEUT# 2.25 X1000 (1.4-6.5); NEUT% 46.2 % (42.2-75.2); PLT 218 X1000 (130-400); RDW 17.1 % (11.5-14.5); WBC 4.87 X1000 (4.8-10.8)
[2019-02-19 05:47] LABS: CALCIUM 9.3 mg/dL (8.8-10.2); CREATININE 1.5 mg/dL (0.7-1.2); POTASSIUM 4.4 mmol/L (3.5-5.1)
[2019-02-19] MEDS: HUMULIN R SUBQ SCH ×4 (06:29→21:32)
[2019-02-19] MEDS: PROTONIX PO SCH (06:29)
[2019-02-19] MEDS ORDERED: SAMSCA PO ONE (08:47)
[2019-02-19] MEDS: PRINIVIL PO SCH ×2 (09:25→21:31)
[2019-02-19] MEDS: LANOXIN PO SCH (09:25)
[2019-02-19] MEDS: ISORDIL PO SCH ×3 (09:25→17:14)
[2019-02-19] MEDS: ZAROXOLYN PO SCH ×2 (09:25→21:30)
[2019-02-19] MEDS: MAG-OX PO SCH ×2 (09:26→21:31)
[2019-02-19] MEDS: ALDACTONE PO SCH ×2 (09:26→21:31)
[2019-02-19] MEDS: APRESOLINE PO SCH ×3 (09:26→17:14)
[2019-02-19] MEDS: ASPIRIN PO SCH (09:26)
[2019-02-19] MEDS: COREG PO SCH ×2 (09:26→21:31)
[2019-02-19] MEDS: LASIX IV SCH ×2 (09:26→21:32)
[2019-02-19] MEDS: ELIQUIS PO SCH ×2 (09:26→21:31)
[2019-02-19] MEDS: FOLIC ACID PO SCH (09:26)
[2019-02-19] MEDS: LANTUS INSULIN SUBQ SCH ×2 (09:26→21:32)
[2019-02-19 09:28] LABS: IRON SATURATION 19 %; TIBC 232 ug/dL; TOTAL IRON 45 ug/dL (53-167); UNBOUND IRON 187 ug/dL (112-346)
--- NOTE | 2019-02-19 09:53 | PROGRESS NOTE ---
DATE: 02/19/2019 SUBJECTIVE: Patient reports feeling fine. Less edema noted in both lower extremities. He is still peeing a lot of urine. He requests to have his Moore catheter removed because of some hematuria. Denies any other complaints. OBJECTIVE: Vital Signs: Temperature 97.6 degrees, heart rate 92, respiratory rate 18, blood pressure 135/92, O2 saturation 100% on 2 L nasal cannula. General Examination: This is a chronically ill-appearing and morbidly obese, 53-year-old, male, lying in bed, in no acute distress. HEENT: Head is normocephalic and atraumatic. Mucous membranes are dry. Poor dentition. Neck: No JVD noted. No carotid bruits. No lymphadenopathy. No thyromegaly. Cardiovascular Examination: S1 and S2 heard. No murmurs, gallops, or rubs. Regular rate and rhythm. Respiratory Examination: Minimal crackles noted in both pulmonary bases, better in comparing with previous days. Patient is not using any accessory muscles or having work of breathing. Abdomen: Soft. A little bit distended. No abdominal wall edema noted. Extremities: The patient has still mild edema from both feet all the way up to the abdomen. Anasarca is better in the left foot. There is a wound noted on the dorsal surface but no purulent drainage noted. It is covered by a dressing now. Neurological Examination: The patient is alert and oriented x3. Moves 4 extremities. Laboratory Data: White cell count 4.87, hemoglobin 12.4, hematocrit 40.5, platelets 218,000. BMP that shows creatinine 1.5. ASSESSMENT AND PLAN: 1. Acute congestive systolic heart failure. Clinically, this patient continues to improve. Breathing better, requiring 2 L of oxygen by nasal cannula. Currently, as per cardiology recommendation, he is only on Lasix 80 mg intravenous every 12 hours, hydralazine, Isordil, and metolazone as well. The patient is also receiving spironolactone and digoxin. At this point, we will continue with the same management. I think this patient is getting euvolemic and may be discharged in next 24 to 48 hours. 2. Acute kidney injury. Creatinine is basically the same. It is 1.5. Glomerular filtration rate is almost normal. At this time, we will continue with the same medications. 3. Acute hypercapnic, hypoxemic respiratory failure secondary to obstructive sleep apnea. We have not checked CO2 for today but he needs to have a BiPAP at night and as needed during the day. 4. Hypertension. Blood pressure is under control. We will continue with the same management. 5. Known sustained ventricular tachycardia. No more episodes of that since admission. 6. Uncontrolled diabetes mellitus type 2. We will continue with Accu-Chek before meals and also at bedtime, and sliding scale insulin as well. 7. Obstructive sleep apnea, as we mentioned above. 8. Disposition. At this point, we will continue with the same management. The patient reported a few days ago that he needs to go to a rehab facility. The patient apparently is walking good in the hospital. I think he is getting into a euvolemic state and I think he can be discharged within next 24 to 48 hours if okay with cardiology, of course. cc: Dave Amador MD
[2019-02-19] MEDS ORDERED: VENOFER 250 MG in NS 150 ML IV ONE (09:58)
[2019-02-19] MEDS: MORPHINE IV PRN ×3 (10:10→20:15)
--- NOTE | 2019-02-19 10:15 | CARDIOLOGY PROGRESS NOTE ---
DATE: 02/19/2019 CHIEF COMPLAINT: Swelling, shortness of breath. SUBJECTIVE: Mr. Tran is feeling better. He continues to lose weight. His recorded weight on standing scale is 286 pounds. That would indicate that he has lost almost 60 pounds, as we believe in the weight that was recorded on 02/12/2019. His abdomen is certainly feeling better. OBJECTIVE: Blood pressure is 135/92, temperature 97.6, pulse 93, respirations 18. He is awake, alert, oriented, no distress. Neck veins cannot be fully assessed. Chest shows clearer breath sounds bilaterally. Heart sounds are regular and rhythmic. No gallop or murmur. His abdomen is nontender, soft. No mass. No hepatomegaly. Extremities showed 2+ edema, brawny. Neurologic: Follows commands, moves all 4 extremities. DIAGNOSTIC DATA: Hemoglobin is 12.4, hematocrit 40.5, MCV is 79.4, RDW is 17.1. Sodium is 132, potassium 4.4, BUN is 25, creatinine 1.5. IMPRESSION: 1. The patient presented with decompensated chronic systolic heart failure, functional class 4 [place] [employer] with nonischemic dilated cardiomyopathy. 2. Morbid obesity. 3. Sleep apnea syndrome. 4. Medical noncompliance. 5. History of mild coronary artery disease. RECOMMENDATIONS: At this time, we will probably give him a low dose of Samsca to optimize his sodium. His MCV is low, suggesting that he may have iron deficiency or thalassemia. I will request an iron level. He may benefit from iron infusion. Further advice will be forthcoming. cc: Jason Tejeda MD
[2019-02-19] MEDS: TEFLARO 600 MG in NS 250 ML IV SCH ×3 (12:14→23:17)
--- NOTE | 2019-02-19 13:02 | GENERAL SURGERY PROGRESS NOTE ---
DATE: 02/19/2019 SUBJECTIVE: Dressing changes going well. No fevers. No tachycardia. OBJECTIVE: His foot wound is granulating. It is clean without necrosis or cellulitis. LABORATORY DATA: White count 4, hematocrit is 40. ASSESSMENT/PLAN: A 53-year-old gentleman with nonhealing wound. We will continue local wound care with Vashe dressings and follow along otherwise. Medical management per the hospitalist. cc: Karina Walter MD
[2019-02-20] MEDS: XOPENEX NEB INH SCH ×4 (03:29→22:32)
--- NOTE | 2019-02-20 07:19 | Diag Imaging Result Doc PS360 ---
EXAM: CHEST-2 VIEWS 02/20/2019 HISTORY: hypoxia TECHNIQUE: PA and lateral chest COMMENT: The inspiration is suboptimal. There is borderline cardiomegaly. This has improved since 11/06/2018 and the lungs are slightly clearer than on 02/13/2019. IMPRESSION: Improved pulmonary edema. Electronically signed by Anand Tavarez 02/20/2019 7:16 AM
[2019-02-20 08:11] LABS: BASO# 0.06 X1000 (0.0-0.2); BASO% 1.4 % (0.0-0.8); EOS# 0.29 X1000 (0.0-0.7); EOS% 6.8 % (0.0-10.0); HEMATOCRIT 41.8 % (42.0-52.0); HEMOGLOBIN 12.8 g/dL (14.0-18.0); LYMPH% 30.4 % (20.5-51.1); MCH 24.3 PG (27-31); MCHC 30.6 g/dL (33-37); MCV 79.5 FL (81-99); MONO# 0.88 X1000 (0.11-0.59); MONO% 20.6 % (1.7-9.3); NEUT# 1.75 X1000 (1.4-6.5); NEUT% 40.8 % (42.2-75.2); PLT 246 X1000 (130-400); RBC 5.26 XMIL (4.7-6.1); RDW 16.9 % (11.5-14.5); WBC 4.28 X1000 (4.8-10.8)
[2019-02-20] MEDS: HUMULIN R SUBQ SCH ×4 (08:12→20:39)
[2019-02-20] MEDS: PROTONIX PO SCH (08:12)
[2019-02-20 08:26] LABS: CALCIUM 8.9 mg/dL (8.8-10.2); CREATININE 1.5 mg/dL (0.7-1.2); POTASSIUM 4.6 mmol/L (3.5-5.1)
[2019-02-20 08:40] LABS: EOS 7 % (1-10); LYMPHS 32 % (21-51); MONO 19 % (1-9); SEGS 42 % (42-75)
[2019-02-20 08:41] LABS: ANISOCYTOSIS 1+; MICROCYTOSIS 1+
[2019-02-20] MEDS: ASPIRIN PO SCH (10:01)
[2019-02-20] MEDS: PRINIVIL PO SCH ×2 (10:01→20:38)
[2019-02-20] MEDS: ISORDIL PO SCH ×3 (10:02→18:28)
[2019-02-20] MEDS: FOLIC ACID PO SCH (10:02)
[2019-02-20] MEDS: APRESOLINE PO SCH ×3 (10:02→18:27)
[2019-02-20] MEDS: LANOXIN PO SCH (10:05)
[2019-02-20] MEDS: MAG-OX PO SCH ×2 (10:06→20:38)
[2019-02-20] MEDS: ELIQUIS PO SCH ×2 (10:06→20:38)
[2019-02-20] MEDS: ALDACTONE PO SCH ×2 (10:06→20:38)
[2019-02-20] MEDS: COREG PO SCH ×2 (10:06→20:38)
[2019-02-20] MEDS: LANTUS INSULIN SUBQ SCH ×2 (10:23→20:38)
[2019-02-20] MEDS: ZAROXOLYN PO SCH ×2 (10:23→20:38)
[2019-02-20] MEDS: LASIX IV SCH ×2 (11:35→20:38)
[2019-02-20] MEDS: TEFLARO 600 MG in NS 250 ML IV SCH (11:37)
--- NOTE | 2019-02-20 14:36 | PROGRESS NOTE ---
DATE: 02/20/2019 SUBJECTIVE: Patient reports feeling fine. Denies any fever or chills. OBJECTIVE: Vitals: Temperature 98.5 degrees, heart rate 93, respiratory rate 20, blood pressure 124/77, O2 saturation 98% on room air. General examination: This is a chronically ill-appearing and morbidly obese 53-year-old male, lying in bed, in no acute distress. Cardiovascular: S1, S2 heard. No murmurs, gallops, or rubs. Regular rate and rhythm. Respiratory: Minimal crackles noted in both pulmonary bases. Patient is not using any accessory muscles or having work of breathing. Abdomen: Soft, nontender to palpation. Bowel sounds present. No organomegaly. Extremities: No clubbing, cyanosis. There is edema in both lower extremities. There is a wound noted in the dorsal surface of the left foot with no purulent drainage noted. Neurological: The patient is alert and oriented x3. Moves 4 extremities. DIAGNOSTIC STUDIES: Reviewed. ASSESSMENT AND PLAN: 1. Acute congestive systolic heart failure. Clinically, this patient is doing fine. He continues to be on Lasix, hydralazine, Isordil, and metolazone. We will continue with same management. 2. Acute kidney injury. Creatinine is basically 1.5, and GFR is almost normal. We will continue to monitor. 3. Acute hypercapnic hypoxemic respiratory failure. We will continue using BiPAP at night and day as needed. 4. Hypertension. Blood pressure is under control. We will continue with same management. 5. Non-sustained ventricular tachycardia. No more episodes of those since admission. 6. Uncontrolled diabetes mellitus, type 2. We will continue with Accu-Chek before meals and also at bedtime. 7. Methicillin-resistant Staphylococcus aureus infection of the left lower extremity. We will continue with vancomycin and wound care. DISPOSITION: At this point, patient is medically stable. I talked to him seriously about placement because family cannot take care of him, and he accepted to go to [facility]. We will inform social science research assistant about it. cc: Dave Amador MD
[2019-02-20] MEDS: MORPHINE IV PRN (21:41)
[2019-02-21] MEDS: TEFLARO 600 MG in NS 250 ML IV SCH ×2 (00:11→11:00)
[2019-02-21] MEDS: XOPENEX NEB INH SCH ×3 (03:17→15:06)
[2019-02-21] MEDS: MORPHINE IV PRN ×3 (04:26→13:06)
[2019-02-21] MEDS: PROTONIX PO SCH (06:19)
[2019-02-21] MEDS: HUMULIN R SUBQ SCH ×2 (06:19→10:59)
[2019-02-21] MEDS: ZAROXOLYN PO SCH (07:58)
[2019-02-21] MEDS: PRINIVIL PO SCH (09:16)
[2019-02-21] MEDS: FOLIC ACID PO SCH (09:16)
[2019-02-21] MEDS: APRESOLINE PO SCH ×2 (09:16→13:06)
[2019-02-21] MEDS: MAG-OX PO SCH (09:16)
[2019-02-21] MEDS: ISORDIL PO SCH ×2 (09:16→13:06)
[2019-02-21] MEDS: ALDACTONE PO SCH (09:17)
[2019-02-21] MEDS: COREG PO SCH (09:17)
[2019-02-21] MEDS: ASPIRIN PO SCH (09:17)
[2019-02-21] MEDS: ELIQUIS PO SCH (09:17)
[2019-02-21] MEDS: LANOXIN PO SCH (09:17)
[2019-02-21] MEDS: LASIX IV SCH (09:18)
[2019-02-21] MEDS: LANTUS INSULIN SUBQ SCH (09:31)
--- NOTE | 2019-02-21 11:49 | DISCHARGE SUMMARY ---
ADMISSION DATE: 02/12/2019 DISCHARGE DATE: 02/21/2019 ADMISSION DIAGNOSES: 1. Acute on chronic systolic heart failure exacerbation. 2. Coronary artery disease. 3. Elevated cardiac enzymes. 4. Morbid obesity. 5. Nonsustained ventricular tachycardia. 6. Diabetes mellitus type 2 requiring insulin. 7. Chronic kidney disease. 8. Obstructive sleep apnea. 9. Medical noncompliance. DISCHARGE DIAGNOSES: 1. Acute on chronic systolic heart failure exacerbation. 2. Coronary artery disease. 3. Elevated cardiac enzymes. 4. Morbid obesity. 5. Nonsustained ventricular tachycardia. 6. Diabetes mellitus type 2 requiring insulin. 7. Chronic kidney disease. 8. Obstructive sleep apnea. 9. Medical noncompliance. CONSULTATIONS: Dr. Jason Tejeda and Dr. Jeronimo Lerner. DIAGNOSTIC PROCEDURES AND FINDINGS: EKG 02/13/2019: Sinus rhythm, low voltage, and left axis deviation. Chest x-ray 02/13/2019: Cardiomegaly and increased vascular congestion. Echocardiogram 02/13/2019: EF 15%, LV severely reduced with systolic function, severe global hypokinesis with diastolic dysfunction, mild pulmonary regurgitation, and pulmonary hypertension. HOSPITAL COURSE: Mr. Tran is a 53-year-old male with known systolic heart failure and multiple other medical problems who presented to the E.R. on the day of admission with multiple days of increasing dyspnea and edema. Shortness of breath was noted both at rest and with exertion. He also has a history of medical noncompliance and after his last discharge from [facility] he did not take much of his medication if any at all. He also has a known left diabetic foot ulcer which has been followed as an outpatient by Dr. Lerner. He initially presented to [facility] but was transferred to our facility for definitive treatment. After he arrived to the ICU he was noted to have a nonsustained 20 beat run of ventricular tachycardia and magnesium was found to be low and replaced. He has not had any more episodes since that time. He was given large amounts of diuretics which did improve his symptoms quite a bit. He was also started back on his normal heart failure medications. Regarding the left foot ulcer we did consult Dr. Lerner who recommended the use of Vashe gauze but overall the wound was healing. He continued to diurese well feeling better on a day to day basis. However, it was felt that he would need physical therapy due to generalized weakness. We consulted Social Work and Physical Therapy and after a long discussion with the patient it was felt that rehab would be in his best interest. Overall, he has stabilized and is now ready for discharge and he will be going to [facility]. DISCHARGE MEDICATIONS: Coreg 6.25 mg p.o. b.i.d., Lasix 80 mg b.i.d., Protonix 40 mg daily, aspirin 81 mg daily, Dulcolax 10 mg pr at bedtime, folic acid 1 mg p.o. daily, Basaglar 15 units subcutaneously b.i.d., Lisinopril 10 mg p.o. daily, mag ox 400 mg p.o. b.i.d., hydralazine 25 mg p.o. t.i.d., isosorbide dinitrate 40 mg p.o. t.i.d., and digoxin 250 mcg daily. Lisinopril was increased to 20 mg p.o. b.i.d. Metolazone 5 mg p.o. b.i.d. at 8:30 and 20:30, Aldactone 25 mg p.o. b.i.d., doxycycline 100 mg p.o. b.i.d. for 10 days, and Percocet 7.5 mg one every 6 hours as needed for pain with 30 tablets and no refills. DISCHARGE DIET: Heart healthy diabetic. DISCHARGE ACTIVITY: Activity per [facility]. DISPOSITION AND OTHER DISCHARGE INSTRUCTIONS: The patient is discharged to [facility]. He will continue care under their direction. He will follow up with Dr. 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 He is to return to the E.R. or call 911 for all worsening complaints or concerns. All questions were answered. DISCHARGE TIME: Greater than 35 minutes. Dictated by SEN Eaton for Dave Amador MD cc: SEN Eaton MD Luis N. Villanueva, MD Robert C. Walker, MD
[2019-02-21 16:28] VITALS: BP 116/68
== END 2019-02-21 17:59 | DRG 291 ==
LOC: SUATTDRO 20:34 → ICU 20:34 → 3S 02-16 10:18 → 3N 02-19 18:18
PROVIDERS: ATTEND Internal Medicine
CPT/HCPCS: 71010; 71020; 71045; 71046; 80048; 80053; 80061; 80162; 81001; 82550; 82553; 82728; 82805; 82948; 83036; 83540; 83550; 83735; 83880; 84484; 85025; 85610; 85730; 87070; 87077; 87186; 93005; 93010; 93306; 94640; 94761; 94799; 97163; 97530; A9270; C8929; J0712; J1650; J1756; J1815; J1940; J2270; J2550; J3370; J3475; J7040; J7050; Q9957; XXXXX

== ENCOUNTER 2019-07-11 14:54 | Inpatient (IN) ==
--- NOTE | 2019-07-11 15:17 | Diag Imaging Result Doc PS360 ---
EXAM: CHEST-1 VIEW 07/11/2019 HISTORY: cp TECHNIQUE: AP portable at 1512 COMMENT: The inspiration is less optimal than on 04/11/2019. Otherwise are has been no significant change. IMPRESSION: Stable chest. Electronically signed by Anand Tavarez 07/11/2019 3:15 PM
--- NOTE | 2019-07-11 15:19 | EKG Report ---
Test Performed on : 07/11/2019 3:10:32 PM Test Reason : cp Blood Pressure : / mmHG Vent. Rate : 077 BPM Atrial Rate : 077 BPM P-R Int : 190 ms QRS Dur : 100 ms QT Int : 396 ms P-R-T Axes : 050 -46 026 degrees QTc Int : 448 ms Normal sinus rhythm. Possible Left atrial enlargement Left anterior fascicular block Nonspecific T wave abnormality Abnormal ECG When compared with ECG of 13-APR-2019 07:00, Criteria for Septal infarct are no longer present Nonspecific T wave abnormality no longer evident in Inferior leads T wave inversion no longer evident in Anterior leads QT has lengthened Unconfirmed Result
[2019-07-11 15:48] LABS: BASO# 0.03 X1000 (0.0-0.2); BASO% 0.5 % (0.0-0.8); EOS# 0.17 X1000 (0.0-0.7); EOS% 3.1 % (0.0-10.0); HEMATOCRIT 40.1 % (42.0-52.0); HEMOGLOBIN 12.3 g/dL (14.0-18.0); LYMPH# 2.06 X1000 (1.2-3.4); LYMPH% 37.5 % (20.5-51.1); MCH 27.5 PG (27-31); MCHC 30.7 g/dL (33-37); MCV 89.5 FL (81-99); MONO# 0.74 X1000 (0.11-0.59); MONO% 13.5 % (1.7-9.3); MPV 11.8 FL (7.4-10.4); NEUT% 45.4 % (42.2-75.2); PLT 193 X1000 (130-400); RBC 4.48 XMIL (4.7-6.1); RDW 14.9 % (11.5-14.5)
[2019-07-11 15:54] LABS: INR 1.1; PROTIME 14.4 Seconds (11.0-16.0); PTT 26.9 Seconds (22.3-41.8)
[2019-07-11 16:27] LABS: ALB/GLOB RATIO 0.9; ALBUMIN 3.8 g/dL (3.5-5.0); CALCIUM 9.6 mg/dL (8.8-10.2); CREATININE 1.5 mg/dL (0.7-1.2); POTASSIUM 5.5 mmol/L (3.5-5.1); TOTAL BILIRUBIN 0.33 mg/dL (0.20-1.00); TOTAL PROTEIN 8.2 g/dL (6.3-8.3)
[2019-07-11] MEDS ORDERED: HUMULIN R IV ONE (16:30)
[2019-07-11 17:44] LABS: ALLEN TEST YES; BE 5.5 mmoll (-3.0-3.0); BLOOD TYPE ARTERIAL; HCO3-(ACT) 29.2 mmoll (20.0-26.0); METHB 1.1 % (0.0-1.5); O2(CT) 15.9 mL/dL (15.0-23.0); O2HB 95.7 % (95.0-99.0); PO2(98.6) 100 mmHg (60-100); SAMPLE BLOOD; SAO2 99.3 % (95.0-100.0); THB 11.7 g/dL (11.5-17.4); pH(98.6) 7.34 (7.35-7.45)
[2019-07-11 17:48] LABS: MODALITY CANNULA; PCO2(98.6) 61 mmHg (35-45)
--- NOTE | 2019-07-11 18:25 | PROVIDER DOCUMENTATION ---
This chart was entered by Keli Montero Scribe, acting as scribe for Vinnie Hein MD. HPI-Chest Pain - General Chief Complaint: Chest Pain Stated Complaint: CP x 4 days Time Seen by Provider: 07/11/19 14:56 Source: patient Allergies/Adverse Reactions: Patient Allergies Allergy/AdvReac Type Severity Reaction Status Date / Time No Known Allergies Allergy Verified 07/11/19 15:29 Home Medications: Home Medication List Medication Instructions Recorded Confirmed Last Taken Type Carvedilol [Coreg] 6.25 mg PO BID #60 tab 02/13/18 07/11/19 07/11/19 Rx Furosemide 80 mg PO BID 05/24/18 07/11/19 07/11/19 History Pantoprazole [Protonix] 40 mg PO DAILY@0700 #90 tab 10/27/18 04/12/19 Unknown Rx Folic Acid 1 mg PO DAILY tablet 11/07/18 07/11/19 07/11/19 Rx Apixaban [Eliquis] 5 mg PO BID 02/12/19 07/11/19 07/11/19 History Promethazine [Phenergan] 25 mg PO Q6H PRN PRN 02/12/19 04/12/19 Unknown History ATORVAstatin [Lipitor] 40 mg PO QHS tab 04/13/19 07/11/19 07/10/19 Rx Acetaminophen [Tylenol] 650 mg PO Q6H PRN PRN tab 04/13/19 07/11/19 07/11/19 Rx Aspirin 81 mg PO DAILY chewtab 04/13/19 07/11/19 07/11/19 Rx Hydralazine [Apresoline] 1 tab PO BID 07/11/19 07/11/19 07/11/19 History Insulin Glargine [Basaglar] 50 unit SUBQ BID 07/11/19 07/11/19 07/11/19 History Insulin Lispro [Humalog] 8 units SQ TID 07/11/19 07/11/19 07/11/19 History Melatonin 1 cap PO QHS 07/11/19 07/11/19 07/10/19 History Ondansetron HCl [Zofran] 1 tab PO Q6H 07/11/19 07/11/19 Unknown History Temazepam [Restoril] 1 cap PO QHS 07/11/19 07/11/19 07/10/19 History - History of Present Illness-CP Nature of Presenting Problem: Patient is a 54 year old male who presents with chest pain. States chest pain has been present for 4 days. Denies shortness of breath. Location: reports: substernal Chest Pain Radiation: reports: no radiation Quality of Pain: reports: aching Severity in ED: mild Onset/Duration: 4 days ago Timing: still present Context/Activities at Onset: reports: light activity Associated Symptoms: reports: denies symptoms Similar Symptoms Previously?: Yes Recently Seen Here or By Another Healthcare Provider: Yes Review of Systems - Adult - REVIEW OF SYSTEMS - ADULT Constitutional: reports: no symptoms reported Eyes: reports: no symptoms reported Ears, Nose, Mouth & Throat: reports: no symptoms reported Cardiovascular: reports: see HPI, chest pain. denies: irregular heart rate, palpitations Respiratory: reports: no symptoms reported Gastrointestinal: reports: no symptoms reported Genitourinary: reports: no symptoms reported Musculoskeletal: reports: no symptoms reported Integumentary: reports: no symptoms reported Neurological: reports: no symptoms reported Psychiatric: reports: no symptoms reported Endocrine: reports: no symptoms reported Hematologic/Lymphatic: reports: no symptoms reported Allergic/Immunologic: reports: no symptoms reported All Other Systems: Reviewed and Negative Past History - Adult - PAST MEDICAL HISTORY-ADULT Review of Records: reports: Old Records Reviewed, Social history reviewed & non- contributory. Major Childhood Illnesses: reports: denies history Cardiovascular: reports: cardiac disease, angina, arrhythmia, CAD, CHF, HTN, hyperlipidemia, NC Respiratory: reports: sleep apnea Gastrointestinal: reports: denies history Obstetrical/Gynecological: reports: denies history Genitourinary: reports: kidney disease Musculoskeletal: reports: chronic pain Neurological: reports: denies history Psychiatric: reports: depression, other (personality disorder) Endocrine/Immune: reports: Diabetes Other Conditions: reports: denies history - PRIOR SURGERIES/PROCEDURES Surgical/Procedure History: reports: cardiac stent, orthopedic (extremity) (right ankle; shoulder), back/neck (neck) - IMMUNIZATION STATUS Childhood Immunizations: See Nurse Assessment Flu Vaccine: See Nurse Assessment - FAMILY HISTORY Family History: reviewed, not pertinent - SOCIAL HISTORY Smoking: cigarettes, greater than 1 pack/day Provider spent 3-5 mins advising pt. on dangers of tobacco.: Discussed manners to quit use, and f/u contacts for add'l counseling. Substance Use: denies Physical Exam-General - PHYSICAL EXAM-ADULT Initial Vital Signs Reviewed: Yes - CONSTITUTIONAL General Appearance: alert, no apparent distress. negative: lethargic - HEAD, EARS, NOSE, MOUTH & THROAT HENMT: normocephalic/atraumatic, moist mucous membranes. negative: angioedema - RESPIRATORY Respiratory: chest non-tender, lungs clear, normal breath sounds. negative: crackles, rhonchi - CARDIOVASCULAR Cardiovascular: normal peripheral pulses, regular rate, rhythm. negative: tachycardia - GASTROINTESTINAL (ABDOMEN) Abdominal Exam: normal bowel sounds, non tender, soft. negative: guarding, rigid - MUSCULOSKELETAL Extremity: other (1 + pitting edema to bilateral lower extremities). negative: deformity, erythema - SKIN Integumentary: normal color, normal turgor, warm/dry. negative: diaphoresis, ecchymosis, jaundice - NEUROLOGIC Neurologic: grossly normal. negative: aphasia, facial droop - PSYCHIATRIC Psych/Mental Status: normal mood/affect, oriented x 3. negative: anxious - HEART Score HEART Score: History: Moderately Suspicious HEART Score: ECG: Non-Specific Repolarization Disturbance/LBBB/PM HEART Score: Age: 45-65 Years HEART Score: Risk Factors for Atherosclerotic Disease: > or = 3 Risk Factors or History of Atherosclerotic Disease HEART Score: Troponin: < or = Normal Limit Total HEART Score:: 5 Progress - PLAN OF CARE/RESULTS Progress/Plan/Lab Results: Vital Signs - 8 hr 07/11/19 15:00 07/11/19 15:01 07/11/19 15:02 Temperature 97.9 F Pulse Rate 79 76 Respiratory Rate 17 Blood Pressure 143/95 136/94 143/95 O2 Sat by Pulse Oximetry 96 95 95 07/11/19 16:00 07/11/19 16:17 07/11/19 16:32 Temperature Pulse Rate 72 76 68 Respiratory Rate 19 23 22 Blood Pressure 156/111 151/107 O2 Sat by Pulse Oximetry 98 98 98 07/11/19 17:13 07/11/19 18:00 Temperature Pulse Rate 76 77 Respiratory Rate 10 L 25 H Blood Pressure 161/101 O2 Sat by Pulse Oximetry 98 94 L Laboratory Results - last 24 hr 07/11/19 07/11/19 07/11/19 15:23 15:23 15:23 WBC 5.50 RBC 4.48 L Hgb 12.3 L Hct 40.1 L MCV 89.5 MCH 27.5 MCHC 30.7 L RDW Std Deviation 14.9 H Plt Count 193 MPV 11.8 H Immature Gran % (Auto) 0.0 Neut % (Auto) 45.4 Lymph % (Auto) 37.5 [place] % (Auto) 13.5 H Eos % (Auto) 3.1 Baso % (Auto) 0.5 Immature Gran # (Auto) 0.00 Neut # (Auto) 2.50 Lymph # (Auto) 2.06 [place] # (Auto) 0.74 H Eos # (Auto) 0.17 Baso # (Auto) 0.03 PT INR PTT (Actin FS) Specimen Type Sample Site pH pCO2 pO2 HCO3 Base Excess Oxyhemoglobin ABG O2 Sat (Calculated) ABG O2 Saturation ABG Carboxyhemoglobin ABG Methemoglobin Joon Test A-a O2 Difference Total Hemoglobin Lactate Liter Flow Blood Gas Modality FiO2 % Sodium 133 L Potassium 5.5 H Chloride 93 L Carbon Dioxide 30 Anion Gap 10 BUN 37 H Creatinine 1.5 H Estimated GFR/1.73 m2 59 BUN/Creatinine Ratio 25 Glucose 436 H* POC Glucose Calculated Osmolality 294 Calcium 9.6 Total Bilirubin 0.33 AST 26 ALT 21 Alkaline Phosphatase 103 Troponin T [id number] Pept 129 Total Protein 8.2 Albumin 3.8 Globulin 4.4 Albumin/Globulin Ratio 0.9 Acetone Level 07/11/19 07/11/19 07/11/19 15:23 15:23 15:46 WBC RBC Hgb Hct MCV MCH MCHC RDW Std Deviation Plt Count MPV Immature Gran % (Auto) Neut % (Auto) Lymph % (Auto) [place] % (Auto) Eos % (Auto) Baso % (Auto) Immature Gran # (Auto) Neut # (Auto) Lymph # (Auto) [place] # (Auto) Eos # (Auto) Baso # (Auto) PT 14.4 INR 1.10 PTT (Actin FS) 26.9 Specimen Type Sample Site pH pCO2 pO2 HCO3 Base Excess Oxyhemoglobin ABG O2 Sat (Calculated) ABG O2 Saturation ABG Carboxyhemoglobin ABG Methemoglobin Joon Test A-a O2 Difference Total Hemoglobin Lactate Liter Flow Blood Gas Modality FiO2 % Sodium Potassium Chloride Carbon Dioxide Anion Gap BUN Creatinine Estimated GFR/1.73 m2 BUN/Creatinine Ratio Glucose POC Glucose Calculated Osmolality Calcium Total Bilirubin AST ALT Alkaline Phosphatase Troponin T 0.068 Oky-N-Efhdtbmskqo Pept Total Protein Albumin Globulin Albumin/Globulin Ratio Acetone Level NEGATIVE 07/11/19 07/11/19 17:30 17:35 WBC RBC Hgb Hct MCV MCH MCHC RDW Std Deviation Plt Count MPV Immature Gran % (Auto) Neut % (Auto) Lymph % (Auto) [place] % (Auto) Eos % (Auto) Baso % (Auto) Immature Gran # (Auto) Neut # (Auto) Lymph # (Auto) [place] # (Auto) Eos # (Auto) Baso # (Auto) PT INR PTT (Actin FS) Specimen Type ARTERIAL Sample Site R RADIAL pH 7.34 L pCO2 61 H* pO2 100 HCO3 29.2 H Base Excess 5.5 H Oxyhemoglobin 95.7 ABG O2 Sat (Calculated) 15.9 ABG O2 Saturation 99.3 ABG Carboxyhemoglobin 2.50 ABG Methemoglobin 1.1 Joon Test YES A-a O2 Difference 80.0 Total Hemoglobin 11.7 Lactate 1.00 Liter Flow 4.0 Blood Gas Modality [place]ULA FiO2 % 36.0 Sodium Potassium Chloride Carbon Dioxide Anion Gap BUN Creatinine Estimated GFR/1.73 m2 BUN/Creatinine Ratio Glucose POC Glucose 293 H Calculated Osmolality Calcium Total Bilirubin AST ALT Alkaline Phosphatase Troponin T Qdd-Z-Empuljqwpbm Pept Total Protein Albumin Globulin Albumin/Globulin Ratio Acetone Level Orders Category Date Time Status FSBS [Finger Stick Blood Sugar (ED)] DIRECTED Care 07/11/19 18:22 Ordered CHEST-1 VIEW [RAD] Stat Exams 07/11/19 14:56 Completed ABG [RESP] Routine Lab 07/11/19 17:35 Completed ACETONE SERUM [CHEM] Stat Lab 07/11/19 15:46 Completed CBC WITH ELECTRONIC DIFF [HEME] Stat Lab 07/11/19 15:23 Completed COMPREHENSIVE METABOLIC PANEL [CHEM] Stat Lab 07/11/19 15:23 Completed PRO B-NATRIURETIC PEPTIDE Stat Lab 07/11/19 15:23 Completed PROTIME WITH INR [COAG] Stat Lab 07/11/19 15:23 Completed PTT [COAG] Stat Lab 07/11/19 15:23 Completed TROPONIN T Stat Lab 07/11/19 15:23 Completed Insulin Human Regular [Humulin R] Med 07/11/19 16:30 Discontinued 10 unit IV NOW ONE EKG [EKG] Stat Ther 07/11/19 14:56 Draft Result Diagrams: 07/11/19 15:23 07/11/19 15:23 - EKG 1 Time of EKG reading by physician:: 15:10 EKG Read and Signed by:: Vinnie Hein EKG Interpretation (*Must complete 3 of following elements*): Abnormal (nonspecific T wave abnormality.) Rate: 77 Rhythm: normal sinus rhythm [place]: normal HI Interval: normal Comments: possible left atrial enlargement; left anterior fascicular block; - XRAY 1 XRAY Study: Chest Impression: See EMR Report ( EXAM: CHEST-1 VIEW 07/11/2019 HISTORY: cp TECHNIQUE: AP portable at 1512 COMMENT: The inspiration is less optimal than on 04/11/2019. Otherwise are has been no significant change. IMPRESSION: Stable chest. Electronically signed by Anand Tavarez 07/11/2019 3:15 PM 07/11/19 1515 Interpreting Physician: Anand Tavarez MD Dictated Da te/Time: 07/11/19 151 cc: Vinnie Hein MD; Selvin Frank MD) - CONSULTS/PCP/HOSPITALIST Notification #1 *Consult/PCP/Hospitalist*: Dr Curtis Time Discussed: 18:23 Consult Disposition: Will see in ED, Admit Departure - Departure Date of Disposition Decision: 07/11/19 Time of Disposition Decision: 18:23 DIAGNOSIS: Chest pain, HTN (hypertension), Hyperkalemia Disposition: ADMITTED INPATIENT 09 Certified Medical Emergency: Emergent Condition: Fair Referrals and Follow-Ups: Selvin Frank MD [Primary Care Provider] - - Critical Care Note This patient required my direct & personal management of CC.: No Attestation - Physician/ JARRED Attestation Patient care was provided by Advanced Practice Provider:: No The physician spent face to face time with patient:: Yes Advanced Practice Provider documentation review:: Supervising physician onsite and consulted in the evaluation and care of this patient. The physician did have a face to face encounter with the patient. This chart was documented by the indicated scribe, (Keli Montero Scribe) and accurately reflects the services I performed and decisions made by me, Vinnie Hein MD, as attested by the provider's signature.
[2019-07-11] MEDS ORDERED: ZOFRAN IV PRN (21:54)
[2019-07-11] MEDS ORDERED: TYLENOL PO PRN (21:54)
[2019-07-11] MEDS ORDERED: MELATONIN PO SCH ×2 (21:54→22:25)
[2019-07-11] MEDS ORDERED: RESTORIL PO SCH (21:54)
[2019-07-11] MEDS ORDERED: NITROGLYCERIN SL PRN (21:54)
[2019-07-11] MEDS ORDERED: LIPITOR PO SCH (21:54)
[2019-07-11] MEDS: APRESOLINE PO SCH (22:22)
[2019-07-11] MEDS: LASIX PO SCH (22:22)
[2019-07-11] MEDS: ELIQUIS PO SCH (22:22)
[2019-07-11] MEDS: COREG PO SCH (22:22)
[2019-07-11] MEDS: HUMALOG SUBQ SCH (22:23)
[2019-07-11] MEDS: LANTUS INSULIN SUBQ SCH (22:23)
--- NOTE | 2019-07-11 22:56 | HISTORY AND PHYSICAL ---
PRIMARY CARE PROVIDER: None. RAIL MANAGER: Dr. Flowers. CHIEF COMPLAINT: Chest pressure. HISTORY OF PRESENT ILLNESS: Mr. Tran is a 54-year-old male well known to our service with a past medical history of end-stage systolic heart failure with a known EF of 15%. He was recently on hospice care secondary to his end-stage heart failure; however, he states that he was dropped from their service for unknown reason. He is supposed to follow up with a brattice builder per Dr. Flowers's recommendation. He has missed 2 appointments, his next appointment is scheduled for the 07/16/2019. He has a history of coronary artery disease, hypertension, atrial fibrillation, diabetes mellitus type 2, chronic kidney disease, obstructive sleep apnea. He is supposed to wear CPAP machine. However, he reports the mask has been broken for over 6 months and he has not been wearing it. He had been recently admitted to [facility], where he underwent a stress test that was unremarkable, it showed a fixed defect suggestive of cardiomyopathy-type picture, and was found to have hyperkalemia and worsening renal function, was taken off his angiotensin receptor tasha and recently ruled out for NH back in March of this year as well. He comes back in complaining of 4-day history of chest-type pressure like somebody is standing on his chest. There were really no associated symptoms. Nothing made the pain better or worse. He just complains of generalized pain all over. He reports when he last left the hospital he weighed around 249 pounds, and he has had an increased weight gain up to 311 pounds. Work up in the ED showed hyperglycemia, slightly elevated troponin but less than his previous, mild hyponatremia, slightly elevated potassium. He was given IV insulin. We will recheck a potassium. Place him on pattern blood sugars. Continue to trend his cardiac enzymes. Consult Cardiology. PAST MEDICAL HISTORY: 1. End-stage systolic heart failure, last known EF 15%. He was on hospice care. However, he states he was recently taken off for unknown reason. He is a long-term resident at [facility]. We will continue his home medications. Consult cardiology if warranted. 2. Chest pain in a patient with known coronary artery disease. The patient just had a recent heart catheterization in [facility] that did not show any blockage, but did show a fixed defect. 3. Morbid obesity. 4. Hypertension. 5. Obstructive sleep apnea. Patient is supposed to wear CPAP machine, however, he states it has been broken for 6 months. 6. Paroxysmal atrial fibrillation, on Eliquis. 7. Diabetes mellitus with hyperglycemia. 8. Gastroesophageal reflux disease. 9. Left foot wound on the 2nd left toe amputation. It appears that it has healed well, he is no longer receiving wound care. The borders are closed and aligned. There was no warmth, erythema, or drainage. PAST SURGICAL HISTORY: 1. Ankle repair. 2. Amputation of the 2nd left toe with debridement of skin and soft tissue of the left foot. SOCIAL HISTORY: He is a long-term resident at [facility]. He was recently on hospice care, but states that he was taken off. No alcohol or illicit drug use. FAMILY HISTORY: Father had a stroke as well as diabetes. ALLERGIES: No known drug allergies. HOME MEDICATIONS: As per EMR. LABORATORY DATA: CBC essentially unremarkable. Mild hyponatremia at 133, and hyperglycemia, I believe, in the 400s, he is now down to 200s. Chronic kidney disease, slightly elevated troponin at 0.068. Potassium was 5.5. REVIEW OF SYSTEMS: Twelve-point review of systems complete and negative, except for those mentioned in HPI. PHYSICAL EXAMINATION: GENERAL: Mr. Tran is a pleasant 64-year-old male who is lying on the bed in no acute distress. HEENT: Atraumatic, normocephalic. PERRL. NECK: Supple, trachea midline. CARDIOVASCULAR: S1, S2 appreciated. No murmurs, gallops, rubs noted. Could not really assess any JVD secondary to his habitus. Lower extremities generalized edema. GASTROINTESTINAL: Obese soft, nontender. Positive bowel sounds all 4 quadrants. EXTREMITIES: No signs of clubbing or cyanosis. NEUROLOGIC: No focal deficits noted. ASSESSMENT AND PLAN: 1. Chest pain in a patient with known coronary artery disease. We will continue to trend his cardiac enzymes. Continue with his home medications. Consult Cardiology if needed. 2. End-stage systolic heart failure with last known EF of 15%. He was on hospice care at [facility]. He is now a long-term resident. Per his report, he has been dropped by hospice. We will continue with home medications. 3. Mild hyperkalemia. We will recheck a potassium level. 4. Hyperglycemia in the setting of diabetes. He was given IV insulin bolus. We will recheck his potassium, place him on sliding scale with pattern blood sugars and continue his home regimen. 5. Morbid obesity. The patient admits he does not really eat the food that they provide. He mainly lives off [employer]. 6. Hypertension. Continue home medications. 7. Hypercarbia. The patient appears to be at his baseline. 8. Obstructive sleep apnea. The patient is supposed to be wearing a CPAP. However, he reports his CPAP face mask has been broke for 6 months. We will see if we can get [employer] to get him a replacement. 9. Paroxysmal atrial fibrillation, on Eliquis. 10. Gastroesophageal reflux disease. 11. History of a left foot wound with left 2nd toe amputation. Appears to be healed. He is no longer receiving any wound care for this. 12. Further recommendations to follow physician evaluation, laboratory and diagnostic data. Patient seen and examined for me face to face, all the laboratory, vitals signs and images were reviewed, patient presented to the ED with chest pain, for 4 days, he has been here before multiple times, his EF is around 15 %, he should be following a Fleshing Machine Operator in [place] but he missed his last 2 appointments, we will R/O acute coronary syndrome, I will monitor his troponin, they look better compare with his previous admission, he seems to be stable, we will monitor this patient in the PVC unit, I agree with the rest of the ACCOUNT LIAISON's assessment and plan, Felipe Medeiros MD. Dictated by SEN Hart for Felipe Rudolph MD cc: MD Misael Vee MD [facility] CENTERIrvin
[2019-07-11 23:13] LABS: MAGNESIUM 2.2 mg/dL (1.5-2.7)
[2019-07-12] MEDS: HUMALOG SUBQ SCH (06:03)
[2019-07-12 06:12] LABS: BASO# 0.03 X1000 (0.0-0.2); BASO% 0.5 % (0.0-0.8); EOS# 0.21 X1000 (0.0-0.7); EOS% 3.6 % (0.0-10.0); HEMATOCRIT 41.4 % (42.0-52.0); HEMOGLOBIN 12.6 g/dL (14.0-18.0); LYMPH# 1.96 X1000 (1.2-3.4); LYMPH% 33.7 % (20.5-51.1); MCH 27.9 PG (27-31); MCHC 30.4 g/dL (33-37); MCV 91.8 FL (81-99); MONO% 13.8 % (1.7-9.3); MPV 11.3 FL (7.4-10.4); NEUT# 2.81 X1000 (1.4-6.5); NEUT% 48.4 % (42.2-75.2); PLT 182 X1000 (130-400); RBC 4.51 XMIL (4.7-6.1); RDW 15.2 % (11.5-14.5); WBC 5.81 X1000 (4.8-10.8)
[2019-07-12 06:30] LABS: AGAP 9; ALB/GLOB RATIO 0.9; ALBUMIN 3.6 g/dL (3.5-5.0); ALKALINE PHOSPHATASE 94 U/L (32-122); BUN 33 mg/dL (8-22); CALCIUM 9.3 mg/dL (8.8-10.2); CHLORIDE 97 mmol/L (98-107); CHOLESTEROL 180 mg/dL (0-200); COSMO 289; CREATININE 1.3 mg/dL (0.7-1.2); ESTIMATED GFR > 60; GLUCOSE 275 mg/dL (70-104); GOT 16 U/L (10-34); GPT 17 U/L (10-44); HDL 58 mg/dL (35-55); LDL 90 mg/dL; SODIUM 136 mmol/L (136-145); TCO2 30 mmol/L (25-35); TOTAL BILIRUBIN 0.43 mg/dL (0.20-1.00); TOTAL PROTEIN 7.7 g/dL (6.3-8.3); TRIGLYCERIDES 161 mg/dL (39-160); VLDL 32 mg/dL
--- NOTE | 2019-07-12 06:46 | Diag Imaging Result Doc PS360 ---
CHEST-PORTABLE - 07/12/2019 INDICATION: Chest Pain COMPARISON: 07/11/2019 FINDINGS: Stable low lung volumes. Stable central bronchovascular crowding. No infiltrates or edema. Heart size is top normal. IMPRESSION: No change from prior. Electronically signed by Scott Barkley 07/12/2019 6:44 AM
[2019-07-12] MEDS ORDERED: PRILOSEC PO SCH (07:00)
[2019-07-12 07:40] VITALS: BP 145/85
--- NOTE | 2019-07-12 07:45 | EKG Report ---
Test Performed on : 07/12/2019 07:03:41 AM Test Reason : CP Blood Pressure : / mmHG Vent. Rate : 085 BPM Atrial Rate : 085 BPM P-R Int : 184 ms QRS Dur : 102 ms QT Int : 384 ms P-R-T Axes : 045 -46 060 degrees QTc Int : 456 ms Normal sinus rhythm. Possible Left atrial enlargement Left anterior fascicular block Nonspecific T wave abnormality Abnormal ECG When compared with ECG of 11-JUL-2019 15:10, (Unconfirmed) No significant change was found Confirmed by Mike DAVIS, Jasvir Ford ([id number]) on 07/12/2019 3:42:20 PM
[2019-07-12] MEDS: ELIQUIS PO SCH (08:26)
[2019-07-12] MEDS: LASIX PO SCH (08:26)
[2019-07-12] MEDS: APRESOLINE PO SCH (08:26)
[2019-07-12] MEDS: COREG PO SCH (08:26)
[2019-07-12] MEDS: LANTUS INSULIN SUBQ SCH (08:30)
[2019-07-12] MEDS ORDERED: ASPIRIN PO SCH (09:00)
[2019-07-12] MEDS ORDERED: FOLIC ACID PO SCH (09:00)
[2019-07-12] MEDS ORDERED: HUMALOG SUBQ SCH (09:00)
--- NOTE | 2019-07-12 10:04 | DISCHARGE SUMMARY ---
ADMISSION DATE: 07/11/2019 DISCHARGE DATE: 07/12/2019 CONSULTATIONS: None. PERTINENT PROCEDURES: Chest x-ray, stable. Followup chest x-ray: No change from prior. EKG normal sinus rhythm with left atrial enlargement. Follow-up EKG: Normal sinus rhythm with left atrial enlargement. DISCHARGE DIAGNOSES: 1. Chest pain in a patient with known coronary artery disease. He was ruled out with negative troponins. 2. End-stage systolic heart failure. Patient is from [facility], where he was supposed to be on hospice. We have got social workers on board. He will be discharged back to [facility] today. 3. Mild hyperkalemia resolved after hyperglycemia improved. 4. Hyperglycemia, improved with treatment. 5. Morbid obesity. The patient reported that he [facility] [employer] and he has been drinking too much chocolate milk. 6. Hypertension. 7. Hypercarbia as patient's baseline. Giving his obstructive sleep apnea he is supposed to be wearing a CPAP machine, but has not worked for the past 6 months secondary to a broken face mask. 8. Paroxysmal atrial fibrillation on Eliquis. 9. Gastroesophageal reflux disease. 10. History of left foot wound and 2nd toe amputation, healed. HOSPITAL COURSE: Briefly, Mr. Tran is a 54-year-old male well known to our service for past medical history of end-stage systolic heart failure with a known EF of 50%. He was recently on hospice secondary to his end-stage heart failure but he verbally reported that he was dropped from their service for unknown reason, and he is a resident at [facility]. He was supposed to follow up with a copy coordinator per Dr. Flowers's recommendation at [facility]. However, he missed his last 2 appointments and his next appointment is scheduled for 07/16/2019. He also has a history of coronary artery disease. He had an extensive workup at [facility] and was ruled out for AR. It just showed cardiomyopathy type picture. He was taken off his ARB secondary to hyperkalemia and worsening renal function. He came to the ED again complaining of chest like pressure for 4 days. He did admit to an increased weight gain. He stated at his last discharge, he was 249 pounds and had went up to 311. He was found to be hyperglycemic with slightly elevated troponins, but less than his previous admissions. Mild hyponatremia. He was given IV insulin to treat his hyperglycemia which brought his potassium down. He was placed on pattern blood sugars and continued to trend his cardiac enzymes. He did report he lives off [employer] as well as drinking too much chocolate milk. Given his negative cardiac enzymes, he will be sent back to [facility] today. VITAL SIGNS: At time of discharge, temperature 97.8 degrees, heart rate 84, respirations 18, blood pressure 145/85, O2 is 100% on 2 L nasal cannula. DISCHARGE DIET: Healthy heart. DISCHARGE MEDICATIONS: 1. Melatonin. 2. Restoril. 3. Nitroglycerin. 4. Apresoline. 5. Basaglar. 6. Eliquis. 7. Lasix. 8. Humalog. 9. [place]. 10. Zofran. 11. Lipitor. 12. Aspirin. 13. Coreg. 14. Folic acid. 15. Tylenol. FOLLOW-UP: Mr. Tran is being discharged back to [facility]. He is to take all medications as prescribed. He has been educated on a proper healthy heart diet as well as watching his fluid intake. He can return to the ED or call 911 for any worsening of symptoms. Dictated by SEN Hart for Felipe Rudolph MD cc: Felipe Rudolph MD
== END 2019-07-12 10:23 | DRG 313 ==
LOC: SUPCPDRO → ED 14:54 → 2N 20:25
PROVIDERS: ATTEND Internal Medicine

== ENCOUNTER 2019-10-28 22:08 | Inpatient (IN) ==
[2019-10-28 23:11] LABS: ALLEN TEST YES; BE 6.3 mmoll (-3.0-3.0); BLOOD TYPE ARTERIAL; HCO3-(ACT) 29.8 mmoll (20.0-26.0); O2(CT) 17.1 mL/dL (15.0-23.0); O2HB 94.6 % (95.0-99.0); PO2(98.6) 75 mmHg (60-100); SAMPLE BLOOD; SAO2 99.3 % (95.0-100.0); THB 12.8 g/dL (11.5-17.4); pH(98.6) 7.39 (7.35-7.45)
[2019-10-28 23:12] LABS: MODALITY CANNULA
[2019-10-28 23:14] LABS: PCO2(98.6) 54 mmHg (35-45)
[2019-10-29 00:03] LABS: BASO# 0.03 X1000 (0.0-0.2); BASO% 0.5 % (0.0-0.8); EOS# 0.16 X1000 (0.0-0.7); EOS% 2.6 % (0.0-10.0); HEMATOCRIT 42.9 % (42.0-52.0); HEMOGLOBIN 13.5 g/dL (14.0-18.0); LYMPH# 2.18 X1000 (1.2-3.4); MCH 26.9 PG (27-31); MCHC 31.5 g/dL (33-37); MCV 85.6 FL (81-99); MONO# 0.77 X1000 (0.11-0.59); MONO% 12.7 % (1.7-9.3); MPV 11.5 FL (7.4-10.4); NEUT# 2.92 X1000 (1.4-6.5); NEUT% 48.2 % (42.2-75.2); PLT 179 X1000 (130-400); RBC 5.01 XMIL (4.7-6.1); WBC 6.06 X1000 (4.8-10.8)
[2019-10-29] MEDS ORDERED: DUONEB (A & A) INH ONE (00:11)
[2019-10-29 00:15] LABS: INR 1.02; PROTIME 13.5 Seconds (11.0-16.0); PTT 29.5 Seconds (22.3-41.8)
--- NOTE | 2019-10-29 00:27 | EKG Report ---
Test Performed on : 10/28/2019 10:29:00 PM Test Reason : shortness of breath Blood Pressure : / mmHG Vent. Rate : 085 BPM Atrial Rate : 085 BPM P-R Int : 186 ms QRS Dur : 104 ms QT Int : 380 ms P-R-T Axes : 039 -47 058 degrees QTc Int : 452 ms Normal sinus rhythm. Possible Left atrial enlargement Left anterior fascicular block Left ventricular hypertrophy Abnormal ECG When compared with ECG of 12-JUL-2019 07:03, No significant change was found Unconfirmed Result
[2019-10-29 02:07] LABS: ALB/GLOB RATIO 1.1; ALBUMIN 3.5 g/dL (3.5-5.0); CALCIUM 9.1 mg/dL (8.8-10.2); CREATININE 1.8 mg/dL (0.7-1.2); TOTAL BILIRUBIN 0.3 mg/dL (0.20-1.00); TOTAL PROTEIN 6.8 g/dL (6.3-8.3)
[2019-10-29] MEDS ORDERED: HUMULIN R IV ONE (02:09)
[2019-10-29 02:44] LABS: CK INDEX 1.5 (0.0-2.5); CK-MB 5.49 ng/mL (0.0-5.0)
--- NOTE | 2019-10-29 04:01 | PROVIDER DOCUMENTATION ---
This chart was entered by Jaida Ramires Scribe, acting as scribe for Vinnie Hein MD. HPI-General Adult - General Chief Complaint: Shortness of Breath Stated Complaint: sob Time Seen by Provider: 10/28/19 22:33 Source: patient Allergies/Adverse Reactions: Patient Allergies Allergy/AdvReac Type Severity Reaction Status Date / Time No Known Allergies Allergy Verified 07/11/19 15:29 Home Medications: Home Medication List Medication Instructions Recorded Confirmed Last Taken Type Furosemide 80 mg PO BID 05/24/18 07/18/19 07/18/19 History Folic Acid 1 mg PO DAILY tablet 11/07/18 07/18/19 07/18/19 Rx Apixaban [Eliquis] 5 mg PO BID 02/12/19 07/18/19 07/18/19 History ATORVAstatin [Lipitor] 40 mg PO QHS tab 04/13/19 07/18/19 07/18/19 Rx Acetaminophen [Tylenol] 650 mg PO Q6H PRN PRN tab 04/13/19 07/18/19 07/18/19 Rx Aspirin 81 mg PO DAILY chewtab 04/13/19 07/18/19 07/18/19 Rx Hydralazine [Apresoline] 25 tab PO BID 07/11/19 07/18/19 07/18/19 History Hydrocodone/Acetaminophen 1 tab PO Q6H PRN 07/11/19 07/18/19 Unknown History [Hydrocodone-Acetamin 5-325 mg] Insulin Glargine [Basaglar] 50 unit SUBQ BID 07/11/19 07/18/19 07/18/19 History Insulin Lispro [Humalog] 8 units SQ TID 07/11/19 07/18/19 07/18/19 History Melatonin 1 cap PO QHS 07/11/19 07/18/19 1 Day Ago History ~07/17/19 Nitroglycerin [Nitrostat] 0.4 mg SUBLINGUAL Q5M PRN PRN 07/11/19 07/18/19 Unknown History Ondansetron HCl [Zofran] 1 tab PO Q6H 07/11/19 07/18/19 07/18/19 History Temazepam [Restoril] 1 cap PO QHS 07/11/19 07/18/19 07/10/19 History Carvedilol [Coreg] 6.25 mg PO BID #0 07/12/19 07/18/19 07/18/19 Rx - History of Present Illness -Gen Adult Nature of Presenting Problems: Pt is a 54 yom who presents to the ED with a cc of SOB. Pt states that his SOB began this morning. Pt states that he had L side chest pain last night but it is gone now. Pt reports a hx of CHF. Pt states that his "CHF may be flarring up" Pt reports dizziness but denies any other complaints. Location of Pain/Injury: reports: none Pain Radiation: reports: no radiation Quality of Pain: reports: none Severity: reports: mild Onset/Duration: reports: this morning Timing: reports: still present Context/Activities at Onset: reports: none Modifying Factors: improves with: nothing Associated Symptoms: reports: dizziness, shortness of breath Similar Symptoms Previously?: No Recently seen or treated by another doctor?: No Review of Systems - Adult - REVIEW OF SYSTEMS - ADULT Constitutional: reports: see HPI Eyes: reports: no symptoms reported Ears, Nose, Mouth & Throat: reports: no symptoms reported Cardiovascular: reports: see HPI, chest pain (L side chest pain, gone now) Respiratory: reports: see HPI, shortness of breath Gastrointestinal: reports: no symptoms reported Genitourinary: reports: no symptoms reported Musculoskeletal: reports: no symptoms reported Integumentary: reports: no symptoms reported Neurological: reports: see HPI, dizziness/vertigo Psychiatric: reports: no symptoms reported Endocrine: reports: no symptoms reported Hematologic/Lymphatic: reports: no symptoms reported Allergic/Immunologic: reports: no symptoms reported All Other Systems: Reviewed and Negative Past History - Adult - PAST MEDICAL HISTORY-ADULT Review of Records: reports: Old Records Reviewed Major Childhood Illnesses: reports: denies history Cardiovascular: reports: cardiac disease, angina, arrhythmia, CAD, CHF, HTN, hyperlipidemia, [place] Respiratory: reports: sleep apnea Gastrointestinal: reports: denies history Obstetrical/Gynecological: reports: denies history Genitourinary: reports: kidney disease Musculoskeletal: reports: chronic pain Neurological: reports: denies history Psychiatric: reports: depression, other (personality disorder) Endocrine/Immune: reports: Diabetes Other Conditions: reports: denies history - PRIOR SURGERIES/PROCEDURES Surgical/Procedure History: reports: cardiac stent, orthopedic (extremity) (right ankle; shoulder), back/neck (neck) - IMMUNIZATION STATUS Childhood Immunizations: See Nurse Assessment Flu Vaccine: See Nurse Assessment - FAMILY HISTORY Family History: reviewed, not pertinent - SOCIAL HISTORY Smoking: quit greater than 1 year Substance Use: denies Living Situation: family Physical Exam-General - PHYSICAL EXAM-ADULT Initial Vital Signs Reviewed: Yes - CONSTITUTIONAL General Appearance: alert, obese - EYES Eyes: pink conjunctivae - HEAD, EARS, NOSE, MOUTH & THROAT HENMT: normocephalic/atraumatic, moist mucous membranes - NECK Neck: non-tender, full range of motion, normal inspection - RESPIRATORY Respiratory: chest non-tender, lungs clear, normal breath sounds, no pleuratic chest pain, no respiratory distress, no accessory muscle use - CARDIOVASCULAR Cardiovascular: normal peripheral pulses, regular rate, rhythm, no edema, no gallop, no JVD, no murmur. negative: bradycardia, tachycardia - GASTROINTESTINAL (ABDOMEN) Abdominal Exam: normal bowel sounds, non tender, soft - MUSCULOSKELETAL Back Exam: normal inspection, no CVA tenderness, no vertebral tenderness Extremity: normal range of motion, non-tender, normal inspection - SKIN Integumentary: normal color, normal turgor, warm/dry. negative: ecchymosis, erythema - NEUROLOGIC Neurologic: grossly normal - PSYCHIATRIC Psych/Mental Status: normal mood/affect, normal thought content, normal thought process, oriented x 3 Progress - PLAN OF CARE/RESULTS Progress/Plan/Lab Results: Vital Signs - 8 hr 10/28/19 22:37 Temperature 97.8 F Pulse Rate 109 H Respiratory Rate 19 Blood Pressure 109/88 O2 Sat by Pulse Oximetry 97 Orders Category Date Time Status cxr [CHEST-1 VIEW] [RAD] Stat Exams 10/28/19 22:37 Ordered ABG [RESP] Routine Lab 10/28/19 22:37 Ordered CBC WITH ELECTRONIC DIFF [HEME] Stat Lab 10/28/19 22:37 Uncollected COMPREHENSIVE METABOLIC PANEL [CHEM] Stat Lab 10/28/19 22:37 Uncollected PRO B-NATRIURETIC PEPTIDE Stat Lab 10/28/19 22:37 Uncollected PROTIME WITH INR [COAG] Stat Lab 10/28/19 22:37 Uncollected PTT [COAG] Stat Lab 10/28/19 22:37 Uncollected TROPONIN T HIGH SENSITIVITY Stat Lab 10/28/19 22:37 Uncollected EKG [EKG] Stat Ther 10/28/19 22:24 Ordered While in the ER pt sats were observed to drop into 60 % range. Result Diagrams: 10/28/19 23:49 10/29/19 01:27 - EKG 1 Time of EKG reading by physician:: 22:29 EKG Read and Signed by:: Vinnie Hein EKG Interpretation (*Must complete 3 of following elements*): Abnormal (left anterior fascicular block Left ventricular hypertrophy) Rate: 85 Rhythm: NSR [facility]: normal QRS: normal [place] Interval: normal ST Wave: normal Prior EKG Comparison: no prior EKG Comments: Possible left atrial enlargement - CONSULTS/PCP/HOSPITALIST Notification #1 *Consult/PCP/Hospitalist*: Dr Mckinney Time Discussed: 03:59 Consult Disposition: Will see in ED, Admit Departure - Departure Date of Disposition Decision: 10/29/19 Time of Disposition Decision: 03:59 DIAGNOSIS: CHF (congestive heart failure), Chest pain, Cardiac enzymes elevated, Hypoxia Disposition: HOME 01 Certified Medical Emergency: Emergent Condition: Fair Referrals and Follow-Ups: Selvin Frank MD [Primary Care Provider] - - Critical Care Note This patient required my direct & personal management of CC.: No Attestation - Physician/ JARRED Attestation Patient care was provided by Advanced Practice Provider:: No The physician spent face to face time with patient:: Yes Advanced Practice Provider documentation review:: Supervising physician onsite and consulted in the evaluation and care of this patient. The physician did have a face to face encounter with the patient. This chart was documented by the indicated scribe, (Jaida Ramires Scribe) and accurately reflects the services I performed and decisions made by me, Vinnie Hein MD, as attested by the provider's signature.
--- NOTE | 2019-10-29 04:50 | HISTORY AND PHYSICAL ---
PRIMARY CARE PHYSICIAN: Dr. Selvin Frank. CHIEF COMPLAINT: Shortness of breath x1 day. HISTORY OF PRESENTING ILLNESS: A 54-year-old male with a history of CHF, EF 20%, hypertension, diabetes mellitus type 2, morbid obesity, who had presented to emergency department with a 1-day history of having worsening shortness of breath. The patient states that he was having trouble breathing and subsequently had come to the emergency department. In the ED, he was evaluated. He was somewhat dyspneic and due to his presenting symptoms it was thought that we will place him for observation for further evaluation and management. At the time of my examination, he denied any headache, fever, chills, chest pain, hemoptysis, melena, or any weight changes, but complained of shortness of breath. PAST MEDICAL HISTORY: Include diabetes mellitus type 2, hypertension, CHF, EF 20%, morbid obesity, obstructive sleep apnea, paroxysmal atrial fibrillation, GERD. PAST SURGICAL HISTORY: Left foot 2nd toe amputation. ALLERGIES: No known drug allergies. CURRENT MEDICATIONS: Acetaminophen 650 mg p.o. q.6 hours, Eliquis 5 mg p.o. b.i.d., aspirin 81 mg p.o., atorvastatin 40 mg p.o. at bedtime, carvedilol 6.25 mg p.o. b.i.d., folic acid 1 mg p.o. daily, Lasix 80 mg p.o. b.i.d., hydralazine 25 mg p.o. b.i.d., [place] 5/325 one p.o. q.6 hours, insulin glargine units subcutaneous b.i.d., melatonin 1 capsule at bedtime, nitroglycerin 0.4 mg p.o. q.5 minutes p.r.n., temazepam 15 mg p.o. at bedtime. SOCIAL HISTORY: No history of smoking. Admits to social alcohol use in the past. Denies any illicit drug use. FAMILY HISTORY: No history of coronary artery disease. REVIEW OF SYSTEMS: A point review of systems is as listed in HPI. Other systems negative. PHYSICAL EXAMINATION: GENERAL: Cooperative, friendly male. He is resting comfortably now. VITAL SIGNS: Temperature 97.8 degrees, pulse 109, respiration 19, blood pressure 109/88. HEENT: Atraumatic, normocephalic. Extraocular movements intact. PERRLA. NECK: No masses. CHEST: Bibasilar rales. CARDIOVASCULAR: Regular rate and rhythm. ABDOMEN: Soft, obese, positive bowel sounds. EXTREMITIES: +1 edema. NEUROLOGIC: He is awake, alert, oriented x3. GENITOURINARY: No bladder distention. SKIN: Warm. LABORATORIES AND STUDIES: WBC 6.06, hemoglobin 13.5, hematocrit 42.9, platelets 179,000. Blood gas shows a pH of 7.39. Sodium 133, potassium 5.0, chloride 92, CO2 is 29, BUN is 47, creatinine is 1.8, glucose is 419. ASSESSMENT: This is a 54-year-old morbidly obese male with a history of diabetes mellitus type 2, hypertension, congestive heart failure, ejection fraction 20%, who had presented to emergency department with 1-day history of having worsening shortness of breath. The patient was evaluated in the emergency department. It was suspected he was having exacerbation of his CHF. Subsequently, we will place him for observation for further evaluation and management. 1. Suspected mild congestive heart failure exacerbation. 2. Diabetes mellitus type 2 with hyperglycemia. 3. Hypertension. 4. Morbid obesity. PLAN: 1. We will admit patient to medical floor with telemetry. 2. Put patient on supplemental oxygen. Continue with gentle diuresis. 3. We will consult his automotive manager. 4. We will monitor blood glucose, put patient on sliding scale insulin regimen. 5. We will monitor blood pressure. Resume antihypertensive agent. 6. Patient is already on Eliquis and that will suffice for DVT prophylaxis. 7. We will continue to follow, reassess and make further recommendation based on patient's clinical course. cc: Henrik Mckinney MD MTDD
--- NOTE | 2019-10-29 05:49 | Diag Imaging Result Doc PS360 ---
EXAM: CHEST-1 VIEW HISTORY: sob TECHNIQUE: Single view COMPARISON: 07/19/2019 FINDINGS: Poor inspiratory effort. Heart is borderline mildly prominent and there is mild vascular distention. Questionable underlying infiltrates in the left base. No pleural effusions identified. IMPRESSION: Mild cardiac and vascular prominence. Possible left lower lobe infiltrates. Follow-up PA and lateral recommended. Electronically signed by Robson Mccormack 10/29/2019 5:47 AM
[2019-10-29] MEDS: LASIX IV SCH ×2 (06:57→19:11)
[2019-10-29] MEDS: HUMULIN R SUBQ SCH ×4 (07:50→21:23)
[2019-10-29] MEDS ORDERED: TYLENOL PO PRN (08:16)
[2019-10-29] MEDS ORDERED: COREG PO SCH (09:00)
[2019-10-29] MEDS ORDERED: APRESOLINE PO SCH (09:00)
[2019-10-29] MEDS: ELIQUIS PO SCH ×2 (10:01→21:23)
[2019-10-29] MEDS: ASPIRIN PO SCH (10:02)
[2019-10-29] MEDS: FOLIC ACID PO SCH (10:02)
[2019-10-29] MEDS ORDERED: BIDIL PO ONE (10:15)
[2019-10-29] MEDS ORDERED: COREG PO ONE ×2 (10:15)
--- NOTE | 2019-10-29 10:29 | CARDIOLOGY CONSULTATION ---
DATE: 10/29/2019 REASON FOR CONSULTATION: Cardiology was consulted for shortness of breath, heart failure. HISTORY OF PRESENT ILLNESS: Mr. Tran is a 54-year-old, -[place] gentleman with nonischemic cardiomyopathy, severe LV dysfunction. He comes in with complaints of increasing shortness of breath for a couple of days. He also has noticed increasing pedal edema, especially on the left leg. He has been taking his medications regularly. He became orthopneic. Came to the emergency room. Denies any chest pain. There are no palpitations. There is no dizziness or syncope. REVIEW OF SYSTEMS: A 14-point review of systems was done. GI System: There is no history of nausea, vomiting, or diarrhea. There is no history of hematemesis or melena. Central Nervous System: No focal weakness to suggest a CVA or TIA. Genitourinary System: No dysuria or hematuria. PAST MEDICAL HISTORY: 1. Systolic heart failure, severe LV dysfunction, ejection fraction of 15 to 20 percent. 2. Nonischemic cardiomyopathy. He had a cardiac catheterization in the past as well as the last time, 11/29/2017, which revealed left main was normal. LAD mid 50% stenosis. Some calcification was noted. Circumflex normal. Diagonal was normal. Ejection fraction at that time was 20 to 25 percent. 3. History of paroxysmal atrial fibrillation. 4. Anticoagulation therapy. 5. He has had renal insufficiency while he was admitted in the hospital at [place]. He had significant hyperkalemia and elevated creatinine that was thought secondary to ARBs and YOLANDA inhibitors. That is why that has been discontinued. 6. Obstructive sleep apnea. 7. Amputation of his toes. 8. Gastroesophageal reflux disease. 9. History of pancreatitis secondary to alcohol abuse in the past. 10. I had a discussion with him regarding automatic implantable cardioverter defibrillator placement. This was when I had seen him in the office and he was contemplating on that. SOCIAL HISTORY: No history of smoking. Admits to social alcohol use. Denies illicit drugs. PHYSICAL EXAMINATION: Blood pressure was 158/99. Cardiovascular System: Jugular venous pressure was normal. First and second heart sounds were heard. There was soft S3 gallop. Respiratory System: Normal air entry. There were a few scattered wheezes. Distant breath sounds. Abdomen was obese, soft, nontender. There was no guarding or rigidity. Bowel sounds were heard. Examination of the extremities revealed mild pedal edema. ASSESSMENT AND PLAN: Mr. Hank Tran is a 54-year-old, -[place] gentleman with a history of nonischemic cardiomyopathy, severe left ventricular dysfunction, ejection fraction of 20 percent, diabetes, morbid obesity, sleep apnea, has YOLANDA-related hyperkalemia and worsening renal function, history of ventricular tachycardia. He comes in with complaints of increasing shortness of breath and orthopnea. RECOMMENDATIONS: 1. We will give him dobutamine for inotrope at 3 mcg/kg per minute. 2. We will changes medications, increase his Coreg to 12.5 b.i.d. 3. We will change his isosorbide dinitrate and we will start him on BiDil 1 tablet to be taken 3 times a day. 4. Severe left ventricular dysfunction, for AICD placement. We will plan for that as an outpatient. 5. Diabetes. Continue with medications as planned. 6. He is on anticoagulation therapy, on Eliquis. Would recommend continuing with the same. Thank you for the consult. cc: Misael Flowers MD
[2019-10-29] MEDS: DOBUTAMINE 500/D5W 500 MG/250 ML IV.SOLN IV SCH (12:48)
[2019-10-29] MEDS: BIDIL PO SCH ×2 (15:05→19:11)
[2019-10-29] MEDS: LIPITOR PO SCH (21:23)
[2019-10-29] MEDS: COREG PO SCH (21:23)
[2019-10-29] MEDS: DESYREL PO SCH (21:23)
[2019-10-29] MEDS: NORCO-7.5 PO PRN (22:54)
[2019-10-30 06:14] LABS: BASO# 0.02 X1000 (0.0-0.2); BASO% 0.3 % (0.0-0.8); EOS# 0.19 X1000 (0.0-0.7); EOS% 2.9 % (0.0-10.0); HEMATOCRIT 43.4 % (42.0-52.0); LYMPH# 1.98 X1000 (1.2-3.4); LYMPH% 30.2 % (20.5-51.1); MCH 26.1 PG (27-31); MCV 87.1 FL (81-99); MONO# 0.81 X1000 (0.11-0.59); MONO% 12.3 % (1.7-9.3); NEUT# 3.56 X1000 (1.4-6.5); NEUT% 54.3 % (42.2-75.2); PLT 161 X1000 (130-400); RBC 4.98 XMIL (4.7-6.1); RDW 14.1 % (11.5-14.5); WBC 6.56 X1000 (4.8-10.8)
[2019-10-30 06:37] LABS: CREATININE 1.7 mg/dL (0.7-1.2); POTASSIUM 4.6 mmol/L (3.5-5.1)
[2019-10-30] MEDS: HUMULIN R SUBQ SCH (07:13)
[2019-10-30] MEDS: DOBUTAMINE 500/D5W 500 MG/250 ML IV.SOLN IV SCH (07:25)
[2019-10-30] MEDS: ZOFRAN IV PRN ×2 (08:53→22:19)
[2019-10-30] MEDS: ASPIRIN PO SCH (08:53)
[2019-10-30] MEDS: LASIX IV SCH ×2 (08:53→20:26)
[2019-10-30] MEDS: BIDIL PO SCH ×3 (08:53→18:04)
[2019-10-30] MEDS: FOLIC ACID PO SCH (08:53)
[2019-10-30] MEDS: ELIQUIS PO SCH ×2 (08:53→20:26)
[2019-10-30] MEDS: COREG PO SCH ×2 (08:53→20:25)
[2019-10-30 11:08] LABS: HEMOGLOBIN A1C 14.9 % (4.8-6.0)
[2019-10-30] MEDS ORDERED: LANTUS INSULIN SUBQ ONE (11:30)
--- NOTE | 2019-10-30 11:48 | PROGRESS NOTE ---
DATE: 10/30/2019 SUBJECTIVE: This morning Mr. Tran is seen sitting up in a recliner at the bedside. He appears to be doing fairly okay. No new complaints. OBJECTIVE: Vital signs: Blood pressure is 111/86, pulse of 82, respiration is 18, temperature 97.7 degrees. The patient is saturating 98% on nasal cannula. General: Mr. Tran is a 54-year- old morbidly obese gentleman. He was sitting in the recliner in no distress. HEENT: Mucosa is pink and moist. Anicteric. Acyanotic. Neck: Supple. Chest: Good air entry bilaterally. I did not hear any crepitations, no rhonchi. Cardiovascular: Regular rate and rhythm. Abdomen: Soft, nontender. Bowel sounds present. Extremities: No pedal edema. Central Nervous System: The patient is awake, alert, and oriented. DIAGNOSTIC STUDIES: A chest x-ray which was done yesterday shows mild cardiac and vascular prominence, possible left lower lobe infiltrate. CURRENT MEDICATIONS: Have all been reviewed. ASSESSMENT: 1. Dyspnea on presentation secondary to congestive heart failure exacerbation. 2. Severe left ventricle dysfunction with ejection fraction of 15% 20%. 3. Combination of ischemic and nonischemic cardiomyopathy. 4. Morbid obesity with obstructive sleep apnea. 5. Previous history of angiotensin converting enzyme-related hyperkalemia. 6. History of ventricular tachycardia. 7. Diabetes mellitus type 2 with hyperglycemia and presenting A1c of 14.9, consistent with noncompliance. The patient is currently on insulin regimen 8. 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 cc: Dion Moran MD MTDD
[2019-10-30] MEDS: HUMALOG SUBQ SCH ×5 (11:49→20:25)
[2019-10-30] MEDS: NORCO-7.5 PO PRN ×2 (12:30→22:19)
[2019-10-30] MEDS: DESYREL PO SCH (20:25)
[2019-10-30] MEDS: LIPITOR PO SCH (20:26)
[2019-10-31] MEDS: DOBUTAMINE 500/D5W 500 MG/250 ML IV.SOLN IV SCH (03:06)
[2019-10-31] MEDS: ZOFRAN IV PRN ×3 (03:26→21:41)
[2019-10-31] MEDS: HUMALOG SUBQ SCH ×7 (06:10→20:50)
[2019-10-31 07:18] LABS: ALBUMIN 3.4 g/dL (3.5-5.0); CALCIUM 9.1 mg/dL (8.8-10.2); CREATININE 1.9 mg/dL (0.7-1.2); PHOSPHORUS 4.6 mg/dL (2.7-4.5); POTASSIUM 4.8 mmol/L (3.5-5.1)
[2019-10-31] MEDS: ELIQUIS PO SCH ×2 (08:51→20:49)
[2019-10-31] MEDS: NORCO-7.5 PO PRN ×2 (08:51→19:48)
[2019-10-31] MEDS: BIDIL PO SCH (08:51)
[2019-10-31] MEDS: ASPIRIN PO SCH (08:52)
[2019-10-31] MEDS: COREG PO SCH ×2 (08:52→20:49)
[2019-10-31] MEDS: FOLIC ACID PO SCH (08:52)
[2019-10-31] MEDS: LASIX IV SCH (08:53)
[2019-10-31] MEDS: LANTUS INSULIN SUBQ SCH (08:53)
--- NOTE | 2019-10-31 15:22 | PROGRESS NOTE ---
DATE: 10/31/2019 SUBJECTIVE: This morning Mr. Burgos refers to be doing well. No new complaints. OBJECTIVE: Vital signs: Blood pressure is 108/51, pulse of 82, respirations 20, temperature is 97.7 degrees. General: Mr. Tran 54-year-old morbidly obese gentleman. He is in bed, no distress. HEENT: Mucosa is pink and moist. Anicteric. Acyanotic. Neck: Supple. Chest: Good air entry bilateral. I did not hear any crepitations, no rhonchi. Cardiovascular: Regular rate and rhythm. No murmurs, no rubs, no gallops. GI: Abdomen soft, it is protuberant, nontender. No hepatosplenomegaly. Extremities: No pedal edema. 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 No focal deficit. LABORATORY DATA: Chemistry this morning shows sodium of 132, potassium 4.2, chloride 92, BUN is 51, creatinine is 1.9 which has slightly gotten worse. I'S AND O'S: Urine output was 500. Total negative balance in a -638. MEDICATIONS: Have all been reviewed. Patient continues to be on IV dobutamine. ASSESSMENT: 1. Dyspnea on presentation secondary to pulmonary edema from congestive heart failure improved. 2. Severe left ventricle dysfunction with ejection fraction of to 15 to 20 percent, associated with hypoperfusion state. The patient has been started on dobutamine drip from yesterday. Cardiology is on board. 3. Combination of ischemic and nonischemic cardiomyopathy. 4. Morbid obesity with obstructive sleep apnea. 5. History of ventricular tachycardia in the past. 6. Diabetes mellitus with presenting A1c is 14.9. The patient now has been started on insulin regimen. He seems to be doing a lot better. 7. Acute on chronic renal failure, presumably cardiorenal in etiology. DISPOSITION: 1. Mr. Tran is from [facility] long-term. Will be pending on Cardiology recommendation on the dobutamine drip. Hopefully, we can get him off today. 2. He will be returning back to [facility]. cc: Dion Moran MD
[2019-10-31] MEDS: APRESOLINE PO SCH ×2 (17:36→20:49)
[2019-10-31] MEDS: LASIX PO SCH (20:49)
[2019-10-31] MEDS: DESYREL PO SCH (20:49)
[2019-10-31] MEDS: LIPITOR PO SCH (20:49)
[2019-11-01] MEDS: ZOFRAN IV PRN (03:34)
[2019-11-01] MEDS: HUMALOG SUBQ SCH ×7 (06:29→21:35)
[2019-11-01 06:31] LABS: CALCIUM 8.8 mg/dL (8.8-10.2); CREATININE 2.5 mg/dL (0.7-1.2); POTASSIUM 5.6 mmol/L (3.5-5.1)
[2019-11-01] MEDS: APRESOLINE PO SCH ×3 (08:11→21:34)
[2019-11-01] MEDS: COREG PO SCH ×2 (08:11→21:34)
[2019-11-01] MEDS: LASIX PO SCH (08:11)
[2019-11-01] MEDS: LANTUS INSULIN SUBQ SCH (08:11)
[2019-11-01] MEDS: ELIQUIS PO SCH ×2 (08:11→21:34)
[2019-11-01] MEDS: FOLIC ACID PO SCH (08:14)
[2019-11-01] MEDS: NORCO-7.5 PO PRN (11:04)
[2019-11-01 11:25] LABS: UR CREAT RANDOM 151.6 mg/dL (14-26)
[2019-11-01] MEDS: NS 1,000 ML IV SCH (12:29)
--- NOTE | 2019-11-01 16:34 | PROGRESS NOTE ---
DATE: 11/01/2019 SUBJECTIVE: This morning, Mr. Tran refers to be doing well. Denies any new complaints. OBJECTIVELY: Vital Signs: Blood pressure is 112/64, pulse of 81, respirations 18, temperature 99 degrees. Patient is off the dobutamine drip. General: Mr. Tran 54-year-old gentleman. He is in bed, did not seem to be in any cardiopulmonary distress. Mucosa is pink and moist. Anicteric. Acyanotic. He is morbidly obese. BMI is 50.5. Respiratory: There is good air entry bilaterally. There was no crepitations. No rhonchi. Cardiovascular: Regular rate and rhythm. No murmurs. Abdomen: Soft, distended, but nontender. There is no hepatosplenomegaly. Extremities: No pedal edema. Central Nervous System: Patient is awake, alert, and oriented. No focal deficit. LABORATORY DATA: Creatinine is up to 2.5, BUN is 56, potassium is 5.6. ASSESSMENT: 1. Dyspnea on presentation secondary to pulmonary edema from congestive heart failure improved. 2. Severe left ventricle dysfunction with ejection fraction of 15% to 20% associated with hypoperfusion state on admission. Patient was initially started on dobutamine drip. This has been discontinued since yesterday. 3. A combination of ischemic and nonischemic cardiomyopathy. 4. Morbid obesity with obstructive sleep apnea. The patient uses CPAP at home. 5. History of ventricular tachycardia in the past. 6. Diabetes mellitus with presenting A1c of it 14.9. Patient is on insulin regimen. 7. Acute on chronic renal failure, presumably cardiorenal in etiology. However, this morning this continues to be worsened. The patient's fraction excretion of BUN is about 20%, which would be consistent with an intravascular depletion. He looks remarkably dry clinically, so we are going to discontinue the Lasix and hydrate him gently overnight. cc: Dion Moran MD
[2019-11-01] MEDS: DESYREL PO SCH (21:34)
[2019-11-01] MEDS: LIPITOR PO SCH (21:34)
[2019-11-02] MEDS: HUMALOG SUBQ SCH ×4 (06:09→11:39)
[2019-11-02] MEDS: NS 1,000 ML IV SCH ×2 (06:11→09:39)
--- NOTE | 2019-11-02 08:17 | Diag Imaging Result Doc PS360 ---
CHEST-2 VIEWS - 11/02/2019 INDICATION: hypoxia COMPARISON: 10/28/2019 FINDINGS: Stable low lung volumes. No infiltrates or edema. No pneumothorax or pleural effusion. IMPRESSION: Obesity hypoventilation. Electronically signed by Scott Barkley 11/02/2019 8:14 AM
[2019-11-02 08:30] LABS: ALBUMIN 3.5 g/dL (3.5-5.0); CALCIUM 8.9 mg/dL (8.8-10.2); CREATININE 1.7 mg/dL (0.7-1.2); PHOSPHORUS 2.9 mg/dL (2.7-4.5); POTASSIUM 5.3 mmol/L (3.5-5.1)
[2019-11-02] MEDS: COREG PO SCH (09:35)
[2019-11-02] MEDS: APRESOLINE PO SCH (09:35)
[2019-11-02] MEDS: ELIQUIS PO SCH (09:35)
[2019-11-02] MEDS: FOLIC ACID PO SCH (09:35)
[2019-11-02] MEDS: LANTUS INSULIN SUBQ SCH (09:36)
[2019-11-02 11:47] VITALS: BP 145/80
--- NOTE | 2019-11-02 11:54 | DISCHARGE SUMMARY ---
ADMISSION DATE: 10/28/2019 DISCHARGE DATE: 11/02/2019 DISPOSITION: [facility]. CONSULTATION DURING THIS ADMISSION: Cardiology was consulted, patient was seen by Dr. Flowers. INVASIVE PROCEDURES DONE DURING THIS ADMISSION: None. IMAGING STUDIES OF SIGNIFICANCE: A chest x-ray did show mild cardiac and vascular prominence, possible left lower lobe infiltrates. A repeat chest x-ray this morning shows obesity hypoventilation. No infiltrates. No pleural effusions. ADMISSION DIAGNOSES: 1. Suspected mild congestive heart failure. 2. Diabetes mellitus type 2. 3. Hypertension. 4. Morbid obesity. DIAGNOSES AT THE TIME OF DISCHARGE: 1. Dyspnea on presentation secondary to pulmonary edema from congestive heart failure. 2. Severe left ventricular dysfunction with ejection fraction of 15% to 20% associated with hypoperfusion state on admission. Patient was initially treated with dobutamine drip. 3. Combination of ischemic and nonischemic cardiomyopathy. 4. Morbid obesity with obstructive sleep apnea and obesity hypoventilation syndrome. 5. History of ventricular tachycardia in the past. 6. Diabetes mellitus with presenting A1c of 14.9. 7. Acute on chronic renal failure, presumably cardiorenal in etiology with superimposed oral volume depletion. Patient was hydrated overnight. Creatinine is down to 1.7 which seems to be his baseline. 8. History of severe hyperkalemia to YOLANDA inhibitors. DISCHARGE MEDICATIONS: 1. Folic acid 1 mg p.o. daily. 2. Eliquis 5 mg b.i.d. 3. Atorvastatin 40 mg p.o. daily. 4. Aspirin 81 mg p.o. daily. 5. Acetaminophen 650 p.o. q.6. 6. Hydralazine 25 mg p.o. 3 times per day. 7. Insulin lispro 12 units 3 times per day with meals. 8. Carvedilol 6.25 b.i.d. 9. Trazodone 100 mg p.o. at bedtime. 10. Insulin glargine 40 units b.i.d. 11. Furosemide 20 mg p.o. b.i.d. PRESENTING COMPLAINT: Shortness of breath. HISTORY OF PRESENT COMPLAINT: Mr. Tran, a 54-year-old gentleman, morbidly obese, BMI 50.5 with multiple morbidities including diabetes mellitus, congestive heart failure, obstructive sleep apnea, paroxysmal atrial fibrillation, came to the emergency room because of shortness of breath. He was evaluated, was found to be in mild congestive heart failure, admitted to the hospital for further medical care. HOSPITAL COURSE: Mr. Tran was admitted to [facility], was found to be in hypoperfusion state. Cardiology was consulted and started him on dobutamine drip for 48 hours. He was also put on diuretic therapy. During the course of the hospital stay, Mr. Tran became negative balance of over 3654. Yesterday, he was found to have been probably over-diuresis. Creatinine had gone up to 2.5 and a BUN was up to 5.6. He looks quite dry. He was gently hydrated overnight. This morning, BUN is 51 and creatinine is down to 1.7 which seems to be his baseline. His glucose has also been controlled. He presented with an A1c of 14.9. He was just put back on his home medications and his glucose look a lot better, which raises the possibility of medication noncompliance. Mr. Tran, however, this morning looks a lot better. His blood pressure is 152/86, pulse of 87, respiration is 19, temperature is 99.2 degrees, patient is saturating 96% on 5 L. We think he is fairly stable for discharge. Medication compliance has been has been addressed with him. All the discharge instructions have been discussed with him. He voiced understanding. TIME SPENT: For discharge is 36 minutes. cc: MD Selvin Hope MD Ashish K. Basu, MD
== END 2019-11-02 14:42 | DRG 291 ==
LOC: SUPCPDRO → EDIPHOLD 22:08 → ED 22:08 → OBSVTOIN 22:25 → SUATTDRO 22:25 → 3N 10-29 12:40 → EDIPHOLD 10-29 13:09 → 2N 10-29 15:00 → 3N 11-01 17:26
PROVIDERS: ATTEND Internal Medicine